=== PATIENT | male | born 1945 | race Caucasian/White ===

== ENCOUNTER 2023-08-11 13:03 | Inpatient (IN) ==
--- NOTE | 2023-08-11 13:18 | ED Triage Note ---
Date of Service August 11, 2023 History of Present Illness This patient was briefly evaluated while in triage. An abbreviated physical exam was performed. This patient is a 78-year-old Male who presents to the ED for evaluation of abnormal outpatient imaging. The patient saw his PCP this week due to back pain, incontinence, nausea and stomach discomfort. He has also had unexplained weight loss. He had an outpatient CT and MRI which showed cholecystitis, a colonic mass, and metastatic disease. Physical Exam VITALS: Vitals are noted on the nurse's note and reviewed by myself. GENERAL: This is an 78-year-old male, in no acute distress, sitting in a chair in triage. SKIN: The skin was without rashes. HEART: Regular rate and rhythm without murmurs gallops or rubs. LUNGS: Clear to auscultation bilaterally without wheezes, rales or rhonchi. ABDOMEN: Positive bowel sounds x 4. Soft, nontender to palpation. NEURO: Patient was alert and oriented to person place and time. Initial orders for labs and / or imaging were placed and patient was placed in the waiting area until a bed is available. Please see further documentation for the full ED course. MDM / Impression Impression Impression: Cecum mass, Calculus, ureteral, Acute cholecystitis
[2023-08-11 13:57] LABS: Appearance Urine Cloudy (Clear); Bacteria Urine Automated Negative (Negative); Blood Urine 3+ (Negative); Color Urine Dark Yellow; Epithelial Cell Urine Auto >30 /lpf (0-5); Glucose Urine UA Negative (Negative); Ketones Urine Negative (Negative); Leukocyte Esterase Urine Negative (Negative); Nitrite Urine Negative (Negative); Protein Urine 1+ (Negative); Urobilinogen Urine Negative (Negative)
[2023-08-11 14:01] LABS: Bilirubin Urine 1+ (Negative)
[2023-08-11 14:14] LABS: Basophils # (auto) 0.07 K/uL (0.00-0.20); Basophils % (auto) 0.5 %; Hematocrit (blood only) 45.7 % (42.0-52.0); Hemoglobin 15.2 g/dl (14.0-18.0); Immature Granulocytes # (auto) 0.48 K/uL (0.01-0.20); Immature Granulocytes % (auto) 3.6 %; Lymphocytes # (auto) 3.88 K/uL (1.20-3.40); Lymphocytes % (auto) 29.3 %; Mean Corpuscular Hemoglobin 28.6 pg (25.0-34.0); Mean Corpuscular Hgb Conc 33.3 g/dL (32.0-36.0); Mean Corpuscular Volume 85.9 fL (80.0-100.0); Mean Platelet Volume 10.2 fL (9.4-12.4); Monocytes # (auto) 1.55 K/uL (0.11-0.59); Monocytes % (auto) 11.7 %; Neutrophils # (auto) 7.28 K/uL (1.40-6.50); Neutrophils % (auto) 54.9 %; Platelet Count 299 K/uL (130-400); RDW Standard Deviation 48.7 fL (36.4-46.3); Red Blood Count 5.32 M/uL (4.70-6.10); White Blood Count 13.26 K/ul (4.8-10.8)
[2023-08-11 14:20] LABS: Albumin Globulin Ratio 0.9 (0.9-2); Albumin Level 3.6 gm/dl (3.4-5.0); BUN Creatinine Ratio 15.1 (10-20); Bilirubin,Total 1.6 mg/dl (0.2-1.0); Calcium 11.8 mg/dl (8.6-10.3); Creatinine Clr Calc Pharmacy 27.7 ml/min; Est GFR (African American) 35.7 ml/min; Est GFR (Non-African American) 30.8 ml/min; Globulin 4.2 gm/dl (2.5-4.0); Potassium 4.2 mmol/L (3.5-5.1); Total Protein 7.8 gm/dl (6.0-8.3)
[2023-08-11 14:20] LABS: Cast Urine Automated 0 /lpf (0-5)
[2023-08-11] MEDS ORDERED: PIPERACILLIN/TAZOBACTAM 4.5 GM/100 ML BAG IV ONE (14:36)
[2023-08-11] MEDS ORDERED: SODIUM CHLORIDE 0.9% 1,000 ML IV ONE (14:36)
--- NOTE | 2023-08-11 15:13 | Emergency Department Note ---
Impression & Plan Cecum mass, Calculus, ureteral, Acute cholecystitis ED Provider Note HISTORY OF PRESENT ILLNESS: Patient is an 78-year-old male presenting with weight loss. Patient went to his primary care provider because he has lost 35 pounds in the last 30 days. He is also having significant low back pain. His primary care provider did outpatient imaging and referred the patient to the ER given his multitude of problems. Patient denies any abdominal pain, nausea or vomiting. He reports that he has no appetite and the weight loss has been unintentional. Denies any dysuria or hematuria. Denies any chest pain or shortness of breath. Reports just feeling very rundown and tired and having no energy. Patient denies any bowel or bladder incontinence. ROS: as above PHYSICAL EXAM: Constitutional: Patient appears in no acute distress. HENT: Head: Normocephalic and atraumatic. Eyes: EOMI, PERRL Mouth/Throat: Mucous membranes moist. Neck: Trachea midline. Neck supple. Cardiovascular: RRR, No murmurs, rubs or gallops. Intact distal pulses. Pulmonary/Chest: No respiratory distress. Breath sounds clear and equal bilat erally. No wheezes or rales. Abdominal: Abdomen soft, no tenderness, rebound or guarding. Musculoskeletal: No edema, tenderness or deformity noted. Skin: Warm and dry. No rash, erythema, pallor or cyanosis Psychiatric: Appropriate mood and affect for situation. Neurological: Alert and keenly responsive. CN II-XII grossly intact, moving all extremities equally and fully. MDM: - Vitals signs stable. - History obtained via patient. Patient presents with unintentional weight loss. Patient was seen by his primary care provider for an unintentional weight loss of 35 pounds in the last 30 days. Also has been having significant low back pain. No bowel or bladder incontinence. No abdominal pain, nausea or vomiting. He has had no appetite. - Chronic conditions affecting care: CAD; HTN - Differential diagnoses include, but are not limited to: cancer; UTI; p neumonia; ACS - Order placed for continuous cardiac monitoring. At this time, monitor showed rate of 67 bpm with normal sinus rhythm, per my interpretation. - External medical records reviewed. Lumbar spine MRI scan obtained earlier today showed large malignant right cecal mass, compatible hepatic's osseous metastatic disease. CT abdomen/pelvis with IV contrast that was obtained earlier today showed cholelithiasis with evidence of acute cholecystitis. Noted to have a calcified stone in the cystic duct. Also noted to have a large mass in the cecum and diffuse hepatic metastatic disease. Noted to have a 10 mm calculus in the left UPJ with surrounding urothelial thickening. - EKG reviewed by myself showed normal sinus rhythm. Rate 76 bpm. QTc 576. No acute ischemic changes - Laboratory workup interpreted by myself showed leukocytosis (WBC 13.26) with left shift; slight hyponatremia (Na 132); elevated anion gap (19); CKD (Cr 1.99); hypercalcemia (Ca 11.8); normal lipase - UA negative for infection. Noted to have significant blood in urine. - Patient given IV zosyn for CT scan findings of acute cholecystitis. - Discussed case with Dr. Saunders with gastroenterology. Will see as consult in AM. - Discussed case with Dr. Khoury from general surgery. Agreed with antibiotics and will consult in AM. - Discussed case with Soraya with urology service. Team will see as consult on inpatient setting. - Discussion was had with social service worker about patient's case and need for admission - Hospitalist consulted for admission - Patient admitted to [facility] service for further evaluation and management. ASSESSMENT AND PLAN: Diagnosis: cecal mass; acute cholecystitis; left ureteral stone; new neoplastic process Plan: admit Past Med/Surg History Medical History CAD (coronary artery disease) Chronic back pain Cyst of pancreas Hypertension Kidney stones Myocardial Infarction Osteoarthritis Surgical History History of cardiac cath History of coronary artery bypass graft History of herniorrhaphy Family History (Updated 08/10/23 @ 12:38 by Sandie Renteria DO) Brother FHx: pancreatic cancer FHx: liver cancer Brother Prostate cancer Social History Smoking Status: Former smoker Second Hand Exposure: No; Do You Dip or Chew Tobacco: No; Hx Alcohol Use: No Hx Substance Use: No Preferred Language: Sinhala Communication Ability: Effective Visual Impairment: No Limitations 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 Beliefs That Will Affect Care: None Current Living Situation: Spouse Feels Safe at Home: Yes Assistive Devices: Glasses Allergies Allergies Allergy/AdvReac Type Severity Reaction Status Date / Time No Known Allergies Allergy Verified 08/10/23 11:59 Home Meds Home Medications Medication Instructions Recorded Confirmed aspirin 81 mg tablet,delayed 81 mg PO QAM 06/28/19 08/11/23 release (Kevin Low Dose Aspirin) metoprolol tartrate 25 mg tablet 25 mg PO QAM 06/28/19 08/11/23 donepezil 5 mg tablet 5 mg PO HS 08/10/23 08/11/23 rosuvastatin 5 mg tablet (Crestor) 5 mg PO DAILY 08/10/23 08/11/23 nitroglycerin 0.4 mg sublingual 0.4 mg sublingual UD PRN Chest Pain 08/11/23 08/11/23 tablet Previous Rx's Medication Instructions Recorded mirtazapine 15 mg tablet (Remeron) 15 mg PO .qhs #90 tabs 08/10/23 Results & Data (ED) Vital Signs Vital Signs - 24 hr 08/11/23 13:15 08/11/23 14:44 08/11/23 15:47 Temperature 35.4 C L Temperature Source Temporal Artery Scan Pulse Rate 89 Pulse Rate [Radial] 70 67 Pulse Rhythm [Radial] Regular Respiratory Rate 20 18 19 Respiratory Effort / Characteristics Non-Labored Spontaneous Non-Labored Non-Labored Respiratory Depth Normal Normal Normal Respiratory Pattern Regular Regular Blood Pressure 115/79 Blood Pressure [Right Arm] 131/78 113/67 Blood Pressure Mean 91 Blood Pressure Mean [Right Arm] 95 82 Blood Pressure Position [Right Arm] Lying Pulse Oximetry 96 96 94 Oxygen Delivery Method Room Air Room Air Room Air Sepsis Recent Fever Within 48 Hours No Sepsis New/Unexplained Change in Mental Status No Sepsis Action Taken by Nursing No Action Required Laboratory Data 08/11/23 13:33 08/11/23 13:33 Lab Results 08/11/23 08/11/23 08/11/23 Range/Units 13:32 13:33 13:33 WBC 13.26 H (4.8-10.8) K/ul RBC 5.32 (4.70-6.10) M/uL Hgb 15.2 (14.0-18.0) g/dl Hct 45.7 (42.0-52.0) % MCV 85.9 (80.0-100.0) fL MCH 28.6 (25.0-34.0) pg MCHC 33.3 (32.0-36.0) g/dL RDW Std Deviation 48.7 H (36.4-46.3) fL RDW Coeff of Geovanna 16.0 H (11.5-14.5) % Plt Count 299 (130-400) K/uL MPV 10.2 (9.4-12.4) fL Immature Gran % (Auto) 3.6 % Neut % (Auto) 54.9 % Lymph % (Auto) 29.3 % [place] % (Auto) 11.7 % Eos % (Auto) 0.0 % Baso % (Auto) 0.5 % Neut # (Auto) 7.28 H (1.40-6.50) K/uL Lymph # (Auto) 3.88 H (1.20-3.40) K/uL [place] # (Auto) 1.55 H (0.11-0.59) K/uL Eos # (Auto) 0.00 (0.00-0.50) K/uL Baso # (Auto) 0.07 (0.00-0.20) K/uL Immature Gran # (Auto) 0.48 H (0.01-0.20) K/uL Sodium 132 L (136-145) mmol/L Potassium 4.2 (3.5-5.1) mmol/L Chloride 97 L (98-107) mmol/L Carbon Dioxide 16 L (21-32) mmol/L Anion Gap 19 H (3-11) BUN 30 H (6-23) mg/dl Creatinine 1.99 H (0.6-1.4) mg/dl Est Cr Clr Drug Dosing 27.7 ml/min Est GFR ( Amer) 35.7 ml/min Est GFR (Non-Af Amer) 30.8 ml/min BUN/Creatinine Ratio 15.1 (10-20) Glucose 129 H (70-99(Fasting)) mg/dl Calcium 11.8 H (8.6-10.3) mg/dl Total Bilirubin 1.6 H (0.2-1.0) mg/dl AST 45 H (13-39) U/L ALT 14 (7-52) U/L Alkaline Phosphatase 133 H (34-104) U/L Total Protein 7.8 (6.0-8.3) gm/dl Albumin 3.6 (3.4-5.0) gm/dl Globulin 4.2 H (2.5-4.0) gm/dl Albumin/Globulin Ratio 0.9 (0.9-2) Lipase 53 (11-82) U/L Urine Color Dark Yellow Urine Appearance Cloudy A (Clear) Urine pH 5.0 (4.5-7.5) Ur Specific Warren 1.030 (1.000-1.030) Urine Protein 1+ H (Negative) Urine Glucose (UA) Negative (Negative) Urine Ketones Negative (Negative) Urine Blood 3+ H (Negative) Urine Nitrite Negative (Negative) Urine Bilirubin 1+ H (Negative) Urine Urobilinogen Negative (Negative) Ur Leukocyte Esterase Negative (Negative) Urine WBC (Auto) 5-10 H (0-5) /hpf Urine RBC (Auto) 10-30 H (0-4) /hpf U Hyaline Cast (Auto) 0 (0-5) /lpf U Epithel Cells (Auto) >30 H (0-5) /lpf Urine Bacteria (Auto) Negative (Negative) Administered Medications Discontinued Medications Sodium Chloride (Nss) 1,000 mls @ 999 mls/hr IV .[id number] ONE Stop: 08/11/23 15:36 Last Admin: 08/11/23 15:21 Dose: 999 mls/hr Documented By: LILIAN Piperacillin Sod/Tazobactam Sod (Zosyn) 4.5 gm in 100 mls @ 200 mls/hr IV NOW ONE Stop: 08/11/23 15:05 Last Admin: 08/11/23 15:21 Dose: 200 mls/hr Documented By: LILIAN Discharge Plan Visit Data Chief Complaint: Abnormal Labs/Diagnostic Testing Stated Complaint: ABNORMAL TEST RESULTS ED Provider: Veronica Granados Discharge Problem: Cecum mass, Calculus, ureteral, Acute cholecystitis Forms Stand Alone Forms: [facility] Prescriptions Prescriptions: No Action rosuvastatin [Crestor] 5 mg tablet 5 mg PO DAILY donepezil 5 mg tablet 5 mg PO HS mirtazapine [Remeron] 15 mg tablet 15 mg PO .qhs Qty: 90 0RF aspirin [Kevin Low Dose Aspirin] 81 mg Tablet,Delayed Release (Dr/Ec) 81 mg PO QAM metoprolol tartrate 25 mg Tablet 25 mg PO QAM nitroglycerin 0.4 mg tablet, sublingual 0.4 mg sublingual UD PRN (Reason: Chest Pain) Referrals Referrals: Sandie Renteria DO [Primary Care Provider] -
[2023-08-11] MEDS ORDERED: LACTATED RINGER'S 1,000 ML IV ONE (16:25)
--- NOTE | 2023-08-11 16:34 | History & Physical Report ---
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 -Patient is without abdominal discomfort, has had loose stool over the past few week per family but denies diarrhea -No sign of obstruction on CT, patient had a bowel movement this am and is passing gas -GI has been consulted as he will need colonoscopy for biopsy and diagnosis -Will see if GI would want bowel prep started tonight -No signs of bleeding, Hgb has been stable -Will obtain Chest xray for further evaluation -Will hold chemical DVT PPX with multiple procedures likely in the next few days; BL VANITA's for now -Clear liquid diet until midnight then NPO; will start maintenance fluids while NPO -AM CBC, CMP, Mag, PT/INR (2) High anion gap metabolic acidosis: Plan: -AG elevated at 19 with bicarb of 16 -Lactate ordered on admission is elevated at 8.9 -Likely due to dehydration and infection -Patient is very stable and non-toxic appearing at the time of admission -S/P 1L NSS and a dose of Zosyn in the ED -Will give another 1.5L LR on admission to complete his sepsis bolus -Continue maintenance fluids overnight and trend lactate -Continue Zosyn for possible infections, follow infectious workup (3) Acute cholecystitis: Plan: -Ct of the abd/pelvis notes Cholelithiasis with evidence of acute cholecystitis. A calcified stone is seen in the cystic duct -Patient is without abdominal discomfort, negative acosta's sign, no recent nausea/vomiting, and is not septic -LFT's are mildly elevated but relatively stable at this time -General surgery has been consulted and has no urgent plans for OR tonight -Will likely need to coordinate procedures with GI and Urology -Patient is S/P 1L NSS in the ED, will give 1.5 L LR on admission to complete his sepsis bolus based on ideal body weight -S/P one dose of Zosyn in the ED, will continue with zosyn for now -Follow blood and urine cultures -NPO at midnight (4) Calculus, ureteral: Plan: -Noted to have a 10 mm stone at the left ureteropelvic junction with surrounding urothelial thickening. -Patient denies urinary symptoms, renal function is stable, able to void without issue, UA is not grossly infected -Urology has been consulted and is following, appreciate their help -No urgent OR plans tonight as he is stable and relatively asymptomatic -They will see tomorrow and coordinate stent placement -NPO at midnight -Will continue zosyn to cover for possible infected stone and cholecystitis (5) Back pain: Plan: -Has been progressive over the past few months -MRI of the lumbar spine shows extensive osseous metastases without signs of epidural involvement -Also noted Disc protrusion versus sequestered disc fragment at L5-S1 abuts and posteriorly displaces the right S1 nerve root. -No red flag symptoms, pain is currently controlled -PRN IV morphine for now -Fall precautions (6) Elevated INR: Plan: -INR elevated at 2.0 today -Is not on systemic anticoagulation -Likely due to his known hepatic metastases -No signs of bleeding -Will give 10 m IV Vitamin K now in preparation for likely procedures tomorrow -Follow am vitamin K (7) Metastasis of unknown primary: Plan: -Noted on MRI of the lumbar spine and CT of the abd/pelvis today -High suspicion for the large cecal mass as the primary source, will need biopsy to confirm -Coordinating with GI to setup colonoscopy for biopsy, follow results -Will need to get oncology on board after primary malignancy is identified (8) Elevated LFTs: Plan: -Total bili at 1.6, AST of 45, alk phos of 133, ALT WNL -Likely due to hepatic metastases and known cystic duct stone with possible cholecystitis -Hold statin, continue to trend CMP daily -General Surgery and GI have been consulted and are following (9) Dementia: Plan: -Continue Aricept and HS Remeron -Fall precautions (10) Hypertension: Plan: -Stable -Hold metoprolol for now to prevent hypotension (11) CAD (coronary artery disease): Plan: -S/P CABG in the -Hold aspirin for now with elevated INR and multiple procedures likely in the next few days -Hold Crestor while NPO Plan The patient was discussed with Dr. Thompson at the time of the admission History of Present Illness Chief Complaint: abnormal outpatient imaging Primary Care Provider: DO Jose Tabares is an 78 year old male with a PMH significant for CAD S/P in the 90's, stage 3 CKD, and dementia who presented to the [facility] ED on 08/11 at the recommendation of his PCP for abnormal outpatient MRI of the lumbar spine and CT of the abd/pelvis results. Per chart review, the patient went to his PCP on 08/09 due to back pain and recent 35 pound weight loss. MRI of the lumbar spine w/wo con showed signs concerning for lymphatic and hepatic metastases, as-well-as diffuse osseous metastatic disease. It also noted a partially visualized large cecal mass. He was noted to have Disc protrusion versus sequestered disc fragment at L5-S1 abuts and posteriorly displaces the right S1 nerve root. CT of the abd/pelvis wo con was read as "1. Cholelithiasis with evidence of acute cholecystitis. A calcified stone is seen in the cystic duct. Surgical evaluation is advised. 2. There is a large mass lesion involving the cecum. Additionally, there is evidence of diffuse/multifocal hepatic metastatic disease, as well as pathological upper abdominal, retroperitoneal, and mesenteric lymphadenopathy. Top differential considerations are lymphoma versus metastatic colon cancer. Lymphoma is favored given the distribution. Follow-up oncology will be required. 3. Evaluation for nephrolithiasis is significant degraded by the presence of excreted IV contrast in the renal collecting systems and ureters. A 10 mm calculus is seen at the left ureteropelvic junction with surrounding urothelial thickening. No hydronephrosis is identified. 4. Additional smaller nonobstructing bilateral renal calculi are suspected but difficult to evaluate. 5. Emphysema and trace right pleural effusion. 6. Colonic diverticulosis without CT evidence of acute diverticulitis. 7. Diffuse osseous metastatic disease was much better appreciated on today's MRI.". The patient remained stable while in the ED. Labs were significant for a leukocytosis of 13, stable renal function, sodium of 132, AG of 19 with bicarb of 16, glucose of 129, calcium of 11.8 total bili of 1.6, AST of 45, AlK phos of 133, and UA equivocal for infection. The ED staff states that they spoke with General Surgery, Urology, and GI who all confirmed they are comfortable keeping the patient here with medicine admitting. Prior to admission the patient was given a dose of zosyn and 1L NSS. At the time of the exam the patient was lying in bed in no acute distress with his daughter and sitting bedside; history was obtained from all. The patient has been experiencing progressive low back pain which runs transversely across the entire low back and approximately a 35 pound weight loss over the past month. They have also noted loose stool over the past 1-2 weeks but denies blood stool or melena. Otherwise the patient has been virtually asymptomatic compared to the extensive findings on imaging today. They saw Dr. Renteria on 08/09 to establish care and for his recent symptoms and she ordered the MRI and CT of the abd/pelvis. She was the one who called them with the results and to tell them to go to the ED. He denies recent fever, chills, chest pain, SOB, cough, abd pain, flank pain, nausea, vomiting, dysuria, hematuria, increased urinary frequency, LE pain/swelling, and recent trauma. We had a long discussion regarding code status. At this time the patient and his family want him to be a conditional code. He would not want CPR or defibrillation in the event of cardiac arrest. In the event of respiratory failure they would want a trial of intubation. Please refer to Dr. Thompson's attestation for any changes to the treatment plan Allergies Allergy/AdvReac Type Severity Reaction Status Date / Time No Known Allergies Allergy Verified 08/10/23 11:59 Home Medications Medication Instructions Recorded Confirmed Type aspirin 81 mg tablet,delayed 81 mg PO QAM 06/28/19 08/11/23 History release (Kevin Low Dose Aspirin) metoprolol tartrate 25 mg tablet 25 mg PO QAM 06/28/19 08/11/23 History donepezil 5 mg tablet 5 mg PO HS 08/10/23 08/11/23 History mirtazapine 15 mg tablet (Remeron) 15 mg PO .qhs #90 tabs 08/10/23 08/11/23 Rx rosuvastatin 5 mg tablet (Crestor) 5 mg PO DAILY 08/10/23 08/11/23 History nitroglycerin 0.4 mg sublingual 0.4 mg sublingual UD PRN Chest Pain 08/11/23 08/11/23 History tablet Past Med/Surg History Medical History (Updated 08/12/23 @ 07:18 by Buck Durbin MD) CAD (coronary artery disease) s/p stent x 1 (), CABG x2 (2004) Chronic back pain Cyst of pancreas reason for upcoming procedure Hypertension Kidney stones Myocardial Infarction multiple, most recent 2004 Osteoarthritis Surgical History History of cardiac cath 1979's= stent x 1 History of coronary artery bypass graft CABG x2 (2004) History of herniorrhaphy INGUINAL HERNIA REPAIR Family History (Updated 08/10/23 @ 12:38 by Sandie Renteria DO) Brother FHx: pancreatic cancer FHx: liver cancer Brother Prostate cancer Social History Smoking Status: Former smoker Second Hand Exposure: No; Do You Dip or Chew Tobacco: No; Hx Alcohol Use: No Hx Substance Use: No Preferred Language: Gu[place]ian Communication Ability: Effective Visual Impairment: No Limitations Tower Air Traffic Control Specialist Required: No Beliefs That Will Affect Care: None Current Living Situation: Spouse Feels Safe at Home: Yes Safety Concerns: Feels Safe At This Time Assistive Devices: Glasses Physical Exam Physical Exam: Physical Exam: General: In no acute distress, stated age, well-nourished, good hygiene, non- toxic appearing HEENT: Normocephalic, atraumatic, no scleral icterus, pupils around round, symmetrical, and reactive to light, dry mucus membranes, trachea midline, no thyromegaly Chest/Pulm: No respiratory distress, symmetrical chest expansion, clear breath sounds throughout Cardiac: RRR, no murmurs noted Abdomen: Negative for ascites and bruising, normoactive bowel sounds, soft, non-tender to palpation throughout, negative Acosta's sign Musculoskeletal: Symmetrical and without signs of acute trauma, upper and lower extremities with full ROM, no atrophy, spasticity, or flaccidity, tenderness to palpation over the lubar spine and lumbar paraspinal muscles without crepitus Extremities: Radial, dorsalis pedis, and posterior tibial pulses are intact and symmetrical, no edema noted in the BL LE's Skin: Warm, dry, no rashes , lesions, or scars noted Neuro: Alert and oriented to person, place, month, year, and president, no focal defects, no tremors noted Psych: No acute distress, calm and cooperative during the exam Results & Data Results & Data Vital Signs (Past 12 Hours) Vital Signs Temp Pulse Pulse Resp BP BP Pulse Ox 08/11/23 15:47 67 19 113/67 94 08/11/23 14:44 70 18 131/78 96 08/11/23 13:15 35.4 C L 89 20 115/79 96 O2 Del Method 08/11/23 15:47 Room Air 08/11/23 14:44 Room Air 08/11/23 13:15 Room Air Laboratory Results Abnormal lab results 08/11/23 08/11/23 08/11/23 Range/Units 13:30 13:30 13:32 WBC (4.8-10.8) K/ul RDW Std Deviation (36.4-46.3) fL RDW Coeff of Geovanna (11.5-14.5) % Neut # (Auto) (1.40-6.50) K/uL Lymph # (Auto) (1.20-3.40) K/uL [place] # (Auto) (0.11-0.59) K/uL Immature Gran # (Auto) (0.01-0.20) K/uL PT 22.4 H (9.0-12.0) Seconds INR 2.1 H (0.9-1.1) APTT 38.2 H (21.0-31.0) Seconds Sodium (136-145) mmol/L Chloride (98-107) mmol/L Carbon Dioxide (21-32) mmol/L Anion Gap (3-11) BUN (6-23) mg/dl Creatinine (0.6-1.4) mg/dl Glucose (70-99(Fasting)) mg/dl Calcium (8.6-10.3) mg/dl Total Bilirubin (0.2-1.0) mg/dl AST (13-39) U/L Alkaline Phosphatase (34-104) U/L Globulin (2.5-4.0) gm/dl Procalcitonin 0.91 H (0-0.5) ng/ml Urine Appearance Cloudy A (Clear) Urine Protein 1+ H (Negative) Urine Blood 3+ H (Negative) Urine Bilirubin 1+ H (Negative) Urine WBC (Auto) 5-10 H (0-5) /hpf Urine RBC (Auto) 10-30 H (0-4) /hpf U Epithel Cells (Auto) >30 H (0-5) /lpf 08/11/23 08/11/23 Range/Units 13:33 13:33 WBC 13.26 H (4.8-10.8) K/ul RDW Std Deviation 48.7 H (36.4-46.3) fL RDW Coeff of Geovanna 16.0 H (11.5-14.5) % Neut # (Auto) 7.28 H (1.40-6.50) K/uL Lymph # (Auto) 3.88 H (1.20-3.40) K/uL [place] # (Auto) 1.55 H (0.11-0.59) K/uL Immature Gran # (Auto) 0.48 H (0.01-0.20) K/uL PT (9.0-12.0) Seconds INR (0.9-1.1) APTT (21.0-31.0) Seconds Sodium 132 L (136-145) mmol/L Chloride 97 L (98-107) mmol/L Carbon Dioxide 16 L (21-32) mmol/L Anion Gap 19 H (3-11) BUN 30 H (6-23) mg/dl Creatinine 1.99 H (0.6-1.4) mg/dl Glucose 129 H (70-99(Fasting)) mg/dl Calcium 11.8 H (8.6-10.3) mg/dl Total Bilirubin 1.6 H (0.2-1.0) mg/dl AST 45 H (13-39) U/L Alkaline Phosphatase 133 H (34-104) U/L Globulin 4.2 H (2.5-4.0) gm/dl Procalcitonin (0-0.5) ng/ml Urine Appearance (Clear) Urine Protein (Negative) Urine Blood (Negative) Urine Bilirubin (Negative) Urine WBC (Auto) (0-5) /hpf Urine RBC (Auto) (0-4) /hpf U Epithel Cells (Auto) (0-5) /lpf Diagnostic Findings CT SCAN OF THE ABDOMEN AND PELVIS WITHOUT IV CONTRAST CLINICAL HISTORY: Low back pain. Nephrolithiasis. COMPARISON STUDY: MRI of the lumbar spine performed the same day 08/11/2023. TECHNIQUE: CT scan of the abdomen and pelvis is performed from the lung bases to the proximal femora. Images are reviewed in the axial, sagittal, and coronal planes. IV contrast was not administered for this examination. A dose lowering technique was utilized adhering to the principles of ALARA. CT DOSE: 664.79 mGy.cm FINDINGS: Lung bases: The patient is status post midline sternotomy. The heart is top normal in size and without pericardial effusion. The coronary arteries are densely calcified. Edematous change is observed. There is trace right pleural effusion. Scarring/atelectasis is noted at the lung bases. No airspace consolidation is seen typical for pneumonia. Liver: The unenhanced liver is heterogeneous attenuation. There is hypertrophy of the left lobe. Mild nodularity of the surface contour suggests morphologic changes of cirrhosis. There is no intrahepatic biliary ductal dilatation. There is evidence of multifocal hepatic metastatic disease with greater than 10 lesions identified. A hardware supplies sales representative left lobe lesion seen on image #54 measures up to 3.1 cm. Gallbladder: The gallbladder is distended and contains numerous gallstones. A gallstone is seen in the cystic duct on axial image #91. There is pericholecystic infiltration. Spleen: Normal in size and attenuation, measuring 11.2 cm in length. Pancreas: The unenhanced pancreas is grossly unremarkable. Adrenal glands: Unremarkable. Kidneys: The unenhanced kidneys the lungs are cortical atrophy and are without hydronephrosis. A 10 mm calculus is suggested at the left ureteropelvic junction on axial image #149. There is surrounding urothelial thickening. Additional smaller renal calculi are suspected bilaterally. This is difficult to assess due to the presence of excreted IV contrast within the renal collecting systems. There is no evidence of ureteral stone. Simple and complex/hyperdense renal cysts measure up to 2.4 cm. A circumaortic left renal vein is incidentally noted. Abdominal vasculature: There is moderate to advanced atherosclerotic calcification and ectasia of the abdominal aorta. Bowel: There is moderate colonic diverticulosis without CT evidence of acute diverticulitis. No bowel obstruction is seen. The appendix is not visualized. There is a large mass lesion involving the cecum with surrounding lymphadenopathy. The mass lesion is best seen on axial image 181 and measures approximately 11 x 6.5 cm. Peritoneum: There is no intraperitoneal free air or abdominal ascites. Lymphadenopathy: There is pathologic upper abdominal, retroperitoneal, and mesenteric lymphadenopathy. A gastrohepatic node on image #67 measures 1.8 x 1.5 cm. A precaval node on image #111 measures 2.1 x 1.7 cm. A kirit aggregate in the hepatic hilum on image #86 measures approximately 6 x 4 cm in aggregate dimension. A mesenteric kirit aggregate in the right lower quadrant on image #144 measures approximately 6 x 5 cm in aggregate dimension. An enlarged right cardiophrenic node on image #42 measures 1.7 x 1.1 cm. There is no pelvic sidewall or inguinal lymphadenopathy. Pelvic viscera: The prostate gland is enlarged and heterogeneous. The bladder wall appears mildly thickened/trabeculated indicating chronic outlet obstruction. The bladder contains excreted IV contrast. There are bilateral fat- containing inguinal hernias. Skeletal structures: The skeletal structures are osteopenic. There is mild to moderate lumbosacral spondylosis. Diffuse osseous metastatic disease was better visualized on the lumbar spine MRI performed the same day. The lesions were not clearly visualized on CT. IMPRESSION: 1. Cholelithiasis with evidence of acute cholecystitis. A calcified stone is seen in the cystic duct. Surgical evaluation is advised. 2. There is a large mass lesion involving the cecum. Additionally, there is evidence of diffuse/multifocal hepatic metastatic disease, as well as pathological upper abdominal, retroperitoneal, and mesenteric lymphadenopathy. Top differential considerations are lymphoma versus metastatic colon cancer. Lymphoma is favored given the distribution. Follow-up oncology will be required. 3. Evaluation for nephrolithiasis is significant degraded by the presence of excreted IV contrast in the renal collecting systems and ureters. A 10 mm calculus is seen at the left ureteropelvic junction with surrounding urothelial thickening. No hydronephrosis is identified. 4. Additional smaller nonobstructing bilateral renal calculi are suspected but difficult to evaluate. 5. Emphysema and trace right pleural effusion. 6. Colonic diverticulosis without CT evidence of acute diverticulitis. 7. Diffuse osseous metastatic disease was much better appreciated on today's MRI. 8. Additional findings as above. ACT 112: Positive. There are findings on this exam that require communication between the performing entity and the patient following Patient Test Result Information Act ([place] Act 112) guidelines. Electronically signed by: Harsha Cabrera M.D. 08/11/2023 11:11 AM Dictated:08/11/23 1055 Transcribed: 08/11/23 1108 MR lumbar spine wo/w con CLINICAL HISTORY: 78 years-old Male with M54.50 - Low back pain, unspecified. Acute low back pain without reported trauma. COMPARISON: Lumbar spine radiographs 08/10/2023. TECHNIQUE: Multiplanar, multi sequence MRI of the lumbar spine was performed without intravenous contrast. FINDINGS: There is prominent mass-like thickening noted within the cecum/ascending colon. Scattered hepatic lesion is suggestive of metastasis measure up to approximately 2.1 cm. Probable left renal cyst, 2.2 cm. There are numerous marrow replacing lesions noted throughout the imaged osseous structures, compatible with metastasis demonstrating decreased T1 signal, increased T2/STIR signal and heterogeneous enhancement. No definite acute pathologic fracture is identified. Periportal lymphadenopathy. T12-L1: Mild facet arthrosis. No central canal or neural foraminal stenosis. L1-L2: Mild intervertebral disc space narrowing with small circumferential annular disc bulge, mild spondylitic spurring with [id number] facet arthrosis. No central canal or foraminal narrowing. L2-L3: Moderate intervertebral disc space narrowing with circumferential disc osteophyte complex and moderate facet arthrosis. The central canal and right neural foramen are patent. Mild left foraminal narrowing. L3-L4: Severe intervertebral disc space narrowing with circumferential disc osteophyte complex. Ligamentum flavum thickening with advanced facet arthrosis. The central canal and left neural foramen are patent. Moderate narrowing of the right lateral recess. [id number] right foraminal narrowing. L4-L5: Mild intervertebral disc space narrowing with spondylotic spurring and small circumferential annular disc bulge. Moderate facet arthrosis. Central canal is patent. Vdzs-se-qizxibch bilateral foraminal narrowing. L5-S1: Moderate intervertebral disc space narrowing with spondylotic spurring and circumferential disc osteophyte complex. There is a focal disc protrusion versus sequestered disc fragment measuring 8 x 7 x 8 mm within the right paracentral distribution with abutment and posterior displacement of the right S1 nerve root. Moderate narrowing of the right lateral recess. The central canal is generally patent. Moderate right with [id number] left foraminal narrowing. IMPRESSION: 1. Partially imaged large malignant right cecal mass is better visualized on the CT abdomen and pelvis study of same day. 2. Lymphatic and hepatic with diffuse osseous metastatic disease. 3. No acute pathologic fracture or large epidural tumor is identified. 4. Disc protrusion versus sequestered disc fragment at L5-S1 abuts and posteriorly displaces the right S1 nerve root. 5. Discogenic degeneration and facet arthrosis as above. ACT 112: Negative or not required by law. The above report was generated using voice recognition software. It may contain grammatical, syntax or spelling errors. Dictated: 08/11/2023 9:53 AM Transcribed: 08/11/2023 10:59 AM Regino [id number] [email or web address] Electronically signed by: Rodrigo Conte M.D. 08/11/2023 11:38 AM Dictated:08/11/23 0953 Transcribed: 08/11/23 1059 ECG Additional Comments: Normal sinus rhythm Possible Left atrial enlargement Left axis deviation Left ventricular hypertrophy ( R in aVL , [place] product ) Inferior infarct (cited on or before 29-JUN-2019) Prolonged QT Abnormal ECG When compared with ECG of 29-JUN-2019 08:12, Significant changes have occurred Code Status & VTE Plan Code Status Conditional; No CPR or defibrillation in the event of cardiac arrest. Would want trial of intubation in the event of respiratory failure VTE Prophylaxis Plan VTE Prophylaxis will be ordered: Yes Supervising Physician Co-Signing Physician Notes I personally saw and examined the patient. I verified all alves points and agree with Raheel Stewart PA-C with the following exceptions and/or additions: 78 year old male presents to the ER with progressive low back pain and weight loss. Outpatient CT concerning for metastatic disease with possible cecal primary. O/E Alert and orientated intermittently, HS RRR, no murmurs, Chest CTAB, Abdo SN, no distension, bowel sounds normal, no edema, no CVA tenderness A/P Cecal mass with metastatic disease - CEA with AM labs, consult GI to consider colonoscopy (I have a low suspicion of true infection and suggestive moving forward with colonoscopy for diagnosis of mass as long as INR corrected), consult oncology Elevated INR - unclear if this is due to decreased liver function given his platelets are unremarkable, Vitamin K 10mg IV to reverse and vitamin deficiency, repeat INR with AM labs Thickening of gall bladder wall - effectively an imaging finding - he is not having pain here, LFTs relatively unremarkable especially with mass involvement of his liver, cover with Zosyn pending blood culture results, consult general surgery but would advise against intervention unless LFTs getting worse or suspected source of infection if blood cultures subsequently positive. Low suspicion of acute cholecystitis unless he starts having RUQ pain. Ureterolithiasis - consult urology, does not appear to be having pain from this. UA not suggestive of infection. Unclear if affecting him acutely. Possible an incidental finding although history was having some low back pain Lactic acidosis, anion gap metabolic acidosis - suspect reduced clearance but will treat as sepsis with bolus of fluids. suspect lactate is pure cause of his anion gap metabolic acidosis therefore does not require sodium bicarb currently unless getting worse overnight Hypercalcemia - repeat with AM labs after hydration, will switch LR to Normosol overnight PG Care Time/CCT Total # of Minutes Spent Total Time Spent with Patient: Total time spent is greater than 50% in coordination of care (as documented) at patient's floor/unit and/or counseling patient: [place] [address] INT INP/OBS CARE 3/75MIN Patient Type New Medical Decision Making High Complexity Diagnoses Cecum mass K63.89 High anion gap metabolic acidosis E87.29 Acute cholecystitis K81.0 Calculus, ureteral N20.1 Back pain M54.9 Elevated INR R79.1 Metastasis of unknown primary C79.9 Elevated LFTs R79.89 Dementia F03.90 Hypertension I10 CAD (coronary artery disease) I25.10
[2023-08-11 16:49] LABS: Phosphorus 4.3 mg/dl (2.5-4.9)
[2023-08-11 16:50] LABS: INR 2.1 (0.9-1.1); Partial Thromboplastin Ratio 1.4; Partial Thromboplastin Time 38.2 Seconds (21.0-31.0); Prothrombin Time 22.4 Seconds (9.0-12.0)
[2023-08-11] MEDS ORDERED: MoRPHine SULFATE 2 MG/ML CARP IV PRN (17:13)
[2023-08-11] MEDS ORDERED: LACTATED RINGER'S 500 ML IV ONE (17:25)
--- NOTE | 2023-08-11 17:57 | XRay Report ---
SINGLE VIEW CHEST CLINICAL HISTORY: Sepsis. FINDINGS: An AP, portable, upright chest radiograph is obtained. No prior studies are available for c omparison at the time of dictation. The patient is status post midline sternotomy. The heart is enlar ged noting atherosclerotic calcification of the thoracic aorta. Pulmonary vasculature is noncongested . There are trace pleural effusions. Emphysematous change is noted. There is bibasilar scarring/atele ctasis. No pneumothorax is seen. The skeletal structures are osteopenic. The bony thorax is grossly i ntact. IMPRESSION: 1. Cardiomegaly and emphysema without radiographic evidence of congestive failure. 2. Small pleural effusions. ACT 112: Negative or not required by law. Electronically signed by: Harsha Cabrera M.D. 08/11/2023 5:56 PM
[2023-08-11] MEDS ORDERED: PHYTONADIONE 10 MG in DEXTROSE 5% 50 ML IV ONE (18:03)
[2023-08-11] MEDS ORDERED: TAMSULOSIN HCL 0.4 MG CAP PO ONE (18:06)
[2023-08-11] MEDS: DONEPEZIL HCL 5 MG TAB PO SCH (19:39)
[2023-08-11] MEDS: MIRTAZAPINE TAB 15 MG TAB PO SCH (19:39)
--- NOTE | 2023-08-11 19:43 | Surgery Consultation ---
Date of Consultation August 11, 2023 Assessment & Plan (1) Acute cholecystitis: Assessment: Patient is a 78 years old gentleman who presented with the back pain 35 pounds of weight loss. Patient had a CT scan MRI scan show-1, a large cecal mass size about 11 cm time 6.5 cm, no bowel obstruction.2, hepatic metastatic disease,3. gallstone with acute cholecystitis. 4, Possible bone metastatic disease.5, 10 mm stone at ureteropelvic junction. plan, based on pt has no abdominal pain. no surgical indication for cholecystectomy now. GI consult for colonoscopy biopsy cecal mass, repeat labs in the morning, if (T) bilirubin go up, may need ERCP. conservative treatment, based on metastatic disease, prognosis is poor. pt understood. I answered all questions. History of Present Illness Reason for Consultation: cholecystitis Requesting Physician: Roberta Attending Physician: Christoph Thompson MD History of Present Illness CC: CT finding- cholecystitis HPI: Patient is a 78 years old gentleman with a significant past medical history coronary artery disease, CABG x2, myocardial infarction, hypertension, dementia, ureter stone, patient saw his PCP on August 09, 2023, due to back pain and 35 pounds weight loss recent. Patient had a MRI for the back and CT scan abdomen-function patient had 1, a large cecal mass size about 11 cm time 6.5 cm, no bowel obstruction.2, hepatic metastatic disease,3. gallstone with acute cholecystitis. 4, Possible bone metastatic disease.5, 10 mm stone at ureteropelvic junction. Patient was recommended to come to the ER. Patient lie down on the bed comfortable. Patient denies any abdominal pain, no nausea, no vomiting, no fever or chills, positive BM every day. Allergies Allergy/AdvReac Type Severity Reaction Status Date / Time No Known Allergies Allergy Verified 08/10/23 11:59 Home Medications Medication Instructions Recorded Confirmed Type aspirin 81 mg tablet,delayed 81 mg PO QAM 06/28/19 08/11/23 History release (Kevin Low Dose Aspirin) metoprolol tartrate 25 mg tablet 25 mg PO QAM 06/28/19 08/11/23 History donepezil 5 mg tablet 5 mg PO HS 08/10/23 08/11/23 History mirtazapine 15 mg tablet (Remeron) 15 mg PO .qhs #90 tabs 08/10/23 08/11/23 Rx rosuvastatin 5 mg tablet (Crestor) 5 mg PO DAILY 08/10/23 08/11/23 History nitroglycerin 0.4 mg sublingual 0.4 mg sublingual UD PRN Chest Pain 08/11/23 08/11/23 History tablet Patient History Medical History (Updated 08/11/23 @ 17:44 by Raheel Stewart PA-C) CAD (coronary artery disease) s/p stent x 1 (), CABG x2 (2004) Chronic back pain Cyst of pancreas reason for upcoming procedure Hypertension Kidney stones Myocardial Infarction multiple, most recent 2004 Osteoarthritis Surgical History History of cardiac cath = stent x 1 History of coronary artery bypass graft CABG x2 (2004) History of herniorrhaphy INGUINAL HERNIA REPAIR Family History (Updated 08/10/23 @ 12:38 by Sandie Renteria DO) Brother FHx: pancreatic cancer FHx: liver cancer Brother Prostate cancer Social History Smoking Status: Former smoker Second Hand Exposure: No; Do You Dip or Chew Tobacco: No; Hx Alcohol Use: No Hx Substance Use: No Preferred Language: Palauan Communication Ability: Effective Visual Impairment: No Limitations Continuous Improvement Manager Required: No Beliefs That Will Affect Care: None Current Living Situation: Spouse Feels Safe at Home: Yes Safety Concerns: Feels Safe At This Time Assistive Devices: Glasses Review of Systems Constitutional: as per Subjective / HPI Eyes: as per Subjective / HPI Respiratory: as per Subjective / HPI Cardiovascular: as per Subjective / HPI Additional Comments: HTN, CABG x2, NC, cardiac stent Gastrointestinal: as per Subjective / HPI Genitourinary: + problem reported (kidney stone) Musculoskeletal: back pain Neurologic: as per Subjective / HPI Dementia Psychiatric: as per Subjective / HPI Endocrine: as per Subjective / HPI Hematologic / Lymphatic: as per Subjective / HPI Physical Exam Constitutional: WD/WN, vitals as above No distress Eyes: PERRL, conjunctivae normal, anicteric sclerae Neck: trachea midline, no thyromegaly Respiratory: normal respiratory effort, lungs clear to auscultation Cardiovascular: RRR, no murmur, no edema Gastrointestinal (Abdomen): soft, no tenderness, no distend, BS +. Neurologic: patellar DTR's 2+ bilat, sensation intact Psychiatric: A+Ox3, euthymic affect Results & Data Vital Signs (Past 12 Hours) Vital Signs Temp Pulse Pulse Resp BP BP Pulse Ox 08/11/23 18:52 36.7 C 66 18 117/69 95 08/11/23 18:29 89 18 123/82 95 08/11/23 15:47 67 19 113/67 94 08/11/23 14:44 70 18 131/78 96 08/11/23 13:15 35.4 C L 89 20 115/79 96 O2 Del Method 08/11/23 18:52 Room Air 08/11/23 18:29 Room Air 08/11/23 15:47 Room Air 08/11/23 14:44 Room Air 08/11/23 13:15 Room Air Laboratory Results Lab Results 08/11/23 08/11/23 08/11/23 Range/Units 13:30 13:30 13:32 WBC (4.8-10.8) K/ul RBC (4.70-6.10) M/uL Hgb (14.0-18.0) g/dl Hct (42.0-52.0) % MCV (80.0-100.0) fL MCH (25.0-34.0) pg MCHC (32.0-36.0) g/dL RDW Std Deviation (36.4-46.3) fL RDW Coeff of Geovanna (11.5-14.5) % Plt Count (130-400) K/uL MPV (9.4-12.4) fL Immature Gran % (Auto) % Neut % (Auto) % Lymph % (Auto) % [place] % (Auto) % Eos % (Auto) % Baso % (Auto) % Neut # (Auto) (1.40-6.50) K/uL Lymph # (Auto) (1.20-3.40) K/uL [place] # (Auto) (0.11-0.59) K/uL Eos # (Auto) (0.00-0.50) K/uL Baso # (Auto) (0.00-0.20) K/uL Immature Gran # (Auto) (0.01-0.20) K/uL PT 22.4 H (9.0-12.0) Seconds INR 2.1 H (0.9-1.1) APTT 38.2 H (21.0-31.0) Seconds PTT Ratio 1.4 Sodium (136-145) mmol/L Potassium (3.5-5.1) mmol/L Chloride (98-107) mmol/L Carbon Dioxide (21-32) mmol/L Anion Gap (3-11) BUN (6-23) mg/dl Creatinine (0.6-1.4) mg/dl Est Cr Clr Drug Dosing ml/min Est GFR ( Amer) ml/min Est GFR (Non-Af Amer) ml/min BUN/Creatinine Ratio (10-20) Glucose (70-99(Fasting)) mg/dl Lactate (0.4-2.0) mmol/L Calcium (8.6-10.3) mg/dl Ionized Calcium (1.12-1.32) mmol/L Phosphorus (2.5-4.9) mg/dl Magnesium (1.7-2.4) mg/dl Total Bilirubin (0.2-1.0) mg/dl AST (13-39) U/L ALT (7-52) U/L Alkaline Phosphatase (34-104) U/L Total Protein (6.0-8.3) gm/dl Albumin (3.4-5.0) gm/dl Globulin (2.5-4.0) gm/dl Albumin/Globulin Ratio (0.9-2) Lipase (11-82) U/L Procalcitonin 0.91 H (0-0.5) ng/ml Urine Color Dark Yellow Urine Appearance Cloudy A (Clear) Urine pH 5.0 (4.5-7.5) Ur Specific [place] 1.030 (1.000-1.030) Urine Protein 1+ H (Negative) Urine Glucose (UA) Negative (Negative) Urine Ketones Negative (Negative) Urine Blood 3+ H (Negative) Urine Nitrite Negative (Negative) Urine Bilirubin 1+ H (Negative) Urine Urobilinogen Negative (Negative) Ur Leukocyte Esterase Negative (Negative) Urine WBC (Auto) 5-10 H (0-5) /hpf Urine RBC (Auto) 10-30 H (0-4) /hpf U Hyaline Cast (Auto) 0 (0-5) /lpf U Epithel Cells (Auto) >30 H (0-5) /lpf Urine Bacteria (Auto) Negative (Negative) 08/11/23 08/11/23 08/11/23 Range/Units 13:33 13:33 17:23 WBC 13.26 H (4.8-10.8) K/ul RBC 5.32 (4.70-6.10) M/uL Hgb 15.2 (14.0-18.0) g/dl Hct 45.7 (42.0-52.0) % MCV 85.9 (80.0-100.0) fL MCH 28.6 (25.0-34.0) pg MCHC 33.3 (32.0-36.0) g/dL RDW Std Deviation 48.7 H (36.4-46.3) fL RDW Coeff of Geovanna 16.0 H (11.5-14.5) % Plt Count 299 (130-400) K/uL MPV 10.2 (9.4-12.4) fL Immature Gran % (Auto) 3.6 % Neut % (Auto) 54.9 % Lymph % (Auto) 29.3 % [place] % (Auto) 11.7 % Eos % (Auto) 0.0 % Baso % (Auto) 0.5 % Neut # (Auto) 7.28 H (1.40-6.50) K/uL Lymph # (Auto) 3.88 H (1.20-3.40) K/uL [place] # (Auto) 1.55 H (0.11-0.59) K/uL Eos # (Auto) 0.00 (0.00-0.50) K/uL Baso # (Auto) 0.07 (0.00-0.20) K/uL Immature Gran # (Auto) 0.48 H (0.01-0.20) K/uL PT (9.0-12.0) Seconds INR (0.9-1.1) APTT (21.0-31.0) Seconds PTT Ratio Sodium 132 L (136-145) mmol/L Potassium 4.2 (3.5-5.1) mmol/L Chloride 97 L (98-107) mmol/L Carbon Dioxide 16 L (21-32) mmol/L Anion Gap 19 H (3-11) BUN 30 H (6-23) mg/dl Creatinine 1.99 H (0.6-1.4) mg/dl Est Cr Clr Drug Dosing 27.7 ml/min Est GFR ( Amer) 35.7 ml/min Est GFR (Non-Af Amer) 30.8 ml/min BUN/Creatinine Ratio 15.1 (10-20) Glucose 129 H (70-99(Fasting)) mg/dl Lactate (0.4-2.0) mmol/L Calcium 11.8 H (8.6-10.3) mg/dl Ionized Calcium 1.44 H (1.12-1.32) mmol/L Phosphorus 4.3 (2.5-4.9) mg/dl Magnesium 2.0 (1.7-2.4) mg/dl Total Bilirubin 1.6 H (0.2-1.0) mg/dl AST 45 H (13-39) U/L ALT 14 (7-52) U/L Alkaline Phosphatase 133 H (34-104) U/L Total Protein 7.8 (6.0-8.3) gm/dl Albumin 3.6 (3.4-5.0) gm/dl Globulin 4.2 H (2.5-4.0) gm/dl Albumin/Globulin Ratio 0.9 (0.9-2) Lipase 53 (11-82) U/L Procalcitonin (0-0.5) ng/ml Urine Color Urine Appearance (Clear) Urine pH (4.5-7.5) Ur Specific [place] (1.000-1.030) Urine Protein (Negative) Urine Glucose (UA) (Negative) Urine Ketones (Negative) Urine Blood (Negative) Urine Nitrite (Negative) Urine Bilirubin (Negative) Urine Urobilinogen (Negative) Ur Leukocyte Esterase (Negative) Urine WBC (Auto) (0-5) /hpf Urine RBC (Auto) (0-4) /hpf U Hyaline Cast (Auto) (0-5) /lpf U Epithel Cells (Auto) (0-5) /lpf Urine Bacteria (Auto) (Negative) 08/11/23 Range/Units 17:33 WBC (4.8-10.8) K/ul RBC (4.70-6.10) M/uL Hgb (14.0-18.0) g/dl Hct (42.0-52.0) % MCV (80.0-100.0) fL MCH (25.0-34.0) pg MCHC (32.0-36.0) g/dL RDW Std Deviation (36.4-46.3) fL RDW Coeff of Geovanna (11.5-14.5) % Plt Count (130-400) K/uL MPV (9.4-12.4) fL Immature Gran % (Auto) % Neut % (Auto) % Lymph % (Auto) % [place] % (Auto) % Eos % (Auto) % Baso % (Auto) % Neut # (Auto) (1.40-6.50) K/uL Lymph # (Auto) (1.20-3.40) K/uL [place] # (Auto) (0.11-0.59) K/uL Eos # (Auto) (0.00-0.50) K/uL Baso # (Auto) (0.00-0.20) K/uL Immature Gran # (Auto) (0.01-0.20) K/uL PT (9.0-12.0) Seconds INR (0.9-1.1) APTT (21.0-31.0) Seconds PTT Ratio Sodium (136-145) mmol/L Potassium (3.5-5.1) mmol/L Chloride (98-107) mmol/L Carbon Dioxide (21-32) mmol/L Anion Gap (3-11) BUN (6-23) mg/dl Creatinine (0.6-1.4) mg/dl Est Cr Clr Drug Dosing ml/min Est GFR ( Amer) ml/min Est GFR (Non-Af Amer) ml/min BUN/Creatinine Ratio (10-20) Glucose (70-99(Fasting)) mg/dl Lactate 8.9 H* (0.4-2.0) mmol/L Calcium (8.6-10.3) mg/dl Ionized Calcium (1.12-1.32) mmol/L Phosphorus (2.5-4.9) mg/dl Magnesium (1.7-2.4) mg/dl Total Bilirubin (0.2-1.0) mg/dl AST (13-39) U/L ALT (7-52) U/L Alkaline Phosphatase (34-104) U/L Total Protein (6.0-8.3) gm/dl Albumin (3.4-5.0) gm/dl Globulin (2.5-4.0) gm/dl Albumin/Globulin Ratio (0.9-2) Lipase (11-82) U/L Procalcitonin (0-0.5) ng/ml Urine Color Urine Appearance (Clear) Urine pH (4.5-7.5) Ur Specific [place] (1.000-1.030) Urine Protein (Negative) Urine Glucose (UA) (Negative) Urine Ketones (Negative) Urine Blood (Negative) Urine Nitrite (Negative) Urine Bilirubin (Negative) Urine Urobilinogen (Negative) Ur Leukocyte Esterase (Negative) Urine WBC (Auto) (0-5) /hpf Urine RBC (Auto) (0-4) /hpf U Hyaline Cast (Auto) (0-5) /lpf U Epithel Cells (Auto) (0-5) /lpf Urine Bacteria (Auto) (Negative) Diagnostic Findings CT SCAN OF THE ABDOMEN AND PELVIS WITHOUT IV CONTRAST CLINICAL HISTORY: Low back pain. Nephrolithiasis. COMPARISON STUDY: MRI of the lumbar spine performed the same day 08/11/2023. TECHNIQUE: CT scan of the abdomen and pelvis is performed from the lung bases to the proximal femora. Images are reviewed in the axial, sagittal, and coronal planes. IV contrast was not administered for this examination. A dose lowering technique was utilized adhering to the principles of ALARA. CT DOSE: 664.79 mGy.cm FINDINGS: Lung bases: The patient is status post midline sternotomy. The heart is top normal in size and without pericardial effusion. The coronary arteries are densely calcified. Edematous change is observed. There is trace right pleural effusion. Scarring/atelectasis is noted at the lung bases. No airspace consolidation is seen typical for pneumonia. Liver: The unenhanced liver is heterogeneous attenuation. There is hypertrophy of the left lobe. Mild nodularity of the surface contour suggests morphologic changes of cirrhosis. There is no intrahepatic biliary ductal dilatation. There is evidence of multifocal hepatic metastatic disease with greater than 10 lesions identified. A outbound sales representative left lobe lesion seen on image #54 measures up to 3.1 cm. Gallbladder: The gallbladder is distended and contains numerous gallstones. A gallstone is seen in the cystic duct on axial image #91. There is pericholecystic infiltration. Spleen: Normal in size and attenuation, measuring 11.2 cm in length. Pancreas: The unenhanced pancreas is grossly unremarkable. Adrenal glands: Unremarkable. Kidneys: The unenhanced kidneys the lungs are cortical atrophy and are without hydronephrosis. A 10 mm calculus is suggested at the left ureteropelvic junction on axial image #149. There is surrounding urothelial thickening. Additional smaller renal calculi are suspected bilaterally. This is difficult to assess due to the presence of excreted IV contrast within the renal collecting systems. There is no evidence of ureteral stone. Simple and complex/hyperdense renal cysts measure up to 2.4 cm. A circumaortic left renal vein is incidentally noted. Abdominal vasculature: There is moderate to advanced atherosclerotic calcification and ectasia of the abdominal aorta. Bowel: There is moderate colonic diverticulosis without CT evidence of acute diverticulitis. No bowel obstruction is seen. The appendix is not visualized. There is a large mass lesion involving the cecum with surrounding lymphadenopathy. The mass lesion is best seen on axial image 181 and measures approximately 11 x 6.5 cm. Peritoneum: There is no intraperitoneal free air or abdominal ascites. Lymphadenopathy: There is pathologic upper abdominal, retroperitoneal, and mesenteric lymphadenopathy. A gastrohepatic node on image #67 measures 1.8 x 1.5 cm. A precaval node on image #111 measures 2.1 x 1.7 cm. A kirit aggregate in the hepatic hilum on image #86 measures approximately 6 x 4 cm in aggregate dimension. A mesenteric kirit aggregate in the right lower quadrant on image #144 measures approximately 6 x 5 cm in aggregate dimension. An enlarged right cardiophrenic node on image #42 measures 1.7 x 1.1 cm. There is no pelvic sidewall or inguinal lymphadenopathy. Pelvic viscera: The prostate gland is enlarged and heterogeneous. The bladder wall appears mildly thickened/trabeculated indicating chronic outlet obstruction. The bladder contains excreted IV contrast. There are bilateral fat- containing inguinal hernias. Skeletal structures: The skeletal structures are osteopenic. There is mild to moderate lumbosacral spondylosis. Diffuse osseous metastatic disease was better visualized on the lumbar spine MRI performed the same day. The lesions were not clearly visualized on CT. IMPRESSION: 1. Cholelithiasis with evidence of acute cholecystitis. A calcified stone is seen in the cystic duct. Surgical evaluation is advised. 2. There is a large mass lesion involving the cecum. Additionally, there is evidence of diffuse/multifocal hepatic metastatic disease, as well as pathological upper abdominal, retroperitoneal, and mesenteric lymphadenopathy. Top differential considerations are lymphoma versus metastatic colon cancer. Lymphoma is favored given the distribution. Follow-up oncology will be required. 3. Evaluation for nephrolithiasis is significant degraded by the presence of excreted IV contrast in the renal collecting systems and ureters. A 10 mm calculus is seen at the left ureteropelvic junction with surrounding urothelial thickening. No hydronephrosis is identified. 4. Additional smaller nonobstructing bilateral renal calculi are suspected but difficult to evaluate. 5. Emphysema and trace right pleural effusion. 6. Colonic diverticulosis without CT evidence of acute diverticulitis. 7. Diffuse osseous metastatic disease was much better appreciated on today's MRI. 8. Additional findings as above. MR lumbar spine wo/w con CLINICAL HISTORY: 78 years-old Male with M54.50 - Low back pain, unspecified. Acute low back pain without reported trauma. COMPARISON: Lumbar spine radiographs 08/10/2023. TECHNIQUE: Multiplanar, multi sequence MRI of the lumbar spine was performed without intravenous contrast. FINDINGS: There is prominent mass-like thickening noted within the cecum/ascending colon. Scattered hepatic lesion is suggestive of metastasis measure up to approximately 2.1 cm. Probable left renal cyst, 2.2 cm. There are numerous marrow replacing lesions noted throughout the imaged osseous structures, compatible with metastasis demonstrating decreased T1 signal, increased T2/STIR signal and heterogeneous enhancement. No definite acute pathologic fracture is identified. Periportal lymphadenopathy. T12-L1: Mild facet arthrosis. No central canal or neural foraminal stenosis. L1-L2: Mild intervertebral disc space narrowing with small circumferential annular disc bulge, mild spondylitic spurring with [id number] facet arthrosis. No central canal or foraminal narrowing. L2-L3: Moderate intervertebral disc space narrowing with circumferential disc osteophyte complex and moderate facet arthrosis. The central canal and right neural foramen are patent. Mild left foraminal narrowing. L3-L4: Severe intervertebral disc space narrowing with circumferential disc osteophyte complex. Ligamentum flavum thickening with advanced facet arthrosis. The central canal and left neural foramen are patent. Moderate narrowing of the right lateral recess. [id number] right foraminal narrowing. L4-L5: Mild intervertebral disc space narrowing with spondylotic spurring and small circumferential annular disc bulge. Moderate facet arthrosis. Central canal is patent. [id number] bilateral foraminal narrowing. L5-S1: Moderate intervertebral disc space narrowing with spondylotic spurring and circumferential disc osteophyte complex. There is a focal disc protrusion versus sequestered disc fragment measuring 8 x 7 x 8 mm within the right paracentral distribution with abutment and posterior displacement of the right S1 nerve root. Moderate narrowing of the right lateral recess. The central canal is generally patent. Moderate right with [id number] left foraminal narrowing. IMPRESSION: 1. Partially imaged large malignant right cecal mass is better visualized on the CT abdomen and pelvis study of same day. 2. Lymphatic and hepatic with diffuse osseous metastatic disease. 3. No acute pathologic fracture or large epidural tumor is identified. 4. Disc protrusion versus sequestered disc fragment at L5-S1 abuts and posteriorly displaces the right S1 nerve root. 5. Discogenic degeneration and facet arthrosis as above.
[2023-08-11] MEDS: PIPERACILLIN/TAZOBACTAM 4.5 GM in DEXTROSE 5% MINI-B 100 ML IV SCH (20:46)
[2023-08-11] MEDS ORDERED: INFLUENZA HI-DOSE VACCINE (HD-IIV4) (Fluzone-HD) IM ONE (21:15)
[2023-08-11] MEDS ORDERED: LAVAGE SOLUTION 4000ML PO SCH (21:30)
[2023-08-11] MEDS ORDERED: LACTATED RINGER'S 1,000 ML IV SCH (22:00)
[2023-08-11] MEDS: PLASMA-LYTE A 1,000 ML IV SCH (22:26)
[2023-08-12] MEDS: PIPERACILLIN/TAZOBACTAM 4.5 GM in DEXTROSE 5% MINI-B 100 ML IV SCH ×3 (04:06→21:04)
--- NOTE | 2023-08-12 07:11 | Consultation ---
Date of Consultation August 12, 2023 Assessment & Plan (1) Elevated INR: Elevated INR may reflect a combination of nutritional issues and evolving liver dysfunction. He did receive a dose of AquaMEPHYTON 10 mg, will need to do follow-up INR to gauge response. Aspirin is on hold and he is showing no signs of bleeding issues but the INR may be relevant with respect to anticipated need for biopsy to establish his malignancy diagnosis (2) Metastasis of unknown primary: Patient has a large cecal mass, metastases in the liver and skeletal system, and pathologic abdominal adenopathy all the picture which could be highly consistent with primary colon cancer which is probably the statistically highest diagnosis in the differential While this is not a "curative" situation there certainly are some potential treatments that could offer response. We need biopsy confirmation not only to affirm histologic type but to look for microsatellite instability, HER2 expression, and other molecular aspects that might offer augmented possibilities for systemic treatment. Colonoscopy could probably yield a reasonable diagnosis, alternative would be ultrasound-guided liver biopsy which could give generous tissue and would be relatively easily performed though to do so most safely we would want to see his INR improving towards baseline and he would need to be off aspirin for 5 days. While the patient is labeled as having "dementia," at least on basic initial examination he seems to have relatively stable mental status and I think could participate in his own medical decision making. Certainly would like to incorporate the family in those discussions once we have a diagnosis and, as well, palliative care consultation to be important early on in his management. Do note that there is specific potential displacement of the right S1 nerve root and we will need to watch closely for signs of compressive neuropathy that may require intervention though this may be more on the basis of disc disease than ajay malignancy (3) Calculus, ureteral: With high tumor volume uric acid may be elevated exacerbating his issues of renal function and nephrolithiasis. Keeping the urological track functional in his creatinine and best range possible will be critical for optimal outcomes if he is to proceed with systemic chemo. He has no obstructive uropathy at this point but could be at risk for that at any point and we will certainly need to monitor closely clinically and by renal function for any signs of that (4) Hypercalcemia: Given his widespread metastases and current bedrest he is at risk for further elevation of calcium which could reach levels that could be more concerning for preservation of renal function. Would suggest a single dose of Zometa 4 mg Plan 1. The immediate issue is medical stabilization 2. I have submitted uric acid and if that is elevated we should certainly address that with allopurinol and, if particularly high, potential rasburicase 3. Need to optimize renal function with attention to any signs or symptoms of evolution of obstructive uropathy from his nephrolithiasis. Would also have a lower threshold for nephrology review if there is inability to achieve stabilization of renal 4. With evolving hypercalcemia and widespread bony metastases would suggest a single dose of Zometa 4 mg to stabilize the situation for now 5. Possible disc disease with S1 nerve root compromise on the right, "curbside" review with Dr. Alvares would be a consideration though without immediate neurological issues probably does not warrant emergent intervention 6. Diagnostic options would be with colonoscopy or with ultrasound-guided liver biopsy though will need to see the INR hopefully improve (or consider FFP at time of procedure) and be off of aspirin for 5 days especially for a liver biopsy 7. Palliative care consultation could be very helpful as we approach larger discussions of his prognosis and treatment options 8. Specific treatment options will need to be based not only on histologic confirmation but also on molecular characterization particularly with respect to microsatellite status and HER2 expression. This would not be a curative situation and we will need to make sure that the patient's life goals and care parameters are incorporated into ultimate determination of treatment plan. 9. Pain management for back pain History of Present Illness Reason for Consultation: Colonic mass with evidence of widespread metastatic disease Attending Physician: Christoph Thompson MD History of Present Illness 78-year-old gentleman. Note that the chart lists "dementia" as a diagnosis but patient is oriented to person place and time (he cannot give the exact date but knows that it is August,) and seems to give a reasonable accounting of his history. He has no previous history of malignancy. He indicates that he has not had colonoscopies or stool screenings. There is no family history of colorectal cancer or any other disorder or unusual pattern of malignancy in the family of which he is aware. He is a former smoker but quit in 1996, is not significant alcohol drinker. 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 He describes no change in his bowel habits with no specific melena, hematochezia, nausea, vomiting, or hematemesis. He has had some longstanding back pain that had worsened in recent weeks in conjunction with an approximately 20 pound weight loss. Lumbar spine imaging done to work that up showed evidence of metastatic bone disease. Abdominal/pelvic imaging shows a colonic mass and widespread liver and kirit metastases. Currently he seems reasonably comfortable and in no acute distress. We do note history of coronary artery disease status post in 1994 CABG. He has a history of hypertension and of nephrolithiasis Allergies Allergy/AdvReac Type Severity Reaction Status Date / Time No Known Allergies Allergy Verified 08/10/23 11:59 Home Medications Medication Instructions Recorded Confirmed Type aspirin 81 mg tablet,delayed 81 mg PO QAM 06/28/19 08/11/23 History release (Kevin Low Dose Aspirin) metoprolol tartrate 25 mg tablet 25 mg PO QAM 06/28/19 08/11/23 History donepezil 5 mg tablet 5 mg PO HS 08/10/23 08/11/23 History mirtazapine 15 mg tablet (Remeron) 15 mg PO .qhs #90 tabs 08/10/23 08/11/23 Rx rosuvastatin 5 mg tablet (Crestor) 5 mg PO DAILY 08/10/23 08/11/23 History nitroglycerin 0.4 mg sublingual 0.4 mg sublingual UD PRN Chest Pain 08/11/23 08/11/23 History tablet Patient History Medical History (Updated 08/12/23 @ 07:18 by Buck Durbin MD) CAD (coronary artery disease) s/p stent x 1 (), CABG x2 (2004) Chronic back pain Cyst of pancreas reason for upcoming procedure Hypertension Kidney stones Myocardial Infarction multiple, most recent 2004 Osteoarthritis Surgical History History of cardiac cath = stent x 1 History of coronary artery bypass graft CABG x2 (2004) History of herniorrhaphy INGUINAL HERNIA REPAIR Family History (Updated 08/10/23 @ 12:38 by Sandie Renteria DO) Brother FHx: pancreatic cancer FHx: liver cancer Brother Prostate cancer Social History Smoking Status: Former smoker Second Hand Exposure: No; Do You Dip or Chew Tobacco: No; Hx Alcohol Use: No Hx Substance Use: No Preferred Language: Armenian Communication Ability: Effective Visual Impairment: No Limitations Copyman Required: No Beliefs That Will Affect Care: None Current Living Situation: Spouse Feels Safe at Home: Yes Safety Concerns: Feels Safe At This Time Assistive Devices: Glasses Physical Exam Physical Exam: Vital signs are stable. Patient is alert and appropriate. He is soft-spoken but seems fluent, answers appropriately, cognitive function seems basically intact. There are some suggestions of some mild memory issues. He seems in no acute physical distress. As per HPI he seems oriented times 3 HEENT exam is unremarkable. He has no scleral or skin icterus. Neck is supple, he has no cervical, supraclavicular, axillary adenopathy His lungs clear request auscultation, respirations are nonlabored, he is not tachypneic Heart sounds are somewhat distant but seem regular without pathological murmur The abdomen is soft and nondistended. Right upper quadrant does not show a markedly enlarged or tender liver, there is no signs of ascites, there is no other specifically palpable abdominal mass and there is no guarding or rigidity Extremities are symmetric without significant edema compression tenderness or cords On neurologic examination there is no specific focal change in cranial nerves, he seems to have no cerebellar defects, he seems to move all 4 extremities with good strength Results & Data Vital Signs (Past 12 Hours) Vital Signs Temp Pulse Pulse Resp BP Pulse Ox O2 Del Method 08/12/23 03:18 36.7 C 85 18 111/71 92 Room Air 08/11/23 23:47 97 H 08/11/23 23:31 36.7 C 82 18 109/69 94 Room Air 08/11/23 21:16 85 122/77 95 Room Air 08/11/23 20:43 83 18 127/83 95 Room Air 08/11/23 20:27 73 18 152/75 H 94 Room Air 08/11/23 20:14 66 18 138/73 96 Room Air Laboratory Results Laboratory Results - last 24 hr 08/11/23 08/11/23 08/11/23 13:30 13:30 13:32 WBC RBC Hgb Hct MCV MCH MCHC RDW Std Deviation RDW Coeff of Geovanna Plt Count MPV Immature Gran % (Auto) Neut % (Auto) Lymph % (Auto) [place] % (Auto) Eos % (Auto) Baso % (Auto) Neut # (Auto) Lymph # (Auto) [place] # (Auto) Eos # (Auto) Baso # (Auto) Immature Gran # (Auto) PT 22.4 H INR 2.1 H APTT 38.2 H PTT Ratio 1.4 Sodium Potassium Chloride Carbon Dioxide Anion Gap BUN Creatinine Est Cr Clr Drug Dosing Est GFR ( Amer) Est GFR (Non-Af Amer) BUN/Creatinine Ratio Glucose Lactate Calcium Ionized Calcium Phosphorus Magnesium Total Bilirubin AST ALT Alkaline Phosphatase Total Protein Albumin Globulin Albumin/Globulin Ratio Lipase Procalcitonin 0.91 H Urine Color Dark Yellow Urine Appearance Cloudy A Urine pH 5.0 Ur Specific [place] 1.030 Urine Protein 1+ H Urine Glucose (UA) Negative Urine Ketones Negative Urine Blood 3+ H Urine Nitrite Negative Urine Bilirubin 1+ H Urine Urobilinogen Negative Ur Leukocyte Esterase Negative Urine WBC (Auto) 5-10 H Urine RBC (Auto) 10-30 H U Hyaline Cast (Auto) 0 U Epithel Cells (Auto) >30 H Urine Bacteria (Auto) Negative 08/11/23 08/11/23 08/11/23 13:33 13:33 17:23 WBC 13.26 H RBC 5.32 Hgb 15.2 Hct 45.7 MCV 85.9 MCH 28.6 MCHC 33.3 RDW Std Deviation 48.7 H RDW Coeff of Geovanna 16.0 H Plt Count 299 MPV 10.2 Immature Gran % (Auto) 3.6 Neut % (Auto) 54.9 Lymph % (Auto) 29.3 [place] % (Auto) 11.7 Eos % (Auto) 0.0 Baso % (Auto) 0.5 Neut # (Auto) 7.28 H Lymph # (Auto) 3.88 H [place] # (Auto) 1.55 H Eos # (Auto) 0.00 Baso # (Auto) 0.07 Immature Gran # (Auto) 0.48 H PT INR APTT PTT Ratio Sodium 132 L Potassium 4.2 Chloride 97 L Carbon Dioxide 16 L Anion Gap 19 H BUN 30 H Creatinine 1.99 H Est Cr Clr Drug Dosing 27.7 Est GFR ( Amer) 35.7 Est GFR (Non-Af Amer) 30.8 BUN/Creatinine Ratio 15.1 Glucose 129 H Lactate Calcium 11.8 H Ionized Calcium 1.44 H Phosphorus 4.3 Magnesium 2.0 Total Bilirubin 1.6 H AST 45 H ALT 14 Alkaline Phosphatase 133 H Total Protein 7.8 Albumin 3.6 Globulin 4.2 H Albumin/Globulin Ratio 0.9 Lipase 53 Procalcitonin Urine Color Urine Appearance Urine pH Ur Specific [place] Urine Protein Urine Glucose (UA) Urine Ketones Urine Blood Urine Nitrite Urine Bilirubin Urine Urobilinogen Ur Leukocyte Esterase Urine WBC (Auto) Urine RBC (Auto) U Hyaline Cast (Auto) U Epithel Cells (Auto) Urine Bacteria (Auto) 08/11/23 08/11/23 17:33 20:04 WBC RBC Hgb Hct MCV MCH MCHC RDW Std Deviation RDW Coeff of Geovanna Plt Count MPV Immature Gran % (Auto) Neut % (Auto) Lymph % (Auto) [place] % (Auto) Eos % (Auto) Baso % (Auto) Neut # (Auto) Lymph # (Auto) [place] # (Auto) Eos # (Auto) Baso # (Auto) Immature Gran # (Auto) PT INR APTT PTT Ratio Sodium Potassium Chloride Carbon Dioxide Anion Gap BUN Creatinine Est Cr Clr Drug Dosing Est GFR ( Amer) Est GFR (Non-Af Amer) BUN/Creatinine Ratio Glucose Lactate 8.9 H* 8.8 H* Calcium Ionized Calcium Phosphorus Magnesium Total Bilirubin AST ALT Alkaline Phosphatase Total Protein Albumin Globulin Albumin/Globulin Ratio Lipase Procalcitonin Urine Color Urine Appearance Urine pH Ur Specific [place] Urine Protein Urine Glucose (UA) Urine Ketones Urine Blood Urine Nitrite Urine Bilirubin Urine Urobilinogen Ur Leukocyte Esterase Urine WBC (Auto) Urine RBC (Auto) U Hyaline Cast (Auto) U Epithel Cells (Auto) Urine Bacteria (Auto) Diagnostic Findings 08/11/2023 MR L-spine 1. Partially imaged large malignant right cecal mass is better visualized on the CT abdomen and pelvis study of same day. 2. Lymphatic and hepatic with diffuse osseous metastatic disease. 3. No acute pathologic fracture or large epidural tumor is identified. 4. Disc protrusion versus sequestered disc fragment at L5-S1 abuts and posteriorly displaces the right S1 nerve root. 5. Discogenic degeneration and facet arthrosis as above. 08/11/2023 CT abd/pelvis wo Lung bases: The patient is status post midline sternotomy. The heart is top normal in size and without pericardial effusion. The coronary arteries are densely calcified. Edematous change is observed. There is trace right pleural effusion. Scarring/atelectasis is noted at the lung bases. No airspace consolidation is seen typical for pneumonia. Liver: The unenhanced liver is heterogeneous attenuation. There is hypertrophy of the left lobe. Mild nodularity of the surface contour suggests morphologic changes of cirrhosis. There is no intrahepatic biliary ductal dilatation. There is evidence of multifocal hepatic metastatic disease with greater than 10 lesions identified. A membership sales representative left lobe lesion seen on image #54 measures up to 3.1 cm. Gallbladder: The gallbladder is distended and contains numerous gallstones. A gallstone is seen in the cystic duct on axial image #91. There is pericholecystic infiltration. Spleen: Normal in size and attenuation, measuring 11.2 cm in length. Pancreas: The unenhanced pancreas is grossly unremarkable. Adrenal glands: Unremarkable. Kidneys: The unenhanced kidneys the lungs are cortical atrophy and are without hydronephrosis. A 10 mm calculus is suggested at the left ureteropelvic junction on axial image #149. There is surrounding urothelial thickening. Additional smaller renal calculi are suspected bilaterally. This is difficult to assess due to the presence of excreted IV contrast within the renal collecting systems. There is no evidence of ureteral stone. Simple and complex/hyperdense renal cysts measure up to 2.4 cm. A circumaortic left renal vein is incidentally n oted. Abdominal vasculature: There is moderate to advanced atherosclerotic calcification and ectasia of the abdominal aorta. Bowel: There is moderate colonic diverticulosis without CT evidence of acute diverticulitis. No bowel obstruction is seen. The appendix is not visualized. There is a large mass lesion involving the cecum with surrounding lymphadenopathy. The mass lesion is best seen on axial image 181 and measures approximately 11 x 6.5 cm. Peritoneum: There is no intraperitoneal free air or abdominal ascites. Lymphadenopathy: There is pathologic upper abdominal, retroperitoneal, and me senteric lymphadenopathy. A gastrohepatic node on image #67 measures 1.8 x 1.5 cm. A precaval node on image #111 measures 2.1 x 1.7 cm. A kirit aggregate in the hepatic hilum on image #86 measures approximately 6 x 4 cm in aggregate dimension. A mesenteric kirit aggregate in the right lower quadrant on image #144 measures approximately 6 x 5 cm in aggregate dimension. An enlarged right cardiophrenic node on image #42 measures 1.7 x 1.1 cm. There is no pelvic sidewall or inguinal lymphadenopathy. Pelvic viscera: The prostate gland is enlarged and heterogeneous. The bladder wall appears mildly thickened/trabeculated indicating chronic outlet obstruction. The bladder contains excreted IV contrast. There are bilateral fat- containing inguinal hernias. Skeletal structures: The skeletal structures are osteopenic. There is mild to moderate lumbosacral spondylosis. Diffuse osseous metastatic disease was better visualized on the lumbar spine MRI performed the same day. The lesions were not clearly visualized on CT. IMPRESSION: 1. Cholelithiasis with evidence of acute cholecystitis. A calcified stone is seen in the cystic duct. Surgical evaluation is advised. 2. There is a large mass lesion involving the cecum. Additionally, there is evidence of diffuse/multifocal hepatic metastatic disease, as well as pathological upper abdominal, retroperitoneal, and mesenteric lymphadenopathy. Top differential considerations are lymphoma versus metastatic colon cancer. Lymphoma is favored given the distribution. Follow-up oncology will be required. 3. Evaluation for nephrolithiasis is significant degraded by the presence of excreted IV contrast in the renal collecting systems and ureters. A 10 mm calculus is seen at the left ureteropelvic junction with surrounding urothelial thickening. No hydronephrosis is identified. 4. Additional smaller nonobstructing bilateral renal calculi are suspected but difficult to evaluate. 5. Emphysema and trace right pleural effusion. 6. Colonic diverticulosis without CT evidence of acute diverticulitis. 7. Diffuse osseous metastatic disease was much better appreciated on today's MRI. 8. Additional findings as above. Chest X-Ray 08/11/23 16:28 SINGLE VIEW CHEST CLINICAL HISTORY: Sepsis. FINDINGS: An AP, portable, upright chest radiograph is obtained. No prior studies are available for comparison at the time of dictation. The patient is status post midline sternotomy. The heart is enlarged noting atherosclerotic calcification of the thoracic aorta. Pulmonary vasculature is noncongested. There are trace pleural effusions. Emphysematous change is noted. There is bibasilar scarring/atelectasis. No pneumothorax is seen. The skeletal structures are osteopenic. The bony thorax is grossly intact. IMPRESSION: 1. Cardiomegaly and emphysema without radiographic evidence of congestive failure. 2. Small pleural effusions. ACT 112: Negative or not required by law. Electronically signed by: Harsha Cabrera M.D. 08/11/2023 5:56 PM PG Care Time/CCT Total # of Minutes Spent Total Time Spent with Patient: Total time spent is greater than 50% in coordination of care (as documented) at patient's floor/unit and/or counseling patient: [place] [address] IN/OBS CONSULT LVL 4,60M Patient Type New History Expanded Problem Focused Exam Expanded Problem Focused Medical Decision Making High Complexity Diagnoses Elevated INR R79.1 Metastasis of unknown primary C79.9 Calculus, ureteral N20.1 Hypercalcemia E83.52
[2023-08-12 07:43] LABS: Basophils # (auto) 0.05 K/uL (0.00-0.20); Basophils % (auto) 0.6 %; Eosinophils # (auto) 0.01 K/uL (0.00-0.50); Eosinophils % (auto) 0.1 %; Hematocrit (blood only) 36.6 % (42.0-52.0); Hemoglobin 12.5 g/dl (14.0-18.0); Immature Granulocytes # (auto) 0.18 K/uL (0.01-0.20); Immature Granulocytes % (auto) 2.1 %; Lymphocytes # (auto) 2.37 K/uL (1.20-3.40); Lymphocytes % (auto) 27.5 %; Mean Corpuscular Hemoglobin 28.5 pg (25.0-34.0); Mean Corpuscular Hgb Conc 34.2 g/dL (32.0-36.0); Mean Corpuscular Volume 83.4 fL (80.0-100.0); Mean Platelet Volume 10.3 fL (9.4-12.4); Monocytes # (auto) 1.23 K/uL (0.11-0.59); Monocytes % (auto) 14.3 %; Neutrophils # (auto) 4.79 K/uL (1.40-6.50); Neutrophils % (auto) 55.4 %; Platelet Count 219 K/uL (130-400); RDW Coefficient of Variation 15.9 % (11.5-14.5); RDW Standard Deviation 47.6 fL (36.4-46.3); Red Blood Count 4.39 M/uL (4.70-6.10); White Blood Count 8.63 K/ul (4.8-10.8)
[2023-08-12] MEDS: TAMSULOSIN HCL 0.4 MG CAP PO SCH (07:49)
[2023-08-12 08:09] LABS: INR 1.3 (0.9-1.1); Prothrombin Time 13.7 Seconds (9.0-12.0)
[2023-08-12 08:12] LABS: Albumin Level 2.8 gm/dl (3.4-5.0); BUN Creatinine Ratio 16.1 (10-20); Bilirubin,Total 1.8 mg/dl (0.2-1.0); Calcium 9.9 mg/dl (8.6-10.3); Creatinine Clr Calc Pharmacy 32.4 ml/min; Est GFR (African American) 43.8 ml/min; Est GFR (Non-African American) 37.8 ml/min; Globulin 2.9 gm/dl (2.5-4.0); Magnesium 1.7 mg/dl (1.7-2.4); Potassium 3.8 mmol/L (3.5-5.1); Total Protein 5.7 gm/dl (6.0-8.3)
--- NOTE | 2023-08-12 08:57 | Anesthesiology Consultation ---
Date of Service August 12, 2023 Assessment & Plan (1) Encounter for pre-operative examination: Chart Review Chart Review: Acceptable Risk for Surgery and Patient NOT seen in Pre Admission Testing Consults Requested none History Surgery Operation Date: 08/12/23 07:50 Proposed Procedures p Ureteral Stent Insertion/Removal - Andrea Ríos DO Height/Weight Height: 5 ft 7 in Weight: 65.227 kg Allergies Allergy/AdvReac Type Severity Reaction Status Date / Time No Known Allergies Allergy Verified 08/10/23 11:59 Medications Home Medications Medication Instructions Recorded Confirmed Last Taken aspirin 81 mg tablet,delayed 81 mg PO QAM 06/28/19 08/11/23 06/28/19 05:30 release (Kevin Low Dose Aspirin) metoprolol tartrate 25 mg tablet 25 mg PO QAM 06/28/19 08/11/23 06/29/19 05:30 donepezil 5 mg tablet 5 mg PO HS 08/10/23 08/11/23 Unknown mirtazapine 15 mg tablet (Remeron) 15 mg PO .qhs #90 tabs 08/10/23 08/11/23 Unkn own rosuvastatin 5 mg tablet (Crestor) 5 mg PO DAILY 08/10/23 08/11/23 Unknown nitroglycerin 0.4 mg sublingual 0.4 mg sublingual UD PRN Chest Pain 08/11/23 08/11/23 Unknown tablet Active Medications Generic Name Dose Route Start Last Admin Trade Name Freq PRN Reason Stop Dose Admin Donepezil HCl 5 mg 08/11/23 21:00 08/11/23 19:39 Donepezil Hcl 5 Mg Tab PO 09/10/23 20:59 5 mg HS ROSETTA Administration Piperacillin Sod/Tazobactam 100 mls @ 25 mls/hr 08/11/23 21:00 08/12/23 04:06 Sod 4.5 gm/ Dextrose IV 08/21/23 20:59 25 mls/hr Q8H ROSETTA Administration Protocol Parenteral Electrolytes 1,000 mls @ 80 mls/hr 08/11/23 21:15 08/11/23 22:26 Plasma-Lyte A Ph 7.4 IV 09/10/23 21:14 80 mls/hr .[id number] ROSETTA Administration Mirtazapine 15 mg 08/11/23 21:00 08/11/23 19:39 Mirtazapine Tab 15 Mg Tab PO 09/10/23 20:59 15 mg HS ROSETTA Administration Tamsulosin HCl 0.4 mg 08/12/23 09:00 08/12/23 07:49 Tamsulosin Hcl 0.4 Mg Cap PO 09/11/23 08:59 0.4 mg QAM ROSETTA Administration Past Medical History Medical History CAD (coronary artery disease) s/p stent x 1 (), CABG x2 (2004) Chronic back pain Cyst of pancreas reason for upcoming procedure Hypertension Kidney stones Myocardial Infarction multiple, most recent 2004 Osteoarthritis heme/onc note 08/12/23: Assessment & Plan (1) Elevated INR: Elevated INR may reflect a combination of nutritional issues and evolving liver dysfunction. He did receive a dose of AquaMEPHYTON 10 mg, will need to do follow-up INR to gauge response. Aspirin is on hold and he is showing no signs of bleeding issues but the INR may be relevant with respect to anticipated need for biopsy to establish his malignancy diagnosis (2) Metastasis of unknown primary: Patient has a large cecal mass, metastases in the liver and skeletal system, and pathologic abdominal adenopathy all the picture which could be highly consistent with primary colon cancer which is probably the statistically highest diagnosis in the differential Past Family History Family History Brother FHx: pancreatic cancer FHx: liver cancer Brother Prostate cancer Past Surgical History Surgical History History of cardiac cath = stent x 1 History of coronary artery bypass graft CABG x2 (2004) History of herniorrhaphy INGUINAL HERNIA REPAIR EGD/EUS done 06/2019 at [facility]. GETA. No reported anesthetic issues. Social History Smoking Status: Former smoker tobacco type: cigarettes Do You Dip or Chew Tobacco: No Hx Alcohol Use: No Hx Substance Use: No substance use type: does not use Physical Exam Vital Signs Last Vital Signs Temp 36.5 C 08/12/23 07:44 Pulse 85 08/12/23 07:44 Resp 18 08/12/23 07:44 BP 107/67 08/12/23 07:44 Pulse Ox 92 08/12/23 07:44 O2 Del Method Room Air 08/12/23 07:44 Testing Laboratory Results 08/12/23 07:13 08/12/23 07:13 PT 13.7 Seconds (9.0-12.0) H 08/12/23 07:13 INR 1.3 (0.9-1.1) H 08/12/23 07:13 APTT 38.2 Seconds (21.0-31.0) H 08/11/23 13:30 Urine Color Dark Yellow 08/11/23 13:32 Urine Appearance Cloudy (Clear) A 08/11/23 13:32 Urine pH 5.0 (4.5-7.5) 08/11/23 13:32 Ur Specific [place] 1.030 (1.000-1.030) 08/11/23 13:32 Urine Protein 1+ (Negative) H 08/11/23 13:32 Urine Glucose (UA) Negative (Negative) 08/11/23 13:32 Urine Ketones Negative (Negative) 08/11/23 13:32 Urine Nitrite Negative (Negative) 08/11/23 13:32 Ur Leukocyte Esterase Negative (Negative) 08/11/23 13:32 Urine WBC (Auto) 5-10 /hpf (0-5) H 08/11/23 13:32 Urine RBC (Auto) 10-30 /hpf (0-4) H 08/11/23 13:32 U Hyaline Cast (Auto) 0 /lpf (0-5) 08/11/23 13:32 U Epithel Cells (Auto) >30 /lpf (0-5) H 08/11/23 13:32 Urine Bacteria (Auto) Negative (Negative) 08/11/23 13:32 Electrocardiogram Date: 08/11/23 Normal sinus rhythm. HR 76. Possible Left atrial enlargement Left axis deviation Left ventricular hypertrophy ( R in aVL , Kelvin product ) Inferior infarct (cited on or before 29-JUN-2019) Prolonged QT Abnormal ECG When compared with ECG of 29-JUN-2019 08:12, Significant changes have occurred Chest X-Ray Date: 08/11/23 SINGLE VIEW CHEST CLINICAL HISTORY: Sepsis. FINDINGS: An AP, portable, upright chest radiograph is obtained. No prior studies are available for comparison at the time of dictation. The patient is status post midline sternotomy. The heart is enlarged noting atherosclerotic calcification of the thoracic aorta. Pulmonary vasculature is noncongested. There are trace pleural effusions. Emphysematous change is noted. There is bibasilar scarring/atelectasis. No pneumothorax is seen. The skeletal structures are osteopenic. The bony thorax is grossly intact. IMPRESSION: 1. Cardiomegaly and emphysema without radiographic evidence of congestive failure. 2. Small pleural effusions.
--- NOTE | 2023-08-12 08:57 | Gastrointestinal Consultation ---
Date of Consultation August 12, 2023 Assessment & Plan (1) Cecum mass: Plan 78 year old male admitted with abnormal outpatient imaging, concerning for cholecystitis, large cecal mass w/ diffuse/multifocal hepatic metastatic disease w/o report of bowel obstruction. He was to be prepped for a colonoscopy overnight, however, was intolerant of the prep and is still passing semi-formed brown stools. Given the location of the suspected mass, inadequate prep, he will need to re-attempt prepping and plan for colonoscopy on a different date. Regarding the concern of cholecystitis, appreciate general surgery recommendation. Trend H&H Monitor and document GI output Transfuse PRN Repeat Lactic acid Recommend a full liquid diet Tuesday, Tuesday Recommend Miralax 2 capfuls twice daily today Tuesday, please administer 2 capfuls of miralax twice daily Tuesday, please start a clear liquid diet Attempt Go-lytely 4L NPO after midnight Colonoscopy Tuesday We appreciate assistance in the management of any serological abnormality and corrections to include: hemoglobin >7, INR <2, platelets >50,000, potassium levels >3.5 but <5.3, and sodium levels within 5 points of the reference range prior to endoscopic evaluation. Thank you for allowing us to participate in the care of this patient. Please call with any acute changes, questions or concerns. Please see addendum below with additional recommendation from my supervising physician. Supervising Physician Co-Signing Physician Notes Admitted with abnl imaging (done outside of [facility]). Had an eus in 2019. Concerns for a cecal mass on outside imaging with ? metastatic disease, also with gallstones and tb of 1.8. Consider MRCP for further evaluation of bilirubin elevation if rising and or fevers to rule out cbd obstruction. He will need an adequate prep prior to his diagnostic colonoscopy which will likely be done on Tuesday. Agree with further plan of care as documented. History of Present Illness Reason for Consultation: cecal mass, cholecystitis Requesting Physician: Vicente Attending Physician: Shana Zhang MD History of Present Illness 78 year old male with history of CAD,CKD-3, HTN, dementia and others below who presented to the [facility] ED on 08/11 at the recommendation of his PCP for abnormal outpatient imaging - GI was asked to evaluate for cholecystitis and cecal mass. Pt was seen and evaluated, chart reviewed. He was to be prepped overnight for a colonoscopy. Unfortunately, he was not tolerating the prep and only consumed about 1/8th of the bowel prep. He reports semi-formed/formed brown stools. Denies black or bloody stools. He reports generalized abd and black discomfort. No nausea, vomiting. No report of black or bloody stools. CTAP 2022: Cholelithiasis with evidence of acute cholecystitis. A calcified stone is seen in the cystic duct. Surgical evaluation is advised.. There is a large mass lesion involving the cecum. Additionally, there is evidence of dif fuse/multifocal hepatic metastatic disease, as well as pathological upper abdominal, retroperitoneal, and mesenteric lymphadenopathy. Top differential considerations are lymphoma versus metastatic colon cancer. Lymphoma is favored given the distribution. Follow-up oncology will be required. Evaluation for nephrolithiasis is significant degraded by the presence of excreted IV contrast in the renal collecting systems and ureters. A 10 mm calculus is seen at the left ureteropelvic junction with surrounding urothelial thickening. No hydronephrosis is identified. EUS 2019: - There was no sign of significant pathology in the common bile duct. - Many stones were visualized endosonographically in the gallbladder. - There was no evidence of significant pathology in the visualized portion of the liver. - Endosonographic images of the left adrenal gland were unremarkable. - There was no sign of significant pathology in the pancreatic head, pancreatic body and main pancreatic duct. - A 10 x 7 mm cystic lesion was seen in the pancreatic tail. The diagnosis is suggestive of an intraductal papillary mucinous neoplasm. Fine needle aspiration for fluid performed. Colonoscopy: none Allergies Allergy/AdvReac Type Severity Reaction Status Date / Time No Known Allergies Allergy Verified 08/10/23 11:59 Home Medications Medication Instructions Recorded Confirmed Type aspirin 81 mg tablet,delayed 81 mg PO QAM 06/28/19 08/11/23 History release (Kevin Low Dose Aspirin) metoprolol tartrate 25 mg tablet 25 mg PO QAM 06/28/19 08/11/23 History donepezil 5 mg tablet 5 mg PO HS 08/10/23 08/11/23 History mirtazapine 15 mg tablet (Remeron) 15 mg PO .qhs #90 tabs 08/10/23 08/11/23 Rx rosuvastatin 5 mg tablet (Crestor) 5 mg PO DAILY 08/10/23 08/11/23 History nitroglycerin 0.4 mg sublingual 0.4 mg sublingual UD PRN Chest Pain 08/11/23 08/11/23 History tablet Patient History Medical History CAD (coronary artery disease) s/p stent x 1 (), CABG x2 (2004) Chronic back pain Cyst of pancreas reason for upcoming procedure Hypertension Kidney stones Myocardial Infarction multiple, most recent 2004 Osteoarthritis Surgical History History of cardiac cath = stent x 1 History of coronary artery bypass graft CABG x2 (2004) History of herniorrhaphy INGUINAL HERNIA REPAIR Family History Brother FHx: pancreatic cancer FHx: liver cancer Brother Prostate cancer Social History Smoking Status: Former smoker Second Hand Exposure: No; Do You Dip or Chew Tobacco: No; Hx Alcohol Use: No Hx Substance Use: No Preferred Language: Irish Communication Ability: Effective Visual Impairment: No Limitations Endoscopic Technician Required: No Beliefs That Will Affect Care: None Current Living Situation: Spouse Feels Safe at Home: Yes Safety Concerns: Feels Safe At This Time Assistive Devices: Glasses Review of Systems Review of Systems: All systems reviewed & are unremarkable except as noted in HPI & below Physical Exam Constitutional: WD/WN, vitals as above Respiratory: normal respiratory effort, lungs clear to auscultation Gastrointestinal (Abdomen): Percussion/Palpation: + abdomen tender and abdomen soft; no guarding and abdomen not rigid Skin: no rashes, warm and dry Results & Data Vital Signs (Past 12 Hours) Vital Signs Temp Pulse Pulse Resp BP Pulse Ox O2 Del Method 08/12/23 03:18 36.7 C 85 18 111/71 92 Room Air 08/11/23 23:47 97 H 08/11/23 23:31 36.7 C 82 18 109/69 94 Room Air 08/11/23 21:16 85 122/77 95 Room Air 08/11/23 20:43 83 18 127/83 95 Room Air Laboratory Results 08/12/23 08/12/23 08/12/23 Range/Units 07:13 07:13 07:13 WBC (4.8-10.8) K/ul RBC (4.70-6.10) M/uL Hgb (14.0-18.0) g/dl Hct (42.0-52.0) % MCV (80.0-100.0) fL MCH (25.0-34.0) pg MCHC (32.0-36.0) g/dL RDW Std Deviation (36.4-46.3) fL RDW Coeff of Geovanna (11.5-14.5) % Plt Count (130-400) K/uL MPV (9.4-12.4) fL Immature Gran % (Auto) % Neut % (Auto) % Lymph % (Auto) % [place] % (Auto) % Eos % (Auto) % Baso % (Auto) % Neut # (Auto) (1.40-6.50) K/uL Lymph # (Auto) (1.20-3.40) K/uL [place] # (Auto) (0.11-0.59) K/uL Eos # (Auto) (0.00-0.50) K/uL Baso # (Auto) (0.00-0.20) K/uL Immature Gran # (Auto) (0.01-0.20) K/uL PT 13.7 H (9.0-12.0) Seconds INR 1.3 H (0.9-1.1) APTT (21.0-31.0) Seconds PTT Ratio Sodium 135 L (136-145) mmol/L Potassium 3.8 (3.5-5.1) mmol/L Chloride 102 (98-107) mmol/L Carbon Dioxide 20 L (21-32) mmol/L Anion Gap 13 H (3-11) BUN 27 H (6-23) mg/dl Creatinine 1.68 H D (0.6-1.4) mg/dl Est Cr Clr Drug Dosing 32.4 ml/min Est GFR ( Amer) 43.8 ml/min Est GFR (Non-Af Amer) 37.8 ml/min BUN/Creatinine Ratio 16.1 (10-20) Glucose 84 (70-99(Fasting)) mg/dl Lactate (0.4-2.0) mmol/L Calcium 9.9 (8.6-10.3) mg/dl Ionized Calcium (1.12-1.32) mmol/L Phosphorus (2.5-4.9) mg/dl Magnesium 1.7 (1.7-2.4) mg/dl Total Bilirubin 1.8 H (0.2-1.0) mg/dl AST 38 (13-39) U/L ALT 11 (7-52) U/L Alkaline Phosphatase 91 (34-104) U/L Total Protein 5.7 L D (6.0-8.3) gm/dl Albumin 2.8 L (3.4-5.0) gm/dl Globulin 2.9 (2.5-4.0) gm/dl Albumin/Globulin Ratio 1.0 (0.9-2) Lipase (11-82) U/L Carcinoembryonic Ag 1.1 (0-2.5) ng/ml Procalcitonin (0-0.5) ng/ml Urine Color Urine Appearance (Clear) Urine pH (4.5-7.5) Ur Specific [place] (1.000-1.030) Urine Protein (Negative) Urine Glucose (UA) (Negative) Urine Ketones (Negative) Urine Blood (Negative) Urine Nitrite (Negative) Urine Bilirubin (Negative) Urine Urobilinogen (Negative) Ur Leukocyte Esterase (Negative) Urine WBC (Auto) (0-5) /hpf Urine RBC (Auto) (0-4) /hpf U Hyaline Cast (Auto) (0-5) /lpf U Epithel Cells (Auto) (0-5) /lpf Urine Bacteria (Auto) (Negative) 08/12/23 08/12/23 08/11/23 Range/Units 07:13 07:13 20:04 WBC 8.63 (4.8-10.8) K/ul RBC 4.39 L (4.70-6.10) M/uL Hgb 12.5 L (14.0-18.0) g/dl Hct 36.6 L (42.0-52.0) % MCV 83.4 (80.0-100.0) fL MCH 28.5 (25.0-34.0) pg MCHC 34.2 (32.0-36.0) g/dL RDW Std Deviation 47.6 H (36.4-46.3) fL RDW Coeff of Geovanna 15.9 H (11.5-14.5) % Plt Count 219 (130-400) K/uL MPV 10.3 (9.4-12.4) fL Immature Gran % (Auto) 2.1 % Neut % (Auto) 55.4 % Lymph % (Auto) 27.5 % [place] % (Auto) 14.3 % Eos % (Auto) 0.1 % Baso % (Auto) 0.6 % Neut # (Auto) 4.79 (1.40-6.50) K/uL Lymph # (Auto) 2.37 (1.20-3.40) K/uL [place] # (Auto) 1.23 H (0.11-0.59) K/uL Eos # (Auto) 0.01 (0.00-0.50) K/uL Baso # (Auto) 0.05 (0.00-0.20) K/uL Immature Gran # (Auto) 0.18 (0.01-0.20) K/uL PT (9.0-12.0) Seconds INR (0.9-1.1) APTT (21.0-31.0) Seconds PTT Ratio Sodium (136-145) mmol/L Potassium (3.5-5.1) mmol/L Chloride (98-107) mmol/L Carbon Dioxide (21-32) mmol/L Anion Gap (3-11) BUN (6-23) mg/dl Creatinine (0.6-1.4) mg/dl Est Cr Clr Drug Dosing ml/min Est GFR ( Amer) ml/min Est GFR (Non-Af Amer) ml/min BUN/Creatinine Ratio (10-20) Glucose (70-99(Fasting)) mg/dl Lactate 5.8 H* 8.8 H* (0.4-2.0) mmol/L Calcium (8.6-10.3) mg/dl Ionized Calcium (1.12-1.32) mmol/L Phosphorus (2.5-4.9) mg/dl Magnesium (1.7-2.4) mg/dl Total Bilirubin (0.2-1.0) mg/dl AST (13-39) U/L ALT (7-52) U/L Alkaline Phosphatase (34-104) U/L Total Protein (6.0-8.3) gm/dl Albumin (3.4-5.0) gm/dl Globulin (2.5-4.0) gm/dl Albumin/Globulin Ratio (0.9-2) Lipase (11-82) U/L Carcinoembryonic Ag (0-2.5) ng/ml Procalcitonin (0-0.5) ng/ml Urine Color Urine Appearance (Clear) Urine pH (4.5-7.5) Ur Specific [place] (1.000-1.030) Urine Protein (Negative) Urine Glucose (UA) (Negative) Urine Ketones (Negative) Urine Blood (Negative) Urine Nitrite (Negative) Urine Bilirubin (Negative) Urine Urobilinogen (Negative) Ur Leukocyte Esterase (Negative) Urine WBC (Auto) (0-5) /hpf Urine RBC (Auto) (0-4) /hpf U Hyaline Cast (Auto) (0-5) /lpf U Epithel Cells (Auto) (0-5) /lpf Urine Bacteria (Auto) (Negative) 08/11/23 08/11/23 08/11/23 Range/Units 17:33 17:23 13:33 WBC (4.8-10.8) K/ul RBC (4.70-6.10) M/uL Hgb (14.0-18.0) g/dl Hct (42.0-52.0) % MCV (80.0-100.0) fL MCH (25.0-34.0) pg MCHC (32.0-36.0) g/dL RDW Std Deviation (36.4-46.3) fL RDW Coeff of Geovanna (11.5-14.5) % Plt Count (130-400) K/uL MPV (9.4-12.4) fL Immature Gran % (Auto) % Neut % (Auto) % Lymph % (Auto) % [place] % (Auto) % Eos % (Auto) % Baso % (Auto) % Neut # (Auto) (1.40-6.50) K/uL Lymph # (Auto) (1.20-3.40) K/uL [place] # (Auto) (0.11-0.59) K/uL Eos # (Auto) (0.00-0.50) K/uL Baso # (Auto) (0.00-0.20) K/uL Immature Gran # (Auto) (0.01-0.20) K/uL PT (9.0-12.0) Seconds INR (0.9-1.1) APTT (21.0-31.0) Seconds PTT Ratio Sodium 132 L (136-145) mmol/L Potassium 4.2 (3.5-5.1) mmol/L Chloride 97 L (98-107) mmol/L Carbon Dioxide 16 L (21-32) mmol/L Anion Gap 19 H (3-11) BUN 30 H (6-23) mg/dl Creatinine 1.99 H (0.6-1.4) mg/dl Est Cr Clr Drug Dosing 27.7 ml/min Est GFR ( Amer) 35.7 ml/min Est GFR (Non-Af Amer) 30.8 ml/min BUN/Creatinine Ratio 15.1 (10-20) Glucose 129 H (70-99(Fasting)) mg/dl Lactate 8.9 H* (0.4-2.0) mmol/L Calcium 11.8 H (8.6-10.3) mg/dl Ionized Calcium 1.44 H (1.12-1.32) mmol/L Phosphorus 4.3 (2.5-4.9) mg/dl Magnesium 2.0 (1.7-2.4) mg/dl Total Bilirubin 1.6 H (0.2-1.0) mg/dl AST 45 H (13-39) U/L ALT 14 (7-52) U/L Alkaline Phosphatase 133 H (34-104) U/L Total Protein 7.8 (6.0-8.3) gm/dl Albumin 3.6 (3.4-5.0) gm/dl Globulin 4.2 H (2.5-4.0) gm/dl Albumin/Globulin Ratio 0.9 (0.9-2) Lipase 53 (11-82) U/L Carcinoembryonic Ag (0-2.5) ng/ml Procalcitonin (0-0.5) ng/ml Urine Color Urine Appearance (Clear) Urine pH (4.5-7.5) Ur Specific [place] (1.000-1.030) Urine Protein (Negative) Urine Glucose (UA) (Negative) Urine Ketones (Negative) Urine Blood (Negative) Urine Nitrite (Negative) Urine Bilirubin (Negative) Urine Urobilinogen (Negative) Ur Leukocyte Esterase (Negative) Urine WBC (Auto) (0-5) /hpf Urine RBC (Auto) (0-4) /hpf U Hyaline Cast (Auto) (0-5) /lpf U Epithel Cells (Auto) (0-5) /lpf Urine Bacteria (Auto) (Negative) 08/11/23 08/11/23 08/11/23 Range/Units 13:33 13:32 13:30 WBC 13.26 H (4.8-10.8) K/ul RBC 5.32 (4.70-6.10) M/uL Hgb 15.2 (14.0-18.0) g/dl Hct 45.7 (42.0-52.0) % MCV 85.9 (80.0-100.0) fL MCH 28.6 (25.0-34.0) pg MCHC 33.3 (32.0-36.0) g/dL RDW Std Deviation 48.7 H (36.4-46.3) fL RDW Coeff of Geovanna 16.0 H (11.5-14.5) % Plt Count 299 (130-400) K/uL MPV 10.2 (9.4-12.4) fL Immature Gran % (Auto) 3.6 % Neut % (Auto) 54.9 % Lymph % (Auto) 29.3 % [place] % (Auto) 11.7 % Eos % (Auto) 0.0 % Baso % (Auto) 0.5 % Neut # (Auto) 7.28 H (1.40-6.50) K/uL Lymph # (Auto) 3.88 H (1.20-3.40) K/uL [place] # (Auto) 1.55 H (0.11-0.59) K/uL Eos # (Auto) 0.00 (0.00-0.50) K/uL Baso # (Auto) 0.07 (0.00-0.20) K/uL Immature Gran # (Auto) 0.48 H (0.01-0.20) K/uL PT 22.4 H (9.0-12.0) Seconds INR 2.1 H (0.9-1.1) APTT 38.2 H (21.0-31.0) Seconds PTT Ratio 1.4 Sodium (136-145) mmol/L Potassium (3.5-5.1) mmol/L Chloride (98-107) mmol/L Carbon Dioxide (21-32) mmol/L Anion Gap (3-11) BUN (6-23) mg/dl Creatinine (0.6-1.4) mg/dl Est Cr Clr Drug Dosing ml/min Est GFR ( Amer) ml/min Est GFR (Non-Af Amer) ml/min BUN/Creatinine Ratio (10-20) Glucose (70-99(Fasting)) mg/dl Lactate (0.4-2.0) mmol/L Calcium (8.6-10.3) mg/dl Ionized Calcium (1.12-1.32) mmol/L Phosphorus (2.5-4.9) mg/dl Magnesium (1.7-2.4) mg/dl Total Bilirubin (0.2-1.0) mg/dl AST (13-39) U/L ALT (7-52) U/L Alkaline Phosphatase (34-104) U/L Total Protein (6.0-8.3) gm/dl Albumin (3.4-5.0) gm/dl Globulin (2.5-4.0) gm/dl Albumin/Globulin Ratio (0.9-2) Lipase (11-82) U/L Carcinoembryonic Ag (0-2.5) ng/ml Procalcitonin (0-0.5) ng/ml Urine Color Dark Yellow Urine Appearance Cloudy A (Clear) Urine pH 5.0 (4.5-7.5) Ur Specific [place] 1.030 (1.000-1.030) Urine Protein 1+ H (Negative) Urine Glucose (UA) Negative (Negative) Urine Ketones Negative (Negative) Urine Blood 3+ H (Negative) Urine Nitrite Negative (Negative) Urine Bilirubin 1+ H (Negative) Urine Urobilinogen Negative (Negative) Ur Leukocyte Esterase Negative (Negative) Urine WBC (Auto) 5-10 H (0-5) /hpf Urine RBC (Auto) 10-30 H (0-4) /hpf U Hyaline Cast (Auto) 0 (0-5) /lpf U Epithel Cells (Auto) >30 H (0-5) /lpf Urine Bacteria (Auto) Negative (Negative) 08/11/23 Range/Units 13:30 WBC (4.8-10.8) K/ul RBC (4.70-6.10) M/uL Hgb (14.0-18.0) g/dl Hct (42.0-52.0) % MCV (80.0-100.0) fL MCH (25.0-34.0) pg MCHC (32.0-36.0) g/dL RDW Std Deviation (36.4-46.3) fL RDW Coeff of Geovanna (11.5-14.5) % Plt Count (130-400) K/uL MPV (9.4-12.4) fL Immature Gran % (Auto) % Neut % (Auto) % Lymph % (Auto) % [place] % (Auto) % Eos % (Auto) % Baso % (Auto) % Neut # (Auto) (1.40-6.50) K/uL Lymph # (Auto) (1.20-3.40) K/uL [place] # (Auto) (0.11-0.59) K/uL Eos # (Auto) (0.00-0.50) K/uL Baso # (Auto) (0.00-0.20) K/uL Immature Gran # (Auto) (0.01-0.20) K/uL PT (9.0-12.0) Seconds INR (0.9-1.1) APTT (21.0-31.0) Seconds PTT Ratio Sodium (136-145) mmol/L Potassium (3.5-5.1) mmol/L Chloride (98-107) mmol/L Carbon Dioxide (21-32) mmol/L Anion Gap (3-11) BUN (6-23) mg/dl Creatinine (0.6-1.4) mg/dl Est Cr Clr Drug Dosing ml/min Est GFR ( Amer) ml/min Est GFR (Non-Af Amer) ml/min BUN/Creatinine Ratio (10-20) Glucose (70-99(Fasting)) mg/dl Lactate (0.4-2.0) mmol/L Calcium (8.6-10.3) mg/dl Ionized Calcium (1.12-1.32) mmol/L Phosphorus (2.5-4.9) mg/dl Magnesium (1.7-2.4) mg/dl Total Bilirubin (0.2-1.0) mg/dl AST (13-39) U/L ALT (7-52) U/L Alkaline Phosphatase (34-104) U/L Total Protein (6.0-8.3) gm/dl Albumin (3.4-5.0) gm/dl Globulin (2.5-4.0) gm/dl Albumin/Globulin Ratio (0.9-2) Lipase (11-82) U/L Carcinoembryonic Ag (0-2.5) ng/ml Procalcitonin 0.91 H (0-0.5) ng/ml Urine Color Urine Appearance (Clear) Urine pH (4.5-7.5) Ur Specific [place] (1.000-1.030) Urine Protein (Negative) Urine Glucose (UA) (Negative) Urine Ketones (Negative) Urine Blood (Negative) Urine Nitrite (Negative) Urine Bilirubin (Negative) Urine Urobilinogen (Negative) Ur Leukocyte Esterase (Negative) Urine WBC (Auto) (0-5) /hpf Urine RBC (Auto) (0-4) /hpf U Hyaline Cast (Auto) (0-5) /lpf U Epithel Cells (Auto) (0-5) /lpf Urine Bacteria (Auto) (Negative)
--- NOTE | 2023-08-12 09:29 | Urology Consultation ---
Date of Consultation August 12, 2023 Assessment & Plan (1) Calculus, ureteral: Plan 78 year old male admitted with abnormal outpatient imaging, concerning for cholecystitis, large cecal mass, and left ureteral stone. CT abd pelvis demonstrated a 10mm left UPJ stone without significant hydronephrosis noted. - Afebrile, hemodynamically stable. - Labs reviewed - WBC 8.63, Hemoglobin 12.5, Creatinine 1.68. - Urinalysis 3+blood, negative nitrite, negative LE, negative bacteria, >30Epi. - Urine and blood cultures pending. On Zosyn. - Discussed acute stone management with cystoscopy and stent placement. Ureteral stents were discussed as well as postoperative issues and pain management. He is aware a second procedure will be needed in the future for stone treatment. All questions were answered. He is agreeable to proceeding. - Plan to proceed to OR today for cystoscopy, left retrograde pyelogram, left ureteral stent placement. - Risks and benefits to be reviewed with patient by Dr. Ríos. - Covered with scheduled IV Zosyn. - Keep NPO. - Urology will follow. Attending note: Patient independently assessed, examined, interviewed, and evaluated. Agree with note as above. Patient's vitals and labs were all reviewed. Pertinent values in the HPI and plan section. Imaging was reviewed interpreted by myself. Agree with read. Vitals were reviewed. Discussed findings extensively with patient and family. Reviewed with nurse practitioner as well as consulting physicians/team. Vitals are stable with mild hypotension at 107/67. Temp is stable at 36.5. Is satting 92% on room air. Patient's imaging per my review appears to have a large obstructing stone in the left proximal ureter/UPJ approximately 1 to 1.2 cm. Causing obstructive issues with perinephric stranding. Patient also has concern for his ongoing known possible malignancy with appearance of possible metastatic disease. Is also dealing with signs of possible acute cholecystitis with pericholecystic inflammation and numerous gallbladder stones. Patient has been evaluated by general surgery. Are awaiting their full recommendations. Lab work includes hemoglobin 12.5. White cells 8.63. Creatinine was elevated at 1.68. Patient's labs are all reviewed with pertinent values in the HPI and plan section. Patient's complicated medical and surgical history was reviewed and summarized above. Patient's surgical, medical, social, and family history were all reviewed with pertinent values as above. Discussed patient's current diagnosis as well as concerns and issues. Reviewed different options moving forward. Discussed potential risks and benefits as well as possible options and concerns. Reviewed potential surgical options and interventions. Discussed potential issues and concerns related to intervention. Risk and benefits were discussed extensively with patient and any available family. Discussed potential risks related to anesthesia. Discussed risks of bleeding infection and injury. Risks and benefits discussed at length for procedure. These include bleeding, infection, injury to surrounding tissues or organs, and risks associated with anesthesia. Patient states understanding and agrees to proceed. Will sign consent and proceed with cystoscopy with possible left stent placement History of Present Illness Attending Physician: Shana Zhang MD History of Present Illness 78 year old male with history of CAD, CKD-3, HTN, dementia who presented to the [facility] ED on 08/11 at the recommendation of his PCP for abnormal outpatient imaging- Urology asked to evaluate due to findings of a 10mm calculus at the left UPJ with surround urothelial thickening, no hydronephrosis. Imaging also concerning for cholecystitis and large cecal mass, GI and surgery following. Pt admitted to medicine service for further management and care. On arrival, he was afebrile and hemodynamically stable. Labs showing no l eukocytosis and DARYL of 1.99. Urine and blood cultures collected. Pt received IV Zosyn in the ED. CT abdomen pelvis- 1. Cholelithiasis with evidence of acute cholecystitis. A calcified stone is seen in the cystic duct. Surgical evaluation is advised. 2. There is a large mass lesion involving the cecum. Additionally, there is evidence of diffuse/multifocal hepatic metastatic disease, as well as pa thological upper abdominal, retroperitoneal, and mesenteric lymphadenopathy. Top differential considerations are lymphoma versus metastatic colon cancer. Lymphoma is favored given the distribution. Follow-up oncology will be required. 3. Evaluation for nephrolithiasis is significant degraded by the presence of excreted IV contrast in the renal collecting systems and ureters. A 10 mm calculus is seen at the left ureteropelvic junction with surrounding urothelial thickening. No hydronephrosis is identified. 4. Additional smaller nonobstructing bilateral renal calculi are suspected but difficult to evaluate. 5. Emphysema and trace right pleural effusion. 6. Colonic diverticulosis without CT evidence of acute diverticulitis. 7. Diffuse osseous metastatic disease was much better appreciated on today's MRI. Pt examined at bedside this AM. Awake, resting in bed on arrival. No acute distress. Pleasant. Answers questions appropriately. Reports lower back pain which has been progressive over the past few months. Denies abdominal or flank pain. Denies fevers, chills, nausea, vomiting. Voiding without issues. Denies hematuria or dysuria. Pt reports a hx of kidney stones, unsure of timeframe. Reports possibly being treated in [place]? Denies additional issues/concerns. Allergies Allergy/AdvReac Type Severity Reaction Status Date / Time No Known Allergies Allergy Verified 08/10/23 11:59 Home Medications Medication Instructions Recorded Confirmed Type aspirin 81 mg tablet,delayed 81 mg PO QAM 06/28/19 08/11/23 History release (Kevin Low Dose Aspirin) metoprolol tartrate 25 mg tablet 25 mg PO QAM 06/28/19 08/11/23 History donepezil 5 mg tablet 5 mg PO HS 08/10/23 08/11/23 History mirtazapine 15 mg tablet (Remeron) 15 mg PO .qhs #90 tabs 08/10/23 08/11/23 Rx rosuvastatin 5 mg tablet (Crestor) 5 mg PO DAILY 08/10/23 08/11/23 History nitroglycerin 0.4 mg sublingual 0.4 mg sublingual UD PRN Chest Pain 08/11/23 08/11/23 History tablet Patient History Medical History CAD (coronary artery disease) s/p stent x 1 (), CABG x2 (2004) Chronic back pain Cyst of pancreas reason for upcoming procedure Hypertension Kidney stones Myocardial Infarction multiple, most recent 2004 Osteoarthritis Surgical History History of cardiac cath = stent x 1 History of coronary artery bypass graft CABG x2 (2004) History of herniorrhaphy INGUINAL HERNIA REPAIR Family History Brother FHx: pancreatic cancer FHx: liver cancer Brother Prostate cancer Social History Smoking Status: Former smoker Second Hand Exposure: No; Do You Dip or Chew Tobacco: No; Hx Alcohol Use: No Hx Substance Use: No Preferred Language: Maltese Communication Ability: Effective Visual Impairment: No Limitations Edge Stainer Machine Required: No Beliefs That Will Affect Care: None Current Living Situation: Spouse Feels Safe at Home: Yes Safety Concerns: Feels Safe At This Time Assistive Devices: Glasses Review of Systems Review of Systems: All systems reviewed & are unremarkable except as noted in HPI & below Physical Exam Constitutional: well developed and well nourished; no acute distress Neck: normal visual inspection Respiratory: normal respiratory effort; no respiratory distress and no labored breathing Gastrointestinal (Abdomen): Inspection/Auscultation: abdomen normal to inspection Musculoskeletal: Head/Neck/Chest: normocephalic Skin: No visible rashes or lesions to exposed skin areas Neurologic: moves all extremities and awake Psychiatric: A+Ox3, euthymic affect Results & Data Vital Signs (Past 12 Hours) Vital Signs Temp Pulse Pulse Resp BP Pulse Ox O2 Del Method 08/12/23 03:18 36.7 C 85 18 111/71 92 Room Air 08/11/23 23:47 97 H 08/11/23 23:31 36.7 C 82 18 109/69 94 Room Air 08/11/23 21:16 85 122/77 95 Room Air 08/11/23 20:43 83 18 127/83 95 Room Air 08/11/23 20:27 73 18 152/75 H 94 Room Air 08/11/23 20:14 66 18 138/73 96 Room Air PG Care Time/CCT Total # of Minutes Spent Total Time Spent with Patient: Total time spent is greater than 50% in coordination of care (as documented) at patient's floor/unit and/or counseling patient: Coding Level of Care Code 67238 INT INP/OBS CARE 2/55MIN Diagnoses Calculus, ureteral N20.1
[2023-08-12 10:00] LABS: Uric Acid 7.8 mg/dl (2.6-7.2)
[2023-08-12] MEDS ORDERED: MIDAZOLAM HCL 1 MG/ML 2ML VIAL ONE (10:51)
[2023-08-12] MEDS ORDERED: KETAMINE 50 MG/5 ML SYRINGE ONE (10:52)
[2023-08-12] MEDS ORDERED: fentaNYL citrate PF 100 MCG/2 ML VIAL IV PRN (11:15)
[2023-08-12] MEDS ORDERED: ATROPINE SULFATE 0.1 MG/ML 10ML SYR IV PRN (11:15)
[2023-08-12] MEDS ORDERED: ePHEDrine sulfate 50 MG/ML AMP IV PRN (11:15)
[2023-08-12] MEDS ORDERED: DIATRIZOATE MEGLUMINE 30% 100ML VIAL INSTIL ONE (11:32)
--- NOTE | 2023-08-12 11:46 | Operative Report ---
PG Post Operative Report Pre & Post Diagnosis Hydronephrosis, Left Stone Same Operation Date: 08/15/23 16:30 <No data on this case meets the specified criteria> I identified the patient and participated in the time-out.: Yes Procedure Cystoscopy with evacuation and extraction of bladder stones. Left retrograde pyelogram and left stent. Operation Date: 08/15/23 16:30 <No data on this case meets the specified criteria> Surgeon Andrea Ríos, II, DO Track Vehicle Repairer None Estimated Blood Loss 1 Findings Consistent with Post-Op Diagnosis Stent placed in good position. Innumerable small stones in base of bladder. Specimens None Drains 6 Fr Multilength Anesthesia Type MAC Complications none Disposition Disposition: Recovery Room Indications Patient with obstruction. Risks and benefits discussed at length. Description of Procedure Patient was consented and brought back to the operating room. Patient was placed under anesthesia in the supine position and moved to the dorsal lithotomy position. Patient was prepped and draped in the regular sterile fashion. A time out was completed. A 30degree Cystoscope was placed into the bladder and the entire bladder was examined. The base of the bladder was covered in small stones. These had to be evacuated and extracted and flushed from the bladder. The UO's were identified. The UO was cannulized with a catheter and a retrograde pyelogram was completed. A wire was then placed. With the wire in place, a 6 Fr Double J stent was placed. It was confirmed with fluoroscopy. With the stent in place, the bladder was emptied. The scope was removed. The patient was cleaned, aroused from anesthesia, and transferred to the pacu in stable condition having tolerated the procedure well with no complications. I was present and participated in all aspects of the procedure. The patient will be monitored in the PACU until transferred. Plan to maintain stent with followup in office to decide on treatment in next 1- 2 weeks. I attest to the content of the Intraoperative Record and any orders documented therein. Any exceptions are noted below.
[2023-08-12] MEDS ORDERED: PROPOFOL IV EMULSION 10 MG/ML 20 ML VIAL IV ONE (11:51)
[2023-08-12] MEDS ORDERED: ONDANSETRON INJ 2 MG/ML 2 ML VIAL ONE (11:51)
[2023-08-12] MEDS ORDERED: PHENYLEPHRINE 100MCG/ML 5ML SYR ONE (11:51)
[2023-08-12] MEDS ORDERED: LIDOCAINE 2% 2 ML VIAL/AMP(20MG/ML) INFIL ONE (11:51)
--- NOTE | 2023-08-12 12:38 | Anesthesiology Progress Note ---
Date of Service August 12, 2023 Anesthesia Post Procedure Vital Signs Vital Signs: Temp Pulse Pulse Pulse Resp BP BP 08/12/23 12:25 81 20 93/54 L 08/12/23 12:15 73 22 85/50 L 08/12/23 12:05 75 22 87/50 L 08/12/23 11:55 72 22 89/51 L 08/12/23 11:46 36.8 C 79 24 106/59 L 08/12/23 10:55 37.2 C 84 20 108/59 L 08/12/23 07:44 36.5 C 85 18 107/67 08/12/23 03:18 36.7 C 85 18 111/71 08/11/23 23:47 97 H 08/11/23 23:31 36.7 C 82 18 109/69 08/11/23 18:51 64 08/11/23 21:16 85 122/77 08/11/23 20:43 83 18 127/83 08/11/23 19:10 36.4 C L 71 16 122/73 08/11/23 20:27 73 18 152/75 H 08/11/23 20:14 66 18 138/73 08/11/23 18:52 36.7 C 66 18 117/69 08/11/23 18:29 89 18 123/82 08/11/23 15:47 67 19 113/67 08/11/23 14:44 70 18 131/78 08/11/23 13:15 35.4 C L 89 20 115/79 Pulse Ox O2 Del Method O2 Flow Rate 08/12/23 12:25 90 Nasal Cannula 2 08/12/23 12:15 91 Room Air 08/12/23 12:05 92 Room Air 08/12/23 11:55 99 Oxymask 5 08/12/23 11:46 98 Oxymask 5 08/12/23 10:55 93 Room Air 08/12/23 07:44 92 Room Air 08/12/23 03:18 92 Room Air 08/11/23 23:47 08/11/23 23:31 94 Room Air 08/11/23 18:51 08/11/23 21:16 95 Room Air 08/11/23 20:43 95 Room Air 08/11/23 19:10 94 Room Air 08/11/23 20:27 94 Room Air 08/11/23 20:14 96 Room Air 08/11/23 18:52 95 Room Air 08/11/23 18:29 95 Room Air 08/11/23 15:47 94 Room Air 08/11/23 14:44 96 Room Air 08/11/23 13:15 96 Room Air Transfer of Care Handoff Completed per policy Notes Mental Status: alert / awake / arousable and participated in evaluation Patient Amnestic to Procedure: Yes Nausea / Vomiting: adequately controlled Pain: adequately controlled Airway Patency, RR, SpO2: stable & adequate BP & HR: stable & adequate Hydration State: stable & adequate Anesthetic Complications: no major complications apparent and Pt Satisfied with anesthetic care
--- NOTE | 2023-08-12 12:47 | Surgery Progress Note ---
Date of Service August 12, 2023 Assessment & Plan (1) Acute cholecystitis: (2) Metastasis of unknown primary: (3) Cecum mass: Plan 78 years old gentleman who presented with the back pain 35 pounds of weight loss. Patient had a CT scan MRI scan which is showing , (1) a large cecal mass size about 11 cm time 6.5 cm, no bowel obstruction. (2), hepatic metastatic disease, (3). gallstone with acute cholecystitis. (4), Possible bone metastatic disease. (5), 10 mm stone at ureteropelvic junction. avss t. bili 1.8 but lfts wnl leukocytosis resolved per patient no abdominal pain Plan: Given multiple issues including large cecal mass with extensive metastatic disease would not recommend cholecystectomy at this time. If t. bili continues to increase, would consider MRCP vs ERCP to rule out choledocholithiasis. Continue antibiotics for any biliary coverage. Need colonoscopy with biopsy for diagnosis. Rescheduled for Tuesday with bowel prep over weekend. 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 Continue current medical management [facility] covering the weekend. Dr. Khoury was present during my examination and agrees with above. Admission and Anticipated Discharge Date Admission Date: August 11, 2023 Subjective patient complains of no abdominal pain, family at bedside, unable to tolerate the colonoscopy prep, felt full after the prep. No nausea or vomiting no fevers or chills colonoscopy planned for Tuesday with attempting prep over weekend NPO for cystoscopy today for left uretal calculous Physical Exam Constitutional: WD/WN, vitals as above no acute distress and not ill appearing Gastrointestinal (Abdomen): Inspection/Auscultation: abdomen normal to inspection; abdomen not distended Percussion/Palpation: abdomen soft; abdomen nontender, no guarding, abdomen not rigid and abdomen not firm Skin: no jaundice Psychiatric: Orientation: alert Results & Data Vital Signs (Past 12 Hours) Vital Signs Temp Pulse Pulse Resp BP Pulse Ox O2 Del Method 08/12/23 12:25 81 20 93/54 L 90 Nasal Cannula 08/12/23 12:15 73 22 85/50 L 91 Room Air 08/12/23 12:05 75 22 87/50 L 92 Room Air 08/12/23 11:55 72 22 89/51 L 99 Oxymask 08/12/23 11:46 36.8 C 79 24 106/59 L 98 Oxymask 08/12/23 10:55 37.2 C 84 20 108/59 L 93 Room Air 08/12/23 07:44 36.5 C 85 18 107/67 92 Room Air 08/12/23 03:18 36.7 C 85 18 111/71 92 Room Air O2 Flow Rate 08/12/23 12:25 2 08/12/23 12:15 08/12/23 12:05 08/12/23 11:55 5 08/12/23 11:46 5 08/12/23 10:55 08/12/23 07:44 08/12/23 03:18 Laboratory Results 08/12/23 08/12/23 08/12/23 Range/Units 07:13 07:13 07:13 WBC (4.8-10.8) K/ul RBC (4.70-6.10) M/uL Hgb (14.0-18.0) g/dl Hct (42.0-52.0) % MCV (80.0-100.0) fL MCH (25.0-34.0) pg MCHC (32.0-36.0) g/dL RDW Std Deviation (36.4-46.3) fL RDW Coeff of Geovanna (11.5-14.5) % Plt Count (130-400) K/uL MPV (9.4-12.4) fL Immature Gran % (Auto) % Neut % (Auto) % Lymph % (Auto) % [place] % (Auto) % Eos % (Auto) % Baso % (Auto) % Neut # (Auto) (1.40-6.50) K/uL Lymph # (Auto) (1.20-3.40) K/uL [place] # (Auto) (0.11-0.59) K/uL Eos # (Auto) (0.00-0.50) K/uL Baso # (Auto) (0.00-0.20) K/uL Immature Gran # (Auto) (0.01-0.20) K/uL PT 13.7 H (9.0-12.0) Seconds INR 1.3 H (0.9-1.1) APTT (21.0-31.0) Seconds PTT Ratio Sodium 135 L (136-145) mmol/L Potassium 3.8 (3.5-5.1) mmol/L Chloride 102 (98-107) mmol/L Carbon Dioxide 20 L (21-32) mmol/L Anion Gap 13 H (3-11) BUN 27 H (6-23) mg/dl Creatinine 1.68 H D (0.6-1.4) mg/dl Est Cr Clr Drug Dosing 32.4 ml/min Est GFR ( Amer) 43.8 ml/min Est GFR (Non-Af Amer) 37.8 ml/min BUN/Creatinine Ratio 16.1 (10-20) Glucose 84 (70-99(Fasting)) mg/dl Lactate (0.4-2.0) mmol/L Uric Acid 7.8 H (2.6-7.2) mg/dl Calcium 9.9 (8.6-10.3) mg/dl Ionized Calcium (1.12-1.32) mmol/L Phosphorus (2.5-4.9) mg/dl Magnesium 1.7 (1.7-2.4) mg/dl Total Bilirubin 1.8 H (0.2-1.0) mg/dl AST 38 (13-39) U/L ALT 11 (7-52) U/L Alkaline Phosphatase 91 (34-104) U/L Total Protein 5.7 L D (6.0-8.3) gm/dl Albumin 2.8 L (3.4-5.0) gm/dl Globulin 2.9 (2.5-4.0) gm/dl Albumin/Globulin Ratio 1.0 (0.9-2) Lipase (11-82) U/L Carcinoembryonic Ag 1.1 (0-2.5) ng/ml Procalcitonin (0-0.5) ng/ml Urine Color Urine Appearance (Clear) Urine pH (4.5-7.5) Ur Specific [place] (1.000-1.030) Urine Protein (Negative) Urine Glucose (UA) (Negative) Urine Ketones (Negative) Urine Blood (Negative) Urine Nitrite (Negative) Urine Bilirubin (Negative) Urine Urobilinogen (Negative) Ur Leukocyte Esterase (Negative) Urine WBC (Auto) (0-5) /hpf Urine RBC (Auto) (0-4) /hpf U Hyaline Cast (Auto) (0-5) /lpf U Epithel Cells (Auto) (0-5) /lpf Urine Bacteria (Auto) (Negative) 08/12/23 08/12/23 08/11/23 Range/Units 07:13 07:13 20:04 WBC 8.63 (4.8-10.8) K/ul RBC 4.39 L (4.70-6.10) M/uL Hgb 12.5 L (14.0-18.0) g/dl Hct 36.6 L (42.0-52.0) % MCV 83.4 (80.0-100.0) fL MCH 28.5 (25.0-34.0) pg MCHC 34.2 (32.0-36.0) g/dL RDW Std Deviation 47.6 H (36.4-46.3) fL RDW Coeff of Geovanna 15.9 H (11.5-14.5) % Plt Count 219 (130-400) K/uL MPV 10.3 (9.4-12.4) fL Immature Gran % (Auto) 2.1 % Neut % (Auto) 55.4 % Lymph % (Auto) 27.5 % [place] % (Auto) 14.3 % Eos % (Auto) 0.1 % Baso % (Auto) 0.6 % Neut # (Auto) 4.79 (1.40-6.50) K/uL Lymph # (Auto) 2.37 (1.20-3.40) K/uL [place] # (Auto) 1.23 H (0.11-0.59) K/uL Eos # (Auto) 0.01 (0.00-0.50) K/uL Baso # (Auto) 0.05 (0.00-0.20) K/uL Immature Gran # (Auto) 0.18 (0.01-0.20) K/uL PT (9.0-12.0) Seconds INR (0.9-1.1) APTT (21.0-31.0) Seconds PTT Ratio Sodium (136-145) mmol/L Potassium (3.5-5.1) mmol/L Chloride (98-107) mmol/L Carbon Dioxide (21-32) mmol/L Anion Gap (3-11) BUN (6-23) mg/dl Creatinine (0.6-1.4) mg/dl Est Cr Clr Drug Dosing ml/min Est GFR ( Amer) ml/min Est GFR (Non-Af Amer) ml/min BUN/Creatinine Ratio (10-20) Glucose (70-99(Fasting)) mg/dl Lactate 5.8 H* 8.8 H* (0.4-2.0) mmol/L Uric Acid (2.6-7.2) mg/dl Calcium (8.6-10.3) mg/dl Ionized Calcium (1.12-1.32) mmol/L Phosphorus (2.5-4.9) mg/dl Magnesium (1.7-2.4) mg/dl Total Bilirubin (0.2-1.0) mg/dl AST (13-39) U/L ALT (7-52) U/L Alkaline Phosphatase (34-104) U/L Total Protein (6.0-8.3) gm/dl Albumin (3.4-5.0) gm/dl Globulin (2.5-4.0) gm/dl Albumin/Globulin Ratio (0.9-2) Lipase (11-82) U/L Carcinoembryonic Ag (0-2.5) ng/ml Procalcitonin (0-0.5) ng/ml Urine Color Urine Appearance (Clear) Urine pH (4.5-7.5) Ur Specific [place] (1.000-1.030) Urine Protein (Negative) Urine Glucose (UA) (Negative) Urine Ketones (Negative) Urine Blood (Negative) Urine Nitrite (Negative) Urine Bilirubin (Negative) Urine Urobilinogen (Negative) Ur Leukocyte Esterase (Negative) Urine WBC (Auto) (0-5) /hpf Urine RBC (Auto) (0-4) /hpf U Hyaline Cast (Auto) (0-5) /lpf U Epithel Cells (Auto) (0-5) /lpf Urine Bacteria (Auto) (Negative) 08/11/23 08/11/23 08/11/23 Range/Units 17:33 17:23 13:33 WBC (4.8-10.8) K/ul RBC (4.70-6.10) M/uL Hgb (14.0-18.0) g/dl Hct (42.0-52.0) % MCV (80.0-100.0) fL MCH (25.0-34.0) pg MCHC (32.0-36.0) g/dL RDW Std Deviation (36.4-46.3) fL RDW Coeff of Geovanna (11.5-14.5) % Plt Count (130-400) K/uL MPV (9.4-12.4) fL Immature Gran % (Auto) % Neut % (Auto) % Lymph % (Auto) % [place] % (Auto) % Eos % (Auto) % Baso % (Auto) % Neut # (Auto) (1.40-6.50) K/uL Lymph # (Auto) (1.20-3.40) K/uL [place] # (Auto) (0.11-0.59) K/uL Eos # (Auto) (0.00-0.50) K/uL Baso # (Auto) (0.00-0.20) K/uL Immature Gran # (Auto) (0.01-0.20) K/uL PT (9.0-12.0) Seconds INR (0.9-1.1) APTT (21.0-31.0) Seconds PTT Ratio Sodium 132 L (136-145) mmol/L Potassium 4.2 (3.5-5.1) mmol/L Chloride 97 L (98-107) mmol/L Carbon Dioxide 16 L (21-32) mmol/L Anion Gap 19 H (3-11) BUN 30 H (6-23) mg/dl Creatinine 1.99 H (0.6-1.4) mg/dl Est Cr Clr Drug Dosing 27.7 ml/min Est GFR ( Amer) 35.7 ml/min Est GFR (Non-Af Amer) 30.8 ml/min BUN/Creatinine Ratio 15.1 (10-20) Glucose 129 H (70-99(Fasting)) mg/dl Lactate 8.9 H* (0.4-2.0) mmol/L Uric Acid (2.6-7.2) mg/dl Calcium 11.8 H (8.6-10.3) mg/dl Ionized Calcium 1.44 H (1.12-1.32) mmol/L Phosphorus 4.3 (2.5-4.9) mg/dl Magnesium 2.0 (1.7-2.4) mg/dl Total Bilirubin 1.6 H (0.2-1.0) mg/dl AST 45 H (13-39) U/L ALT 14 (7-52) U/L Alkaline Phosphatase 133 H (34-104) U/L Total Protein 7.8 (6.0-8.3) gm/dl Albumin 3.6 (3.4-5.0) gm/dl Globulin 4.2 H (2.5-4.0) gm/dl Albumin/Globulin Ratio 0.9 (0.9-2) Lipase 53 (11-82) U/L Carcinoembryonic Ag (0-2.5) ng/ml Procalcitonin (0-0.5) ng/ml Urine Color Urine Appearance (Clear) Urine pH (4.5-7.5) Ur Specific [place] (1.000-1.030) Urine Protein (Negative) Urine Glucose (UA) (Negative) Urine Ketones (Negative) Urine Blood (Negative) Urine Nitrite (Negative) Urine Bilirubin (Negative) Urine Urobilinogen (Negative) Ur Leukocyte Esterase (Negative) Urine WBC (Auto) (0-5) /hpf Urine RBC (Auto) (0-4) /hpf U Hyaline Cast (Auto) (0-5) /lpf U Epithel Cells (Auto) (0-5) /lpf Urine Bacteria (Auto) (Negative) 08/11/23 08/11/23 08/11/23 Range/Units 13:33 13:32 13:30 WBC 13.26 H (4.8-10.8) K/ul RBC 5.32 (4.70-6.10) M/uL Hgb 15.2 (14.0-18.0) g/dl Hct 45.7 (42.0-52.0) % MCV 85.9 (80.0-100.0) fL MCH 28.6 (25.0-34.0) pg MCHC 33.3 (32.0-36.0) g/dL RDW Std Deviation 48.7 H (36.4-46.3) fL RDW Coeff of Geovanna 16.0 H (11.5-14.5) % Plt Count 299 (130-400) K/uL MPV 10.2 (9.4-12.4) fL Immature Gran % (Auto) 3.6 % Neut % (Auto) 54.9 % Lymph % (Auto) 29.3 % [place] % (Auto) 11.7 % Eos % (Auto) 0.0 % Baso % (Auto) 0.5 % Neut # (Auto) 7.28 H (1.40-6.50) K/uL Lymph # (Auto) 3.88 H (1.20-3.40) K/uL [place] # (Auto) 1.55 H (0.11-0.59) K/uL Eos # (Auto) 0.00 (0.00-0.50) K/uL Baso # (Auto) 0.07 (0.00-0.20) K/uL Immature Gran # (Auto) 0.48 H (0.01-0.20) K/uL PT 22.4 H (9.0-12.0) Seconds INR 2.1 H (0.9-1.1) APTT 38.2 H (21.0-31.0) Seconds PTT Ratio 1.4 Sodium (136-145) mmol/L Potassium (3.5-5.1) mmol/L Chloride (98-107) mmol/L Carbon Dioxide (21-32) mmol/L Anion Gap (3-11) BUN (6-23) mg/dl Creatinine (0.6-1.4) mg/dl Est Cr Clr Drug Dosing ml/min Est GFR ( Amer) ml/min Est GFR (Non-Af Amer) ml/min BUN/Creatinine Ratio (10-20) Glucose (70-99(Fasting)) mg/dl Lactate (0.4-2.0) mmol/L Uric Acid (2.6-7.2) mg/dl Calcium (8.6-10.3) mg/dl Ionized Calcium (1.12-1.32) mmol/L Phosphorus (2.5-4.9) mg/dl Magnesium (1.7-2.4) mg/dl Total Bilirubin (0.2-1.0) mg/dl AST (13-39) U/L ALT (7-52) U/L Alkaline Phosphatase (34-104) U/L Total Protein (6.0-8.3) gm/dl Albumin (3.4-5.0) gm/dl Globulin (2.5-4.0) gm/dl Albumin/Globulin Ratio (0.9-2) Lipase (11-82) U/L Carcinoembryonic Ag (0-2.5) ng/ml Procalcitonin (0-0.5) ng/ml Urine Color Dark Yellow Urine Appearance Cloudy A (Clear) Urine pH 5.0 (4.5-7.5) Ur Specific [place] 1.030 (1.000-1.030) Urine Protein 1+ H (Negative) Urine Glucose (UA) Negative (Negative) Urine Ketones Negative (Negative) Urine Blood 3+ H (Negative) Urine Nitrite Negative (Negative) Urine Bilirubin 1+ H (Negative) Urine Urobilinogen Negative (Negative) Ur Leukocyte Esterase Negative (Negative) Urine WBC (Auto) 5-10 H (0-5) /hpf Urine RBC (Auto) 10-30 H (0-4) /hpf U Hyaline Cast (Auto) 0 (0-5) /lpf U Epithel Cells (Auto) >30 H (0-5) /lpf Urine Bacteria (Auto) Negative (Negative) 08/11/23 Range/Units 13:30 WBC (4.8-10.8) K/ul RBC (4.70-6.10) M/uL Hgb (14.0-18.0) g/dl Hct (42.0-52.0) % MCV (80.0-100.0) fL MCH (25.0-34.0) pg MCHC (32.0-36.0) g/dL RDW Std Deviation (36.4-46.3) fL RDW Coeff of Geovanna (11.5-14.5) % Plt Count (130-400) K/uL MPV (9.4-12.4) fL Immature Gran % (Auto) % Neut % (Auto) % Lymph % (Auto) % [place] % (Auto) % Eos % (Auto) % Baso % (Auto) % Neut # (Auto) (1.40-6.50) K/uL Lymph # (Auto) (1.20-3.40) K/uL [place] # (Auto) (0.11-0.59) K/uL Eos # (Auto) (0.00-0.50) K/uL Baso # (Auto) (0.00-0.20) K/uL Immature Gran # (Auto) (0.01-0.20) K/uL PT (9.0-12.0) Seconds INR (0.9-1.1) APTT (21.0-31.0) Seconds PTT Ratio Sodium (136-145) mmol/L Potassium (3.5-5.1) mmol/L Chloride (98-107) mmol/L Carbon Dioxide (21-32) mmol/L Anion Gap (3-11) BUN (6-23) mg/dl Creatinine (0.6-1.4) mg/dl Est Cr Clr Drug Dosing ml/min Est GFR ( Amer) ml/min Est GFR (Non-Af Amer) ml/min BUN/Creatinine Ratio (10-20) Glucose (70-99(Fasting)) mg/dl Lactate (0.4-2.0) mmol/L Uric Acid (2.6-7.2) mg/dl Calcium (8.6-10.3) mg/dl Ionized Calcium (1.12-1.32) mmol/L Phosphorus (2.5-4.9) mg/dl Magnesium (1.7-2.4) mg/dl Total Bilirubin (0.2-1.0) mg/dl AST (13-39) U/L ALT (7-52) U/L Alkaline Phosphatase (34-104) U/L Total Protein (6.0-8.3) gm/dl Albumin (3.4-5.0) gm/dl Globulin (2.5-4.0) gm/dl Albumin/Globulin Ratio (0.9-2) Lipase (11-82) U/L Carcinoembryonic Ag (0-2.5) ng/ml Procalcitonin 0.91 H (0-0.5) ng/ml Urine Color Urine Appearance (Clear) Urine pH (4.5-7.5) Ur Specific [place] (1.000-1.030) Urine Protein (Negative) Urine Glucose (UA) (Negative) Urine Ketones (Negative) Urine Blood (Negative) Urine Nitrite (Negative) Urine Bilirubin (Negative) Urine Urobilinogen (Negative) Ur Leukocyte Esterase (Negative) Urine WBC (Auto) (0-5) /hpf Urine RBC (Auto) (0-4) /hpf U Hyaline Cast (Auto) (0-5) /lpf U Epithel Cells (Auto) (0-5) /lpf Urine Bacteria (Auto) (Negative)
[2023-08-12] MEDS: PLASMA-LYTE A 1,000 ML IV SCH (13:12)
--- NOTE | 2023-08-12 14:15 | Electrocardiogram Report ---
Test Reason : Blood Pressure : / mmHG Vent. Rate : 076 BPM Atrial Rate : 076 BPM P-R Int : 142 ms QRS Dur : 102 ms QT Int : 512 ms P-R-T Axes : 000 -33 015 degrees QTc Int : 576 ms Normal sinus rhythm Possible Left atrial enlargement Left axis deviation Left ventricular hypertrophy possible Inferior infarct (cited on or before 29-JUN-2019) Prolonged QT Nonspecific ST abnormality Abnormal ECG Confirmed by Jairo Pham ([id number]) on 08/12/2023 2:14:31 PM Referred By: Sandie Renteria Confirmed By:Walter Pham
--- NOTE | 2023-08-12 16:28 | Hospitalist Progress Note ---
Date of Service August 12, 2023 Assessment & Plan (1) Cecum mass: Plan: -Currently stable -Patient was sent to the ED at the recommendation of his PCP after multiple abnormal findings on outpatient MRI of the lumbar spine and CT of the abd/pelvis -Large cecal mass noted with extensive metastases -Patient is without abdominal discomfort, has had loose stool over the past few week per family but denies diarrhea -No sign of obstruction on CT, patient had a bowel movement this am and is passing gas -GI has been consulted as he will need colonoscopy for biopsy and diagnosis. GI plans to do the colonoscopy on Tuesday after bowel prep -No signs of bleeding, Hgb has been stable -Will obtain Chest xray for further evaluation -Will hold chemical DVT PPX with multiple procedures likely in the next few days; BL VANITA's for now -Clear liquid diet -AM CBC, CMP, Mag, PT/INR (2) High anion gap metabolic acidosis: Plan: -AG elevated at 19 with bicarb of 16 -Lactate ordered on admission is elevated at 8.9 -Likely due to dehydration and infection Improving -Patient is very stable and non-toxic appearing at the time of admission -Continue Zosyn for possible infections, follow infectious workup (3) Acute cholecystitis: Plan: -Ct of the abd/pelvis notes Cholelithiasis with evidence of acute cholecystitis. A calcified stone is seen in the cystic duct -Patient is without abdominal discomfort, negative smith's sign, no recent nausea/vomiting, and is not septic -LFT's are mildly elevated but relatively stable at this time -General surgery has been consulted and has no urgent plans for OR -Patient is S/P 1L NSS in the ED, will give 1.5 L LR on admission to complete his sepsis bolus based on ideal body weight -S/P one dose of Zosyn in the ED, will continue with zosyn for now -Follow blood and urine cultures -NPO at midnight (4) Calculus, ureteral: Plan: -Noted to have a 10 mm stone at the left ureteropelvic junction with surrounding urothelial thickening. -Urology has been consulted Patient had a ureteric stent placed today 08/12 -No urgent OR plans tonight as he is stable and relatively asymptomatic -Will continue zosyn to cover for possible infected stone and cholecystitis (5) Back pain: Plan: -Has been progressive over the past few months -MRI of the lumbar spine shows extensive osseous metastases without signs of epidural involvement -Also noted Disc protrusion versus sequestered disc fragment at L5-S1 abuts and posteriorly displaces the right S1 nerve root. -No red flag symptoms, pain is currently controlled -PRN IV morphine for now -Fall precautions (6) Elevated INR: Plan: -INR elevated at 2.0 on admission, down to 1.3 post vitamin K -Is not on systemic anticoagulation -Likely due to his known hepatic metastases -No signs of bleeding -Was given 10 m IV Vitamin K last night in preparation for procedures today (7) Metastasis of unknown primary: Plan: -Noted on MRI of the lumbar spine and CT of the abd/pelvis today -High suspicion for the large cecal mass as the primary source, will need biopsy to confirm -Coordinating with GI to setup colonoscopy for biopsy, follow results -Oncology on board (8) Elevated LFTs: Plan: -Total bili at 1.6, AST of 45, alk phos of 133, ALT WNL -Likely due to hepatic metastases and known cystic duct stone with possible cholecystitis -Hold statin, continue to trend CMP daily -General Surgery and GI have been consulted and are following (9) Dementia: Plan: -Continue Aricept and HS Remeron -Fall precautions (10) Hypertension: Plan: -Stable -Hold metoprolol for now to prevent hypotension (11) CAD (coronary artery disease): Plan: -S/P CABG in the -Hold aspirin for now with elevated INR and multiple procedures likely in the next few days -Hold Crestor while NPO (12) Malnutrition: Plan: Patient lost 35 pounds in 1 month Poor appetite Admission and Anticipated Discharge Date Admission Date: August 11, 2023 Subjective Patient is accompanied by his . He does not have any major complaints at this time. Denies chest pain or shortness of breath. He does got back from ureteric stent placement. Review of Systems Review of Systems: All systems reviewed & are unremarkable except as noted in Subjective Physical Exam 2 Physical Exam: General: Awake, conversant Heart: S1, S2/regular rate and rhythm, no murmur rubs or gallops Lungs: Clear to auscultation bilaterally. Normal effort Abdomen: Soft/nontender/nondistended. No hepatosplenomegaly Extremities: No clubbing/cyanosis. No edema Behavior: Appropriate, cooperative Results & Data Results & Data Vital Signs (Past 12 Hours) Vital Signs Temp Pulse Pulse Resp BP Pulse Ox O2 Del Method 08/12/23 12:25 81 20 93/54 L 90 Nasal Cannula 08/12/23 12:15 73 22 85/50 L 91 Room Air 08/12/23 12:05 75 22 87/50 L 92 Room Air 08/12/23 11:55 72 22 89/51 L 99 Oxymask 08/12/23 11:46 36.8 C 79 24 106/59 L 98 Oxymask 08/12/23 10:55 37.2 C 84 20 108/59 L 93 Room Air 08/12/23 07:44 36.5 C 85 18 107/67 92 Room Air O2 Flow Rate 08/12/23 12:25 2 08/12/23 12:15 08/12/23 12:05 08/12/23 11:55 5 08/12/23 11:46 5 08/12/23 10:55 08/12/23 07:44 Laboratory Results Abnormal lab results 08/11/23 08/11/23 08/11/23 Range/Units 13:30 13:30 17:23 RBC (4.70-6.10) M/uL Hgb (14.0-18.0) g/dl Hct (42.0-52.0) % RDW Std Deviation (36.4-46.3) fL RDW Coeff of Geovanna (11.5-14.5) % [place] # (Auto) (0.11-0.59) K/uL PT 22.4 H (9.0-12.0) Seconds INR 2.1 H (0.9-1.1) APTT 38.2 H (21.0-31.0) Seconds Sodium (136-145) mmol/L Carbon Dioxide (21-32) mmol/L Anion Gap (3-11) BUN (6-23) mg/dl Creatinine (0.6-1.4) mg/dl Lactate (0.4-2.0) mmol/L Uric Acid (2.6-7.2) mg/dl Ionized Calcium 1.44 H (1.12-1.32) mmol/L Total Bilirubin (0.2-1.0) mg/dl Total Protein (6.0-8.3) gm/dl Albumin (3.4-5.0) gm/dl Procalcitonin 0.91 H (0-0.5) ng/ml 08/11/23 08/11/23 08/12/23 Range/Units 17:33 20:04 07:13 RBC (4.70-6.10) M/uL Hgb (14.0-18.0) g/dl Hct (42.0-52.0) % RDW Std Deviation (36.4-46.3) fL RDW Coeff of Geovanna (11.5-14.5) % [place] # (Auto) (0.11-0.59) K/uL PT (9.0-12.0) Seconds INR (0.9-1.1) APTT (21.0-31.0) Seconds Sodium (136-145) mmol/L Carbon Dioxide (21-32) mmol/L Anion Gap (3-11) BUN (6-23) mg/dl Creatinine (0.6-1.4) mg/dl Lactate 8.9 H* 8.8 H* 5.8 H* (0.4-2.0) mmol/L Uric Acid (2.6-7.2) mg/dl Ionized Calcium (1.12-1.32) mmol/L Total Bilirubin (0.2-1.0) mg/dl Total Protein (6.0-8.3) gm/dl Albumin (3.4-5.0) gm/dl Procalcitonin (0-0.5) ng/ml 08/12/23 08/12/23 08/12/23 Range/Units 07:13 07:13 07:13 RBC 4.39 L (4.70-6.10) M/uL Hgb 12.5 L (14.0-18.0) g/dl Hct 36.6 L (42.0-52.0) % RDW Std Deviation 47.6 H (36.4-46.3) fL RDW Coeff of Geovanna 15.9 H (11.5-14.5) % [place] # (Auto) 1.23 H (0.11-0.59) K/uL PT 13.7 H (9.0-12.0) Seconds INR 1.3 H (0.9-1.1) APTT (21.0-31.0) Seconds Sodium 135 L (136-145) mmol/L Carbon Dioxide 20 L (21-32) mmol/L Anion Gap 13 H (3-11) BUN 27 H (6-23) mg/dl Creatinine 1.68 H D (0.6-1.4) mg/dl Lactate (0.4-2.0) mmol/L Uric Acid 7.8 H (2.6-7.2) mg/dl Ionized Calcium (1.12-1.32) mmol/L Total Bilirubin 1.8 H (0.2-1.0) mg/dl Total Protein 5.7 L D (6.0-8.3) gm/dl Albumin 2.8 L (3.4-5.0) gm/dl Procalcitonin (0-0.5) ng/ml Diagnostic Findings Chest X-Ray 08/11/23 16:28 SINGLE VIEW CHEST CLINICAL HISTORY: Sepsis. FINDINGS: An AP, portable, upright chest radiograph is obtained. No prior studies are available for comparison at the time of dictation. The patient is status post midline sternotomy. The heart is enlarged noting atherosclerotic calcification of the thoracic aorta. Pulmonary vasculature is noncongested. There are trace pleural effusions. Emphysematous change is noted. There is bibasilar scarring/atelectasis. No pneumothorax is seen. The skeletal structures are osteopenic. The bony thorax is grossly intact. IMPRESSION: 1. Cardiomegaly and emphysema without radiographic evidence of congestive failure. 2. Small pleural effusions. ACT 112: Negative or not required by law. Electronically signed by: Harsha Cabrera M.D. 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
--- NOTE | 2023-08-12 17:27 | Fluoroscopy Report ---
INTRAOPERATIVE RADIOGRAPHS CLINICAL HISTORY: Left ureteral stent placement. Fluoro time: 18 seconds Ka,r: 3.59 mGy FINDINGS: 3 spot fluoroscopic views of the left abdomen are correlated with abdominal CT dated 2022. A wire is advanced into the left renal pelvis. Injected contrast shows no significant hydroneph rosis. The final 2 images show the proximal and distal ends of a left ureteral stent in appropriate p osition. IMPRESSION: Intraoperative images from a left ureteral stent placement procedure as above. Electronically signed by: Harsha Cabrera M.D. 08/12/2023 5:25 PM
[2023-08-12] MEDS: MIRTAZAPINE TAB 15 MG TAB PO SCH (21:04)
[2023-08-12] MEDS: DONEPEZIL HCL 5 MG TAB PO SCH (21:04)
[2023-08-13] MEDS: PIPERACILLIN/TAZOBACTAM 4.5 GM in DEXTROSE 5% MINI-B 100 ML IV SCH ×3 (05:33→21:47)
--- NOTE | 2023-08-13 05:59 | Surgery Progress Note ---
I have seen this patient this am. He is currently denying abdominal pain and having bowel movements. Nursing reports he has started his bowel prep. Date of Service August 13, 2023 Assessment & Plan (1) Cecum mass: Plan: Patient has been admitted on the hospitalist service. From a surgical perspective recommend the following: Plans noted by gastroenterology to perform colonoscopy tentatively on 08/15/2023 Check a.m. labs when available Patient is noted to have multiple issues including his cecal mass and concern for metastatic disease. Therefore, cholecystectomy is not recommended and the patient has worsening of his LFTs consideration be given to performing an MR CP or ERCP. Would continue antibiotic coverage at this time (patient is receiving Zosyn). (2) Acute cholecystitis: Admission and Anticipated Discharge Date Admission Date: August 11, 2023 Subjective Patient is resting comfortably in bed. He denies any abdominal pain. He denies any nausea or vomiting. I discussed with shift supervisor film processing RN and no surgical issues identified. Physical Exam Gastrointestinal (Abdomen): Abdomen is soft, nonrigid, and nondistended. There is no pain with palpation. Results & Data Vital Signs (Past 12 Hours) Vital Signs Temp Pulse Pulse Pulse Resp BP Pulse Ox 08/12/23 20:00 08/13/23 02:38 36.7 C 96 H 18 100/63 93 08/12/23 23:00 87 08/12/23 22:27 36.8 C 92 H 16 104/61 90 08/12/23 19:38 36.5 C 88 18 90/48 L 93 O2 Del Method O2 Flow Rate 08/12/23 20:00 Nasal Cannula 2 08/13/23 02:38 Nasal Cannula 08/12/23 23:00 08/12/23 22:27 Nasal Cannula 08/12/23 19:38 Nasal Cannula 2 PG Care Time/CCT Total # of Minutes Spent Total Time Spent with Patient: Total time spent is greater than 50% in coordination of care (as documented) at patient's floor/unit and/or counseling patient: Coding Level of Care Code 03566 SUB INP/OBS CARE 1/25MIN Diagnoses Cecum mass K63.89 Acute cholecystitis K81.0
[2023-08-13] MEDS: PLASMA-LYTE A 1,000 ML IV SCH ×3 (06:37→21:48)
[2023-08-13 07:38] LABS: Basophils # (auto) 0.05 K/uL (0.00-0.20); Basophils % (auto) 0.7 %; Eosinophils # (auto) 0.01 K/uL (0.00-0.50); Eosinophils % (auto) 0.1 %; Hematocrit (blood only) 36.9 % (42.0-52.0); Hemoglobin 12.2 g/dl (14.0-18.0); Immature Granulocytes # (auto) 0.27 K/uL (0.01-0.20); Immature Granulocytes % (auto) 3.5 %; Lymphocytes # (auto) 1.74 K/uL (1.20-3.40); Lymphocytes % (auto) 22.7 %; Mean Corpuscular Hemoglobin 28.4 pg (25.0-34.0); Mean Corpuscular Hgb Conc 33.1 g/dL (32.0-36.0); Mean Platelet Volume 10.1 fL (9.4-12.4); Monocytes # (auto) 1.01 K/uL (0.11-0.59); Monocytes % (auto) 13.2 %; Neutrophils % (auto) 59.8 %; Platelet Count 179 K/uL (130-400); RDW Coefficient of Variation 16.1 % (11.5-14.5); RDW Standard Deviation 49.3 fL (36.4-46.3); Red Blood Count 4.29 M/uL (4.70-6.10); White Blood Count 7.68 K/ul (4.8-10.8)
[2023-08-13 07:52] LABS: Albumin Globulin Ratio 0.9 (0.9-2); Albumin Level 2.6 gm/dl (3.4-5.0); BUN Creatinine Ratio 12.6 (10-20); Bilirubin,Total 1.7 mg/dl (0.2-1.0); Calcium 9.7 mg/dl (8.6-10.3); Creatinine Clr Calc Pharmacy 28.4 ml/min; Est GFR (African American) 37.5 ml/min; Est GFR (Non-African American) 32.4 ml/min; Globulin 2.9 gm/dl (2.5-4.0); Magnesium 1.7 mg/dl (1.7-2.4); Potassium 3.6 mmol/L (3.5-5.1); Total Protein 5.5 gm/dl (6.0-8.3)
[2023-08-13 08:03] LABS: INR 1.2 (0.9-1.1); Prothrombin Time 12.8 Seconds (9.0-12.0)
--- NOTE | 2023-08-13 08:08 | Urology Progress Note ---
Date of Service August 13, 2023 Assessment & Plan (1) Calculus, ureteral: Plan 78 year old male admitted with abnormal outpatient imaging, concerning for cholecystitis, large cecal mass, and left ureteral stone. Patient is status post cystoscopy with left ureteral stent placement by Dr. Ríos on 08/12/2023. Patient tolerating the stent well Urology has sent a message to schedule outpatient follow-up Urology to sign off Admission and Anticipated Discharge Date Admission Date: August 11, 2023 Subjective Afebrile with stable vitals. Leukocytosis downtrending and now normal. Creatinine has slightly risen from 1.6-1.9 but he came in at 1.9. Patient denies any significant discomfort from his stent. Review of Systems Review of Systems: 14 point review of systems negative outside of what is listed above in HPI Physical Exam Physical Exam: General: Alert and oriented, no acute distress HEENT: Normocephalic, mucous membranes moist Pulmonary: Nonlabored respirations Abdomen: Nondistended Extremities: Moves all 4 spontaneously Neuro: No gross deficits Skin: Warm, dry, no rashes noted Results & Data Vital Signs (Past 12 Hours) Vital Signs Temp Pulse Pulse Pulse Resp BP Pulse Ox 08/13/23 07:33 36.5 C 89 19 164/82 H 95 08/13/23 02:38 36.7 C 96 H 18 100/63 93 08/12/23 23:00 87 08/12/23 22:27 36.8 C 92 H 16 104/61 90 O2 Del Method O2 Flow Rate 08/13/23 07:33 Nasal Cannula 2 08/13/23 02:38 Nasal Cannula 08/12/23 23:00 08/12/23 22:27 Nasal Cannula PG Care Time/CCT Total # of Minutes Spent Total Time Spent with Patient: Total time spent is greater than 50% in coordination of care (as documented) at patient's floor/unit and/or counseling patient: Coding Level of Care Code 58972 SUB INP/OBS CARE 2/35MIN Diagnoses Calculus, ureteral N20.1
[2023-08-13] MEDS: TAMSULOSIN HCL 0.4 MG CAP PO SCH (11:19)
--- NOTE | 2023-08-13 14:12 | Hospitalist Progress Note ---
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 GI plans to do the colonoscopy on Tuesday after bowel prep -No signs of bleeding, Hgb has been stable -Will obtain Chest xray for further evaluation -Will hold chemical DVT PPX with multiple procedures likely in the next few days; BL VANITA's for now -Clear liquid diet -AM CBC, CMP, Mag, PT/INR (2) High anion gap metabolic acidosis: Plan: -AG elevated at 19 with bicarb of 16 -Lactate ordered on admission is elevated at 8.9 -Likely due to dehydration and infection Improving -Patient is very stable and non-toxic appearing at the time of admission -Continue Zosyn for possible infections, follow infectious workup (3) Acute cholecystitis: Plan: -Ct of the abd/pelvis notes Cholelithiasis with evidence of acute cholecystitis. A calcified stone is seen in the cystic duct -Patient is without abdominal discomfort, negative smith's sign, no recent nausea/vomiting, and is not septic -LFT's are mildly elevated but relatively stable at this time -General surgery has been consulted and has no urgent plans for OR -will continue with zosyn for now -Follow blood and urine cultures (4) Calculus, ureteral: Plan: -Noted to have a 10 mm stone at the left ureteropelvic junction with surrounding urothelial thickening. Patient had a ureteric stent placed today 08/12 Outpatient follow-up with urology -Will continue zosyn to cover for possible infected stone and cholecystitis (5) Back pain: Plan: -Has been progressive over the past few months -MRI of the lumbar spine shows extensive osseous metastases without signs of epidural involvement -Also noted Disc protrusion versus sequestered disc fragment at L5-S1 abuts and posteriorly displaces the right S1 nerve root. -No red flag symptoms, pain is currently controlled -PRN IV morphine for now -Fall precautions (6) Elevated INR: Plan: -INR elevated at 2.0 on admission, down to 1.3 post vitamin K -Is not on systemic anticoagulation -Likely due to his known hepatic metastases -No signs of bleeding (7) Metastasis of unknown primary: Plan: -Noted on MRI of the lumbar spine and CT of the abd/pelvis today -High suspicion for the large cecal mass as the primary source, will need biopsy to confirm -Coordinating with GI to setup colonoscopy for biopsy, follow results -Oncology on board (8) Elevated LFTs: Plan: -Total bili at 1.6, AST of 45, alk phos of 133, ALT WNL -Likely due to hepatic metastases and known cystic duct stone with possible cholecystitis -Hold statin, continue to trend CMP daily -General Surgery and GI have been consulted and are following (9) Dementia: Plan: -Continue Aricept and HS Remeron -Fall precautions (10) Hypertension: Plan: -Stable -Hold metoprolol for now to prevent hypotension (11) CAD (coronary artery disease): Plan: -S/P CABG in the -Hold aspirin for now with elevated INR and multiple procedures likely in the next few days -Hold Crestor while NPO (12) Malnutrition: Plan: Patient lost 35 pounds in 1 month Poor appetite Admission and Anticipated Discharge Date Admission Date: August 11, 2023 Subjective Patient feels well overall. His only complaint is no appetite. Back pain does not seem to be a major issue at this point. He is waiting for colonoscopy and biopsy on Tuesday. Review of Systems Review of Systems: All systems reviewed & are unremarkable except as noted in Subjective Physical Exam Physical Exam: General: Awake, conversant Heart: S1, S2/regular rate and rhythm, no murmur rubs or gallops Lungs: Clear to auscultation bilaterally. Normal effort Abdomen: Soft/nontender/nondistended. No hepatosplenomegaly Extremities: No clubbing/cyanosis. No edema Behavior: Appropriate, cooperative Results & Data Results & Data Vital Signs (Past 12 Hours) Vital Signs Temp Pulse Pulse Pulse Resp BP Pulse Ox 08/13/23 11:00 36.7 C 78 19 119/70 93 08/13/23 09:00 80 08/13/23 07:33 36.5 C 89 19 164/82 H 95 08/13/23 02:38 36.7 C 96 H 18 100/63 93 O2 Del Method O2 Flow Rate 08/13/23 11:00 Nasal Cannula 08/13/23 09:00 08/13/23 07:33 Nasal Cannula 2 08/13/23 02:38 Nasal Cannula Laboratory Results Abnormal lab results 08/13/23 08/13/23 08/13/23 Range/Units 07:07 07:07 07:07 RBC 4.29 L (4.70-6.10) M/uL Hgb 12.2 L (14.0-18.0) g/dl Hct 36.9 L (42.0-52.0) % RDW Std Deviation 49.3 H (36.4-46.3) fL RDW Coeff of Geovanna 16.1 H (11.5-14.5) % [place] # (Auto) 1.01 H (0.11-0.59) K/uL Immature Gran # (Auto) 0.27 H (0.01-0.20) K/uL PT 12.8 H (9.0-12.0) Seconds INR 1.2 H (0.9-1.1) Carbon Dioxide 20 L (21-32) mmol/L Anion Gap 15 H (3-11) BUN 24 H (6-23) mg/dl Creatinine 1.91 H (0.6-1.4) mg/dl Total Bilirubin 1.7 H (0.2-1.0) mg/dl Total Protein 5.5 L (6.0-8.3) gm/dl Albumin 2.6 L (3.4-5.0) gm/dl PG Care Time/CCT Total # of Minutes Spent Total Time Spent with Patient: Total time spent is greater than 50% in coordination of care (as documented) at patient's floor/unit and/or counseling patient: Coding Level of Care Code 99003 SUB INP/OBS CARE 2/35MIN Diagnoses Cecum mass K63.89 High anion gap metabolic acidosis E87.29 Acute cholecystitis K81.0 Calculus, ureteral N20.1 Back pain M54.9 Elevated INR R79.1 Metastasis of unknown primary C79.9 Elevated LFTs R79.89 Dementia F03.90 Hypertension I10 CAD (coronary artery disease) I25.10 Malnutrition E46
[2023-08-13] MEDS: DONEPEZIL HCL 5 MG TAB PO SCH (21:47)
[2023-08-13] MEDS: MIRTAZAPINE TAB 15 MG TAB PO SCH (21:47)
--- NOTE | 2023-08-14 05:40 | Surgery Progress Note ---
This case was discussed with the surgical PA. I agree with this plan. Date of Service August 14, 2023 Assessment & Plan (1) Cecum mass: Plan: Patient has been admitted on the hospitalist service. From a surgical perspective recommend the following: Plans are tentatively for patient to undergo colonoscopy tomorrow, 08/15/2023 Check a.m. labs when available As previously noted, patient has multiple issues including his cecal mass and concern for metastatic disease. Therefore, cholecystectomy is not recommended; if the patient has worsening of his LFTs consideration be given to performing an MRCP or ERCP. LFTs were stable on 08/13/2023. Would continue antibiotic coverage at this time (patient is receiving Zosyn). (2) Acute cholecystitis: Admission and Anticipated Discharge Date Admission Date: August 11, 2023 Subjective Patient is resting comfortably in bed. He denies any abdominal pain. He denies any nausea or vomiting. Discussed with table games shift manager RNno acute issues are identified. Physical Exam Gastrointestinal (Abdomen): Abdomen is soft, nondistended, and nonrigid. There is no pain with palpation. Results & Data Vital Signs (Past 12 Hours) Vital Signs Temp Pulse Pulse Resp BP Pulse Ox O2 Del Method 08/13/23 23:10 87 08/14/23 03:00 36.9 C 83 16 101/61 95 Nasal Cannula 08/13/23 20:00 Nasal Cannula 08/13/23 23:00 37.0 C 91 H 16 122/68 96 Nasal Cannula 08/13/23 19:00 36.7 C 84 16 95/53 L 95 Nasal Cannula O2 Flow Rate 08/13/23 23:10 08/14/23 03:00 08/13/23 20:00 2 08/13/23 23:00 08/13/23 19:00 PG Care Time/CCT Total # of Minutes Spent Total Time Spent with Patient: Total time spent is greater than 50% in coordination of care (as documented) at patient's floor/unit and/or counseling patient: Coding Level of Care Code 49723 SUB INP/OBS CARE 125MIN Diagnoses Cecum mass K63.89 Acute cholecystitis K81.0
[2023-08-14] MEDS: PIPERACILLIN/TAZOBACTAM 4.5 GM in DEXTROSE 5% MINI-B 100 ML IV SCH ×3 (06:20→22:34)
[2023-08-14 08:05] LABS: Basophils # (auto) 0.04 K/uL (0.00-0.20); Basophils % (auto) 0.5 %; Eosinophils # (auto) 0.04 K/uL (0.00-0.50); Eosinophils % (auto) 0.5 %; Hemoglobin 11.6 g/dl (14.0-18.0); Immature Granulocytes # (auto) 0.26 K/uL (0.01-0.20); Immature Granulocytes % (auto) 3.2 %; Lymphocytes # (auto) 1.79 K/uL (1.20-3.40); Lymphocytes % (auto) 21.9 %; Mean Corpuscular Hemoglobin 28.7 pg (25.0-34.0); Mean Corpuscular Hgb Conc 33.1 g/dL (32.0-36.0); Mean Corpuscular Volume 86.6 fL (80.0-100.0); Mean Platelet Volume 10.2 fL (9.4-12.4); Monocytes # (auto) 1.11 K/uL (0.11-0.59); Monocytes % (auto) 13.6 %; Neutrophils # (auto) 4.95 K/uL (1.40-6.50); Neutrophils % (auto) 60.3 %; Platelet Count 168 K/uL (130-400); RDW Coefficient of Variation 16.5 % (11.5-14.5); RDW Standard Deviation 50.2 fL (36.4-46.3); Red Blood Count 4.04 M/uL (4.70-6.10); White Blood Count 8.19 K/ul (4.8-10.8)
[2023-08-14] MEDS: TAMSULOSIN HCL 0.4 MG CAP PO SCH (08:15)
[2023-08-14 08:31] LABS: Albumin Globulin Ratio 0.9 (0.9-2); Albumin Level 2.5 gm/dl (3.4-5.0); BUN Creatinine Ratio 11.6 (10-20); Bilirubin,Total 1.2 mg/dl (0.2-1.0); Calcium 9.6 mg/dl (8.6-10.3); Creatinine Clr Calc Pharmacy 30.4 ml/min; Est GFR (Non-African American) 34.5 ml/min; Globulin 2.9 gm/dl (2.5-4.0); Magnesium 1.7 mg/dl (1.7-2.4); Potassium 3.4 mmol/L (3.5-5.1); Total Protein 5.4 gm/dl (6.0-8.3)
[2023-08-14 08:38] LABS: INR 1.2 (0.9-1.1); Prothrombin Time 12.8 Seconds (9.0-12.0)
[2023-08-14] MEDS ORDERED: LAVAGE SOLUTION 4000ML PO ONE (10:00)
[2023-08-14] MEDS: PLASMA-LYTE A 1,000 ML IV SCH ×2 (13:08→23:10)
--- NOTE | 2023-08-14 14:24 | Hospitalist Progress Note ---
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 GI plans to do the colonoscopy on Tuesday after bowel prep -No signs of bleeding, Hgb has been stable -Will obtain Chest xray for further evaluation -Will hold chemical DVT PPX with multiple procedures likely in the next few days; BL VANITA's for now -Clear liquid diet -AM CBC, CMP, Mag, PT/INR (2) High anion gap metabolic acidosis: Plan: -AG elevated at 19 with bicarb of 16 -Lactate ordered on admission is elevated at 8.9 -Likely due to dehydration and infection Improving -Patient is very stable and non-toxic appearing at the time of admission -Continue Zosyn for possible infections, follow infectious workup (3) Acute cholecystitis: Plan: -Ct of the abd/pelvis notes Cholelithiasis with evidence of acute cholecystitis. A calcified stone is seen in the cystic duct -Patient is without abdominal discomfort, negative smith's sign, no recent nausea/vomiting, and is not septic -LFT's are mildly elevated but relatively stable at this time -General surgery has been consulted and has no urgent plans for OR -will continue with zosyn for now -Follow blood and urine cultures (4) Calculus, ureteral: Plan: -Noted to have a 10 mm stone at the left ureteropelvic junction with surrounding urothelial thickening. Patient had a ureteric stent placed today 08/12 Outpatient follow-up with urology -Will continue zosyn to cover for possible infected stone and cholecystitis (5) Back pain: Plan: -Has been progressive over the past few months -MRI of the lumbar spine shows extensive osseous metastases without signs of epidural involvement -Also noted Disc protrusion versus sequestered disc fragment at L5-S1 abuts and posteriorly displaces the right S1 nerve root. -No red flag symptoms, pain is currently controlled -PRN IV morphine for now -Fall precautions (6) Elevated INR: Plan: -INR elevated at 2.0 on admission, down to 1.3 post vitamin K -Is not on systemic anticoagulation -Likely due to his known hepatic metastases -No signs of bleeding (7) Metastasis of unknown primary: Plan: -Noted on MRI of the lumbar spine and CT of the abd/pelvis today -High suspicion for the large cecal mass as the primary source, will need biopsy to confirm -Coordinating with GI to setup colonoscopy for biopsy, follow results -Oncology on board (8) Elevated LFTs: Plan: -Total bili at 1.6, AST of 45, alk phos of 133, ALT WNL -Likely due to hepatic metastases and known cystic duct stone with possible cholecystitis -Hold statin, continue to trend CMP daily -General Surgery and GI have been consulted and are following (9) Dementia: Plan: -Continue Aricept and HS Remeron -Fall precautions (10) Hypertension: Plan: -Stable -Hold metoprolol for now to prevent hypotension (11) CAD (coronary artery disease): Plan: -S/P CABG in the -Hold aspirin for now with multiple procedures likely in the next few days (12) Malnutrition: Plan: Patient lost 35 pounds in 1 month Poor appetite Admission and Anticipated Discharge Date Admission Date: August 11, 2023 Subjective Patient feels well. Per nurse, he is undergoing bowel prep. Anticipated colonoscopy tomorrow. Review of Systems Review of Systems: All systems reviewed & are unremarkable except as noted in Subjective Physical Exam Physical Exam: General: Awake, conversant Heart: S1, S2/regular rate and rhythm, no murmur rubs or gallops Lungs: Clear to auscultation bilaterally. Normal effort Abdomen: Soft/nontender/nondistended. No hepatosplenomegaly Extremities: No clubbing/cyanosis. No edema Behavior: Appropriate, cooperative Results & Data Results & Data Vital Signs (Past 12 Hours) Vital Signs Temp Pulse Pulse Resp BP Pulse Ox O2 Del Method 08/14/23 11:14 37.0 C 82 18 99/62 L 89 L Nasal Cannula 08/14/23 10:08 08/14/23 07:32 83 08/14/23 07:01 37.0 C 80 19 173/70 H 96 Nasal Cannula 08/14/23 03:00 36.9 C 83 16 101/61 95 Nasal Cannula O2 Flow Rate 10/08/23 11:14 2 08/14/23 10:08 2 08/14/23 07:32 08/14/23 07:01 2 08/14/23 03:00 Laboratory Results Abnormal lab results 08/14/23 08/14/23 08/14/23 Range/Units 07:32 07:32 07:32 RBC 4.04 L (4.70-6.10) M/uL Hgb 11.6 L (14.0-18.0) g/dl Hct 35.0 L (42.0-52.0) % RDW Std Deviation 50.2 H (36.4-46.3) fL RDW Coeff of Geovanna 16.5 H (11.5-14.5) % [place] # (Auto) 1.11 H (0.11-0.59) K/uL Immature Gran # (Auto) 0.26 H (0.01-0.20) K/uL PT 12.8 H (9.0-12.0) Seconds INR 1.2 H (0.9-1.1) Sodium 135 L (136-145) mmol/L Potassium 3.4 L (3.5-5.1) mmol/L Carbon Dioxide 20 L (21-32) mmol/L Anion Gap 15 H (3-11) Creatinine 1.81 H (0.6-1.4) mg/dl Total Bilirubin 1.2 H (0.2-1.0) mg/dl AST 45 H (13-39) U/L Total Protein 5.4 L (6.0-8.3) gm/dl Albumin 2.5 L (3.4-5.0) gm/dl PG Care Time/CCT Total # of Minutes Spent Total Time Spent with Patient: Total time spent is greater than 50% in coordination of care (as documented) at patient's floor/unit and/or counseling patient: Coding Level of Care Code 98238 SUB INP/OBS CARE 2/35MIN Diagnoses Cecum mass K63.89 High anion gap metabolic acidosis E87.29 Acute cholecystitis K81.0 Calculus, ureteral N20.1 Back pain M54.9 Elevated INR R79.1 Metastasis of unknown primary C79.9 Elevated LFTs R79.89 Dementia F03.90 Hypertension I10 CAD (coronary artery disease) I25.10 Malnutrition E46
[2023-08-14] MEDS: MIRTAZAPINE TAB 15 MG TAB PO SCH (22:35)
[2023-08-14] MEDS: DONEPEZIL HCL 5 MG TAB PO SCH (22:36)
[2023-08-15] MEDS: PIPERACILLIN/TAZOBACTAM 4.5 GM in DEXTROSE 5% MINI-B 100 ML IV SCH ×3 (05:05→21:19)
[2023-08-15 08:04] LABS: Basophils # (auto) 0.06 K/uL (0.00-0.20); Basophils % (auto) 0.7 %; Eosinophils # (auto) 0.04 K/uL (0.00-0.50); Eosinophils % (auto) 0.4 %; Hematocrit (blood only) 34.7 % (42.0-52.0); Hemoglobin 11.7 g/dl (14.0-18.0); Immature Granulocytes % (auto) 3.4 %; Lymphocytes % (auto) 20.1 %; Mean Corpuscular Hemoglobin 28.7 pg (25.0-34.0); Mean Corpuscular Hgb Conc 33.7 g/dL (32.0-36.0); Mean Corpuscular Volume 85.3 fL (80.0-100.0); Mean Platelet Volume 10.4 fL (9.4-12.4); Monocytes # (auto) 1.14 K/uL (0.11-0.59); Monocytes % (auto) 12.7 %; Neutrophils # (auto) 5.61 K/uL (1.40-6.50); Neutrophils % (auto) 62.7 %; Nucleated RBC # (auto) 0.02 K/uL (0.00-0.12); Nucleated RBC % (auto) 0.2 %; Platelet Count 178 K/uL (130-400); RDW Coefficient of Variation 16.7 % (11.5-14.5); RDW Standard Deviation 50.2 fL (36.4-46.3); Red Blood Count 4.07 M/uL (4.70-6.10); White Blood Count 8.95 K/ul (4.8-10.8)
[2023-08-15 08:27] LABS: Est GFR (African American) 45.4 ml/min; Potassium 3.5 mmol/L (3.5-5.1)
[2023-08-15 08:28] LABS: Albumin Globulin Ratio 0.9 (0.9-2); Albumin Level 2.6 gm/dl (3.4-5.0); BUN Creatinine Ratio 10.4 (10-20); Bilirubin,Total 1.3 mg/dl (0.2-1.0); Calcium 9.6 mg/dl (8.6-10.3); Creatinine Clr Calc Pharmacy 33.8 ml/min; Est GFR (Non-African American) 39.2 ml/min; Globulin 2.9 gm/dl (2.5-4.0); Magnesium 1.7 mg/dl (1.7-2.4); Total Protein 5.5 gm/dl (6.0-8.3)
[2023-08-15 08:30] LABS: INR 1.2 (0.9-1.1)
[2023-08-15] MEDS: TAMSULOSIN HCL 0.4 MG CAP PO SCH (08:38)
[2023-08-15] MEDS ORDERED: ONDANSETRON INJ 2 MG/ML 2 ML VIAL ONE (09:37)
--- NOTE | 2023-08-15 10:45 | XRay Report ---
PA CHEST RADIOGRAPH AND UPRIGHT AND SUPINE AP RADIOGRAPHS OF THE ABDOMEN CLINICAL HISTORY: vomiting, cecal mass -- rule out obstruction COMPARISON STUDY: Chest radiograph and CT of the abdomen and pelvis August 11, 2023. FINDINGS: There is no pneumothorax. Small bilateral pleural effusions have developed. There is mild reticulonodular interstitial thickening. Cardiomegaly is noted. There are median sternotomy wires and mediastinal surgical clips. There is no free air. The bowel gas pattern is normal. Left ureteral ankur nt is in place. There is a 1.3 cm left renal pelvis calculus. Suspected distal left ureteral calculi/ fragments measure up to 5 mm. Numerous additional small bilateral renal calculi are present. IMPRESSION: 1. No free air. No evidence for a bowel obstruction. 2. Left ureteral stent in place. 1.3 cm left renal pelvis calculus. Suspected distal left ureteral ca lculi/fragments which measure up to 5 mm. 3. Bilateral nephrolithiasis. 4. Findings suggestive of mild interstitial pulmonary edema with small bilateral pleural effusions. ACT 112: Negative or not required by law. Electronically signed by: Moy Abraham M.D. 08/15/2023 10:44 AM
[2023-08-15] MEDS: PLASMA-LYTE A 1,000 ML IV SCH (11:33)
[2023-08-15] MEDS ORDERED: POLYETHYLENE (MIRALAX) 17 GM PACK PO ONE (12:15)
--- NOTE | 2023-08-15 12:16 | Gastroenterology Progress Note ---
Date of Service August 15, 2023 Assessment & Plan (1) Abnormal CT of the abdomen: Plan: Large mass near the cecum ? lymphoma Plan CT w IV contrast of the chest/abd/pelvis (CT done here on 08/11/23 w/o IV contrast). Pt's kidney function is now improved. Plan for colonoscopy tomorrow. Discussed w family at bedside who would like to go forward w testing. For today, clear liquids po, supplement w Boost Breeze (protein source). Further recommendations to follow above testing. Admission and Anticipated Discharge Date Admission Date: August 11, 2023 Supervising Physician Co-Signing Physician Notes Attg add: I interviewed and examined pt, reviewed chart and labs. Pt with cecal mass, without obstruction. Imaging reviewed, and favors lymphoma. D/w IR - cecal mass may not be accessibe by perc bx, as cannot easily be differentiated from bowel; liver lesions may be amnebale to bx, but pt has ASA as recently as 08/11. Cscopy cancelled today due to single episode of coughing and post-tussive vomiting. Will plan cscopy tomorrow, pending evaluation of clinical status. Subjective 78 yr old male admitted for CT w abdominal mass, weight loss. CT here w large mass near the cecum; palpable on exam. Discussed w interventional radiology - can provide transcutaneous FNA but not until off ASA x 7 days (most recent dose 5 days ago). Plan was for colonoscopy today. Brought to endoscopy. Had coughing/dry heaving. Cancelled by anesthesia due to this. Spoke w , son, daughter at bedside who would like to go forward w procedures to provide diagnosis. Review of Systems Review of Systems: Per family, + weight loss, weakness. No fevers. A total of 12 systems reviewed, othrwise (-). Physical Exam Constitutional: well developed, average body habitus and comfortable Eyes: PERRL, conjunctivae normal, anicteric sclerae ENMT: external ear and nose normal, oropharynx normal Neck: trachea midline, no thyromegaly Respiratory: normal respiratory effort, lungs clear to auscultation Cardiovascular: RRR, no murmur, no edema Gastrointestinal (Abdomen): Soft, non distended. A large, non tender Rt mid abd mass is palpable. Skin: no rashes, warm and dry Neurologic: Memory deficits apparent Awake, alert Results & Data Vital Signs (Past 12 Hours) Vital Signs Temp Pulse Pulse Pulse Resp BP Pulse Ox 08/15/23 11:11 37.1 C 77 18 107/65 90 08/15/23 09:32 36.3 C L 73 20 124/74 93 08/15/23 07:16 70 08/15/23 07:03 36.6 C 80 18 114/64 91 08/15/23 03:22 36.6 C 89 18 152/75 H 90 O2 Del Method 08/15/23 11:11 Room Air 08/15/23 09:32 Room Air 08/15/23 07:16 08/15/23 07:03 Room Air 08/15/23 03:22 Room Air Laboratory Results WBC 8, b 11.7, Hct 34.7, Plts 178, PT 13, INR 1.2, Na 136, K 3.5, Cl 99, CO2 21 BUN 17, Cr 1.63, glucose 86. T Bili 1.3, AST 44, ALT 14, Alk Phos 84 Diagnostic Findings CXR 08/11/23: 1. No free air. No evidence for a bowel obstruction. 2. Left ureteral stent in place. 1.3 cm left renal pelvis calculus. Suspected distal left ureteral calculi/fragments which measure up to 5 mm. 3. Bilateral nephrolithiasis. 4. Findings suggestive of mild interstitial pulmonary edema with small bilateral pleural effusions.
--- NOTE | 2023-08-15 13:26 | Surgery Progress Note ---
Date of Service August 15, 2023 Assessment & Plan (1) Acute cholecystitis: (2) Metastasis of unknown primary: (3) Cecum mass: Plan 78 years old gentleman who presented with the back pain 35 pounds of weight loss. Patient had a CT scan MRI scan which is showing , (1) a large cecal mass size about 11 cm time 6.5 cm, no bowel obstruction. (2), hepatic metastatic disease, (3). gallstone with acute cholecystitis. (4), Possible bone metastatic disease. (5), 10 mm stone at ureteropelvic junction. avss t. bili 1.8 but lfts wnl leukocytosis resolved per patient no abdominal pain Plan: Given multiple issues including large cecal mass with extensive metastatic disease would not recommend cholecystectomy at this time. If t. bili continues to increase, would consider MRCP vs ERCP to rule out choledocholithiasis. Continue antibiotics for any biliary coverage. Need colonoscopy with biopsy for diagnosis. Rescheduled for Tuesday with bowel prep over weekend. 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 Continue current medical management [facility] covering the weekend. Dr. Khoury was present during my examination and agrees with above. 08/15/2023 1:[address] Khoury stable. waiting colonoscopy. continue treatment, will F/U Admission and Anticipated Discharge Date Admission Date: August 11, 2023 Subjective 78 yr old male admitted for CT w abdominal mass, weight loss. CT here w large mass near the cecum; palpable on exam. Discussed w interventional radiology - can provide transcutaneous FNA but not u ntil off ASA x 7 days (most recent dose 5 days ago). Plan was for colonoscopy today. Brought to endoscopy. Had coughing/dry heaving. Cancelled by anesthesia due to this. Spoke w , son, daughter at bedside who would like to go forward w procedures to provide diagnosis. 08/15/2023 1:[address] Khoury F/u cecal mass and gallstone. pt is stable, no abdominal pain. no fever. no bowel obstruction symptoms. Review of Systems Constitutional: as per Subjective / HPI Eyes: as per Subjective / HPI Respiratory: as per Subjective / HPI Cardiovascular: as per Subjective / HPI Additional Comments: HTN, CABG x2, UT, cardiac stent Gastrointestinal: as per Subjective / HPI Genitourinary: + problem reported (kidney stone) Musculoskeletal: back pain Neurologic: as per Subjective / HPI Dementia Psychiatric: as per Subjective / HPI Endocrine: as per Subjective / HPI Hematologic / Lymphatic: as per Subjective / HPI Physical Exam Constitutional: WD/WN, vitals as above Eyes: PERRL, conjunctivae normal, anicteric sclerae Neck: trachea midline, no thyromegaly Respiratory: normal respiratory effort, lungs clear to auscultation Cardiovascular: RRR, no murmur, no edema Gastrointestinal (Abdomen): soft, NT, ND BS +. Neurologic: patellar DTR's 2+ bilat, sensation intact Psychiatric: A+Ox3, euthymic affect Results & Data Vital Signs (Past 12 Hours) Vital Signs Temp Pulse Pulse Pulse Resp BP Pulse Ox 08/15/23 11:11 37.1 C 77 18 107/65 90 08/15/23 09:32 36.3 C L 73 20 124/74 93 08/15/23 07:16 70 08/15/23 07:03 36.6 C 80 18 114/64 91 08/15/23 03:22 36.6 C 89 18 152/75 H 90 O2 Del Method 08/15/23 11:11 Room Air 08/15/23 09:32 Room Air 08/15/23 07:16 08/15/23 07:03 Room Air 08/15/23 03:22 Room Air Laboratory Results Abnormal lab results 08/15/23 08/15/23 08/15/23 Range/Units 07:10 07:10 07:10 RBC 4.07 L (4.70-6.10) M/uL Hgb 11.7 L (14.0-18.0) g/dl Hct 34.7 L (42.0-52.0) % RDW Std Deviation 50.2 H (36.4-46.3) fL RDW Coeff of Geovanna 16.7 H (11.5-14.5) % [place] # (Auto) 1.14 H (0.11-0.59) K/uL Immature Gran # (Auto) 0.30 H (0.01-0.20) K/uL PT 13.0 H (9.0-12.0) Seconds INR 1.2 H (0.9-1.1) Anion Gap 16 H (3-11) Creatinine 1.63 H (0.6-1.4) mg/dl Total Bilirubin 1.3 H (0.2-1.0) mg/dl AST 44 H (13-39) U/L Total Protein 5.5 L (6.0-8.3) gm/dl Albumin 2.6 L (3.4-5.0) gm/dl
[2023-08-15] MEDS ORDERED: OPTIRAY 320 100ml IV ONE (13:59)
--- NOTE | 2023-08-15 14:29 | CT Scan Report ---
CHEST CT WITH CONTRAST CT DOSE: HISTORY: weight loss, large abdominal mass, suspect lymphoma TECHNIQUE: Multiaxial CT images of the chest were performed following the intravenous administration of contrast. A dose lowering technique was utilized adhering to the principles of ALARA. COMPARISON: Abdomen and pelvis CT 08/11/2023. FINDINGS: No acute fractures identified. There is mild motion artifact. There are poststernotomy amador ges. No pneumothorax. The central airways are patent. Moderate emphysema. Patchy densities within the lung bases are nonspecific and could represent atelectasis from the small bilateral pleural effusion s. Scattered areas of interstitial thickening which may be chronic. Focal irregular densities within the right middle lobe on image 119 measuring approximately 1.8 cm and within the right lower lobe on image 113 measuring 1.6 cm. These may represent areas of scarring or atelectasis. Focal pneumonitis o r less likely a pulmonary lesion would also be considered in the differential diagnosis. The abdomina l structures will be reported on the same day abdomen and pelvis CT. The heart is normal in size. No pericardial effusion. Normal thyroid gland. Normal caliber thoracic aorta with moderate calcified desmond que. No evidence for an aortic dissection. The main pulmonary arteries are patent. A few subpleural n odular densities along the left major fissure which may also represent chronic interstitial change. S ubcentimeter mediastinal lymph nodes do not meet CT criteria for pathologic involvement. No hilar lym phadenopathy. Fat-containing right anterior Morgagni hernia containing a few mildly enlarged lymph no aaron. This remains unchanged. Dominant lymph node on image 166 measures 16 mm. IMPRESSION: 1. Small bilateral pleural effusions have increased in size. 2. There is a fat-containing right anterior Morgagni hernia containing a few enlarged lymph nodes and associated fat stranding. This remains unchanged and is concerning for a site of lymphoma. 3. Otherwise, no mediastinal or hilar lymphadenopathy. 4. Emphysema. 5. Patchy bibasilar densities are nonspecific but favor atelectasis. A low-grade pneumonitis could al so have a similar appearance. 6. There are focal irregular densities within the right middle lobe and right lower lobe as described above which may represent scarring or atelectasis. A focal pneumonitis or pulmonary lesion would als o be considered in the differential diagnosis. Therefore, [address] follow-up recommended to e nsure stability/resolution. ACT 112: Positive. There are findings on this exam that require communication between the performing entity and the patient following Patient Test Result Information Act ([place] Act 112) guidelines. Electronically signed by: Randall Posadas M.D. 08/15/2023 2:28 PM
--- NOTE | 2023-08-15 14:45 | CT Scan Report ---
CT OF THE ABDOMEN AND PELVIS WITH AND WITHOUT CONTRAST CLINICAL HISTORY: weight loss,large abdominal mass, suspect lymphoma COMPARISON STUDY: CT of the abdomen and pelvis August 11, 2023 and abdominal series performed sapna dye. TECHNIQUE: Axial images of the abdomen and pelvis were obtained before and after intravenous administ ration of 93 cc of Optiray 320 IV. Automated exposure control was utilized for the study. A dose lo wering technique was utilized adhering to the principles of ALARA. CT DOSE: 2385.75 mGy.cm FINDINGS: Please note that the chest CT will be reported separately. Moderate right and small left pl eural effusions are noted. Ground glass opacities within the lungs are better depicted on chest CT. T here is no pneumatosis, free air or portal venous gas. A left ureteral stent is well-positioned. Ther e is no hydronephrosis. There is a 1.3 cm left renal pelvis calculus. Numerous bilateral renal calcul i measure up to 6 mm. There are no ureteral calculi or fragments. Moderate bilateral renal cortical t hinning is noted. This is greater on the right. There is a left renal cyst. Numerous gallstones withi n the gallbladder are noted. There is a small stone within the cystic duct. Gallbladder distention damon s decreased since CT of August 11, 2023. There is persistent pericholecystic strandy. Numerous hypode nse hepatic masses measure up to 3.9 cm. Spleen, adrenal glands and pancreas are unremarkable. Is no biliary or pancreatic ductal dilatation. Infrarenal abdominal aorta is ectatic, measuring 2.9 cm. The re is no evidence for a bowel obstruction. There is colonic diverticulosis. No evidence for acute div erticulitis. Masslike thickening involving the cecum, terminal ileum and appendix is noted. Conglomer ate mass measures 11.7 x 7.2 cm. Adjacent enhancing nodules are present. There are peritoneal enhanci ng nodules as well. A small amount of ascites is present. No fluid collection is present. Multiple en larged upper abdominal and mesenteric lymph nodes are present. Index portacaval node on image 118 kaiden sures 2.7 x 2.1 cm. No suspicious osseous lesions are identified within the visualized skeletal struc tures. IMPRESSION: 1. Mass-like thickening of the cecum, terminal ileum and appendix, as shown on CT of August 11, 2023. No resultant bowel obstruction. Numerous hepatic lesions and associated lymphadenopathy. Suspected p eritoneal involvement with trace ascites. The findings are consistent with a neoplastic process and f avor lymphoma. Metastatic colon cancer could appear similar. 2. Interval placement of a left ureteral stent. No hydronephrosis. No ureteral calculi or fragments. 1.3 cm left renal pelvis calculus. Bilateral nephrolithiasis. 3. Cholelithiasis, including a stone within the cystic duct. Persistent pericholecystic stranding wit h interval decrease in gallbladder distention. Acute cholecystitis cannot be excluded. 4. Colonic diverticulosis. No evidence for acute diverticulitis. 5. Moderate right and small left pleural effusions. ACT 112: Negative or not required by law. Electronically signed by: Moy Abraham M.D. 08/15/2023 2:43 PM
[2023-08-15] MEDS ORDERED: Nursing to Pharmacy Communication SCH (15:45)
[2023-08-15] MEDS ORDERED: ACETAMINOPHEN 325 MG TAB PO PRN (15:48)
--- NOTE | 2023-08-15 15:51 | Hospitalist Progress Note ---
Date of Service August 15, 2023 Assessment & Plan (1) Cecum mass: Plan: -Currently stable -Patient was sent to the ED at the recommendation of his PCP after multiple abnormal findings on outpatient MRI of the lumbar spine and CT of the abd/pelvis -Large cecal mass noted with extensive metastases -Patient is without abdominal discomfort, has had loose stool over the past few week per family but denies diarrhea -No sign of obstruction on CT, patient had a bowel movement this am and is passing gas -GI has been consulted as he will need colonoscopy for biopsy and diagnosis. GI attempted a colonoscopy today, however the patient was vomiting and thus the procedure was aborted. Patient had an abdominal x-ray and CT abdomen with contrast that ruled out obstruction Currently the plan is to reattempt colonoscopy with biopsy tomorrow 08/16 per GI note -No signs of bleeding, Hgb has been stable -Will hold chemical DVT PPX with multiple procedures likely in the next few days; BL VANITA's for now -Clear liquid diet -AM CBC, CMP, Mag, PT/INR (2) High anion gap metabolic acidosis: Plan: -AG elevated at 19 with bicarb of 16 -Lactate ordered on admission is elevated at 8.9 -Likely due to dehydration and infection Improving -Patient is very stable and non-toxic appearing at the time of admission -Continue Zosyn for possible infections, follow infectious workup (3) Acute cholecystitis: Plan: -Ct of the abd/pelvis notes Cholelithiasis with evidence of acute cholecystitis. A calcified stone is seen in the cystic duct -Patient is without abdominal discomfort, negative smith's sign, no recent nausea/vomiting, and is not septic -LFT's are mildly elevated but relatively stable at this time -General surgery has been consulted and has no urgent plans for OR -will continue with zosyn for now -Follow blood and urine cultures (4) Calculus, ureteral: Plan: -Noted to have a 10 mm stone at the left ureteropelvic junction with surrounding urothelial thickening. Patient had a ureteric stent placed today 08/12 Outpatient follow-up with urology -Will continue zosyn to cover for possible infected stone and cholecystitis (5) Back pain: Plan: -Has been progressive over the past few months -MRI of the lumbar spine shows extensive osseous metastases without signs of epidural involvement -Also noted Disc protrusion versus sequestered disc fragment at L5-S1 abuts and posteriorly displaces the right S1 nerve root. -No red flag symptoms, pain is currently controlled -PRN IV morphine for now -Fall precautions (6) Elevated INR: Plan: -INR elevated at 2.0 on admission, down to 1.3 post vitamin K -Is not on systemic anticoagulation -Likely due to his known hepatic metastases -No signs of bleeding (7) Metastasis of unknown primary: Plan: -Noted on MRI of the lumbar spine and CT of the abd/pelvis today -High suspicion for the large cecal mass as the primary source, will need biopsy to confirm -Coordinating with GI to setup colonoscopy for biopsy, follow results -Oncology on board (8) Elevated LFTs: Plan: -Total bili at 1.6, AST of 45, alk phos of 133, ALT WNL -Likely due to hepatic metastases and known cystic duct stone with possible cholecystitis -Hold statin, continue to trend CMP daily -General Surgery and GI have been consulted and are following (9) Dementia: Plan: -Continue Aricept and HS Remeron -Fall precautions (10) Hypertension: Plan: -Stable -Hold metoprolol for now to prevent hypotension (11) CAD (coronary artery disease): Plan: -S/P CABG in the -Hold aspirin for now with multiple procedures likely in the next few days (12) Malnutrition: Plan: Patient lost 35 pounds in 1 month Poor appetite Admission and Anticipated Discharge Date Admission Date: August 11, 2023 Subjective patient went down for colonoscopy but was vomiting and thus was sent back to the room. He had an abdominal x-ray done that did not show any signs of obstruction. He then had an abdominal CT done as well. Per GI note, the plan is to try colonoscopy again tomorrow. The patient does not have any nausea at this time. He was given Zofran. He denies abdominal pain. No other complaints at this time. Review of Systems Review of Systems: All systems reviewed & are unremarkable except as noted in Subjective Physical Exam Physical Exam: General: Awake, conversant Heart: S1, S2/regular rate and rhythm, no murmur rubs or gallops Lungs: Clear to auscultation bilaterally. Normal effort Abdomen: Soft/nontender/nondistended. No hepatosplenomegaly Extremities: No clubbing/cyanosis. No edema Behavior: Appropriate, cooperative Results & Data Results & Data Vital Signs (Past 12 Hours) Vital Signs Temp Pulse Pulse Pulse Resp BP Pulse Ox 08/15/23 11:11 37.1 C 77 18 107/65 90 08/15/23 09:32 36.3 C L 73 20 124/74 93 08/15/23 07:16 70 08/15/23 07:03 36.6 C 80 18 114/64 91 O2 Del Method 08/15/23 11:11 Room Air 08/15/23 09:32 Room Air 08/15/23 07:16 08/15/23 07:03 Room Air Laboratory Results Abnormal lab results 08/15/23 08/15/23 08/15/23 Range/Units 07:10 07:10 07:10 RBC 4.07 L (4.70-6.10) M/uL Hgb 11.7 L (14.0-18.0) g/dl Hct 34.7 L (42.0-52.0) % RDW Std Deviation 50.2 H (36.4-46.3) fL RDW Coeff of Geovanna 16.7 H (11.5-14.5) % [place] # (Auto) 1.14 H (0.11-0.59) K/uL Immature Gran # (Auto) 0.30 H (0.01-0.20) K/uL PT 13.0 H (9.0-12.0) Seconds INR 1.2 H (0.9-1.1) Anion Gap 16 H (3-11) Creatinine 1.63 H (0.6-1.4) mg/dl Total Bilirubin 1.3 H (0.2-1.0) mg/dl AST 44 H (13-39) U/L Total Protein 5.5 L (6.0-8.3) gm/dl Albumin 2.6 L (3.4-5.0) gm/dl Diagnostic Findings Chest/Abdomen X-ray 08/15/23 09:46 PA CHEST RADIOGRAPH AND UPRIGHT AND SUPINE AP RADIOGRAPHS OF THE ABDOMEN CLINICAL HISTORY: vomiting, cecal mass -- rule out obstruction COMPARISON STUDY: Chest radiograph and CT of the abdomen and pelvis August 11, 2023. FINDINGS: There is no pneumothorax. Small bilateral pleural effusions have developed. There is mild reticulonodular interstitial thickening. Cardiomegaly is noted. There are median sternotomy wires and mediastinal surgical clips. There is no free air. The bowel gas pattern is normal. Left ureteral stent is in place. There is a 1.3 cm left renal pelvis calculus. Suspected distal left ureteral calculi/fragments measure up to 5 mm. Numerous additional small bilateral renal calculi are present. IMPRESSION: 1. No free air. No evidence for a bowel obstruction. 2. Left ureteral stent in place. 1.3 cm left renal pelvis calculus. Suspected distal left ureteral calculi/fragments which measure up to 5 mm. 3. Bilateral nephrolithiasis. 4. Findings suggestive of mild interstitial pulmonary edema with small bilateral pleural effusions. ACT 112: Negative or not required by law. Electronically signed by: Moy Abraham M.D. 08/15/2023 10:[address] 08/15/23 12:[address] CONTRAST CT DOSE: HISTORY: weight loss, large abdominal mass, suspect lymphoma TECHNIQUE: Multiaxial CT images of the chest were performed following the intravenous administration of contrast. A dose lowering technique was utilized adhering to the principles of ALARA. COMPARISON: Abdomen and pelvis CT 08/11/2023. FINDINGS: No acute fractures identified. There is mild motion artifact. There are poststernotomy changes. No pneumothorax. The central airways are patent. Moderate emphysema. Patchy densities within the lung bases are nonspecific and could represent atelectasis from the small bilateral pleural effusions. Scattered areas of interstitial thickening which may be chronic. Focal irregular densities within the right middle lobe on image 119 measuring approximately 1.8 cm and within the right lower lobe on image 113 measuring 1.6 cm. These may represent areas of scarring or atelectasis. Focal pneumonitis or less likely a pulmonary lesion would also be considered in the differential diagnosis. The abdominal structures will be reported on the same day abdomen and pelvis CT. The heart is normal in size. No pericardial effusion. Normal thyroid gland. Normal caliber thoracic aorta with moderate calcified plaque. No evidence for an aortic dissection. The main pulmonary arteries are patent. A few subpleural nodular densities along the left major fissure which may also represent chronic interstitial change. Subcentimeter mediastinal lymph nodes do not meet CT criteria for pathologic involvement. No hilar lymphadenopathy. 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 This remains unchanged. Dominant lymph node on image 166 measures 16 mm. IMPRESSION: 1. Small bilateral pleural effusions have increased in size. 2. There is a fat-containing right anterior Morgagni hernia containing a few enlarged lymph nodes and associated fat stranding. This remains unchanged and is concerning for a site of lymphoma. 3. Otherwise, no mediastinal or hilar lymphadenopathy. 4. Emphysema. 5. Patchy bibasilar densities are nonspecific but favor atelectasis. A low-grade pneumonitis could also have a similar appearance. 6. There are focal irregular densities within the right middle lobe and right lower lobe as described above which may represent scarring or atelectasis. A focal pneumonitis or pulmonary lesion would also be considered in the differential diagnosis. Therefore, [address] follow-up recommended to ensure stability/resolution. ACT 112: Positive. There are findings on this exam that require communication between the performing entity and the patient following Patient Test Result Information Act ([place] Act 112) guidelines. Electronically signed by: Randall Posadas M.D. 08/15/2023 2:28 PM Abdomen/Pelvis CT 08/15/23 12:23 CT OF THE ABDOMEN AND PELVIS WITH AND WITHOUT CONTRAST CLINICAL HISTORY: weight loss,large abdominal mass, suspect lymphoma COMPARISON STUDY: CT of the abdomen and pelvis August 11, 2023 and abdominal series performed earlier today. TECHNIQUE: Axial images of the abdomen and pelvis were obtained before and after intravenous administration of 93 cc of Optiray 320 IV. Automated exposure control was utilized for the study. A dose lowering technique was utilized adhering to the principles of ALARA. CT DOSE: 2385.75 mGy.cm FINDINGS: Please note that the chest CT will be reported separately. Moderate right and small left pleural effusions are noted. Ground glass opacities within the lungs are better depicted on chest CT. There is no pneumatosis, free air or portal venous gas. A left ureteral stent is well-positioned. There is no hydronephrosis. There is a 1.3 cm left renal pelvis calculus. Numerous bilateral renal calculi measure up to 6 mm. There are no ureteral calculi or fragments. Moderate bilateral renal cortical thinning is noted. This is greater on the right. There is a left renal cyst. Numerous gallstones within the gallbladder are noted. There is a small stone within the cystic duct. Gallbladder distention has decreased since CT of August 11, 2023. There is persistent pericholecystic strandy. Numerous hypodense hepatic masses measure up to 3.9 cm. Spleen, adrenal glands and pancreas are unremarkable. Is no biliary or pancreatic ductal dilatation. Infrarenal abdominal aorta is ectatic, measuring 2.9 cm. There is no evidence for a bowel obstruction. There is colonic diverticulosis. No evidence for acute diverticulitis. Masslike thickening involving the cecum, terminal ileum and appendix is noted. Conglomerate mass measures 11.7 x 7.2 cm. Adjacent enhancing nodules are present. There are peritoneal enhancing nodules as well. A small amount of ascites is present. No fluid collection is present. Multiple enlarged upper abdominal and mesenteric lymph nodes are present. Index portacaval node on image 118 measures 2.7 x 2.1 cm. No suspicious osseous lesions are identified within the visualized skeletal structures. IMPRESSION: 1. Mass-like thickening of the cecum, terminal ileum and appendix, as shown on CT of August 11, 2023. No resultant bowel obstruction. Numerous hepatic lesions and associated lymphadenopathy. Suspected peritoneal involvement with trace ascites. The findings are consistent with a neoplastic process and favor lymphoma. Metastatic colon cancer could appear similar. 2. Interval placement of a left ureteral stent. No hydronephrosis. No ureteral calculi or fragments. 1.3 cm left renal pelvis calculus. Bilateral nephrolithiasis. 3. Cholelithiasis, including a stone within the cystic duct. Persistent pericholecystic stranding with interval decrease in gallbladder distention. Acute cholecystitis cannot be excluded. 4. Colonic diverticulosis. No evidence for acute diverticulitis. 5. Moderate right and small left pleural effusions. ACT 112: Negative or not required by law. Electronically signed by: Moy Abraham M.D. 08/15/2023 2:43 PM PG Care Time/CCT Total # of Minutes Spent Total Time Spent with Patient: Total time spent is greater than 50% in coordination of care (as documented) at patient's floor/unit and/or counseling patient: Coding Level of Care Code 17068 SUB INP/OBS CARE 2/35MIN Diagnoses Cecum mass K63.89 High anion gap metabolic acidosis E87.29 Acute cholecystitis K81.0 Calculus, ureteral N20.1 Back pain M54.9 Elevated INR R79.1 Metastasis of unknown primary C79.9 Elevated LFTs R79.89 Dementia F03.90 Hypertension I10 CAD (coronary artery disease) I25.10 Malnutrition E46
[2023-08-15] MEDS: MIRTAZAPINE TAB 15 MG TAB PO SCH (21:19)
[2023-08-15] MEDS: DONEPEZIL HCL 5 MG TAB PO SCH (21:19)
[2023-08-16] MEDS: PLASMA-LYTE A 1,000 ML IV SCH ×2 (00:51→13:03)
[2023-08-16] MEDS: PIPERACILLIN/TAZOBACTAM 4.5 GM in DEXTROSE 5% MINI-B 100 ML IV SCH ×3 (05:08→21:50)
[2023-08-16 06:50] LABS: Basophils # (auto) 0.06 K/uL (0.00-0.20); Basophils % (auto) 0.6 %; Eosinophils # (auto) 0.07 K/uL (0.00-0.50); Eosinophils % (auto) 0.7 %; Hematocrit (blood only) 36.5 % (42.0-52.0); Hemoglobin 12.4 g/dl (14.0-18.0); Immature Granulocytes # (auto) 0.31 K/uL (0.01-0.20); Immature Granulocytes % (auto) 3.2 %; Lymphocytes % (auto) 20.6 %; Mean Corpuscular Volume 85.5 fL (80.0-100.0); Mean Platelet Volume 9.8 fL (9.4-12.4); Monocytes # (auto) 1.17 K/uL (0.11-0.59); Neutrophils # (auto) 6.11 K/uL (1.40-6.50); Neutrophils % (auto) 62.9 %; Platelet Count 193 K/uL (130-400); RDW Coefficient of Variation 17.3 % (11.5-14.5); Red Blood Count 4.27 M/uL (4.70-6.10); White Blood Count 9.72 K/ul (4.8-10.8)
[2023-08-16 07:25] LABS: INR 1.2 (0.9-1.1)
[2023-08-16 07:27] LABS: Albumin Globulin Ratio 0.8 (0.9-2); Albumin Level 2.7 gm/dl (3.4-5.0); BUN Creatinine Ratio 10.7 (10-20); Bilirubin,Total 1.5 mg/dl (0.2-1.0); Calcium 9.9 mg/dl (8.6-10.3); Creatinine Clr Calc Pharmacy 34.6 ml/min; Est GFR (African American) 46.8 ml/min; Est GFR (Non-African American) 40.4 ml/min; Globulin 3.2 gm/dl (2.5-4.0); Magnesium 1.8 mg/dl (1.7-2.4); Potassium 3.5 mmol/L (3.5-5.1); Total Protein 5.9 gm/dl (6.0-8.3)
--- NOTE | 2023-08-16 08:39 | History & Physical Report ---
Date of Service August 16, 2023 Assessment & Plan Admission and Anticipated Discharge Date Admission Date: August 11, 2023 History of Present Illness Primary Care Provider: Sandie Renteria, abnormal CT CV: RRR Resp: CTA Abd: soft A/P: Colonoscopy Allergies Allergy/AdvReac Type Severity Reaction Status Date / Time No Known Allergies Allergy Verified 08/16/23 08:38 Home Medications Medication Instructions Recorded Confirmed Type aspirin 81 mg tablet,delayed 81 mg PO QAM 06/28/19 08/11/23 History release (Kevin Low Dose Aspirin) metoprolol tartrate 25 mg tablet 25 mg PO QAM 06/28/19 08/11/23 History donepezil 5 mg tablet 5 mg PO HS 08/10/23 08/11/23 History mirtazapine 15 mg tablet (Remeron) 15 mg PO .qhs #90 tabs 08/10/23 08/11/23 Rx rosuvastatin 5 mg tablet (Crestor) 5 mg PO DAILY 08/10/23 08/11/23 History nitroglycerin 0.4 mg sublingual 0.4 mg sublingual UD PRN Chest Pain 08/11/23 08/11/23 History tablet Past Med/Surg History Medical History CAD (coronary artery disease) s/p stent x 1 (), CABG x2 (2004) Chronic back pain Cyst of pancreas reason for upcoming procedure Hypertension Kidney stones Myocardial Infarction multiple, most recent 2004 Osteoarthritis Surgical History History of cardiac cath = stent x 1 History of coronary artery bypass graft CABG x2 (2004) History of herniorrhaphy INGUINAL HERNIA REPAIR Family History Brother FHx: pancreatic cancer FHx: liver cancer Brother Prostate cancer Social History Smoking Status: Former smoker Second Hand Exposure: No; Do You Dip or Chew Tobacco: No; Hx Alcohol Use: No Hx Substance Use: No Preferred Language: Samoan Communication Ability: Effective Visual Impairment: No 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
[2023-08-16] MEDS ORDERED: PROPOFOL IV EMULSION 10 MG/ML 20 ML VIAL IV ONE (08:57)
[2023-08-16] MEDS ORDERED: LIDOCAINE 2% 2 ML VIAL/AMP(20MG/ML) INFIL ONE (08:57)
[2023-08-16] MEDS: TAMSULOSIN HCL 0.4 MG CAP PO SCH (10:29)
--- NOTE | 2023-08-16 12:15 | GI REPORT ---
Patient Name: Jose Calderon Procedure Date: 08/16/2023 8:48 AM Date of : 1945 Admit Type: Inpatient Age: 78 Gender: Male Attending MD: Sweta Hernandez MD, Procedure: Colonoscopy Providers: Sweta Hernandez MD Referring MD: Sandie Renteria Do, Shana Zhang Md Indications: Abnormal CT of the GI tract Medicines: See the Anesthesia note for documentation of the administered medications Complications: No immediate complications. Estimated Blood Loss: Estimated blood loss: none. Procedure: Pre-Anesthesia Assessment: - ASA Grade Assessment: IV - A patient with severe systemic disease that is a constant threat to life. After I obtained informed consent, the scope was passed under direct vision. Throughout the procedure, the patient's blood pressure, pulse, and oxygen saturations were monitored continuously. The Colonoscope was introduced through the anus and advanced to the cecum, identified by appendiceal orifice and ileocecal valve. The colonoscopy was performed without difficulty. The patient tolerated the procedure well. The quality of the bowel preparation was good. Findings: The perianal and digital rectal examinations were normal. Multiple small and large-mouthed diverticula were found throughout the colon. There was a large mass with volcano like ulcers with luminal narrowing involving the entire ascending colon. The mass was circumferential, with luminal narrowing. The IC valve could not be identified due to distortion of landmarks in the cecum The mass was biopsied with a forceps. There was no bleeding after biopsies were done. Hemorrhoids on retroflexion. Recommendation: - Discharge patient to floor. Resume low fiber diet. Await biopsy results; if biopsies non-diagnostic, can proceed with IR biopsy of liver. Pt is at high risk for obstruction in the future, will discuss with surgery service. Sweta Hernandez M.D. Sweta Hernandez MD 08/16/2023 12:15:38 PM This report has been signed electronically. Note Initiated On: 08/16/2023 8:48 AM Number of Addenda: 0 I attest to the content of the Intraoperative Record and orders documented therein, exceptions below {[id number]}
--- NOTE | 2023-08-16 12:29 | Palliative Care Consultation ---
Date of Consultation August 16, 2023 Assessment & Plan (1) Palliative care encounter: Mr. Calderon is resting in bed after his colonoscopy. I asked him how he felt about the test and he told me several times "I really hope that it isn't cancer". We talked about what he would think if it was cancer and he told me that everyone that he knows who has cancer dies. I asked him if he was worried about dying and he told me that he was not. "Sometimes I wish it would just be over". I spoke with his daughter, Vicky, and we reviewed the conversation. He has been told multiple times that he has cancer but does not seem to be able to process this. She tells me that he has an advance directive and would not want "aggressive treatment". When I asked what that meant to her she told me that he would not want CPR but would be ok with intubation for a short time. She tells me that he is a very determined man and that if he doesn't want to do something, he won't do it. She thinks that he may consider treatment for the sake of his great grandchildren, but would not be surprised if he declined treatment. I expressed concern that with his dementia he may not have full insight into his illness and the implications of treatment. She agrees and tells me that she, her brother and her mother have considered this. They would be comfortable with making a decision about what he would want. They are meeting with Dr. Durbin later today to discuss treatment options and prognosis. They are taking a one day at a time approach right now. They do understand that if they decided to pursue treatment, they could choose to stop at any time if the burdens outweigh the benefits. History of Present Illness Reason for Consultation: goals of care Requesting Physician: Dr. Zhang Attending Physician: Shana Zhang MD History of Present Illness 78 yo gentleman with dementia, CAD and CKD who has had 35lb weight loss over the last month. He was referred to ER by his PCP who found bony, hepatic and lymphatic metastases on outpatient MRI. He was also noted to have large cecal mass, cholecystitis and 10mm left renal calculus without hydronephrosis. He had stent placement last week for renal calculus and is not considered to be a surgical candidate for his cholecystitis. He was scheduled for colonoscopy and biopsy of cecal lesion yesterday which was aborted due to vomiting. He is had colonoscopy today which revealed large ulcerated mass involving the entire ascending colon with luminal narrowing. Biopsy is pending. He is also noted to have elevated creatinine at 1.59 with GFR of 40.4. Creatinine has been trending down over the last several days. His total bilirubin is elevated at 1.5 and his albumin level is 2.7. CT also showed moderate right and small left pleural effusions. He is awake and alert. He denies pain or discomfort. Allergies Allergy/AdvReac Type Severity Reaction Status Date / Time No Known Allergies Allergy Verified 08/16/23 08:38 Home Medications Medication Instructions Recorded Confirmed Type aspirin 81 mg tablet,delayed 81 mg PO QAM 06/28/19 08/11/23 History release (Kevin Low Dose Aspirin) metoprolol tartrate 25 mg tablet 25 mg PO QAM 06/28/19 08/11/23 History donepezil 5 mg tablet 5 mg PO HS 08/10/23 08/11/23 History mirtazapine 15 mg tablet (Remeron) 15 mg PO .qhs #90 tabs 08/10/23 08/11/23 Rx rosuvastatin 5 mg tablet (Crestor) 5 mg PO DAILY 08/10/23 08/11/23 History nitroglycerin 0.4 mg sublingual 0.4 mg sublingual UD PRN Chest Pain 08/11/23 08/11/23 History tablet Patient History Medical History CAD (coronary artery disease) s/p stent x 1 (), CABG x2 (2004) Chronic back pain Cyst of pancreas reason for upcoming procedure Hypertension Kidney stones Myocardial Infarction multiple, most recent 2004 Osteoarthritis Surgical History History of cardiac cath = stent x 1 History of coronary artery bypass graft CABG x2 (2004) History of herniorrhaphy INGUINAL HERNIA REPAIR Family History Brother FHx: pancreatic cancer FHx: liver cancer Brother Prostate cancer Social History Smoking Status: Former smoker Second Hand Exposure: No; Do You Dip or Chew Tobacco: No; Hx Alcohol Use: No Hx Substance Use: No Preferred Language: Kuwaiti Communication Ability: Effective Visual Impairment: No Limitations 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: No Beliefs That Will Affect Care: None Current Living Situation: Spouse Feels Safe at Home: Yes Safety Concerns: Feels Safe At This Time Assistive Devices: None Review of Systems Review of Systems: ESAS Pain 0/3 Dyspnea 0/3 Nausea 0/3 Drowsiness 0/3 Physical Exam Constitutional: no acute distress Respiratory: normal respiratory effort; no labored breathing Cardiovascular: Rate/Rhythm: regular rate and regular rhythm Neurologic: Speech / Cognition: + abnormal cognition Results & Data Vital Signs (Past 12 Hours) Vital Signs Temp Pulse Pulse Resp BP Pulse Ox O2 Del Method 08/16/23 11:03 99.0 F 71 16 110/68 91 Room Air 08/16/23 10:19 97.7 F 72 18 132/74 94 Room Air 08/16/23 09:56 69 20 115/67 95 Room Air 08/16/23 09:41 71 18 116/69 95 Room Air 08/16/23 09:26 72 16 95/54 L 93 Room Air 08/16/23 08:23 98.4 F 97 H 16 115/65 94 Room Air 08/16/23 07:38 98.2 F 81 16 111/70 92 Room Air 08/16/23 07:35 85 08/16/23 03:36 98.4 F 82 18 121/70 92 Room Air PG Care Time/CCT Total # of Minutes Spent Total Time Spent: 60 Total Time Spent with Patient: Total time spent is greater than 50% in coordination of care (as documented) at patient's floor/unit and/or counseling patient: goals of care, family education and support Coding Level of Care Code 96338 INT INP/OBS CARE 2/55MIN Diagnoses Palliative care encounter Z51.5
--- NOTE | 2023-08-16 13:27 | Anesthesiology Progress Note ---
Date of Service August 16, 2023 Anesthesia Post Procedure Vital Signs Vital Signs: Temp Pulse Pulse Resp BP Pulse Ox O2 Del Method 08/16/23 11:03 37.2 C 71 16 110/68 91 Room Air 08/16/23 10:19 36.5 C 72 18 132/74 94 Room Air 08/16/23 09:56 69 20 115/67 95 Room Air 08/16/23 09:41 71 18 116/69 95 Room Air 08/16/23 09:26 72 16 95/54 L 93 Room Air 08/16/23 08:23 36.9 C 97 H 16 115/65 94 Room Air 08/16/23 07:38 36.8 C 81 16 111/70 92 Room Air 08/16/23 07:35 85 08/16/23 03:36 36.9 C 82 18 121/70 92 Room Air 08/16/23 00:13 82 08/16/23 00:11 36.6 C 78 18 115/71 92 Room Air 08/15/23 19:37 36.7 C 73 18 102/52 L 93 Room Air 08/15/23 18:13 104 H 08/15/23 16:02 37 C 80 18 125/72 91 Room Air Pain Intensity Left Hip: Pain Intensity: 5 Transfer of Care Handoff Completed per policy Notes Mental Status: alert / awake / arousable and participated in evaluation Patient Amnestic to Procedure: Yes Nausea / Vomiting: adequately controlled Pain: adequately controlled Airway Patency, RR, SpO2: stable & adequate BP & HR: stable & adequate Hydration State: stable & adequate Anesthetic Complications: no major complications apparent
--- NOTE | 2023-08-16 15:15 | Hospitalist Progress Note ---
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 -No signs of bleeding, Hgb has been stable - BL VANITA's for now We will start chemical prophylaxis soon, once cleared by GI low fiber diet -AM CBC, CMP, Mag, PT/INR (2) High anion gap metabolic acidosis: Plan: -AG elevated at 19 with bicarb of 16 -Lactate ordered on admission is elevated at 8.9 -Likely due to dehydration and infection resolved -Patient is very stable and non-toxic appearing at the time of admission -Continue Zosyn for possible infections, follow infectious workup (3) Acute cholecystitis: Plan: -Ct of the abd/pelvis notes Cholelithiasis with evidence of acute cholecystitis. A calcified stone is seen in the cystic duct -Patient is without abdominal discomfort, negative smith's sign, no recent nausea/vomiting, and is not septic -LFT's are mildly elevated but relatively stable at this time -General surgery has been consulted and has no urgent plans for OR -will continue with zosyn for now - blood cultures negative Urine culture grew gram-positive cocci, Zosyn should cover. (4) Calculus, ureteral: Plan: -Noted to have a 10 mm stone at the left ureteropelvic junction with surrounding urothelial thickening. Patient had a ureteric stent placed today 08/12 Outpatient follow-up with urology -Will continue zosyn to cover for possible infected stone and cholecystitis (5) Back pain: Plan: -Has been progressive over the past few months -MRI of the lumbar spine shows extensive osseous metastases without signs of epidural involvement -Also noted Disc protrusion versus sequestered disc fragment at L5-S1 abuts and posteriorly displaces the right S1 nerve root. -No red flag symptoms, pain is currently controlled -PRN IV morphine for now -Fall precautions (6) Elevated INR: Plan: -INR elevated at 2.0 on admission, down to 1.3 post vitamin K -Is not on systemic anticoagulation -Likely due to his known hepatic metastases -No signs of bleeding (7) Metastasis of unknown primary: Plan: -Noted on MRI of the lumbar spine and CT of the abd/pelvis today -High suspicion for the large cecal mass as the primary source Had biopsy done today 08/16 -Oncology on board Palliative care on board (8) Elevated LFTs: Plan: -Likely due to hepatic metastases and known cystic duct stone with possible cholecystitis -Hold statin, continue to trend CMP daily -General Surgery and GI have been consulted and are following (9) Dementia: Plan: -Continue Aricept and HS Remeron -Fall precautions (10) Hypertension: Plan: -Stable -Hold metoprolol for now to prevent hypotension (11) CAD (coronary artery disease): Plan: -S/P CABG in the -Hold aspirin for now until GI clears postbiopsy (12) Malnutrition: Plan: Patient lost 35 pounds in 1 month Poor appetite Admission and Anticipated Discharge Date Admission Date: August 11, 2023 Subjective patient had colonoscopy with biopsy done today 08/16. Family tells me that they are meeting with oncologist Dr. Durbin this evening Review of Systems Review of Systems: All systems reviewed & are unremarkable except as noted in Subjective Physical Exam Physical Exam: General: Awake, conversant Heart: S1, S2/regular rate and rhythm, no murmur rubs or gallops Lungs: Clear to auscultation bilaterally. Normal effort Abdomen: Soft/nontender/nondistended. No hepatosplenomegaly Extremities: No clubbing/cyanosis. No edema Behavior: Appropriate, cooperative Results & Data Results & Data Vital Signs (Past 12 Hours) Vital Signs Temp Pulse Pulse Resp BP Pulse Ox O2 Del Method 08/16/23 14:54 36.8 C 78 18 107/62 92 Room Air 08/16/23 14:14 36.9 C 87 16 100/64 91 Room Air 08/16/23 11:03 37.2 C 71 16 110/68 91 Room Air 08/16/23 10:19 36.5 C 72 18 132/74 94 Room Air 08/16/23 09:56 69 20 115/67 95 Room Air 08/16/23 09:41 71 18 116/69 95 Room Air 08/16/23 09:26 72 16 95/54 L 93 Room Air 08/16/23 08:23 36.9 C 97 H 16 115/65 94 Room Air 08/16/23 07:38 36.8 C 81 16 111/70 92 Room Air 08/16/23 07:35 85 08/16/23 03:36 36.9 C 82 18 121/70 92 Room Air PG Care Time/CCT Total # of Minutes Spent Total Time Spent with Patient: Total time spent is greater than 50% in coordination of care (as documented) at patient's floor/unit and/or counseling patient: Coding Level of Care Code 75859 SUB INP/OBS CARE 2/35MIN Diagnoses Cecum mass K63.89 High anion gap metabolic acidosis E87.29 Acute cholecystitis K81.0 Calculus, ureteral N20.1 Back pain M54.9 Elevated INR R79.1 Metastasis of unknown primary C79.9 Elevated LFTs R79.89 Dementia F03.90 Hypertension I10 CAD (coronary artery disease) I25.10 Malnutrition E46
--- NOTE | 2023-08-16 16:17 | Surgery Progress Note ---
Date of Service August 16, 2023 Assessment & Plan (1) Acute cholecystitis: (2) Metastasis of unknown primary: (3) Cecum mass: Plan 78 years old gentleman who presented with the back pain 35 pounds of weight loss. Patient had a CT scan MRI scan which is showing , (1) a large cecal mass size about 11 cm time 6.5 cm, no bowel obstruction. (2), hepatic metastatic disease, (3). gallstone with acute cholecystitis. (4), Possible bone metastatic disease. (5), 10 mm stone at ureteropelvic junction. avss t. bili 1.8 but lfts wnl leukocytosis resolved per patient no abdominal pain Plan: Given multiple issues including large cecal mass with extensive metastatic disease would not recommend cholecystectomy at this time. If t. bili continues to increase, would consider MRCP vs ERCP to rule out choledocholithiasis. Continue antibiotics for any biliary coverage. Need colonoscopy with biopsy for diagnosis. Rescheduled for Tuesday with bowel prep over weekend. 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 Continue current medical management [facility] covering the weekend. Dr. Khoury was present during my examination and agrees with above. 08/15/2023 1:[address] Peng aiken. waiting colonoscopy. continue treatment, will F/U 08/16/2023 4:[address] Peng aiken. colonoscopy biopsy report pending. . continue treatment, will F/U Admission and Anticipated Discharge Date Admission Date: August 11, 2023 Supervising Physician Co-Signing Physician Notes Attg add: I interviewed and examined pt, reviewed chart and labs. Pt with cecal mass, without obstruction. Imaging reviewed, and favors lymphoma. D/w IR - cecal mass may not be accessibe by perc bx, as cannot easily be differentiated from bowel; liver lesions may be amnebale to bx, but pt has ASA as recently as 08/11. Cscopy cancelled today due to single episode of coughing and post-tussive vomiting. Will plan cscopy tomorrow, pending evaluation of clinical status. Subjective patient had colonoscopy with biopsy done today 08/16. Family tells me that they are meeting with oncologist Dr. Durbin this evening 08/16/2023, 4:[address] Khoury pt had colonoscopy with biopsy cecal mass, pt is stable, no abdominal pain. no nausea, no vomiting, no fever. Review of Systems Constitutional: as per Subjective / HPI Eyes: as per Subjective / HPI Respiratory: as per Subjective / HPI Cardiovascular: as per Subjective / HPI Additional Comments: HTN, CABG x2, DE, cardiac stent Gastrointestinal: as per Subjective / HPI Genitourinary: + problem reported (kidney stone) Musculoskeletal: back pain Neurologic: as per Subjective / HPI Dementia Psychiatric: as per Subjective / HPI Endocrine: as per Subjective / HPI Hematologic / Lymphatic: as per Subjective / HPI Physical Exam Constitutional: WD/WN, vitals as above Eyes: PERRL, conjunctivae normal, anicteric sclerae Neck: trachea midline, no thyromegaly Respiratory: normal respiratory effort, lungs clear to auscultation Cardiovascular: RRR, no murmur, no edema Gastrointestinal (Abdomen): soft, NT, Nd, BS + Neurologic: patellar DTR's 2+ bilat, sensation intact Psychiatric: A+Ox3, euthymic affect Results & Data Vital Signs (Past 12 Hours) Vital Signs Temp Pulse Pulse Resp BP Pulse Ox O2 Del Method 08/16/23 14:54 36.8 C 78 18 107/62 92 Room Air 08/16/23 14:14 36.9 C 87 16 100/64 91 Room Air 08/16/23 11:03 37.2 C 71 16 110/68 91 Room Air 08/16/23 10:19 36.5 C 72 18 132/74 94 Room Air 08/16/23 09:56 69 20 115/67 95 Room Air 08/16/23 09:41 71 18 116/69 95 Room Air 08/16/23 09:26 72 16 95/54 L 93 Room Air 08/16/23 08:23 36.9 C 97 H 16 115/65 94 Room Air 08/16/23 07:38 36.8 C 81 16 111/70 92 Room Air 08/16/23 07:35 85 Laboratory Results Abnormal lab results 08/16/23 08/16/23 08/16/23 Range/Units 06:30 06:30 06:30 RBC 4.27 L (4.70-6.10) M/uL Hgb 12.4 L (14.0-18.0) g/dl Hct 36.5 L (42.0-52.0) % RDW Std Deviation 52.0 H (36.4-46.3) fL RDW Coeff of Geovanna 17.3 H (11.5-14.5) % Cooper # (Auto) 1.17 H (0.11-0.59) K/uL Immature Gran # (Auto) 0.31 H (0.01-0.20) K/uL PT 13.0 H (9.0-12.0) Seconds INR 1.2 H (0.9-1.1) Anion Gap 17 H (3-11) Creatinine 1.59 H (0.6-1.4) mg/dl Total Bilirubin 1.5 H (0.2-1.0) mg/dl AST 41 H (13-39) U/L Total Protein 5.9 L (6.0-8.3) gm/dl Albumin 2.7 L (3.4-5.0) gm/dl Albumin/Globulin Ratio 0.8 L (0.9-2) Diagnostic Findings Findings: colonoscopy 08/16/2023 The perianal and digital rectal examinations were normal. Multiple small and large-mouthed diverticula were found throughout the colon. There was a large mass with volcano like ulcers with luminal narrowing involving the entire ascending colon. The mass was circumferential, with luminal narrowing. The IC valve could not be identified due to distortion of landmarks in the cecum The mass was biopsied with a forceps. There was no bleeding after biopsies were done. Hemorrhoids on retroflexion.
[2023-08-16] MEDS: DONEPEZIL HCL 5 MG TAB PO SCH (21:49)
[2023-08-16] MEDS: MIRTAZAPINE TAB 15 MG TAB PO SCH (21:49)
[2023-08-17] MEDS: PLASMA-LYTE A 1,000 ML IV SCH ×2 (01:24→13:39)
[2023-08-17] MEDS: PIPERACILLIN/TAZOBACTAM 4.5 GM in DEXTROSE 5% MINI-B 100 ML IV SCH ×3 (04:44→20:19)
[2023-08-17] MEDS: TAMSULOSIN HCL 0.4 MG CAP PO SCH (08:46)
--- NOTE | 2023-08-17 12:18 | Surgery Progress Note ---
Date of Service August 17, 2023 Assessment & Plan (1) Acute cholecystitis: (2) Metastasis of unknown primary: (3) Cecum mass: Plan 78 years old gentleman who presented with the back pain 35 pounds of weight loss. Patient had a CT scan MRI scan which is showing , (1) a large cecal mass size about 11 cm time 6.5 cm, no bowel obstruction. (2), hepatic metastatic disease, (3). gallstone with acute cholecystitis. (4), Possible bone metastatic disease. (5), 10 mm stone at ureteropelvic junction. avss t. bili 1.8 but lfts wnl leukocytosis resolved per patient no abdominal pain Plan: Given multiple issues including large cecal mass with extensive metastatic disease would not recommend cholecystectomy at this time. If t. bili continues to increase, would consider MRCP vs ERCP to rule out choledocholithiasis. Continue antibiotics for any biliary coverage. Need colonoscopy with biopsy for diagnosis. Rescheduled for Tuesday with bowel prep over weekend. 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 Continue current medical management [facility] covering the weekend. Dr. Khoury was present during my examination and agrees with above. 08/15/2023 1:[address] Peng iaken. waiting colonoscopy. continue treatment, will F/U 08/16/2023 4:[address] Peng aiken. colonoscopy biopsy report pending. . continue treatment, will F/U 08/17/2023 12:[address] Peng aiken. colonoscopy biopsy report pending. . continue treatment, based on most likely Stage 4 tumors. pt is not surgical candidate. sign off, please call with questions. thanks. Admission and Anticipated Discharge Date Admission Date: August 11, 2023 Supervising Physician Co-Signing Physician Notes Attg add: I interviewed and examined pt, reviewed chart and labs. Pt with cecal mass, without obstruction. Imaging reviewed, and favors lymphoma. D/w IR - cecal mass may not be accessibe by perc bx, as cannot easily be differentiated from bowel; liver lesions may be amnebale to bx, but pt has ASA as recently as 08/11. Cscopy cancelled today due to single episode of coughing and post-tussive vomiting. Will plan cscopy tomorrow, pending evaluation of clinical status. Subjective patient had colonoscopy with biopsy done today 08/16. Family tells me that th ey are meeting with oncologist Dr. Durbin this evening 08/16/2023, 4:[address] Khoury pt had colonoscopy with biopsy cecal mass, pt is stable, no abdominal pain. no nausea, no vomiting, no fever. 08/17/2023, 12:[address] Khoury pt had colonoscopy with biopsy cecal mass yesterday, pathology is pending. pt is stable, no abdominal pain. no nausea, no vomiting, no fever. Review of Systems Constitutional: as per Subjective / HPI Eyes: as per Subjective / HPI Respiratory: as per Subjective / HPI Cardiovascular: as per Subjective / HPI Additional Comments: HTN, CABG x2, SD, cardiac stent Gastrointestinal: as per Subjective / HPI Genitourinary: + problem reported (kidney stone) Musculoskeletal: back pain Neurologic: as per Subjective / HPI Dementia Psychiatric: as per Subjective / HPI Endocrine: as per Subjective / HPI Hematologic / Lymphatic: as per Subjective / HPI Physical Exam Constitutional: WD/WN, vitals as above Eyes: PERRL, conjunctivae normal, anicteric sclerae Neck: trachea midline, no thyromegaly Respiratory: normal respiratory effort, lungs clear to auscultation Cardiovascular: RRR, no murmur, no edema Gastrointestinal (Abdomen): soft, NT, Nd, BS + Neurologic: patellar DTR's 2+ bilat, sensation intact Psychiatric: A+Ox3, euthymic affect Results & Data Vital Signs (Past 12 Hours) Vital Signs Temp Pulse Resp BP Pulse Ox O2 Del Method 08/17/23 11:49 36.6 C 78 18 127/70 91 Room Air 08/17/23 07:04 37.2 C 88 17 119/63 91 Room Air
--- NOTE | 2023-08-17 13:25 | Hospitalist Progress Note ---
Date of Service August 17, 2023 Assessment & Plan (1) Cecum mass: Plan: -Currently stable -Patient was sent to the ED at the recommendation of his PCP after multiple abnormal findings on outpatient MRI of the lumbar spine and CT of the abd/pelvis -Large cecal mass noted with extensive metastases -Patient is without abdominal discomfort, has had loose stool over the past few week per family but denies diarrhea -No sign of obstruction on CT, patient had a bowel movement this am and is passing gas patient had colonoscopy with biopsy done 08/16. -No signs of bleeding, Hgb has been stable - BL VANITA's for now We will start chemical prophylaxis soon, once cleared by GI low fiber diet (2) High anion gap metabolic acidosis: Plan: -AG elevated at 19 with bicarb of 16 -Lactate ordered on admission is elevated at 8.9 -Likely due to dehydration and infection resolved -Patient is very stable and non-toxic appearing at the time of admission -Continue Zosyn for possible infections, follow infectious workup (3) Acute cholecystitis: Plan: -Ct of the abd/pelvis notes Cholelithiasis with evidence of acute cholecystitis. A calcified stone is seen in the cystic duct -Patient is without abdominal discomfort, negative smith's sign, no recent nausea/vomiting, and is not septic -LFT's are mildly elevated but relatively stable at this time -General surgery has been consulted and has no urgent plans for OR -will continue with zosyn for now - blood cultures negative Urine culture grew gram-positive cocci, Zosyn should cover. (4) Calculus, ureteral: Plan: -Noted to have a 10 mm stone at the left ureteropelvic junction with surrounding urothelial thickening. Patient had a ureteric stent placed 08/12 Outpatient follow-up with urology -Will continue zosyn to cover for possible infected stone and cholecystitis (5) Back pain: Plan: -Has been progressive over the past few months -MRI of the lumbar spine shows extensive osseous metastases without signs of epidural involvement -Also noted Disc protrusion versus sequestered disc fragment at L5-S1 abuts and posteriorly displaces the right S1 nerve root. -No red flag symptoms, pain is currently controlled -PRN IV morphine for now -Fall precautions (6) Elevated INR: Plan: -INR elevated at 2.0 on admission, down to 1.3 post vitamin K -Is not on systemic anticoagulation -Likely due to his known hepatic metastases -No signs of bleeding (7) Metastasis of unknown primary: Plan: -Noted on MRI of the lumbar spine and CT of the abd/pelvis today -High suspicion for the large cecal mass as the primary source Had biopsy done today 08/16 -Oncology on board Palliative care on board (8) Elevated LFTs: Plan: -Likely due to hepatic metastases and known cystic duct stone with possible cholecystitis -Hold statin, continue to trend CMP daily -General Surgery and GI have been consulted and are following (9) Dementia: Plan: -Continue Aricept and HS Remeron -Fall precautions (10) Hypertension: Plan: -Stable -Hold metoprolol for now to prevent hypotension (11) CAD (coronary artery disease): Plan: -S/P CABG in the -Hold aspirin for now until GI clears postbiopsy (12) Malnutrition: Plan: Patient lost 35 pounds in 1 month Poor appetite Admission and Anticipated Discharge Date Admission Date: August 11, 2023 Subjective the family meeting was not held last evening. Dr. Durbin will meet with the family either tonight or tomorrow night. Review of Systems Review of Systems: All systems reviewed & are unremarkable except as noted in Subjective Physical Exam Physical Exam: General: Awake, conversant Heart: S1, S2/regular rate and rhythm, no murmur rubs or gallops Lungs: Clear to auscultation bilaterally. Normal effort Abdomen: Soft/nontender/nondistended. No hepatosplenomegaly Extremities: No clubbing/cyanosis. No edema Behavior: Appropriate, cooperative Results & Data Results & Data Vital Signs (Past 12 Hours) Vital Signs Temp Pulse Resp BP Pulse Ox O2 Del Method 08/17/23 11:49 36.6 C 78 18 127/70 91 Room Air 08/17/23 07:04 37.2 C 88 17 119/63 91 Room Air PG Care Time/CCT Total # of Minutes Spent Total Time Spent with Patient: Total time spent is greater than 50% in coordination of care (as documented) at patient's floor/unit and/or counseling patient: Coding Level of Care Code 52421 SUB INP/OBS CARE 2/35MIN Diagnoses Cecum mass K63.89 High anion gap metabolic acidosis E87.29 Acute cholecystitis K81.0 Calculus, ureteral N20.1 Back pain M54.9 Elevated INR R79.1 Metastasis of unknown primary C79.9 Elevated LFTs R79.89 Dementia F03.90 Hypertension I10 CAD (coronary artery disease) I25.10 Malnutrition E46
[2023-08-17] MEDS: ENOXAPARIN INJ 40 MG/0.4 ML SYR SQ SCH (13:57)
[2023-08-17] MEDS: MIRTAZAPINE TAB 15 MG TAB PO SCH (20:18)
[2023-08-17] MEDS: DONEPEZIL HCL 5 MG TAB PO SCH (20:18)
[2023-08-18] MEDS: PLASMA-LYTE A 1,000 ML IV SCH ×2 (02:17→15:00)
[2023-08-18] MEDS: PIPERACILLIN/TAZOBACTAM 4.5 GM in DEXTROSE 5% MINI-B 100 ML IV SCH ×3 (04:22→21:15)
--- NOTE | 2023-08-18 05:59 | Hospitalist Progress Note ---
Date of Service August 18, 2023 Assessment & Plan (1) Metastasis of unknown primary: Plan: As per previous, unequivocal presentation with a metastatic malignancy. Lymphoma certainly in the differential though unfortunately the intraluminal mass and its visual description certainly also suggest an aggressive primary colonic malignancy. I am scheduled to meet with the patient and his family this evening for more formal review hopefully with histology and hand. Any histology is likely to be treatable in both colon and lymphoma can respond quite well to chemotherapy, the latter even with some potential for extended remission. Differential may be the rapidity of response. If lymphoma we would consider an urgent start chemotherapy and might see cytoreduction within days. And for primary colon malignancy, could certainly expeditiously move towards chemotherapy but that might not lead to quite such rapid reduction, which in turn will raise the discussion as to at what point a preemptive diverting ostomy should be considered. Plan Anticipate histology available today and will meet with the family and the patient this evening to formulate a more specific plan from the oncology perspective Admission and Anticipated Discharge Date Admission Date: August 11, 2023 Subjective Generally stable, await final pathology Results & Data Results & Data Vital Signs (Past 12 Hours) Vital Signs Temp Pulse Pulse Resp BP Pulse Ox O2 Del Method 08/18/23 03:24 37.2 C 91 H 18 136/74 90 Room Air 08/17/23 23:29 37.3 C 90 18 124/72 91 Room Air 08/17/23 22:02 92 H 08/17/23 19:11 37 C 87 16 118/71 93 Room Air PG Care Time/CCT Total # of Minutes Spent Total Time Spent with Patient: Total time spent is greater than 50% in coordination of care (as documented) at patient's floor/unit and/or counseling patient: Coding Level of Care Code None Diagnoses Metastasis of unknown primary C79.9
[2023-08-18] MEDS: TAMSULOSIN HCL 0.4 MG CAP PO SCH (08:44)
[2023-08-18] MEDS: ENOXAPARIN INJ 40 MG/0.4 ML SYR SQ SCH (08:44)
--- NOTE | 2023-08-18 16:11 | Hospitalist Progress Note ---
Date of Service August 18, 2023 Assessment & Plan (1) Cecum mass: Plan: -Currently stable -Patient was sent to the ED at the recommendation of his PCP after multiple abnormal findings on outpatient MRI of the lumbar spine and CT of the abd/pelvis -Large cecal mass noted with extensive metastases -Patient is without abdominal discomfort, has had loose stool over the past few week per family but denies diarrhea -No sign of obstruction on CT, patient had a bowel movement this am and is passing gas patient had colonoscopy with biopsy done 08/16. 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 -No signs of bleeding, Hgb has been stable - BL VANITA's for now on DVT prophylaxis low fiber diet (2) High anion gap metabolic acidosis: Plan: -AG elevated at 19 with bicarb of 16 -Lactate ordered on admission is elevated at 8.9 -Likely due to dehydration and infection resolved -Patient is very stable and non-toxic appearing at the time of admission -Continue Zosyn for possible infections, follow infectious workup. May be completing a 7-day course soon (3) Acute cholecystitis: Plan: -Ct of the abd/pelvis notes Cholelithiasis with evidence of acute cholecystitis. A calcified stone is seen in the cystic duct -Patient is without abdominal discomfort, negative smith's sign, no recent nausea/vomiting, and is not septic -LFT's are mildly elevated but relatively stable at this time -General surgery has been consulted and has no urgent plans for OR -will continue with zosyn for now . May be continuing a 7-day course soon. - blood cultures negative Urine culture grew gram-positive cocci, Zosyn should cover. (4) Calculus, ureteral: Plan: -Noted to have a 10 mm stone at the left ureteropelvic junction with surrounding urothelial thickening. Patient had a ureteric stent placed 08/12 Outpatient follow-up with urology -Will continue zosyn to cover for possible infected stone and cholecystitis (5) Back pain: Plan: -Has been progressive over the past few months -MRI of the lumbar spine shows extensive osseous metastases without signs of epidural involvement -Also noted Disc protrusion versus sequestered disc fragment at L5-S1 abuts and posteriorly displaces the right S1 nerve root. -No red flag symptoms, pain is currently controlled -PRN IV morphine for now -Fall precautions (6) Elevated INR: Plan: -INR elevated at 2.0 on admission, down to 1.3 post vitamin K -Is not on systemic anticoagulation -Likely due to his known hepatic metastases -No signs of bleeding (7) Metastasis of unknown primary: Plan: -Noted on MRI of the lumbar spine and CT of the abd/pelvis today -High suspicion for the large cecal mass as the primary source Had biopsy done today 08/16. Biopsy returned as large B-cell lymphoma -Oncology on board. Family meeting [facility] Palliative care on board (8) Elevated LFTs: Plan: -Likely due to hepatic metastases and known cystic duct stone with possible cholecystitis -Hold statin, continue to trend CMP daily -General Surgery and GI have been consulted and are following (9) Dementia: Plan: -Continue Aricept and HS Remeron -Fall precautions (10) Hypertension: Plan: -Stable -Hold metoprolol for now to prevent hypotension (11) CAD (coronary artery disease): Plan: -S/P CABG in the (12) Malnutrition: Plan: Patient lost 35 pounds in 1 month Poor appetite Admission and Anticipated Discharge Date Admission Date: August 11, 2023 Subjective patient does not have any major complaints. I was informed of the pathology results today: High-grade B-cell lymphoma. Dr. Durbin will sit down with the family this evening and have a conversation about the next steps Review of Systems Review of Systems: All systems reviewed & are unremarkable except as noted in Subjective Physical Exam Physical Exam: General: Awake, conversant Heart: S1, S2/regular rate and rhythm, no murmur rubs or gallops Lungs: Clear to auscultation bilaterally. Normal effort Abdomen: Soft/nontender/nondistended. No hepatosplenomegaly Extremities: No clubbing/cyanosis. No edema Behavior: Appropriate, cooperative Results & Data Results & Data Vital Signs (Past 12 Hours) Vital Signs Temp Pulse Resp BP BP Pulse Ox O2 Del Method 08/18/23 15:47 36.7 C 83 18 124/70 91 Room Air 08/18/23 10:48 36.7 C 90 17 131/72 92 Room Air 08/18/23 08:00 Room Air 08/18/23 08:25 36.9 C 89 17 145/80 H 93 Room Air PG Care Time/CCT Total # of Minutes Spent Total Time Spent with Patient: Total time spent is greater than 50% in coordination of care (as documented) at patient's floor/unit and/or counseling patient: Coding Level of Care Code 41124 SUB INP/OBS CARE MIN Diagnoses Cecum mass K63.89 High anion gap metabolic acidosis E87.29 Acute cholecystitis K81.0 Calculus, ureteral N20.1 Back pain M54.9 Elevated INR R79.1 Metastasis of unknown primary C79.9 Elevated LFTs R79.89 Dementia F03.90 Hypertension I10 CAD (coronary artery disease) I25.10 Malnutrition E46
[2023-08-18] MEDS: DONEPEZIL HCL 5 MG TAB PO SCH (21:15)
[2023-08-18] MEDS: MIRTAZAPINE TAB 15 MG TAB PO SCH (21:15)
[2023-08-19] MEDS ORDERED: PROCHLORPERAZINE 5 MG in SYRINGE 4 ML IV ONE (01:30)
[2023-08-19] MEDS ORDERED: PROCHLORPERAZINE 5 MG in SYRINGE 4 ML IV PRN (02:10)
[2023-08-19] MEDS: PLASMA-LYTE A 1,000 ML IV SCH ×2 (03:41→16:34)
[2023-08-19] MEDS: PIPERACILLIN/TAZOBACTAM 4.5 GM in DEXTROSE 5% MINI-B 100 ML IV SCH ×3 (04:40→20:24)
[2023-08-19 06:48] LABS: Basophils # (auto) 0.08 K/uL (0.00-0.20); Basophils % (auto) 0.7 %; Eosinophils # (auto) 0.05 K/uL (0.00-0.50); Eosinophils % (auto) 0.5 %; Hematocrit (blood only) 33.8 % (42.0-52.0); Hemoglobin 11.6 g/dl (14.0-18.0); Immature Granulocytes # (auto) 0.42 K/uL (0.01-0.20); Immature Granulocytes % (auto) 3.9 %; Lymphocytes # (auto) 2.67 K/uL (1.20-3.40); Lymphocytes % (auto) 24.7 %; Mean Corpuscular Hemoglobin 28.5 pg (25.0-34.0); Mean Corpuscular Hgb Conc 34.3 g/dL (32.0-36.0); Mean Platelet Volume 10.1 fL (9.4-12.4); Neutrophils # (auto) 6.31 K/uL (1.40-6.50); Neutrophils % (auto) 58.2 %; Nucleated RBC # (auto) 0.05 K/uL (0.00-0.12); Nucleated RBC % (auto) 0.5 %; Platelet Count 190 K/uL (130-400); RDW Coefficient of Variation 18.6 % (11.5-14.5); RDW Standard Deviation 52.9 fL (36.4-46.3); Red Blood Count 4.07 M/uL (4.70-6.10); White Blood Count 10.83 K/ul (4.8-10.8)
--- NOTE | 2023-08-19 07:05 | Hospitalist Progress Note ---
Date of Service August 18, 2023 Assessment & Plan (1) B-cell lymphoma: Plan: I met this evening with the patient, his , children and a few of his grandchildren including 1 granddaughter who is a physician's sociology research assistant. We spoke for approximately 40 to 45 minutes regarding his diagnosis, prognosis, and treatment options. Biopsy does show a B-cell lymphoma. This appears to be an aggressive subtype though molecular characterization is pending. He involves extensive soft tissue in the abdomen some of which may be matted adenopathy and some of which is probably the colon itself. There are apparent metastases in the bones as evidenced by his lumbar spine MRI and in the liver. We discussed that this is a stage IV presentation and is an aggressive process that untreated could rapidly progress to the point of life ending complications in the not too distant future. We discussed that in contrast to other widely metastatic diseases, lymphomas can sometimes have excellent responses to treatment often achieving complete remission set for a few patients can be quite durable. We have warned that we are still finally characterizing exactly which type of aggressive lymphoma this is and thus more specific prognostication will have to be revisited as we get that information. I proposed that even as we await that final information we can give some intermediately aggressive cytoreduction chemotherapy now. A combination of cyclophosphamide and prednisone along with a delayed dose of rituximab (for purposes of avoidance of tumor lysis as discussed below) could have at least a cytoreductive impact on virtually in the lymphoma. For patient who is status is somewhat frail especially with his smoldering gallbladder infection and in whom tumor lysis could be poorly tolerated with pre-existing renal dysfunction, this seems to be a prudent way to go for allows us to get going on treatment now even before final characterization of his disease, avoid the more severe cardiac and hematologic toxicities of full combined treatment, and yet already start to lessen the disease burden which itself is on the verge of becoming inherently threatening. This may also help to forestall full obstruction of the bowel and help to avoid having to place a diverting ostomy. Even with just that combination I would expect a significant and fairly rapid cytoreduction. Plan will be to give cyclophosphamide and a dose of 750 mg per metered squared x 1 and Solu-Medrol 80 mg intravenously daily for 5 days. We will stagger a dose of rituximab 375 mg per metered squared to be given 72 hours later to avoid "first dose" reactions. We have discussed that there can be dramatic complications with initiate chemotherapy. We discussed allergic reactions, organ toxicities especially to the urological tract, kidneys, liver, lungs, and heart that we did note that we would defer doxorubicin to later cycles. We particular discussed at some length the concern over tumor lysis syndrome. As above, we will give only cyclophosphamide and Solu-Medrol during his first cycle delaying other cytotoxic chemotherapy subsequent cycles to help lessen the immediate impact of potential tumor lysis. We will start him on allopurinol today and need to watch his fluid and electrolyte balance quite closely over the next 48 hours. Delaying the rituximab may have some modest impact on tumor lysis and also avoids "first dose" reactions in an untreated patient. While we have certainly offered that there can be significant and important responses to chemotherapy for lymphoma, we have also warned that each individual patient may respond differently and that there can be life-threatening complications of the treatment itself. Plan Obtaining baseline uric acid and will start him on allopurinol today with a planned 7-day course Anticipate placement of a PICC line and administration of chemotherapy later today with cyclophosphamide and the start of Solu-Medrol We will anticipate a dose of rituximab at 72 hours We will need to watch very closely for tumor lysis checking uric acid and electrolytes every 12 hours for the first 48 hours after treatment. I have secured verbal consent from the patient in the assent of his entire family who are present. He will have additional chemotherapy teaching tomorrow with a formal consent to be completed at that time Admission and Anticipated Discharge Date Admission Date: August 11, 2023 Subjective Patient continues to feel reasonably well without significant abdominal pain or other new symptoms Physical Exam Physical Exam: Vital signs are stable. He is alert and cooperative. He does not have dramatic peripheral adenopathy, lung and cardiac exams are stable. Abdomen is currently soft without guarding rigidity or significant tenderness in the right upper quadrant Results & Data Results & Data Vital Signs (Past 12 Hours) Vital Signs Temp Pulse Pulse Resp BP BP Pulse Ox 08/19/23 03:00 36.8 C 86 19 130/74 93 08/18/23 22:00 88 08/18/23 22:26 37.1 C 86 22 151/80 H 92 08/18/23 20:00 87 08/18/23 20:30 08/18/23 19:54 36.5 C 91 H 19 138/74 92 O2 Del Method 08/19/23 03:00 Room Air 08/18/23 22:00 08/18/23 22:26 Room Air 08/18/23 20:00 08/18/23 20:30 Room Air 08/18/23 19:54 Room Air PG Care Time/CCT Total # of Minutes Spent Total Time Spent with Patient: Total time spent is greater than 50% in coordination of care (as documented) at patient's floor/unit and/or counseling patient: Coding Level of Care Code 14891 SUB INP/OBS CARE 2/35MIN Diagnoses B-cell lymphoma C85.10 Time Spent (min) 45 Comment This note covers a visit at 7 PM on August 18, 2020
[2023-08-19 07:14] LABS: BUN Creatinine Ratio 9.7 (10-20); Calcium 9.6 mg/dl (8.6-10.3); Est GFR (African American) 52.3 ml/min; Est GFR (Non-African American) 45.2 ml/min; Potassium 3.4 mmol/L (3.5-5.1)
[2023-08-19 07:33] LABS: Uric Acid 6.1 mg/dl (2.6-7.2)
[2023-08-19] MEDS ORDERED: POTASSIUM CHLORIDE CRTAB 20 MEQ TABCR PO STA (07:56)
[2023-08-19] MEDS: TAMSULOSIN HCL 0.4 MG CAP PO SCH (08:33)
[2023-08-19] MEDS: ENOXAPARIN INJ 40 MG/0.4 ML SYR SQ SCH (08:33)
[2023-08-19] MEDS: allopurinoL 300 MG TAB PO SCH (09:41)
--- NOTE | 2023-08-19 15:17 | XRay Report ---
XR chest 1V portable HISTORY: 78 years-old Male Right PICC Line placement status post placement of a right-sided PICC COMPARISON: 08/15/2023 TECHNIQUE: AP view of the chest FINDINGS: Cardiac silhouette is enlarged. Prior median sternotomy with CABG. Mixed interstitial and alveolar op acities with layering pleural effusions. Atherosclerosis of the aorta. Status post placement of a rig ht-sided PICC which loops upon itself in the expected location of the brachiocephalic SVC confluence. Distal tip is projected superiorly. No pneumothorax. IMPRESSION: 1. Status post placement of a right-sided PICC with distal tip projected superiorly, looped upon itse lf in the expected location of the brachiocephalic SVC confluence. 2. No postprocedural pneumothorax. ACT 112: Negative or not required by law. The above report was generated using voice recognition software. It may contain grammatical, syntax o r spelling errors. Electronically signed by: Rodrigo Conte M.D. 08/19/2023 3:15 PM
[2023-08-19] MEDS ORDERED: PALONOSETRON 0.25 MG in SYRINGE 0 ML IV SCH (16:00)
[2023-08-19] MEDS ORDERED: dexAMETHasone 12 MG in DEXTROSE 5% 25 ML IV SCH (16:00)
[2023-08-19] MEDS ORDERED: methylPREDNISolone 125 MG in SYRINGE 0 ML IV SCH (16:00)
--- NOTE | 2023-08-19 16:25 | XRay Report ---
SINGLE VIEW CHEST CLINICAL HISTORY: PICC repositioning. FINDINGS: An AP, portable, upright chest radiograph is compared to study performed earlier the same d ay 08/19/2023. Correlation is made with chest CT dated 08/15/2023. The examination is degraded by port able technique and apical lordotic positioning. A right PICC line has been repositioned. The tip proj ects over the SVC. The patient is status post midline sternotomy. The heart is enlarged noting athero sclerotic calcification of the thoracic aorta. There is pulmonary vascular congestion. Bilateral airs pace opacities are noted. Emphysema and chronic interstitial thickening is similar to previous. There are layering pleural effusions with dependent consolidation. No pneumothorax is seen. The skeletal s tructures are osteopenic. The bony thorax is grossly intact. IMPRESSION: 1. A right-sided PICC line has been repositioned as above. 2. Cardiomegaly and emphysema with pulmonary vascular congestion. 3. Bilateral airspace opacities likely represent pulmonary edema. Correlate clinically for evidence o f a superimposed infectious/inflammatory pneumonitis. 4. Layering pleural effusions with dependent consolidation. ACT 112: Negative or not required by law. Electronically signed by: Harsha Cabrera M.D. 08/19/2023 4:24 PM
[2023-08-19] MEDS ORDERED: CYCLOPHOSPHAMIDE IV SCH (16:30)
[2023-08-19] MEDS ORDERED: SODIUM CHLORIDE 0.9% IV SCH (16:30)
[2023-08-19] MEDS: methylPREDNISolone 125 MG in SYRINGE 0 ML IV SCH (16:31)
--- NOTE | 2023-08-19 18:22 | Hospitalist Progress Note ---
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 -No signs of bleeding, Hgb has been stable - BL VANITA's for now on DVT prophylaxis low fiber diet (2) High anion gap metabolic acidosis: Plan: -AG elevated at 19 with bicarb of 16 -Lactate ordered on admission is elevated at 8.9 -Likely due to dehydration and infection resolved -Patient is very stable and non-toxic appearing at the time of admission -Continue Zosyn for possible cholecyst [place]/infections, may need prolonged course and discussion of a cholecystostomy tube (3) Acute cholecystitis: Plan: -Ct of the abd/pelvis notes Cholelithiasis with evidence of acute cholecystitis. A calcified stone is seen in the cystic duct -Patient is without abdominal discomfort, -General surgery has been consulted and has no urgent plans for OR -will continue with zosyn for now likely to complete 2 weeks of therapy depending on his response to his chemo - blood cultures negative Urine culture grew gram-positive cocci, Zosyn should cover. (4) Calculus, ureteral: Plan: -Noted to have a 10 mm stone at the left ureteropelvic junction with surrounding urothelial thickening. Patient had a ureteric stent placed 08/12 Outpatient follow-up with urology -Will continue zosyn to cover for possible infected stone, urine grew alpha strep, and cholecystitis (5) Back pain: Plan: -Has been progressive over the past few months -MRI of the lumbar spine shows extensive osseous metastases without signs of epidural involvement -Also noted Disc protrusion versus sequestered disc fragment at L5-S1 abuts and posteriorly displaces the right S1 nerve root. 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 -No signs of bleeding (7) Dementia: Plan: -Continue Aricept and HS Remeron at the bedside casually his dementia seems slight -Fall precautions Admission and Anticipated Discharge Date Admission Date: August 11, 2023 Subjective Patient continues to feel reasonably well without significant abdominal pain or other new symptoms was present in the room consented to PICC line has no other additional questions Physical Exam Physical Exam: Generally feels aches and pains continues with loose bowel movements Results & Data Results & Data Vital Signs (Past 12 Hours) Vital Signs Temp Pulse Pulse Resp BP BP Pulse Ox 08/19/23 15:51 98.6 F 87 18 125/73 93 08/19/23 11:18 98.4 F 84 18 122/70 91 08/19/23 10:15 08/19/23 07:59 97 H 08/19/23 07:04 97.9 F 94 H 18 147/77 H 90 O2 Del Method 08/19/23 15:51 Room Air 08/19/23 11:18 Room Air 08/19/23 10:15 Room Air 08/19/23 07:59 08/19/23 07:04 Room Air Laboratory Results Reviewed CBC reviewed chemistry replete hypokalemia PG Care Time/CCT Total # of Minutes Spent Total Time Spent with Patient: Total time spent is greater than 50% in coordination of care (as documented) at patient's floor/unit and/or counseling patient: Coding Level of Care Code 49818 SUB INP/OBS CARE 3/50MIN Diagnoses Cecum mass K63.89 High anion gap metabolic acidosis E87.29 Acute cholecystitis K81.0 Calculus, ureteral N20.1 Back pain M54.9 Elevated INR R79.1 Dementia F03.90
[2023-08-19] MEDS: DONEPEZIL HCL 5 MG TAB PO SCH (20:24)
[2023-08-19] MEDS: MIRTAZAPINE TAB 15 MG TAB PO SCH (20:24)
[2023-08-19 21:51] LABS: BUN Creatinine Ratio 10.1 (10-20); Calcium 9.1 mg/dl (8.6-10.3); Creatinine Clr Calc Pharmacy 39.6 ml/min; Est GFR (African American) 55.1 ml/min; Est GFR (Non-African American) 47.5 ml/min; Phosphorus 2.7 mg/dl (2.5-4.9); Potassium 3.7 mmol/L (3.5-5.1)
[2023-08-20] MEDS: PLASMA-LYTE A 1,000 ML IV SCH ×2 (05:11→18:00)
[2023-08-20] MEDS: PIPERACILLIN/TAZOBACTAM 4.5 GM in DEXTROSE 5% MINI-B 100 ML IV SCH ×3 (05:12→20:26)
[2023-08-20 08:59] LABS: BUN Creatinine Ratio 13.7 (10-20); Calcium 9.3 mg/dl (8.6-10.3); Creatinine Clr Calc Pharmacy 39.6 ml/min; Est GFR (African American) 55.1 ml/min; Est GFR (Non-African American) 47.5 ml/min; Phosphorus 2.7 mg/dl (2.5-4.9); Potassium 3.6 mmol/L (3.5-5.1)
[2023-08-20] MEDS: allopurinoL 300 MG TAB PO SCH (09:29)
[2023-08-20] MEDS: methylPREDNISolone 125 MG in SYRINGE 0 ML IV SCH (09:30)
[2023-08-20] MEDS: ENOXAPARIN INJ 40 MG/0.4 ML SYR SQ SCH (09:30)
[2023-08-20] MEDS: TAMSULOSIN HCL 0.4 MG CAP PO SCH (09:30)
--- NOTE | 2023-08-20 09:58 | Hospitalist Progress Note ---
Date of Service August 20, 2023 Assessment & Plan (1) B-cell lymphoma: Plan: As per previous note, I have met with the patient and his family on the evening of August 18 and at length reviewed his diagnosis, prognosis, and treatment options. I reconvene with the patient yesterday in the company of his and one of his daughters. We reiterated the diagnosis of B-cell lymphoma, reviewed the treatment plan and completed and informed consent CONFIRMATION OF CONSENT 1. We discussed that s/he is diagnosed with a B-cell lymphoma specifying that the subtype is not yet been fully defined but that the urgency of his current presentation suggest that initial cytoreduction could be of important benefit. We discussed the our proposed treatment program will be an initial combination of cyclophosphamide, steroids, and rituximab. We note that this is not defin itive treatment and that will be discussed once we have better definition of his molecular subtype of lymphoma. We discussed, however, that cytoreduction could be quite important in improving his symptomatology, specifically avoiding bowel obstruction, and giving us time to make those more definitive determinations and decisions. We have noted, however, that each individual patient may react quite differently to medications and thus the degree and durability of his response as well as tolerance of the treatment are uncertain to some extent 2. We discussed that the intent of this treatment is to reduce his tumor burden with this particular intervention, we will speak at greater length about goals of interim stability versus more definitive "cure" as we approach expansion of treatment at a later date 3. We discussed that this treatment program can be associated with toxicities including: Allergic reactions, organ toxicity particularly to the urological tract, kidneys, gastrointestinal tract and as well discussed the specific potential threat of tumor lysis. We discussed in particular that this chemotherapy can be associated with low blood counts which can lead to threatening bleeding and/or infection and have emphasized the emergent need to notify us for temperature elevations or unusual bruising or bleeding. We discussed that there may be other toxicities and side effects that are not so easily anticipated and that s/he should be in touch with us quickly for any changes in clinical status. We have indicated that we cannot be assured of the degree or durability of his/her response. 4. We discussed that alternative approaches to treatment could include: no treatment but with the risk of further progression of the condition. We discussed that we are happy to facilitate a second opinion at any time in his/her treatment course to make sure that there has been a complete review of alternatives. 5. Patient and his family on the evening of August 18 and then again midday on August 19 were given an extensive outline of what we do not and do not know about his disease thus far and the rationale for the treatment plan. There was an extended opportunity for all to ask questions and I have answered all questions to the best my ability during our visit. I have emphasized the continuous availability of staff day and night to immediately discuss any changes in status. 6. We have completed a formal discussion of informed consent and a signed document of informed consent has been placed in the medical record. 7. We have emphasized that s/he can withdraw his/her consent and stop treatment at any time and for any reason of his/her choosing Cyclophosphamide was given on August 19, Solu-Medrol started on that day for a 5-day course and we anticipate rituximab administration on August 22. I am working closely with the hospital staff to monitor for signs of tumor lysis or other adverse consequences of his initial treatment Plan See above Admission and Anticipated Discharge Date Admission Date: August 11, 2023 Subjective I am working remotely today but available through [employer] or cell phone for any issues or concerns that arise. I did meet with the patient yesterday prior to my departure and at the time he was quite stable. Overnight, vital signs remained stable and there are no signs of evolving tumor lysis Physical Exam Physical Exam: Exam stable Results & Data Results & Data Vital Signs (Past 12 Hours) Vital Signs Temp Pulse Pulse Resp BP Pulse Ox O2 Del Method 08/20/23 07:51 36.5 C 91 H 18 136/84 92 Room Air 08/20/23 07:20 66 08/20/23 03:11 36.3 C L 69 20 103/58 L 90 Room Air 08/19/23 22:03 78 08/20/23 00:06 36.3 C L 77 18 138/80 93 Room Air PG Care Time/CCT Total # of Minutes Spent Total Time Spent with Patient: Total time spent is greater than 50% in coordination of care (as documented) at patient's floor/unit and/or counseling patient: Coding Level of Care Code None Diagnoses B-cell lymphoma C85.10
--- NOTE | 2023-08-20 17:02 | Hospitalist Progress Note ---
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 -No signs of bleeding, Hgb has been stable low fiber diet (2) High anion gap metabolic acidosis: Plan: -AG elevated at 19 with bicarb of 16 -Lactate ordered on admission is elevated at 8.9 -Likely due to dehydration and infection resolved -Patient is very stable and non-toxic appearing at the time of admission -Continue Zosyn for possible cholecystitis/infections, may need prolonged course and discussion of a cholecystostomy tube (3) Acute cholecystitis: Plan: -Ct of the abd/pelvis notes Cholelithiasis with evidence of acute cholecystitis. A calcified stone is seen in the cystic duct -Patient is without abdominal discomfort, -General surgery has been consulted and has no urgent plans for OR -will continue with zosyn for now likely to complete 2 weeks of therapy depending on his response to his chemo - blood cultures negative Urine culture grew gram-positive cocci, Zosyn should cover. LFTs improving (4) Calculus, ureteral: Plan: -Noted to have a 10 mm stone at the left ureteropelvic junction with surrounding urothelial thickening. Patient had a ureteric stent placed 08/12 Outpatient follow-up with urology -Will continue zosyn to cover for possible infected stone, urine grew alpha strep, and cholecystitis (5) Back pain: Plan: -Has been progressive over the past few months -MRI of the lumbar spine shows extensive osseous metastases without signs of epidural involvement -Also noted Disc protrusion versus sequestered disc fragment at L5-S1 abuts and posteriorly displaces the right S1 nerve root. 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 He was in no acute distress he says he feels improved Physical Exam Physical Exam: Awake alert and appropriate. No focal distress at this time no significant laboratory abnormalities from chemotherapy administration Results & Data Results & Data Vital Signs (Past 12 Hours) Vital Signs Temp Pulse Pulse Resp BP Pulse Ox O2 Del Method 08/20/23 15:33 97.5 F L 74 18 119/74 90 Room Air 08/20/23 11:33 97.3 F L 63 18 111/64 90 Room Air 08/20/23 11:05 Room Air 08/20/23 07:51 97.7 F 91 H 18 136/84 92 Room Air 08/20/23 07:20 66 Laboratory Results Reviewed chemistry PG Care Time/CCT Total # of Minutes Spent Total Time Spent with Patient: Total time spent is greater than 50% in coordination of care (as documented) at patient's floor/unit and/or counseling patient: Coding Level of Care Code 16916 SUB INP/OBS CARE 2/35MIN Diagnoses Cecum mass K63.89 High anion gap metabolic acidosis E87.29 Acute cholecystitis K81.0 Calculus, ureteral N20.1 Back pain M54.9 Elevated INR R79.1 Dementia F03.90
[2023-08-20] MEDS: MIRTAZAPINE TAB 15 MG TAB PO SCH (20:26)
[2023-08-20] MEDS: DONEPEZIL HCL 5 MG TAB PO SCH (20:26)
[2023-08-20 21:37] LABS: BUN Creatinine Ratio 14.3 (10-20); Calcium 9.3 mg/dl (8.6-10.3); Creatinine Clr Calc Pharmacy 39.3 ml/min; Est GFR (African American) 54.6 ml/min; Est GFR (Non-African American) 47.1 ml/min; Phosphorus 2.7 mg/dl (2.5-4.9); Potassium 3.3 mmol/L (3.5-5.1)
[2023-08-21] MEDS: PLASMA-LYTE A 1,000 ML IV SCH ×2 (05:16→17:05)
[2023-08-21] MEDS: PIPERACILLIN/TAZOBACTAM 4.5 GM in DEXTROSE 5% MINI-B 100 ML IV SCH ×2 (05:16→13:21)
[2023-08-21 07:32] LABS: BUN Creatinine Ratio 17.4 (10-20); Calcium 8.7 mg/dl (8.6-10.3); Creatinine Clr Calc Pharmacy 41.7 ml/min; Est GFR (African American) 58.6 ml/min; Est GFR (Non-African American) 50.6 ml/min; Phosphorus 3.2 mg/dl (2.5-4.9); Potassium 3.2 mmol/L (3.5-5.1)
[2023-08-21] MEDS: TAMSULOSIN HCL 0.4 MG CAP PO SCH (09:16)
[2023-08-21] MEDS: methylPREDNISolone 125 MG in SYRINGE 0 ML IV SCH (09:16)
[2023-08-21] MEDS: allopurinoL 300 MG TAB PO SCH (09:16)
[2023-08-21] MEDS: ENOXAPARIN INJ 40 MG/0.4 ML SYR SQ SCH (09:16)
[2023-08-21] MEDS ORDERED: POTASSIUM CHLORIDE CRTAB 20 MEQ TABCR PO STA (13:35)
--- NOTE | 2023-08-21 13:37 | Hospitalist Progress Note ---
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 -No signs of bleeding, Hgb has been stable low fiber diet (2) High anion gap metabolic acidosis: Plan: -AG elevated at 19 with bicarb of 16 -Lactate ordered on admission is elevated at 8.9 -Likely due to dehydration and infection resolved -Patient is very stable and non-toxic appearing at the time of admission -Continue Zosyn for possible cholecystitis/infections, may need prolonged course and discussion of a cholecystostomy tube patient clinically is quiescent at this time continue antibiotics with likely transition to Augmentin versus Cipro Flagyl at time of discharge (3) Acute cholecystitis: Plan: -Ct of the abd/pelvis notes Cholelithiasis with evidence of acute cholecystitis. A calcified stone is seen in the cystic duct -Patient is without abdominal discomfort, -General surgery has been consulted and has no urgent plans for OR -will continue with zosyn for now likely to complete 2 weeks of therapy depending on his response to his chemo - blood cultures negative Urine culture grew gram-positive cocci, Zosyn LFTs improving (4) Calculus, ureteral: Plan: -Noted to have a 10 mm stone at the left ureteropelvic junction with surrounding urothelial thickening. Patient had a ureteric stent placed 08/12 Outpatient follow-up with urology -Will continue zosyn to cover for possible infected stone, urine grew alpha strep, and cholecystitis (5) Back pain: Plan: -Has been progressive over the past few months -MRI of the lumbar spine shows extensive osseous metastases without signs of epidural involvement -Also noted Disc protrusion versus sequestered disc fragment at L5-S1 abuts and posteriorly displaces the right S1 nerve root. 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 He was in no acute distress he says he feels improved pt scheduled for chemotherapy 08/22 rituximab Physical Exam Physical Exam: Awake alert and appropriate. No focal distress at this time no significant laboratory abnormalities from chemotherapy administration Results & Data Results & Data Vital Signs (Past 12 Hours) Vital Signs Temp Pulse Pulse Resp BP Pulse Ox O2 Del Method 08/21/23 11:40 97.3 F L 63 18 135/66 91 Room Air 08/21/23 10:01 Room Air 08/21/23 08:32 97.5 F L 76 18 110/65 91 Room Air 08/21/23 07:19 54 L 08/21/23 04:00 97.5 F L 71 22 138/65 91 Nasal Cannula O2 Flow Rate 08/21/23 11:40 08/21/23 10:01 08/21/23 08:32 08/21/23 07:19 08/21/23 04:00 2 Laboratory Results reviewed electrolytes discussed upcoming chemotherapy with Dr. Serrano via electronic communication PG Care Time/CCT Total # of Minutes Spent Total Time Spent with Patient: Total time spent is greater than 50% in coordination of care (as documented) at patient's floor/unit and/or counseling patient: Coding Level of Care Code 18232 SUB INP/OBS CARE 2/35MIN Diagnoses Cecum mass K63.89 High anion gap metabolic acidosis E87.29 Acute cholecystitis K81.0 Calculus, ureteral N20.1 Back pain M54.9 Elevated INR R79.1 Dementia F03.90
[2023-08-21] MEDS ORDERED: MELATONIN 3 MG TAB PO PRN (19:33)
[2023-08-21] MEDS ORDERED: diphenhydrAMINE Capsule 25 MG CAP PO PRN (19:34)
[2023-08-21] MEDS: POTASSIUM CHLORIDE CRTAB 20 MEQ TABCR PO SCH (20:07)
[2023-08-21] MEDS: DONEPEZIL HCL 5 MG TAB PO SCH (20:07)
[2023-08-21] MEDS: MIRTAZAPINE TAB 15 MG TAB PO SCH (20:08)
[2023-08-21] MEDS ORDERED: MELATONIN 3 MG TAB PO ONE (21:00)
[2023-08-21 21:33] LABS: BUN Creatinine Ratio 18.9 (10-20); Calcium 8.6 mg/dl (8.6-10.3); Creatinine Clr Calc Pharmacy 41.7 ml/min; Est GFR (African American) 58.6 ml/min; Est GFR (Non-African American) 50.6 ml/min; Phosphorus 3.5 mg/dl (2.5-4.9); Potassium 3.4 mmol/L (3.5-5.1)
[2023-08-22] MEDS: PLASMA-LYTE A 1,000 ML IV SCH (05:29)
[2023-08-22 06:46] LABS: Basophils # (auto) 0.01 K/uL (0.00-0.20); Basophils % (auto) 0.1 %; Hematocrit (blood only) 29.7 % (42.0-52.0); Hemoglobin 10.2 g/dl (14.0-18.0); Immature Granulocytes # (auto) 0.11 K/uL (0.01-0.20); Immature Granulocytes % (auto) 1.2 %; Lymphocytes % (auto) 7.7 %; Mean Corpuscular Hemoglobin 28.7 pg (25.0-34.0); Mean Corpuscular Hgb Conc 34.3 g/dL (32.0-36.0); Mean Corpuscular Volume 83.4 fL (80.0-100.0); Mean Platelet Volume 10.2 fL (9.4-12.4); Monocytes # (auto) 0.69 K/uL (0.11-0.59); Monocytes % (auto) 7.6 %; Neutrophils # (auto) 7.61 K/uL (1.40-6.50); Neutrophils % (auto) 83.4 %; Platelet Count 175 K/uL (130-400); RDW Coefficient of Variation 18.6 % (11.5-14.5); RDW Standard Deviation 53.5 fL (36.4-46.3); Red Blood Count 3.56 M/uL (4.70-6.10); White Blood Count 9.12 K/ul (4.8-10.8)
[2023-08-22] MEDS ORDERED: MAGNESIUM SULFATE / D5W 1 GM/100 ML BAG IV ONE (07:31)
[2023-08-22] MEDS: POTASSIUM CHLORIDE CRTAB 20 MEQ TABCR PO SCH (08:35)
[2023-08-22] MEDS: allopurinoL 300 MG TAB PO SCH (08:35)
[2023-08-22] MEDS: TAMSULOSIN HCL 0.4 MG CAP PO SCH (08:35)
[2023-08-22] MEDS: ENOXAPARIN INJ 40 MG/0.4 ML SYR SQ SCH (08:36)
[2023-08-22] MEDS ORDERED: ACETAMINOPHEN 325 MG TAB PO ONE (09:30)
[2023-08-22] MEDS ORDERED: diphenhydrAMINE Capsule 25 MG CAP PO ONE (09:30)
[2023-08-22] MEDS ORDERED: [UNRECOGNIZED DRUG - OTHER] IV PRN (10:00)
[2023-08-22] MEDS ORDERED: SODIUM CHLORIDE 0.9% IV SCH (10:00)
[2023-08-22] MEDS ORDERED: NS IV PRN (10:00)
[2023-08-22] MEDS ORDERED: DEXAMETHASONE IV PRN (10:00)
[2023-08-22] MEDS ORDERED: RITUXIMAB IV SCH (10:00)
[2023-08-22] MEDS ORDERED: DIPHENHYDRAMINE 50 MG/ML IV PRN (10:00)
[2023-08-22] MEDS ORDERED: MEPERIDINE 25 MG/ML IV PRN (10:00)
--- NOTE | 2023-08-22 10:08 | Hospitalist Progress Note ---
Date of Service August 22, 2023 Assessment & Plan (1) B-cell lymphoma: Plan: Did well with initial cyclophosphamide/steroid with clinical improvement and no signs of tumor lysis. Rituximab will be given today with appropriate premedications but watching closely for first dose reaction If he does well with that would anticipate discharge Plan If patient stable can be discharged 1 to 2 hours after the rituximab infusion. Would suggest that he receive prednisone 80 mg tomorrow and 40 mg on Tuesday and then discontinue steroids He will need to be closely counseled to call immediately for any fever above 100.3 even in the absence of dramatic other symptoms, any unusual bruising or bleeding, any other clinical changes. He can call the cancer center line at [phone] answers 24 hours I have submitted orders for toxicity and lab check follow-up with [facility] on 08/30/2023 and we anticipate his next cycle of chemotherapy on 09/09/2023 pending review of final pathology reports. Has a PICC line in place. Discharge planning should arrange for appropriate follow-up and care of the PICC line in the interim though if stable at the 08/30/2023 visit we will consider its discontinuationand arrange placement of a port just prior to his next cycle of chemotherapy I am working remotely but available by [employer] if any additional concerns arise prior to his anticipated discharge. Otherwise as above we have arranged for outpatient follow-up with [facility] Admission and Anticipated Discharge Date Admission Date: August 11, 2023 Subjective Tolerated initial cyclophosphamide well and feeling improved Plan for rituximab today Today is day 4 of his steroid course Results & Data Results & Data Vital Signs (Past 12 Hours) Vital Signs Temp Pulse Pulse Pulse Resp BP Pulse Ox 08/22/23 07:50 36.6 C 64 18 110/65 92 08/22/23 03:08 36.6 C 91 H 64 18 128/68 92 08/22/23 00:16 08/21/23 23:37 63 08/21/23 23:07 36.6 C 72 18 121/71 91 O2 Del Method O2 Flow Rate FiO2 08/22/23 07:50 Nasal Cannula 2 08/22/23 03:08 Nasal Cannula 2 08/22/23 00:16 Nasal Cannula 2 08/21/23 23:37 08/21/23 23:07 Nasal Cannula 2 PG Care Time/CCT Total # of Minutes Spent Total Time Spent with Patient: Total time spent is greater than 50% in coordination of care (as documented) at patient's floor/unit and/or counseling patient: Coding Level of Care Code None Diagnoses B-cell lymphoma C85.10
[2023-08-22] MEDS: methylPREDNISolone 125 MG in SYRINGE 0 ML IV SCH (10:28)
--- NOTE | 2023-08-22 18:30 | Discharge Summary ---
Date of Service August 22, 2023 Admission HPI Per Admitting Provider abnormal CT CV: RRR Resp: CTA Abd: soft A/P: Colonoscopy Principal Diagnosis cecal mass determined to be B cell lymphoma chemotherapy given in hospital metastatic disease Discharge Exam patient awake and alert despite his metastatic disease burden he has no particular focal complaints or problems Discharge Data Allergies Allergy/AdvReac Type Severity Reaction Status Date / Time No Known Allergies Allergy Verified 08/16/23 08:38 Consultations 08/11/23 15:48 Consult Gastroenterology Stat Consult Urology Stat 08/11/23 15:51 Consult General Surgery Stat 08/11/23 16:26 ED Decision to Admit Stat 08/11/23 21:12 Consult Oncology Routine 08/12/23 08:46 Consult Palliative Care Routine Procedures Performed Operation Date: 08/16/23 16:45 Actual Procedures p Colonoscopy Biopsy Cytology - Sweta Hernandez MD Ordered Studies 08/12/23 07:00 FL retrograde includes kub Routine 08/15/23 12:22 CT chest diagnostic w con Routine 08/15/23 12:23 CT abdomen pelvis wo/w con Routine Hospital Course (1) Cecum mass: -Large cecal mass noted with extensive metastases 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 -No signs of bleeding, Hgb has been stable low fiber diet patient discharged into additional days of prednisone therapy allopurinol with [facility]. Given instructions on what to watch for (2) High anion gap metabolic acidosis: -AG elevated at 19 with bicarb of 16 -Lactate ordered on admission is elevated at 8.9 -Likely due to dehydration and infection resolved -Patient is very stable and non-toxic appearing at the time of admission -Continue Zosyn for possible cholecystitis/infections, may need prolonged course and discussion of a cholecystostomy tube patient clinically is quiescent at this time continue antibiotics with likely transition to Augmentin at time of discharge (3) Acute cholecystitis: -Ct of the abd/pelvis notes Cholelithiasis with evidence of acute cholecystitis. A calcified stone is seen in the cystic duct -Patient is without abdominal discomfort, -General surgery has been consulted and has no urgent plans for OR -will continue with Augmentin for now likely to complete 2 weeks of therapy depending on his response to his chemo - blood cultures negative Urine culture grew gram-positive cocci Augmentin LFTs improving although tumor metastasis may impact chemical analysis (4) Calculus, ureteral: -Noted to have a 10 mm stone at the left ureteropelvic junction with surrounding urothelial thickening. Patient had a ureteric stent placed 08/12 Outpatient follow-up with urology -Will continue Augmentin to cover for possible infected stone, urine grew alpha strep, and cholecystitis (5) Back pain: -Has been progressive over the past few months -MRI of the lumbar spine shows extensive osseous metastases without signs of epidural involvement -Also noted Disc protrusion versus sequestered disc fragment at L5-S1 abuts and posteriorly displaces the right S1 nerve root. -No red flag symptoms, pain is currently controlled Pain seems controlled at this time (6) Elevated INR: -INR elevated at 2.0 on admission, down to 1.3 post vitamin K -Is not on systemic anticoagulation -Likely due to his known hepatic metastases -No signs of bleeding (7) Dementia: -Continue Aricept and HS Remeron at the bedside casually his dementia seems slight -Fall precautions Total Time Total Time Spent Total Time Spent (In Minutes): it required greater than 30 minutes to prepare this patient for discharge Discharge Plan Discharge Items Patient Disposition: Home - Self-Care Reason For Visit: CECAL MASS, 10MM L URETERAL CALCULUS, UNDIAGNOSED Discharge Diagnosis: lymphoma, cecal mass s/p chemtherapy Activity: Resume your previous activity Non-emergency contact: Primary Care Provider Call non-emergency contact if: your symptoms worsen Follow-up/Referrals: Buck Durbin MD [Physician] - Sandie Renteria DO [Primary Care Provider] - 08/26/23 11:20 am Diet: Regular Addtl Attending Provider Instructions: He received some chemotherapy for your lymphoma. Chemotherapy may reach its height of working in about 7 to 10 days after infusion. Please be aware of things such as fevers chills urinary changes bowel habit changes. If you have any questions please contact Dr. Serrano's office. If after hours and you feel ill please report to an emergency room nearest to you Please follow-up with Dr. Durbin in the outpatient office. You can call the cancer center line at [phone] answers 24 hours please complete your antibiotics or have them amended by [facility] if need be To be helpful to eat a low residual diet meaning a low fiber diet at this point time until the area of concern in your rectum becomes smaller and allows larger bowel movements the past Pending Studies at Discharge: Yes Studies:: Some additional studies on your biopsy are pending at this time Stand-Alone Forms: [facility], Smoking Cessation Medications and DC Order Prescriptions: New allopurinol 300 mg Tablet 300 mg PO DAILY Qty: 30 0RF prednisone 20 mg tablet 20 mg PO UD Qty: 6 0RF Rx Instructions: 4 tabs on Thursday 08/23, 2 tabs Friday 08/24 amoxicillin-pot clavulanate 875-125 mg tablet 1 tab PO BID Qty: 30 0RF Continued rosuvastatin [Crestor] 5 mg tablet 5 mg PO DAILY donepezil 5 mg tablet 5 mg PO HS mirtazapine [Remeron] 15 mg tablet 15 mg PO .qhs Qty: 90 0RF aspirin [Kevin Low Dose Aspirin] 81 mg Tablet,Delayed Release (Dr/Ec) 81 mg PO QAM metoprolol tartrate 25 mg Tablet 25 mg PO QAM nitroglycerin 0.4 mg tablet, sublingual 0.4 mg sublingual UD PRN (Reason: Chest Pain) Discharge Orders: Discharge Order (Routine); Ordered 08/22/23 Ordered By: Italo Grover Admission Data Admit Date/Time: 08/11/23 16:43 Attending Provider: Italo Grover Admit Provider: Christoph Thompson Primary Care Provider: Sandie Renteria Other Providers: Benjamin Saunders ; Andrea Ríos ; Jesus Khoury ; Christoph Thompson ; Buck Durbin ; Anika Lopez ; [facility] Other Interventions: Discharge Summary Assessment (RN) Last Done: 08/22/23 14:51 Coding Level of Care Code 89330 INP/OBS DISCH >30 MIN Diagnoses Cecum mass K63.89 High anion gap metabolic acidosis E87.29 Acute cholecystitis K81.0 Calculus, ureteral N20.1 Back pain M54.9 Elevated INR R79.1 Dementia F03.90
[2023-08-23] MEDS ORDERED: FILGRASTIM 300 MCG/ML VIAL SC SCH (09:00)
== END 2023-08-22 18:28 | disposition home or self-care (01) | DRG 824 ==
LOC: ED 13:03 → SUATTDRO 16:43 → 2S 16:43

== ENCOUNTER 2023-09-14 09:44 | Inpatient (IN) ==
--- NOTE | 2023-09-14 10:18 | XRay Report ---
SINGLE VIEW CHEST CLINICAL HISTORY: Syncope. FINDINGS: An AP, portable, upright chest radiograph is compared to study dated 09/08/2023. Correlation is made with chest CT dated 08/15/2023. A right PICC line has been removed. A left subclavian central venous infusion port is unchanged in position. The tip of the infusion port catheter is curved and m ay extend into the azygos vein. The patient is status post midline sternotomy. The heart is enlarged noting atherosclerotic calcification of the thoracic aorta. The pulmonary vasculature is noncongested . Emphysema and chronic interstitial thickening is similar to previous. Foci of parenchymal scarring are seen throughout both lungs. Asymmetric airspace opacities at the left lung base are similar to pr ior studies and likely chronic. No superimposed airspace consolidation or large pleural effusion is i dentified. No pneumothorax is seen. The skeletal structures are osteopenic. The bony thorax is grossl y intact. IMPRESSION: 1. A left subclavian central venous infusion port is unchanged in position. The tip of the catheter i s curved and may extend into the azygos vein. 2. Cardiomegaly, emphysema, chronic parenchymal changes as above. 3. No superimposed airspace consolidation or large pleural effusion is identified. ACT 112: Negative or not required by law. Electronically signed by: Harsha Cabrera M.D. 09/14/2023 10:17 AM
[2023-09-14] MEDS ORDERED: PANTOprazole 40 MG in SYRINGE 0 ML IV ONE ×2 (10:21→14:00)
[2023-09-14 10:30] LABS: Basophils # (auto) 0.04 K/uL (0.00-0.20); Basophils % (auto) 0.3 %; Hematocrit (blood only) 37.3 % (42.0-52.0); Hemoglobin 12.4 g/dl (14.0-18.0); Immature Granulocytes # (auto) 0.41 K/uL (0.01-0.20); Lymphocytes # (auto) 0.26 K/uL (1.20-3.40); Lymphocytes % (auto) 1.9 %; Mean Corpuscular Hemoglobin 29.3 pg (25.0-34.0); Mean Corpuscular Hgb Conc 33.2 g/dL (32.0-36.0); Mean Corpuscular Volume 88.2 fL (80.0-100.0); Mean Platelet Volume 9.9 fL (9.4-12.4); Monocytes # (auto) 0.97 K/uL (0.11-0.59); Neutrophils # (auto) 12.14 K/uL (1.40-6.50); Neutrophils % (auto) 87.8 %; Nucleated RBC # (auto) 0.04 K/uL (0.00-0.12); Nucleated RBC % (auto) 0.3 %; Platelet Count 217 K/uL (130-400); RDW Coefficient of Variation 18.7 % (11.5-14.5); RDW Standard Deviation 57.8 fL (36.4-46.3); Red Blood Count 4.23 M/uL (4.70-6.10); White Blood Count 13.82 K/ul (4.8-10.8)
[2023-09-14 10:44] LABS: Albumin Level 3.6 gm/dl (3.4-5.0); BUN Creatinine Ratio 18.3 (10-20); Bilirubin,Total 1.1 mg/dl (0.2-1.0); Calcium 9.6 mg/dl (8.6-10.3); Est GFR (Non-African American) 27.6 ml/min; Globulin 3.6 gm/dl (2.5-4.0); Magnesium 2.1 mg/dl (1.7-2.4); Total Protein 7.2 gm/dl (6.0-8.3)
[2023-09-14] MEDS ORDERED: SODIUM CHLORIDE 0.9% 2,000 ML IV ONE (10:45)
[2023-09-14 10:56] LABS: INR 1.7 (0.9-1.1)
[2023-09-14 11:01] LABS: Thyroid Stimulating Hormone 1.747 uIu/ml (0.300-4.500)
--- NOTE | 2023-09-14 11:02 | CT Scan Report ---
CT SCAN OF THE BRAIN WITHOUT IV CONTRAST CLINICAL HISTORY: Fall from standing. COMPARISON STUDY: MRI of the brain dated 08/26/2023. TECHNIQUE: Unenhanced axial CT scan of the brain is performed from the vertex to the skull base. A do se lowering technique was utilized adhering to the principles of ALARA. 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 There is age-related involutional change noting mild subcortical and periventricular microangiopathic dise ase. There is no hemorrhage, mass effect, or evidence of acute territorial ischemia by CT criteria. G ray-white matter differentiation is preserved. No extra-axial fluid collection is seen. Ventricles, sulci, cisterns: Prominent secondary to involutional change. Intracranial vasculature: There is atherosclerotic calcification of the cavernous carotid and vertebr al arteries. Calvarium: There is postsurgical change from bilateral craniotomy. No destructive calvarial lesion or depressed calvarial fracture is identified. Sinuses and mastoids: The visualized paranasal sinuses are clear. The mastoid air cells are well pneu matized. Orbits: The bony orbits are grossly intact. IMPRESSION: Chronic and postsurgical changes as above with no hemorrhage, mass effect, or evidence of acute territorial ischemia by CT criteria. ACT 112: Negative or not required by law. Electronically signed by: Harsha Cabrera M.D. 09/14/2023 11:00 AM
--- NOTE | 2023-09-14 11:03 | Emergency Department Note ---
Impression & Plan Generalized weakness, Non-ST elevation ME (NSTEMI), DARYL (acute kidney injury), Acute UTI (urinary tract infection), Elevated INR, Elevated BUN, Acute upper GI bleed ED Provider Note HISTORY OF PRESENT ILLNESS: Patient is an 78-year-old male presenting with generalized weakness. Patient is unable to provide much in terms of meaningful history, as he reports "I do not know why I am here." Per EMS, the patient has had multiple falls at home over the last few days. He reportedly hit his head but does not know when. Patient states that he was being evaluated by physical therapy today and "I think I might of passed out." On arrival to the ER, the patient reportedly had a an episode of dark colored emesis. Patient denies any abdominal pain. Denies any nausea or vomiting currently. Denies any chest pain or shortness of breath. Patient is on aspirin daily. ROS: as above PHYSICAL EXAM: Constitutional: Patient appears in no acute distress. HENT: Head: Normocephalic and atraumatic. Eyes: EOMI, PERRL Mouth/Throat: Mucous membranes moist. Neck: Trachea midline. Neck supple. Cardiovascular: RRR, No murmurs, rubs or gallops. Intact distal pulses. Pulmonary/Chest: No respiratory distress. Breath sounds clear and equal bilaterally. No wheezes or rales. Abdominal: Abdomen soft, no tenderness, rebound or guarding. Musculoskeletal: No edema, tenderness or deformity noted. Skin: Warm and dry. No rash, erythema, pallor or cyanosis Psychiatric: Appropriate mood and affect for situation. Neurological: Alert and keenly responsive. CN II-XII grossly intact, moving all extremities equally and fully. MDM: - Vitals signs stable - History obtained via patient. Patient presents with generalized weakness. Patient reports that he has had recurrent falls at home secondary to weakness in the last few days. He states that today he was being seen by physical therapy and "might of passed out." On arrival to the ER, he denies any chest pain or shortness of breath. Denies any abdominal pain. Denies any vomiting or nausea currently. He reports he is on aspirin daily - Chronic conditions affecting care: HTN; B cell lymphoma; colon cancer - Differential diagnoses include, but are not limited to: UTI; pneumonia; intracranial hemorrhage; CVA; ACS - Order placed for continuous cardiac monitoring. At this time, monitor showed rate of 85 bpm with normal sinus rhythm, per my interpretation. - External medical records reviewed. EMS run sheet reviewed. Patient was vitally stable in route. No medications were given prehospital - EKG reviewed by myself showed normal sinus rhythm. Rate 88 bpm. Prolonged QT at 480. T wave inversions noted in leads I and II. - Laboratory workup interpreted by myself showed leukocytosis (WBC 13.82) with left shift; prolonged INR (1.7); stable electrolytes; DARYL (Cr 2.18); elevated troponin (118); normal TSH; elevated BUN - UA from [facility] was negative for bacteria, but noted to be positive for nitrites, leukocyte esterase and WBCs. Given 2g IV rocephin - Previous urine culture from 09/06/2023 showed Ragini albicans. - Patient has elevated BUN and had episode of dark vomit on arrival to ER. Concern for upper GI bleed. Thus, aspirin was held at this time - CXR negative for pneumonia, per my interpretation - CT head wo contrast negative for acute pathology. - Patient given 2L NS and 40 mg IV protonix in ER. - Blood cultures ordered - Discussion was had with social media campaign manager about patient's case and need for admission - Hospitalist consulted for admission - Patient admitted to [facility] Hospitalist service for further evaluation and management. 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 B-cell lymphoma reason for upcoming procedure Malnutrition Dementia Cecum mass CAD (coronary artery disease) s/p stent x 1 (1979'), CABG x2 (2004) Chronic back pain Cyst of pancreas Kidney stones stent placed 08/12/23 [facility] Myocardial Infarction multiple, most recent 2004 Hypertension Surgical History Port-A-Cath in place (09/08/23) Insertion Left Subclavian Access Port (Left) - Kingsley Munroe MD, FACS Hx of cystoscopy Status post surgery Artery in neck H/O brain surgery H/O colonoscopy History of herniorrhaphy INGUINAL HERNIA REPAIR History of cardiac cath 2019 [place], 2017 [place] 1980's, stent x 1 History of coronary artery bypass graft CABG x2 (2004) Family History Brother FHx: pancreatic cancer FHx: liver cancer Cancer Brother Prostate cancer Father Heart disease Mother Heart disease Social History Smoking Status: Never smoker Tobacco Type: Cigarettes Second Hand Exposure: No; Do You Dip or Chew Tobacco: No; Hx Alcohol Use: No Hx Substance Use: No Preferred Language: Slovenian Communication Ability: Effective Visual Impairment: No Limitations Talk Show Host Required: No Beliefs That Will Affect Care: None Current Living Situation: Spouse current occupational status: retired How many Children do You have: 3 Feels Safe at Home: Yes Diet: regular during the past year weight has: remained stable Assistive Devices: Walker and Wheelchair Allergies Allergies Allergy/AdvReac Type Severity Reaction Status Date / Time No Known Allergies Allergy Verified 09/12/23 10:07 Home Meds Home Medications Medication Instructions Recorded Confirmed aspirin 81 mg tablet,delayed 81 mg PO QAM 06/28/19 09/12/23 release (Kevin Low Dose Aspirin) metoprolol tartrate 25 mg tablet 25 mg PO QAM 06/28/19 09/12/23 rosuvastatin 5 mg tablet (Crestor) 5 mg PO DAILY 08/10/23 09/12/23 nitroglycerin 0.4 mg sublingual 0.4 mg sublingual UD PRN Chest Pain 08/11/23 09/12/23 tablet oxycodone 5 mg capsule 5 mg PO Q4H PRN Pain 08/26/23 09/12/23 ondansetron HCl 4 mg tablet 4 mg PO Q8H PRN Nausea 09/01/23 09/12/23 prochlorperazine maleate 5 mg 5 mg PO BID PRN Nausea 09/01/23 09/12/23 tablet (Compazine) fluconazole 100 mg tablet 100 mg PO DAILY 09/12/23 09/12/23 (Diflucan) polyethylene glycol 3350 17 17 g PO DAILY PRN Constipation 09/12/23 09/12/23 gram/dose oral powder (Miralax) Previous Rx's Medication Instructions Recorded allopurinol 300 mg tablet 300 mg PO DAILY #30 tabs 08/22/23 mirtazapine 30 mg tablet (Remeron) 30 mg PO DAILY #90 tabs 08/26/23 ciprofloxacin HCl 500 mg tablet 500 mg PO Q12H #6 tabs 09/12/23 (Cipro) oxycodone-acetaminophen 7.5 mg-325 1 tab PO Q8H PRN pain #7 tabs 09/12/23 mg tablet (Percocet) phenazopyridine 200 mg tablet 200 mg PO Q8H PRN pain #10 tabs 09/12/23 (Pyridium) tamsulosin 0.4 mg capsule 0.4 mg PO HS #30 caps 09/12/23 Results & Data (ED) Vital Signs Vital Signs - 24 hr 09/14/23 09:52 09/14/23 09:56 09/14/23 10:21 Temperature 36.0 C L Temperature Source Oral Pulse Rate 92 H 85 Pulse Rhythm Regular Pulse Strength Normal Respiratory Rate 20 Respiratory Effort / Characteristics Non-Labored Spontaneous Respiratory Depth Normal Respiratory Pattern Regular Blood Pressure 119/87 Blood Pressure Mean 97 Blood Pressure Position Sitting Pulse Oximetry 96 96 Oxygen Delivery Method Room Air Room Air Sepsis Recent Fever Within 48 Hours No Sepsis New/Unexplained Change in Mental Status No Sepsis Action Taken by Nursing No Action Required Laboratory Data 09/14/23 10:00 09/14/23 10:00 Lab Results 09/14/23 09/14/23 Range/Units 10:00 10:53 WBC 13.82 H (4.8-10.8) K/ul RBC 4.23 L (4.70-6.10) M/uL Hgb 12.4 L (14.0-18.0) g/dl Hct 37.3 L (42.0-52.0) % MCV 88.2 (80.0-100.0) fL MCH 29.3 (25.0-34.0) pg MCHC 33.2 (32.0-36.0) g/dL RDW Std Deviation 57.8 H (36.4-46.3) fL RDW Coeff of Geovanna 18.7 H (11.5-14.5) % Plt Count 217 (130-400) K/uL MPV 9.9 (9.4-12.4) fL Immature Gran % (Auto) 3.0 % Neut % (Auto) 87.8 % Lymph % (Auto) 1.9 % [place] % (Auto) 7.0 % Eos % (Auto) 0.0 % Baso % (Auto) 0.3 % Neut # (Auto) 12.14 H (1.40-6.50) K/uL Lymph # (Auto) 0.26 L (1.20-3.40) K/uL [place] # (Auto) 0.97 H (0.11-0.59) K/uL Eos # (Auto) 0.00 (0.00-0.50) K/uL Baso # (Auto) 0.04 (0.00-0.20) K/uL Immature Gran # (Auto) 0.41 H (0.01-0.20) K/uL Absolute Nucleated RBC 0.04 (0.00-0.12) K/uL Nucleated RBC % (auto) 0.3 % PT 18.0 H (9.0-12.0) Seconds INR 1.7 H (0.9-1.1) Sodium 140 (136-145) mmol/L Potassium 5.0 (3.5-5.1) mmol/L Chloride 103 (98-107) mmol/L Carbon Dioxide 24 (21-32) mmol/L Anion Gap 13 H (3-11) BUN 40 H (6-23) mg/dl Creatinine 2.18 H (0.6-1.4) mg/dl Est Cr Clr Drug Dosing 23.0 ml/min Est GFR ( Amer) 32.0 ml/min Est GFR (Non-Af Amer) 27.6 ml/min BUN/Creatinine Ratio 18.3 (10-20) Glucose 123 H (70-99(Fasting)) mg/dl Calcium 9.6 (8.6-10.3) mg/dl Magnesium 2.1 (1.7-2.4) mg/dl Total Bilirubin 1.1 H (0.2-1.0) mg/dl AST 25 (13-39) U/L ALT 9 (7-52) U/L Alkaline Phosphatase 125 H (34-104) U/L Troponin I High Sens 118.0 H* (0-20) pg/ml Total Protein 7.2 (6.0-8.3) gm/dl Albumin 3.6 (3.4-5.0) gm/dl Globulin 3.6 (2.5-4.0) gm/dl Albumin/Globulin Ratio 1.0 (0.9-2) TSH 1.747 (0.300-4.500) uIu/ml Urine Color Dark Yellow Urine Appearance Cloudy A (Clear) Urine pH 7.0 (4.5-7.5) Ur Specific Hardesty 1.017 (1.000-1.030) Urine Protein 2+ H (Negative) Urine Glucose (UA) Negative (Negative) Urine Ketones Negative (Negative) Urine Blood 3+ H (Negative) Urine Nitrite Positive A (Negative) Urine Bilirubin Negative (Negative) Urine Urobilinogen Negative (Negative) Ur Leukocyte Esterase 2+ H (Negative) Urine WBC (Auto) >30 H (0-5) /hpf Urine RBC (Auto) >30 H (0-4) /hpf U Hyaline Cast (Auto) 1-5 (0-5) /lpf U Epithel Cells (Auto) >30 H (0-5) /lpf Urine Bacteria (Auto) Negative (Negative) Ur Renal Epithelial Cell Not Reportable Urine Yeast Not Reportable Administered Medications Sodium Chloride (Nss) 2,000 mls @ 999 mls/hr IV .Q2H1M ONE Stop: 09/14/23 12:45 Last Admin: 09/14/23 11:02 Dose: 999 mls/hr Documented By: NICA Discontinued Medications Pantoprazole Sodium 40 mg/ (Syringe) 10 mls @ 5 mls/min IV NOW ONE Stop: 09/14/23 10:22 Last Admin: 09/14/23 10:47 Dose: 5 mls/min Documented By: NICA Imaging Data Radiologist's Impression: Chest X-Ray 09/14/23 09:56 SINGLE VIEW CHEST CLINICAL HISTORY: Syncope. FINDINGS: An AP, portable, upright chest radiograph is compared to study dated 09/08/2023. Correlation is made with chest CT dated 08/15/2023. A right PICC line has been removed. A left subclavian central venous infusion port is unchanged in position. The tip of the infusion port catheter is curved and may extend into the azygos vein. The patient is status post midline sternotomy. The heart is enlarged noting atherosclerotic calcification of the thoracic aorta. The pulmonary vasculature is noncongested. Emphysema and chronic interstitial thickening is similar to previous. Foci of parenchymal scarring are seen throughout both lungs. Asymmetric airspace opacities at the left lung base are similar to prior studies and likely chronic. No superimposed airspace consolidation or large pleural effusion is identified. No pneumothorax is seen. The skeletal structures are osteopenic. The bony thorax is grossly intact. IMPRESSION: 1. A left subclavian central venous infusion port is unchanged in position. The tip of the catheter is curved and may extend into the azygos vein. 2. Cardiomegaly, emphysema, chronic parenchymal changes as above. 3. No superimposed airspace consolidation or large pleural effusion is identified. ACT 112: Negative or not required by law. Electronically signed by: Harsha Cabrera M.D. 09/14/2023 10:[address] 09/14/23 10:21 CT SCAN OF THE BRAIN WITHOUT IV CONTRAST CLINICAL HISTORY: Fall from standing. COMPARISON STUDY: MRI of the brain dated 08/26/2023. TECHNIQUE: Unenhanced axial CT scan of the brain is performed from the vertex to the skull base. A dose lowering technique was utilized adhering to the principles of ALARA. 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 There is age-related involutional change noting mild subcortical and periventricular microangiopathic disease. There is no hemorrhage, mass effect, or evidence of acute territorial ischemia by CT criteria. Bell-white matter differentiation is preserved. No extra-axial fluid collection is seen. Ventricles, sulci, cisterns: Prominent secondary to involutional change. Intracranial vasculature: There is atherosclerotic calcification of the cavernous carotid and vertebral arteries. Calvarium: There is postsurgical change from bilateral craniotomy. No destructive calvarial lesion or depressed calvarial fracture is identified. Sinuses and mastoids: The visualized paranasal sinuses are clear. The mastoid air cells are well pneumatized. Orbits: The bony orbits are grossly intact. IMPRESSION: Chronic and postsurgical changes as above with no hemorrhage, mass effect, or evidence of acute territorial ischemia by CT criteria. ACT 112: Negative or not required by law. Electronically signed by: Harsha Cabrera M.D. 09/14/2023 11:00 AM Discharge Plan Visit Data Chief Complaint: Syncope (Near Syncope) ED Provider: Veronica Granados Discharge Problem: Generalized weakness, Non-ST elevation ME (NSTEMI), DARYL (acute kidney injury), Acute UTI (urinary tract infection), Elevated INR, Elevated BUN, Acute upper GI bleed Forms Stand Alone Forms: [facility] Prescriptions Prescriptions: No Action rosuvastatin [Crestor] 5 mg tablet 5 mg PO DAILY mirtazapine [Remeron] 30 mg tablet 30 mg PO DAILY Qty: 90 1RF oxycodone 5 mg capsule 5 mg PO Q4H PRN (Reason: Pain) aspirin [Kevin Low Dose Aspirin] 81 mg Tablet,Delayed Release (Dr/Ec) 81 mg PO QAM metoprolol tartrate 25 mg Tablet 25 mg PO QAM nitroglycerin 0.4 mg tablet, sublingual 0.4 mg sublingual UD PRN (Reason: Chest Pain) allopurinol 300 mg Tablet 300 mg PO DAILY Qty: 30 0RF prochlorperazine maleate [Compazine] 5 mg Tablet 5 mg PO BID PRN (Reason: Nausea) ondansetron HCl 4 mg Tablet 4 mg PO Q8H PRN (Reason: Nausea) phenazopyridine [Pyridium] 200 mg tablet 200 mg PO Q8H PRN (Reason: pain) Qty: 10 0RF Rx Instructions: post op med ciprofloxacin HCl [Cipro] 500 mg tablet 500 mg PO Q12H Qty: 6 0RF Rx Instructions: post-med tamsulosin 0.4 mg capsule 0.4 mg PO HS Qty: 30 0RF Rx Instructions: post- op med oxycodone-acetaminophen [Percocet] 7.5-325 mg tablet 1 tab PO Q8H PRN (Reason: pain) Qty: 7 0RF Rx Instructions: post op med fluconazole [Diflucan] 100 mg tablet 100 mg PO DAILY polyethylene glycol 3350 [Miralax] 17 gram/dose powder 17 g PO DAILY PRN (Reason: Constipation) Referrals Referrals: Sandie Renteria DO [Primary Care Provider] -
[2023-09-14 11:12] LABS: Appearance Urine Cloudy (Clear); Bacteria Urine Automated Negative (Negative); Bilirubin Urine Negative (Negative); Blood Urine 3+ (Negative); Color Urine Dark Yellow; Epithelial Cell Urine Auto >30 /lpf (0-5); Glucose Urine UA Negative (Negative); Ketones Urine Negative (Negative); Leukocyte Esterase Urine 2+ (Negative); Nitrite Urine Positive (Negative); Protein Urine 2+ (Negative); RBC Urine Automated >30 /hpf (0-4); Specific Gravity Urine 1.017 (1.000-1.030); Urobilinogen Urine Negative (Negative); WBC Urine Automated >30 /hpf (0-5)
[2023-09-14] MEDS ORDERED: cefTRIAXone SODIUM 2,000 MG/50 ML BAG IV STA (12:09)
--- NOTE | 2023-09-14 12:21 | History & Physical Report ---
Date of Service September 14, 2023 Assessment & Plan (1) Multiple falls: Plan: Fall + potential LOC morning of 09/14 Reportedly, multiple falls over the past week Prior to this week, no hx of falls per daughter/ Hx of underlying dementia Patient reports that he struck head on bathtub Tuesday night 09/[address] showed no acute hemorrhage, mass effect, or evidence of acute territorial ischemia UA positive CK WNL at 75 Blood culture pending Urine culture pending Fall precautions in place PT/OT consulted A.m. 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 as needed for pain 1-5, oxycodone 5 mg p.o. q4h as needed for pain 6-10; no pain at present Per daughter, unintentional weight loss 170lb-->122lb over two months; loss of appetite Continue mirtazapine 30 mg HS Appreciate oncology consult (3) Complicated UTI (urinary tract infection): Plan: UA positive on arrival Mild leukocytosis at 13.82 with a neutrophil predominance Clinically, patient is afebrile Recent cystoscopy on 09/12; cover postop with 3-day course of Cipro and Diflucan Rocephin started the ED Continue Rocephin 2000 mg IV q24h Catheter in place draining dark orange urine Daily catheter care (4) Demand ischemia: Plan: Patient denies chest pain / pleuritic CP / SOB at rest Elevated troponin at 118.0 --> 121.8 EKG showed marked T wave inversions Limited echo ordered in the setting of wall motion changes Depending on echo results, consider cardiology consult Continuous telemetry monitoring At time of admission, do not clinically suspect ACS, but will continue to monitor (5) Prolonged QT interval: Plan: QTc 580 on admission EKG on 08/11/2023 also had QTc prolongation at 579 Recently started on short course of Cipro/Diflucan following his urologic procedure on 09/12, which can extend QTc; holding both Unclear etiology of when QTc prolongation began Avoid QTc prolonging agents (such as haloperidol, Zofran) Mag okay at 2.1 on arrival Repeat EKG tomorrow morning (6) Bloody emesis: Plan: Dark coffee-ground brown emesis x1 episode in the ED No Hemoccult was collected at the time Hgb 12.4 and HCT 37.3 on arrival Patient is not on blood thinners Patient reports that he has had intermittent vomiting over the past month Keep n.p.o. for now Patient also endorses "Black BMs" x 1 week Started on pantoprazole 40 mg in the ED; 80mg bolus ordered Phytonadione 5 mg p.o. given Continue pantoprazole 40 mg IV twice daily Avoid NSAIDs For nausea, avoid Zofran given QTc prolonged at 580 1st line: Phenergan p.o. 25 mg q6h as needed for nausea; avoid giving IV Continue telemetry in the setting of QTc prolongation; hold antiemetics if QT prolongs (7) Dementia: Plan: Ongoing decline x2 years Per daughter, acute changes over the past couple weeks Patient is not currently taking Aricept (8) CAD (coronary artery disease): Plan: S/p stent x1 in the S/p CABG x2 in 2004 Hold aspirin (9) 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: Plan: Hold aspirin in the setting of hematemesis, hematuria Continue rosuvastatin; CK WNL at 75 (10) DARYL (acute kidney injury): Plan: BUN 40, Cr 2.18 (baseline 1.40), EGFR 27.6 Avoid nephrotoxic agents Monitor with daily BMPs (11) Generalized weakness: Plan Disposition: Admit to PCU telemetry Full code Keep n.p.o. for now, then advance to clear liquids / AHA diet as tolerated VTE PPx: SCDs (hold chemical DVT PPx in the setting of hematemesis, hematuria, melena) History of Present Illness Chief Complaint: Syncope Primary Care Provider: Sandie Renteria DO Jose is an 78-year-old male with PMH of B-cell lymphoma, dementia, CAD, MS, HTN, intracerebral hemorrhage without residual deficit, and s/p left ureteral stent placement on 08/12. He presented via EMS for syncope this morning 09/14. Patient is a poor historian due to underlying dementia, and cannot confirm or deny if he lost consciousness during the falls. Per (Shakir) and daughter (Vicky), patient has had multiple falls over the past few days. Head strike on fall on night of Thursday 09/13. He says his "legs just give out", and denies tripping, dizziness, lightheadedness. No fall hx outside this week, per /daughter. Of note, he had a left subclavian port placed on 09/08 and was supposed to start chemotherapy for B-cell lymphoma today 09/14. No at home O2 u se. Last BM on Tuesday 09/11; loose stool; he notes that he has new "black bowel movements" x1 week. He has been vomiting intermittently over the past 2 months, and had 1 episode of hematemesis with ground coffee appearance this morning in the ED 09/14; patient reports having [employer] and is unable to confirm or deny if there has been blood in his vomit over the past 2 months. He took his morning medications. Vital stable at time of admission. ED course: IVF, Rocephin 2000 mg, pantoprazole 40 mg ROS: Patient endorses uninentional weight loss (170lb-->122lb over the course of 2months, per daughter), loss of appetite, chills, SOB with exertion, abdominal pain, N/V/D, loose stool, blood in urine (s/p kidney stone 09/08), melena. Patient denies fever, nightsweats, LYMAN, dizziness, lightheadedness, CP, pleuritic CP, SOB at rest, back pain. Additional PMH: PEBBLES in July Took prednisone 4tabs 20mg this morning 09/14 for chemo Per daughter, he only kept down 3 tablets (60mg total); she found one tab on the floor / patient was coughing Not taking prednisone before today Patient lives with ; and daughter/son live nearby manages daily medications No PMHx of DVT/PE, diabetes, CVA TIA several years ago, per daughter. Please see Dr. Matt's attestation for any changes to treatment plan. Allergies Allergy/AdvReac Type Severity Reaction Status Date / Time No Known Allergies Allergy Verified 09/14/23 12:33 Home Medications Medication Instructions Recorded Confirmed Type aspirin 81 mg tablet,delayed 81 mg PO QAM 06/28/19 09/14/23 History release (Kevin Low Dose Aspirin) metoprolol tartrate 25 mg tablet 25 mg PO QAM 06/28/19 09/14/23 History rosuvastatin 5 mg tablet (Crestor) 5 mg PO DAILY 08/10/23 09/14/23 History nitroglycerin 0.4 mg sublingual 0.4 mg sublingual UD PRN Chest Pain 08/11/23 09/14/23 History tablet allopurinol 300 mg tablet 300 mg PO DAILY #30 tabs 08/22/23 09/14/23 Rx mirtazapine 30 mg tablet (Remeron) 30 mg PO DAILY #90 tabs 08/26/23 09/14/23 Rx oxycodone 5 mg capsule 5 mg PO Q4H PRN Pain 08/26/23 09/14/23 History ondansetron HCl 4 mg tablet 4 mg PO Q8H PRN Nausea 09/01/23 09/14/23 History prochlorperazine maleate 5 mg 5 mg PO BID PRN Nausea 09/01/23 09/14/23 History tablet (Compazine) ciprofloxacin HCl 500 mg tablet 500 mg PO Q12H #6 tabs 09/12/23 09/14/23 Rx (Cipro) fluconazole 100 mg tablet 100 mg PO DAILY 09/12/23 09/14/23 History (Diflucan) oxycodone-acetaminophen 7.5 mg-325 1 tab PO Q8H PRN pain #7 tabs 09/12/23 09/14/23 Rx mg tablet (Percocet) phenazopyridine 200 mg tablet 200 mg PO Q8H PRN pain #10 tabs 09/12/23 09/14/23 Rx (Pyridium) polyethylene glycol 3350 17 17 g PO DAILY PRN Constipation 09/12/23 09/14/23 History gram/dose oral powder (Miralax) tamsulosin 0.4 mg capsule 0.4 mg PO HS #30 caps 09/12/23 09/14/23 Rx Past Med/Surg History Medical History (Updated 09/14/23 @ 14:24 by Randall Jean-Baptiste PA-C) Syncope Hypokalemia Weight loss, unintentional CKD (chronic kidney disease) History of COVID-19 first week 07/2023- home test- sinus congestion, mild cough, sinus drainage; resolved 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 B-cell lymphoma reason for upcoming procedure Malnutrition Dementia Cecum mass CAD (coronary artery disease) s/p stent x 1 (), CABG x2 (2004) Chronic back pain Cyst of pancreas Kidney stones stent placed 08/12/23 [facility] Myocardial Infarction multiple, most recent 2004 Hypertension Surgical History Port-A-Cath in place (09/08/23) Insertion Left Subclavian Access Port (Left) - Kingsley Munroe MD, FACS Hx of cystoscopy Status post surgery Artery in neck H/O brain surgery H/O colonoscopy History of herniorrhaphy INGUINAL HERNIA REPAIR History of cardiac cath 2019 [place] rj, 2017 [place] 1980's, stent x 1 History of coronary artery bypass graft CABG x2 (2004) Family History Brother FHx: pancreatic cancer FHx: liver cancer Cancer Brother Prostate cancer Father Heart disease Mother Heart disease Social History Smoking Status: Never smoker Tobacco Type: Cigarettes Second Hand Exposure: No; Do You Dip or Chew Tobacco: No; Hx Alcohol Use: No Hx Substance Use: No Preferred Language: Sinhala Communication Ability: Effective Visual Impairment: No 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 Beliefs That Will Affect Care: None Current Living Situation: Spouse current occupational status: retired How many Children do You have: 3 Other Information That Helps Us Care for You: No Feels Safe at Home: Yes Safety Concerns: Feels Safe At This Time Diet: regular during the past year weight has: remained stable Assistive Devices: Denture - Upper, Glasses, Walker and Wheelchair Review of Systems Review of Systems: See HPI above Physical Exam Physical Exam: General: no acute distress; non-toxic appearing; cachectic; 97% SPO2 on RA; cooperative HEENT: normocephalic, atraumatic; no scleral icterus; PERRLA w/ EOMs intact; mo ist mucus membrane; vision and hearing intact Neck: supple; no lymphadenopathy; trachea midline Skin: warm, dry without signs of tenting; no cyanosis; no rashes, bruising, lesions, or erythema noted CV: chest wall NTP; poor dressing with some dried blood, but no signs of infection, MTP; RRR; S1/S2 normal; no murmurs/rubs/gallops; pulses intact and symmetric at radial, DP, and PT Lungs: no acute respiratory distress; symmetrical chest wall expansion; clear breath sounds across all lung grere w/o adventitious sounds; no wheezing ABD: Soft, NTP; BS present; no rebound/guarding; no ascites; no distention; no bruising on stomach; negative CVA tenderness : Gr in place; dark brown/orange urine in bag; catheter without signs of infection MSK: no tics or fasciculations; no edema noted in the LEs b/l; brush burn/scrapes on left knee; 3/5 strength in LEs b/l; +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14 H (1.40-6.50) K/uL Lymph # (Auto) 0.26 L (1.20-3.40) K/uL [place] # (Auto) 0.97 H (0.11-0.59) K/uL Immature Gran # (Auto) 0.41 H (0.01-0.20) K/uL PT 18.0 H (9.0-12.0) Seconds INR 1.7 H (0.9-1.1) Anion Gap 13 H (3-11) BUN 40 H (6-23) mg/dl Creatinine 2.18 H (0.6-1.4) mg/dl Glucose 123 H (70-99(Fasting)) mg/dl Total Bilirubin 1.1 H (0.2-1.0) mg/dl Alkaline Phosphatase 125 H (34-104) U/L Troponin I High Sens 118.0 H* (0-20) pg/ml Urine Appearance Cloudy A (Clear) Urine Protein 2+ H (Negative) Urine Blood 3+ H (Negative) Urine Nitrite Positive A (Negative) Ur Leukocyte Esterase 2+ H (Negative) Urine WBC (Auto) >30 H (0-5) /hpf Urine RBC (Auto) >30 H (0-4) /hpf U Epithel Cells (Auto) >30 H (0-5) /lpf Diagnostic Findings Chest X-Ray 09/14/23 09:56 SINGLE VIEW CHEST CLINICAL HISTORY: Syncope. FINDINGS: An AP, portable, upright chest radiograph is compared to study dated 09/08/2023. Correlation is made with chest CT dated 08/15/2023. A right PICC line has been removed. A left subclavian central venous infusion port is unchanged in position. The tip of the infusion port catheter is curved and may extend into the azygos vein. The patient is status post midline sternotomy. The heart is enlarged noting atherosclerotic calcification of the thoracic aorta. The pulmonary vasculature is noncongested. Emphysema and chronic interstitial thickening is similar to previous. Foci of parenchymal scarring are seen throughout both lungs. Asymmetric airspace opacities at the left lung base are similar to prior studies and likely chronic. No superimposed airspace consolidation or large pleural effusion is identified. No pneumothorax is seen. The skeletal structures are osteopenic. The bony thorax is grossly intact. IMPRESSION: 1. A left subclavian central venous infusion port is unchanged in position. The tip of the catheter is curved and may extend into the azygos vein. 2. Cardiomegaly, emphysema, chronic parenchymal changes as above. 3. No superimposed airspace consolidation or large pleural effusion is identified. ACT 112: Negative or not required by law. Electronically signed by: Harsha Cabrera M.D. 09/14/2023 10:[address] 09/14/23 10:21 CT SCAN OF THE BRAIN WITHOUT IV CONTRAST CLINICAL HISTORY: Fall from standing. COMPARISON STUDY: MRI of the brain dated 08/26/2023. TECHNIQUE: Unenhanced axial CT scan of the brain is performed from the vertex to the skull base. A dose lowering technique was utilized adhering to the principles of ALARA. 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 There is age-related involutional change noting mild subcortical and periventricular microangiopathic disease. There is no hemorrhage, mass effect, or evidence of acute territorial ischemia by CT criteria. Bell-white matter differentiation is preserved. No extra-axial fluid collection is seen. Ventricles, sulci, cisterns: Prominent secondary to involutional change. Intracranial vasculature: There is atherosclerotic calcification of the cavernous carotid and vertebral arteries. Calvarium: There is postsurgical change from bilateral craniotomy. No destructiv e calvarial lesion or depressed calvarial fracture is identified. Sinuses and mastoids: The visualized paranasal sinuses are clear. The mastoid air cells are well pneumatized. Orbits: The bony orbits are grossly intact. IMPRESSION: Chronic and postsurgical changes as above with no hemorrhage, mass effect, or evidence of acute territorial ischemia by CT criteria. ACT 112: Negative or not required by law. Electronically signed by: Harsha Cabrera M.D. 09/14/2023 11:00 AM Code Status & VTE Plan Code Status Full code VTE Prophylaxis Plan VTE Prophylaxis will be ordered: Yes Supervising Physician Co-Signing Physician Notes Patient seen and examined, chart reviewed, case discussed with Randall Jean-Baptiste PA-C and I agree with the assessment and plan as above except as otherwise noted Labs and images reviewed 78-year-old male with a history of B-cell lymphoma pending initiation of treatment, mild dementia, CAD, recent left ureteral stent placement who presents with weakness and presyncope with near collapse due to weakness and unable to bear weight over the last few days. No chest pain or chest pressure. He has had black bowel movements for around 1 week and had an episode of dark emesis morning while in the ER. He has never had bleeding problems, does endorse some epigastric discomfort which is new. BUN is acutely elevated he is not on iron supplements. Patient is recommended for admission for treatment of weakness, suspected demand ischemia, and upper GI bleed. He does endorse poor p.o. intake in the last few weeks, is also clinically volume contracted Upper GI bleed: 1 week of black bowel movements/melena, 1 episode of dark emesis while in the ER which is not saved for occult testing. Hemoglobin 12.4 from 13.0, normotensive following fluids and not tachycardic. PPI bolus 80 mg x 1. GI consulted, patient is not hemodynamically unstable currently and will continue medical therapy with PPI IV twice daily. Symptoms of anemia greatly improved following 2 L of crystalloid, hemoglobin transfusion threshold 8 due to concurrent ischemia or for acute severe symptomatic anemia with ongoing bleeding. DARYL. Prerenal. Suspect with poor p.o. intake and clinical volume contraction, patient has a suspected concurrent upper GI bleed. Hemoglobin is 12.4 from baseline of 13,? If this is concentrated with poor p.o. intake and may have greater than expected post resuscitation dilutional drop. BMP daily QT prolongation: QTc prolonged at 580 similar to the beginning of August 1 month ago. QTc was last normal in 2018. Patient has been on mirtazapine and was prescribed antiemetics/Compazine. He was recently prescribed ciprofloxacin and fluconazole; however QT prolongation appears to have preceded this. On continuous telemetry, optimize magnesium, avoid QT prolonging agents. Avoid Zofran. Compazine/promethazine slightly lower risk reasonable to continue oral promethazine at this time and hold if QT further prolongs. Alternative antiemetics include Ativan/antihistamines but would defer these due to risk of delirium and sedative side effects in elderly population trop elevation, hx CAD: Aspirin held for suspected upper GI. Continue rosuvastatin. Repeat troponin mildly elevated with ischemic ST changes, suspect demand. He is clinically chest pain-free. Echo pending, every 6 hours troponin trend pending. Volume optimize, will consult cardiology if chest pain ,rapidly escalating troponin, or new wall motion abnormalities on echo are noted. Elevated INR: 1.7 on admission. No concurrent transaminitis. No known liver disease.? Dietary with poor p.o. intake, oral vitamin K supplementation given. Albumin is low end of normal trend daily. UTI: Infected versus contaminated UA. Recent urologic manipulation with preceding UTI, will continue treatment and follow cultures. No history of resistant organisms on culture review. agree w/ rocephin. PG Care Time/CCT Total # of Minutes Spent Total Time Spent with Patient: Total time spent is greater than 50% in coordination of care (as documented) at patient's floor/unit and/or counseling patient: Coding [place] [address] INT INP/OBS CARE MIN Patient Type Established History Comprehensive Exam Comprehensive Medical Decision Making High Complexity Diagnoses Multiple falls R29.6 B-cell lymphoma C85.10 Complicated UTI (urinary tract infection) N39.0 Demand ischemia I24.89 Prolonged QT interval R94.31 Bloody emesis K92.0 Dementia F03.90 CAD (coronary artery disease) I25.10 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 DARYL (acute kidney injury) N17.9 Generalized weakness R53.1
[2023-09-14 13:14] LABS: Troponin I High Sensitivity 121.8 pg/ml (0-20)
[2023-09-14] MEDS ORDERED: PHYTONADIONE 5 MG TAB PO STA (13:44)
[2023-09-14] MEDS ORDERED: ACETAMINOPHEN 325 MG TAB PO PRN (14:05)
[2023-09-14] MEDS ORDERED: oxyCODONE/APAP 7.5/325MG TAB PO PRN (14:05)
[2023-09-14] MEDS ORDERED: PROMETHAZINE HCL 25 MG TAB PO PRN (14:05)
[2023-09-14] MEDS ORDERED: NITROGLYCERIN SL 0.4 MG/TAB TAB SL PRN (14:05)
--- NOTE | 2023-09-14 15:33 | XCELERA ---
[id number] \\[id number]
--- NOTE | 2023-09-14 16:09 | Electrocardiogram Report ---
Test Reason : Blood Pressure : / mmHG Vent. Rate : 088 BPM Atrial Rate : 088 BPM P-R Int : 146 ms QRS Dur : 094 ms QT Int : 480 ms P-R-T Axes : 026 004 190 degrees QTc Int : 580 ms Sinus rhythm with Premature atrial complexes Possible Left atrial enlargement Inferior infarct (cited on or before 29-JUN-2019) Prolonged QT Abnormal ECG When compared with ECG of 11-AUG-2023 13:42, Significant changes have occurred Confirmed by Francisco Guillen ([id number]) on 09/14/2023 4:09:17 PM Referred By: Confirmed By:Francisco Guillen
[2023-09-14] MEDS ORDERED: TAMSULOSIN HCL 0.4 MG CAP PO SCH (21:00)
--- NOTE | 2023-09-14 21:40 | CT Scan Report ---
Exam(s): CT ABDOMEN + PELVIS Without Contrast EXAM: CT Abdomen and Pelvis Without Intravenous Contrast CLINICAL HISTORY: Reason for exam: NHL S/P chemo, ?response. TECHNIQUE: Axial computed tomography images of the abdomen and pelvis without intravenous contrast. CTDI is 10.11 mGy and DLP is 495.87 mGy-cm. Automated exposure control was utilized for the study. A dose lowering technique was utilized adhering to the principles of ALARA. COMPARISON: 08/15/2023. FINDINGS: Lung bases: Interstitial prominence with reticulonodular pattern involving the bilateral lower lobes and honeycombing along the sacral region concerning for early pulmonary fibrosis. Left lower lobe and lingular opacity with groundglass and coarse pattern may indicate superimposed pneumonitis. Heart: Unremarkable. No significant pericardial effusion. Normal cardiac size with coronary artery calcifications. ABDOMEN: Liver: Low-attenuation structures within the liver, largest averaging approximately 10 mm concerning for neoplasm/metastatic disease. Gallbladder and bile ducts: Slightly over distended gallbladder with multiple tiny gallstones. No ductal dilation. Pancreas: Unremarkable. No ductal dilation. Spleen: Unremarkable. No splenomegaly. Adrenals: Unremarkable. No mass. Kidneys and ureters: Multiple calcifications within the bilateral kidneys, largest on the right measuring 4.3 within the lower pole largest on the left measures 6 mm within the lower pole compatible with intrarenal stones. The right kidney is otherwise unremarkable. There is a low-attenuation structure within the middle of the left kidney measuring 2.1 cm, consistent with simple renal cyst. There is a left- sided ureteral stent in place, unchanged location. No distinct left- sided hydronephrosis. Stomach and bowel: There is mild gaseous distention of the transverse colon. There are multiple loops of small bowel slightly distended to 2.5 cm, nonspecific. PELVIS: Appendix: No findings to suggest acute appendicitis. Bladder: The urinary bladder is decompressed Via Gr catheter. No stones. Reproductive: Unremarkable as visualized. ABDOMEN and PELVIS: Intraperitoneal space: Unremarkable. No free air. No significant fluid collection. Bones/joints: Multilevel degenerative disease of the spine. No acute fracture. No dislocation. Soft tissues: Unremarkable. Vasculature: Calcified atherosclerotic disease of aorta with mild ectasia distally measuring up to 2.7 cm. Heterogeneity of the wall at the level of the cecum with terminal ileum concerning for a mass. There is nodularity adjacent to the medial aspect of the cecal wall, best seen on image 51 and 52, measuring approximately 3 x 1.5 cm in maximum dimension and markedly improved from a previous dimension of 6 by 4.0 cm. Diverticulosis throughout the sigmoid and descending colon without signs of diverticulitis. Lymph nodes: Unremarkable. No enlarged lymph nodes. IMPRESSION: 1. Marked improvement in previously seen mass at the level of the cecum now revealing mild thickening of the wall with adjacent nodularity, both significantly decreased in size as described. 2. Multiple small low-attenuation lesions in the liver, suggested to be smaller in size although difficult to assess due to absence of intravenous contrast. 3. Bilateral intrarenal stones as described. 4. Multiple gallstones. 5. Resolution of right-sided pleural effusion. 6. Resolution of previously seen lymph nodes at the level of the hepatic hilum and pancreatic head. Electronically signed by: Bette Dye MD 09/14/23 21:39 PM
[2023-09-14] MEDS: MIRTAZAPINE TAB 15 MG TAB PO SCH (21:54)
[2023-09-15] MEDS ORDERED: oxyCODONE HCL IR 5 MG TAB (IMMEDIATE RELEASE) PO PRN (01:46)
--- NOTE | 2023-09-15 06:19 | Consultation ---
Date of Consultation September 15, 2023 Assessment & Plan (1) Multiple falls: Source of his deterioration over the last week is unclear that does by description have its onset even prior to his 09/12/2023 urological procedure. Particular focus elements include UTI/DARYL and the evolution of cardiac dysfunct ion. There has been some potential GI bleeding though his hemoglobin remains surprisingly intact. OTOLARYNGOLOGY TEACHER imaging does show a previous CVA but no acute changes. With his ongoing dementia and mild OTOLARYNGOLOGY TEACHER impairment, however, he could be more susceptible to neurological dysfunction in the context of his other acute medical challenges. (2) Acute upper GI bleed: On his previous admission, primary diagnostic focus was on a colonoscopy given the presentation with a cecal mass. With the diagnosis of lymphoma it is not inconceivable that he may have multifocal GI involvement. There is only a single described episode of possible hematemesis and that history is not completely solid but may need to consider whether we need to visualize the proximal GI tract with EGD especially if there are recurrent suggestions of GI blood loss (3) Elevated INR: He presented last admission with elevated INR as well which seemed to at least partially correct with vitamin K/nutritional support. Given the ongoing bleeding he has received another dose of AquaMEPHYTON upon this admission.. If we do not see INR correcting completely we may need to do mixing studies to see if he has some low-level circulating inhibitor (4) Non-ST elevation MD (NSTEMI): Patient has a previous previous history of CAD with stent placement and now has elevated troponin and a significant change in cardiac function from his baseline normal EF in August. Current TTE shows a diffuse change in LV function rather than segmental wall motion abnormalities. Declining in prognosticating his cardiac status will be a pivotal issue both acutely to understand his decline in performance status but also as we look to the future and possible resumption of chemotherapy. Nonsegmental changes in cardiac function would suggest against an acute coronary event and may represent a more transient global suppression of function. More specific cardiac evaluation for optimization of cardiac function but also for assessment as to his candidacy for anthracycline based chemotherapy will be important (5) DARYL (acute kidney injury): Patient did have some chronic kidney disease with acute deterioration now well out from his previous chemotherapy (during which there was no sign of significant tumor lysis) and are reflective perhaps of recent UTI and/or complications related to his nephrolithiasis and its recent treatment. Obviously need to optimize kidney function before considering resumption of any chemo (6) B-cell lymphoma: Diffuse large B-cell lymphoma presenting as bulky involvement of the entire ascending colon as well as pathologic abdominal adenopathy, hepatic metastases, probable bony metastases. After just a single cycle of limited chemotherapy with cyclophosphamide/steroids/rituximab has had a dramatic response which bodes well for future response. However, only as we are able to stabilize his overall physiologic function especially understanding and mitigating his DARYL and cardiac dysfunction and determining their implications for future treatment can we proceed with additional cycles. There are not gross signs of OTOLARYNGOLOGY TEACHER involvement on CT imaging but that would be a consideration for an additional element of his neurological decline and if we do not see rapid stabilization may need to consi jaclyn MRI assessment of the OTOLARYNGOLOGY TEACHER as well as obtaining a sample of CSF for cytology (7) Complicated UTI (urinary tract infection): UTI may represent structural distortion of the urological tract due to stones potentially exacerbated by the recent urological procedure but given the background of lymphoma I will suggest we check immunoglobulin levels and if low consider supplementation of his antibiotic coverage with immunoglobulin infusion Plan 1. Immediate goal is to understand and address his acute cardiac and renal dysfunction and to what extent his more global neurological functional decline can be reversed as we address those systems issues. If his neurological function does not stabilize with improvement in kidney and heart function, may need to more thoroughly review from a specific neurological perspective as well particularly with respect to occult OTOLARYNGOLOGY TEACHER involvement with his lymphoma 2. We will check immunoglobulin levels and may need to augment antibiotics with immunoglobulin infusion if the IgG levels are low 3. He has already received AquaMEPHYTON, if he does not show good INR correction on subsequent assessments mixing studies may be considered 4. With specific respect to his cardiac dysfunction, need to understand whether the significant decline in myocardial function represents a contraindication to planned anthracycline-based chemotherapy. 5. We will specifically recheck uric acid though that was well controlled after his initial chemotherapy with no signs of tumor lysis at that time 6. May need to consider EGD especially if there is ongoing issues of GI blood loss 7. Hemoglobin and platelets have remained quite stable and he does not look like he will need transfusion support in the foreseeable future 8. The dramatic response to just 1 cycle of chemotherapy fortunately does give us a window to "pause" his chemotherapy as we trying to stabilize with respect to all of the above. It does flores well for possible future response though resuming chemotherapy will have to take into account a reassessment of his kidney, cardiac, and overall function as to when and how aggressively we can proceed. As above, there are no specific signs by exam or basic imaging but the involvement of the OTOLARYNGOLOGY TEACHER by his lymphoma cannot be completely excluded and may be a consideration if neurological decline does not easily reverse with stabilization of his other organ systems History of Present Illness Reason for Consultation: Patient recently admitted with large cecal mass that proved to be a diffuse large B-cell lymphoma receiving chemotherapy approximately 4 weeks ago for that now admitted with falls and DARYL Attending Physician: Jose Matt MD History of Present Illness Patient was admitted 08/11/2023 when work-up for lower back pain and 35 pound weight loss included an MRI of the lumbar spine showing a malignant cecal mass. Additional on subsequent imaging findings included evidence of diffuse multifocal hepatic metastatic disease and pathologic retroperitoneal and mesenteric lymphadenopathy. There is also suggestion of diffuse osseous metastatic disease. 08/16/2023 colonoscopy showed "a large mass with volcano like ulcers with luminal narrowing involving the entire ascending colon. The mass was circumferential, with luminal narrowing. 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 This was not a "double hit" lymphoma Because of concerns over performance status during his initial hospitalization he received chemotherapy focused on cyclophosphamide, steroids, and rituximab. Plan had been to transition to [facility] the start of which was scheduled for 09/14/2023. Because of nephrolithiasis and concerns over obstruction, renal dysfunction, and infection, prior to his planned chemotherapy start, on 09/12/2023 he had same-day surgery for ureteral nephroscopy, retrograde pyelogram, laser destruction of stone, basket extraction of stone, ureteral dilation, and exchange of stent catheter. He is now admitted after having several falls with some question of recurrent GI bleeding. His and daughter report that he had had some falls over the weekend even prior to his urological procedure and he has continued to have falls through the week this week including 1 Tuesday night where his legs gave out and he fell hitting his head on the bathtub. There is description of an episode of coffee-ground hematemesis on the morning of admission though his family has unable to fully corroborate that. His bowel movements have turned "black" within the last week. Patient has an element of dementia and himself is not reporting any particular concerns at this time but his memory and reporting ability are obviously somewhat limited. Past medical history includes apparent coronary artery disease, chronic kidney disease which is exacerbated on this admission, history of possible TIA and radiologic evidence of a previous CVA with ongoing dementia-like changes. Allergies Allergy/AdvReac Type Severity Reaction Status Date / Time No Known Allergies Allergy Verified 09/14/23 12:33 Home Medications Medication Instructions Recorded Confirmed Type aspirin 81 mg tablet,delayed 81 mg PO QAM 06/28/19 09/14/23 History release (Kevin Low Dose Aspirin) metoprolol tartrate 25 mg tablet 25 mg PO QAM 06/28/19 09/14/23 History rosuvastatin 5 mg tablet (Crestor) 5 mg PO DAILY 08/10/23 09/14/23 History nitroglycerin 0.4 mg sublingual 0.4 mg sublingual UD PRN Chest Pain 08/11/23 09/14/23 History tablet allopurinol 300 mg tablet 300 mg PO DAILY #30 tabs 08/22/23 09/14/23 Rx mirtazapine 30 mg tablet (Remeron) 30 mg PO DAILY #90 tabs 08/26/23 09/14/23 Rx oxycodone 5 mg capsule 5 mg PO Q4H PRN Pain 08/26/23 09/14/23 History ondansetron HCl 4 mg tablet 4 mg PO Q8H PRN Nausea 09/01/23 09/14/23 History prochlorperazine maleate 5 mg 5 mg PO BID PRN Nausea 09/01/23 09/14/23 History tablet (Compazine) ciprofloxacin HCl 500 mg tablet 500 mg PO Q12H #6 tabs 09/12/23 09/14/23 Rx (Cipro) fluconazole 100 mg tablet 100 mg PO DAILY 09/12/23 09/14/23 History (Diflucan) oxycodone-acetaminophen 7.5 mg-325 1 tab PO Q8H PRN pain #7 tabs 09/12/23 09/14/23 Rx mg tablet (Percocet) phenazopyridine 200 mg tablet 200 mg PO Q8H PRN pain #10 tabs 09/12/23 09/14/23 Rx (Pyridium) polyethylene glycol 3350 17 17 g PO DAILY PRN Constipation 09/12/23 09/14/23 History gram/dose oral powder (Miralax) tamsulosin 0.4 mg capsule 0.4 mg PO HS #30 caps 09/12/23 09/14/23 Rx Patient History Medical History (Updated 09/14/23 @ 14:24 by Randall Jean-Baptiste PA-C) Syncope Hypokalemia Weight loss, unintentional CKD (chronic kidney disease) History of COVID-19 first week 07/2023- home test- sinus congestion, mild cough, sinus drainage; resolved 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 B-cell lymphoma reason for upcoming procedure Malnutrition Dementia Cecum mass CAD (coronary artery disease) s/p stent x 1 (), CABG x2 (2004) Chronic back pain Cyst of pancreas Kidney stones stent placed 08/12/23 [facility] Myocardial Infarction multiple, most recent 2004 Hypertension Surgical History Port-A-Cath in place (09/08/23) Insertion Left Subclavian Access Port (Left) - Kingsley Munroe MD, FACS Hx of cystoscopy Status post surgery Artery in neck H/O brain surgery H/O colonoscopy History of herniorrhaphy INGUINAL HERNIA REPAIR History of cardiac cath 2019 shameka rj, 2017 co , stent x 1 History of coronary artery bypass graft CABG x2 (2004) Family History Brother FHx: pancreatic cancer FHx: liver cancer Cancer Brother Prostate cancer Father Heart disease Mother Heart disease Social History Smoking Status: Never smoker Tobacco Type: Cigarettes Second Hand Exposure: No; Do You Dip or Chew Tobacco: No; Hx Alcohol Use: No Hx Substance Use: No Preferred Language: Portuguese Communication Ability: Effective Visual Impairment: No Limitations Glass Cutting Machine Feeder Required: No Beliefs That Will Affect Care: None Current Living Situation: Spouse current occupational status: retired How many Children do You have: 3 Other Information That Helps Us Care for You: No Feels Safe at Home: Yes Safety Concerns: Feels Safe At This Time Diet: regular during the past year weight has: remained stable Assistive Devices: Denture - Upper, Glasses, Walker and Wheelchair Physical Exam Physical Exam: Examination was performed at 7:30 PM on 09/14/2023. At that time he was awake, alert and in no acute distress. His speech is fluent though his answers are obviously limited by his mild to moderate dementia. He showed no evidence of gross head trauma, meningismus, or focal neurological change other than some mild diffuse weakness He has no palpable peripheral pathologic adenopathy in the cervical subicular axillary region. Lungs seem clear. Cardiac rhythm seems regular and he was not tachycardic at that time (he has developed a mild tachycardia in the interim) abdomen seems soft nontender without grossly palpable mass organomegaly Results & Data Vital Signs (Past 12 Hours) Vital Signs Temp Pulse Pulse Resp BP Pulse Ox O2 Del Method 09/15/23 03:00 36.4 C L 112 H 19 140/87 97 Room Air 09/14/23 23:48 36.4 C L 93 H 18 123/83 97 Room Air 09/14/23 22:05 81 09/14/23 19:56 36.3 C L 86 18 112/74 97 Room Air 09/14/23 19:45 Room Air Laboratory Results Laboratory Results - last 24 hr 09/14/23 09/14/23 09/14/23 10:00 10:53 12:16 WBC 13.82 H RBC 4.23 L Hgb 12.4 L Hct 37.3 L MCV 88.2 MCH 29.3 MCHC 33.2 RDW Std Deviation 57.8 H RDW Coeff of Geovanna 18.7 H Plt Count 217 MPV 9.9 Immature Gran % (Auto) 3.0 Neut % (Auto) 87.8 Lymph % (Auto) 1.9 [place] % (Auto) 7.0 Eos % (Auto) 0.0 Baso % (Auto) 0.3 Neut # (Auto) 12.14 H Lymph # (Auto) 0.26 L [place] # (Auto) 0.97 H Eos # (Auto) 0.00 Baso # (Auto) 0.04 Immature Gran # (Auto) 0.41 H Absolute Nucleated RBC 0.04 Nucleated RBC % (auto) 0.3 PT 18.0 H INR 1.7 H Sodium 140 Potassium 5.0 Chloride 103 Carbon Dioxide 24 Anion Gap 13 H BUN 40 H Creatinine 2.18 H Est Cr Clr Drug Dosing 23.0 Est GFR ( Amer) 32.0 Est GFR (Non-Af Amer) 27.6 BUN/Creatinine Ratio 18.3 Glucose 123 H Uric Acid Calcium 9.6 Magnesium 2.1 Total Bilirubin 1.1 H AST 25 ALT 9 Alkaline Phosphatase 125 H Total Creatine Kinase 75 Troponin I High Sens 118.0 H* 121.8 H* Total Protein 7.2 Albumin 3.6 Globulin 3.6 Albumin/Globulin Ratio 1.0 Procalcitonin 0.12 TSH 1.747 Urine Color Dark Yellow Urine Appearance Cloudy A Urine pH 7.0 Ur Specific [place] 1.017 Urine Protein 2+ H Urine Glucose (UA) Negative Urine Ketones Negative Urine Blood 3+ H Urine Nitrite Positive A Urine Bilirubin Negative Urine Urobilinogen Negative Ur Leukocyte Esterase 2+ H Urine WBC (Auto) >30 H Urine RBC (Auto) >30 H U Hyaline Cast (Auto) 1-5 U Epithel Cells (Auto) >30 H Urine Bacteria (Auto) Negative Ur Renal Epithelial Cell Not Reportable Urine Yeast Not Reportable 09/15/23 06:00 WBC 9.60 RBC 4.05 L Hgb 11.6 L Hct 35.9 L MCV 88.6 MCH 28.6 MCHC 32.3 RDW Std Deviation 58.3 H RDW Coeff of Geovanna 18.5 H Plt Count 195 MPV 9.9 Immature Gran % (Auto) 2.8 Neut % (Auto) 83.8 Lymph % (Auto) 6.5 [place] % (Auto) 6.6 Eos % (Auto) 0.1 Baso % (Auto) 0.2 Neut # (Auto) 8.05 H Lymph # (Auto) 0.62 L [place] # (Auto) 0.63 H Eos # (Auto) 0.01 Baso # (Auto) 0.02 Immature Gran # (Auto) 0.27 H Absolute Nucleated RBC 0.04 Nucleated RBC % (auto) 0.4 PT INR Sodium Pending Potassium Pending Chloride Pending Carbon Dioxide Pending Anion Gap Pending BUN Pending Creatinine Pending Est Cr Clr Drug Dosing Pending Est GFR ( Amer) Pending Est GFR (Non-Af Amer) Pending BUN/Creatinine Ratio Pending Glucose Pending Uric Acid Pending Calcium Pending Magnesium Total Bilirubin AST ALT Alkaline Phosphatase Total Creatine Kinase Troponin I High Sens Total Protein Albumin Globulin Albumin/Globulin Ratio Procalcitonin TSH Urine Color Urine Appearance Urine pH Ur Specific [place] Urine Protein Urine Glucose (UA) Urine Ketones Urine Blood Urine Nitrite Urine Bilirubin Urine Urobilinogen Ur Leukocyte Esterase Urine WBC (Auto) Urine RBC (Auto) U Hyaline Cast (Auto) U Epithel Cells (Auto) Urine Bacteria (Auto) Ur Renal Epithelial Cell Urine Yeast Diagnostic Findings Chest X-Ray 09/14/23 09:56 SINGLE VIEW CHEST CLINICAL HISTORY: Syncope. FINDINGS: An AP, portable, upright chest radiograph is compared to study dated 09/08/2023. Correlation is made with chest CT dated 08/15/2023. A right PICC line has been removed. A left subclavian central venous infusion port is unchanged in position. The tip of the infusion port catheter is curved and may extend into the azygos vein. The patient is status post midline sternotomy. The heart is enlarged noting atherosclerotic calcification of the thoracic aorta. The pulmonary vasculature is noncongested. Emphysema and chronic interstitial t hickening is similar to previous. Foci of parenchymal scarring are seen throughout both lungs. Asymmetric airspace opacities at the left lung base are similar to prior studies and likely chronic. No superimposed airspace consolidation or large pleural effusion is identified. No pneumothorax is seen. The skeletal structures are osteopenic. The bony thorax is grossly intact. IMPRESSION: 1. A left subclavian central venous infusion port is unchanged in position. The tip of the catheter is curved and may extend into the azygos vein. 2. Cardiomegaly, emphysema, chronic parenchymal changes as above. 3. No superimposed airspace consolidation or large pleural effusion is identified. ACT 112: Negative or not required by law. Electronically signed by: Harsha Cabrera M.D. 09/14/2023 10:[address] 09/14/23 10:21 CT SCAN OF THE BRAIN WITHOUT IV CONTRAST CLINICAL HISTORY: Fall from standing. COMPARISON STUDY: MRI of the brain dated 08/26/2023. TECHNIQUE: Unenhanced axial CT scan of the brain is performed from the vertex to the skull base. A dose lowering technique was utilized adhering to the principles of ALARA. 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 There is age-related involutional change noting mild subcortical and periventricular microangiopathic disease. There is no hemorrhage, mass effect, or evidence of acute territorial ischemia by CT criteria. Bell-white matter differentiation is preserved. No extra-axial fluid collection is seen. Ventricles, sulci, cisterns: Prominent secondary to involutional change. Intracranial vasculature: There is atherosclerotic calcification of the cavernous carotid and vertebral arteries. Calvarium: There is postsurgical change from bilateral craniotomy. No destructive calvarial lesion or depressed calvarial fracture is identified. Sinuses and mastoids: The visualized paranasal sinuses are clear. The mastoid air cells are well pneumatized. Orbits: The bony orbits are grossly intact. IMPRESSION: Chronic and postsurgical changes as above with no hemorrhage, mass effect, or evidence of acute territorial ischemia by CT criteria. ACT 112: Negative or not required by law. Electronically signed by: Harsha Cabrera M.D. 09/14/2023 11:00 AM Abdomen/Pelvis CT 09/14/23 19:47 Exam(s): CT ABDOMEN + PELVIS Without Contrast EXAM: CT Abdomen and Pelvis Without Intravenous Contrast CLINICAL HISTORY: Reason for exam: NHL S/P chemo, ?response. TECHNIQUE: Axial computed tomography images of the abdomen and pelvis without intravenous contrast. CTDI is 10.11 mGy and DLP is 495.87 mGy-cm. Automated exposure control was utilized for the study. A dose lowering technique was utilized adhering to the principles of ALARA. COMPARISON: 08/15/2023. FINDINGS: Lung bases: Interstitial prominence with reticulonodular pattern involving the bilateral lower lobes and honeycombing along the sacral region concerning for early pulmonary fibrosis. Left lower lobe and lingular opacity with groundglass and coarse pattern may indicate superimposed pneumonitis. Heart: Unremarkable. No significant pericardial effusion. Normal cardiac size with coronary artery calcifications. ABDOMEN: Liver: Low-attenuation structures within the liver, largest averaging approximately 10 mm concerning for neoplasm/metastatic disease. Gallbladder and bile ducts: Slightly over distended gallbladder with multiple tiny gallstones. No ductal dilation. Pancreas: Unremarkable. No ductal dilation. Spleen: Unremarkable. No splenomegaly. Adrenals: Unremarkable. No mass. Kidneys and ureters: Multiple calcifications within the bilateral kidneys, largest on the right measuring 4.3 within the lower pole largest on the left measures 6 mm within the lower pole compatible with intrarenal stones. The right kidney is otherwise unremarkable. There is a low-attenuation structure within the middle of the left kidney measuring 2.1 cm, consistent with simple renal cyst. There is a left- sided ureteral stent in place, unchanged location. No distinct left- sided hydronephrosis. Stomach and bowel: There is mild gaseous distention of the transverse colon. There are multiple loops of small bowel slightly distended to 2.5 cm, nonspecific. PELVIS: Appendix: No findings to suggest acute appendicitis. Bladder: The urinary bladder is decompressed Via Gr catheter. No stones. Reproductive: Unremarkable as visualized. ABDOMEN and PELVIS: Intraperitoneal space: Unremarkable. No free air. No significant fluid collection. Bones/joints: Multilevel degenerative disease of the spine. No acute fracture. No dislocation. Soft tissues: Unremarkable. Vasculature: Calcified atherosclerotic disease of aorta with mild ectasia distally measuring up to 2.7 cm. Heterogeneity of the wall at the level of the cecum with terminal ileum concerning for a mass. There is nodularity adjacent to the medial aspect of the cecal wall, best seen on image 51 and 52, measuring approximately 3 x 1.5 cm in maximum dimension and markedly improved from a previous dimension of 6 by 4.0 cm. Diverticulosis throughout the sigmoid and descending colon without signs of diverticulitis. Lymph nodes: Unremarkable. No enlarged lymph nodes. IMPRESSION: 1. Marked improvement in previously seen mass at the level of the cecum now revealing mild thickening of the wall with adjacent nodularity, both significantly decreased in size as described. 2. Multiple small low-attenuation lesions in the liver, suggested to be smaller in size although difficult to assess due to absence of intravenous contrast. 3. Bilateral intrarenal stones as described. 4. Multiple gallstones. 5. Resolution of right-sided pleural effusion. 6. Resolution of previously seen lymph nodes at the level of the hepatic hilum and pancreatic head. Electronically signed by: Bette Dye MD 09/14/23 21:39 PM PG Care Time/CCT Total # of Minutes Spent Total Time Spent with Patient: Total time spent is greater than 50% in coordination of care (as documented) at patient's floor/unit and/or counseling patient: Coding Level of Care Code 69209 IN/OBS CONSULT LVL 5,80M Diagnoses Multiple falls R29.6 Acute upper GI bleed K92.2 Elevated INR R79.1 Non-ST elevation MD (NSTEMI) I21.4 DARYL (acute kidney injury) N17.9 B-cell lymphoma C85.10 Complicated UTI (urinary tract infection) N39.0
[2023-09-15 06:31] LABS: Basophils # (auto) 0.02 K/uL (0.00-0.20); Basophils % (auto) 0.2 %; Eosinophils # (auto) 0.01 K/uL (0.00-0.50); Eosinophils % (auto) 0.1 %; Hematocrit (blood only) 35.9 % (42.0-52.0); Hemoglobin 11.6 g/dl (14.0-18.0); Immature Granulocytes # (auto) 0.27 K/uL (0.01-0.20); Immature Granulocytes % (auto) 2.8 %; Lymphocytes # (auto) 0.62 K/uL (1.20-3.40); Lymphocytes % (auto) 6.5 %; Mean Corpuscular Hemoglobin 28.6 pg (25.0-34.0); Mean Corpuscular Hgb Conc 32.3 g/dL (32.0-36.0); Mean Corpuscular Volume 88.6 fL (80.0-100.0); Mean Platelet Volume 9.9 fL (9.4-12.4); Monocytes # (auto) 0.63 K/uL (0.11-0.59); Monocytes % (auto) 6.6 %; Neutrophils # (auto) 8.05 K/uL (1.40-6.50); Neutrophils % (auto) 83.8 %; Nucleated RBC # (auto) 0.04 K/uL (0.00-0.12); Nucleated RBC % (auto) 0.4 %; Platelet Count 195 K/uL (130-400); RDW Coefficient of Variation 18.5 % (11.5-14.5); RDW Standard Deviation 58.3 fL (36.4-46.3); Red Blood Count 4.05 M/uL (4.70-6.10)
[2023-09-15 07:01] LABS: BUN Creatinine Ratio 20.3 (10-20); Est GFR (African American) 42.6 ml/min; Est GFR (Non-African American) 36.7 ml/min; Potassium 3.9 mmol/L (3.5-5.1); Uric Acid 2.5 mg/dl (2.6-7.2)
--- NOTE | 2023-09-15 07:54 | Hospitalist Progress Note ---
Date of Service September 15, 2023 Assessment & Plan (1) Multiple falls: Plan: Fall + potential LOC morning of 09/14, multiple falls over the past week Hx of underlying dementia Head CT showed no acute hemorrhage, mass effect, or evidence of acute territorial ischemia UA positive suspect uti poa Recent cystoscopy on 09/12; due to kidney stones with stone Destroyed by laser, postop discharge with 3-day course of Cipro and Diflucan Rocephin started the ED, Continue Rocephin 2000 mg IV q24h Catheter in place draining dark orange urine Daily catheter care Blood culture pending, Urine culture pending Fall precautions in place PT/OT consulted (2) B-cell lymphoma: Plan: Port placement on 09/08, Patient was supposed to have second dose of chemotherapy this week, postponed by medical issues for prevention of tumor lysis syndrome on rituximab on 08/22/2023; continue allopurinol uric acid is normal to low Appreciate oncology consult (3) DARYL (acute kidney injury): Plan: daryl with CKD3, improving , limits otilia/arb use at this time slight improvement from admission Avoid nephrotoxic agents (4) Demand ischemia: Plan: Patient denies chest pain / pleuritic CP / SOB at rest, known CABG and Stent in the past hold asprin with coffee ground emesis Elevated troponin at 118.0 --> 121.8 EKG showed marked T wave inversions Limited echo shows decreased EF, consider Systolic heart failure QTc 580 on admission EKG on 08/11/2023 also had QTc prolongation at 579 Recently started on short course of Cipro/Diflucan following his urologic procedure on 09/12, which can extend QTc; holding both (5) Bloody emesis: Plan: Dark coffee-ground brown emesis x1 episode in the ED, stable hgb, Patient also endorses "Black BMs" x 1 week pantoprazole 40 mg IV twice daily For nausea, avoid Zofran given QTc prolonged at 580 1st line: Phenergan p.o. 25 mg q6h as needed for nausea; avoid giving IV (6) Dementia: Plan: Ongoing decline x2 years, can have acute metabolic encephalopathy Per daughter, acute changes over the past couple weeks Patient is not currently taking Aricept (7) 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: Plan: Hold aspirin in the setting of hematemesis, hematuria Continue rosuvastatin; CK WNL at 75 Plan Full code advance diet as tolerated VTE PPx: SCDs (hold chemical DVT PPx in the setting of hematemesis, hematuria, melena) Admission and Anticipated Discharge Date Admission Date: September 14, 2023 Subjective This patient was seen in company of his he had no questions or concerns he is a bit bewildered but does admit that he wishes to continue to proceed with active treatment of his B-cell lymphoma Physical Exam Physical Exam: patient is awake and alert. Mediport in his left upper chest is healing well. Cardiac exam is regular without murmurs lungs are clear without wheezes or crackles abdomen is NABS soft and nontender Results & Data Results & Data Vital Signs (Past 12 Hours) Vital Signs Temp Pulse Pulse Resp BP Pulse Ox O2 Del Method 09/15/23 03:00 97.5 F L 112 H 19 140/87 97 Room Air 09/14/23 23:48 97.5 F L 93 H 18 123/83 97 Room Air 09/14/23 22:05 81 09/14/23 19:56 97.3 F L 86 18 112/74 97 Room Air 09/14/23 19:45 Room Air Laboratory Results reviewed CBC reviewed chemistry reviewed coagulation studies PG Care Time/CCT Total # of Minutes Spent Total Time Spent with Patient: Total time spent is greater than 50% in coordination of care (as documented) at patient's floor/unit and/or counseling patient: Coding Level of Care Code 86144 SUB INP/OBS CARE 3/50MIN Diagnoses Multiple falls R29.6 B-cell lymphoma C85.10 DARYL (acute kidney injury) N17.9 Demand ischemia I24.89 Bloody emesis K92.0 Dementia F03.90 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
[2023-09-15] MEDS ORDERED: METOPROLOL TARTRATE 25 MG TAB PO SCH (09:00)
--- NOTE | 2023-09-15 09:03 | Cardiology Consultation ---
Date of Consultation September 15, 2023 Assessment & Plan (1) Multiple falls: (2) Cardiomyopathy: (3) Demand ischemia: Mr. Calderon is an 78 year old male with a history of CAD s/p CABG x 2 Vessels 2005 s/p Proximal RCA Stent remotely, Hypertension, Dyslipidemia, Dementia, Nephrolithiasis, Intracranial Hemorrhage, Stage 3 CKD, and recently diagnosed B- Cell Lymphoma who was admitted to [facility] on 09/14/23 with Generalized Weakness, Recurrent Falls, DARYL, and Coffee Ground Emesis x 1. Patient was admitted 08/11/2023 when work-up for lower back pain and 35 pound non-intentional weight loss included an MRI of the lumbar spine showing a malignant cecal mass. Additional on subsequent imaging findings included evidence of diffuse multifocal hepatic metastatic disease and pathologic retroperitoneal and mesenteric lymphadenopathy. There is also suggestion of diffuse osseous metastatic disease. 08/16/2023 colonoscopy showed "a large mass with volcano like ulcers with luminal narrowing involving the entire ascending colon. The mass was circumferential, with luminal narrowing. 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 During this hospitalization, patient received chemotherapy including cyclophosphamide, steroids, and rituximab. Oncology's plan was to transition to [facility] the start of which was scheduled for 09/14/2023. Patient offers no complaints today and states that he is feeling pretty well. Patient has not had any cardiopulmonary symptoms leading up to this hospitalization or since he has been admitted. Patient has not experienced any angina pectoris or anginal equivalent symptoms, overt signs or symptoms of heart failure, nor has he had any symptoms suggestive of dysrhythmia. He denies any sensation of palpitations although he appears to have been in a sinus tachycardia most of the time since yesterday with heart rates in the 100-110 bpm range. Etiology of his reduced LV systolic function is uncertain but most likely secondary to Cyclophosphamide. Patient does not describe any ischemic symptoms and he appears euvolemic on physical examination. His high sensitivity Troponin I levels are 118.0 pg/mL and 121.8 pg/mL -- this is not trending as 1 would expect with an acute coronary syndrome. Recommend the following: -- Discontinue Lopressor. -- Begin Toprol XL 50 mg daily. -- As renal function allows, would recommend starting and ARB or Entresto. -- Monitor daily I&O's and body weights. -- Manage volume status as necessary. (4) Prolonged QT interval: Prolonged QT interval was not present on his EKG in June 2019 but is present on all of his EKGs since 08/11/23 so this is likely medication related -- QT prolongation can be found with the use of fluoroquinolones, antifungals, and cyclophosphamide. Continue to monitor. (5) Acute upper GI bleed: Hgb is down to 11.6 g/dL from 12.4 g/dL on admission. -- Received a dose of IV Pantoprazole but then this was discontinued due to prolonged QT interval. -- Serial H&H's. -- Transfuse as needed. (6) CAD (coronary artery disease): -- Patient had two-vessel bypass in 2004, and a remote RCA stent. His last cardiac catheterization 03/30/2021 showed a patent GONZALEZ to LAD graft, SVG to diagonal graft was patent with mild scattered plaques. RCA with stent and chronic total occlusion. Good L-to-R collaterals. LMCA has up to 40% distal narrowing, [place] LAD shows 70% to 80% ostial and proximal stenosis. -- Continue current cardiac regimen, may hold any antiplatelet medications due to GI bleed. (7) B-cell lymphoma: -- Followed by Dr. Durbin. History of Present Illness Reason for Consultation: -- Reduced LV Systolic Function, New Cardiomyopathy. -- Elevated High Sensitivity Troponin I. -- Medical Management. Requesting Physician: Italo Grover MD Attending Physician: Francisco Guillen MD History of Present Illness Mr. Calderon is an 78 year old male with a history of CAD s/p CABG x 2 Vessels 2004 s/p Proximal RCA Stent remotely, Hypertension, Dyslipidemia, Dementia, Nephrolithiasis, Intracranial Hemorrhage, Stage 3 CKD, and recently diagnosed B- Cell Lymphoma who was admitted to [facility] on 09/14/23 with Generalized Weakness, Recurrent Falls, DARYL, and Coffee Ground Emesis x 1. Patient was admitted 08/11/2023 when work-up for lower back pain and 35 pound non-intentional weight loss included an MRI of the lumbar spine showing a malignant cecal mass. Additional on subsequent imaging findings included evidence of diffuse multifocal hepatic metastatic disease and pathologic retroperitoneal and mesenteric lymphadenopathy. There is also suggestion of diffuse osseous metastatic disease. 08/16/2023 colonoscopy showed "a large mass with volcano like ulcers with luminal narrowing involving the entire ascending colon. The mass was circumferential, with luminal narrowing. 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 During this hospitalization, patient received chemotherapy including cyclophosphamide, steroids, and rituximab. Oncology's plan was to transition to [facility] the start of which was scheduled for 09/14/2023. Patient offers no complaints today and states that he is feeling pretty well. Patient has not had any cardiopulmonary symptoms leading up to this hospitalization or since he has been admitted. He specifically denies any exertional chest pain, heaviness, tightness, pressure, discomfort, or angina pectoris at any time. He denies any exertional neck, jaw, back, or arm pain. He has not had any shortness of breath, unusual dyspnea exertion, fluid retention, peripheral edema, orthopnea, or PND. He denies any sensation of palpitations although he appears to have been in a sinus tachycardia most of the time since yesterday with heart rates in the 100-110 bpm range. Patient denies any syncope or near-syncope. His EKG 09/14/23 10:01:45 shows: -- sinus rhythm with PACs. -- possible left atrial enlargement. -- inferior infarct cited on or before 06/29/2019. -- ST and marked T-wave abnormalities consider anterolateral ischemia. -- prolonged QT interval. EKG 09/15/23 05:33:28: -- Sinus tachycardia. -- LVH with repolarization abnormality -- Inferoposterior UT cited on or before 06/29/2019. -- Prolonged QT interval. ECHOCARDIOGRAM 09/14/23: -- Mildly reduced LV systolic function. -- LVEF 40% to 45% with mild global hypokinesis of the LV. -- Mild concentric LVH. -- Mild MR. -- Compared to 08/24/23 study; mild LV dysfunction is now present. Allergies Allergy/AdvReac Type Severity Reaction Status Date / Time No Known Allergies Allergy Verified 09/14/23 12:33 Home Medications Medication Instructions Recorded Confirmed Type aspirin 81 mg tablet,delayed 81 mg PO QAM 06/28/19 09/14/23 History release (Kevin Low Dose Aspirin) metoprolol tartrate 25 mg tablet 25 mg PO QAM 06/28/19 09/14/23 History rosuvastatin 5 mg tablet (Crestor) 5 mg PO DAILY 08/10/23 09/14/23 History nitroglycerin 0.4 mg sublingual 0.4 mg sublingual UD PRN Chest Pain 08/11/23 09/14/23 History tablet allopurinol 300 mg tablet 300 mg PO DAILY #30 tabs 08/22/23 09/14/23 Rx mirtazapine 30 mg tablet (Remeron) 30 mg PO DAILY #90 tabs 08/26/23 09/14/23 Rx oxycodone 5 mg capsule 5 mg PO Q4H PRN Pain 08/26/23 09/14/23 History ondansetron HCl 4 mg tablet 4 mg PO Q8H PRN Nausea 09/01/23 09/14/23 History prochlorperazine maleate 5 mg 5 mg PO BID PRN Nausea 09/01/23 09/14/23 History tablet (Compazine) ciprofloxacin HCl 500 mg tablet 500 mg PO Q12H #6 tabs 09/12/23 09/14/23 Rx (Cipro) fluconazole 100 mg tablet 100 mg PO DAILY 09/12/23 09/14/23 History (Diflucan) oxycodone-acetaminophen 7.5 mg-325 1 tab PO Q8H PRN pain #7 tabs 09/12/23 09/14/23 Rx mg tablet (Percocet) phenazopyridine 200 mg tablet 200 mg PO Q8H PRN pain #10 tabs 09/12/23 09/14/23 Rx (Pyridium) polyethylene glycol 3350 17 17 g PO DAILY PRN Constipation 09/12/23 09/14/23 History gram/dose oral powder (Miralax) tamsulosin 0.4 mg capsule 0.4 mg PO HS #30 caps 09/12/23 09/14/23 Rx Patient History Medical History Syncope Hypokalemia Weight loss, unintentional CKD (chronic kidney disease) History of COVID-19 first week 07/2023- home test- sinus congestion, mild cough, sinus drainage; resolved 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 B-cell lymphoma reason for upcoming procedure Malnutrition Dementia Cecum mass CAD (coronary artery disease) s/p stent x 1 (), CABG x2 (2004) Chronic back pain Cyst of pancreas Kidney stones stent placed 08/12/23 [facility] Myocardial Infarction multiple, most recent 2004 Hypertension Surgical History Port-A-Cath in place (09/08/23) Insertion Left Subclavian Access Port (Left) - Kingsley Munroe MD, FACS Hx of cystoscopy Status post surgery Artery in neck H/O brain surgery H/O colonoscopy History of herniorrhaphy INGUINAL HERNIA REPAIR History of cardiac cath 2019 shame[place] rj, 2017 mo , stent x 1 History of coronary artery bypass graft CABG x2 (2004) Family History Brother FHx: pancreatic cancer FHx: liver cancer Cancer Brother Prostate cancer Father Heart disease Mother Heart disease Social History Smoking Status: Never smoker Tobacco Type: Cigarettes Second Hand Exposure: No; Do You Dip or Chew Tobacco: No; Hx Alcohol Use: No Hx Substance Use: No Preferred Language: Frisian Communication Ability: Effective Visual Impairment: No Limitations Stunt Double Required: No Beliefs That Will Affect Care: None Current Living Situation: Spouse current occupational status: retired How many Children do You have: 3 Other Information That Helps Us Care for You: No Feels Safe at Home: Yes Safety Concerns: Feels Safe At This Time Diet: regular during the past year weight has: remained stable Assistive Devices: Walker Physical Exam Physical Exam: BP 123/83. P 107 bpm. GENERAL: Patient in no acute distress. HEENT: Head is atraumatic, normocephalic. EOM's intact. Facies symmetric. No perioral cyanosis. NECK: No JVD. JVP is not elevated. Carotid upstrokes are + 2 bilaterally without bruits. CHEST/LUNGS: Diminished breath sounds throughout, otherwise clear. No wheezes, rales, or crackles. CVS: S1 and S2 are regular without murmurs, gallops, or rubs. PMI is nondisplaced. No lifts, heaves, or thrills. No abdominal aortic or renal bruits. Median sternotomy scar is present. ABDOMINAL EXAM: Bowel sounds are present. No masses, organomegaly, or tenderness. EXTREMITIES: No clubbing or cyanosis. No edema. Intact radial pulses bilaterally. NEUROLOGIC EXAM: Patient is awake, alert, and interactive. Pleasant and cooperative. Answers questions appropriately. Speech is clear. Gait pattern was not assessed. 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 Results & Data Vital Signs (Past 12 Hours) Vital Signs Temp Pulse Pulse Resp BP Pulse Ox O2 Del Method 09/15/23 08:56 36.3 C L 111 H 17 130/88 93 Room Air 09/15/23 03:00 36.4 C L 112 H 19 140/87 97 Room Air 09/14/23 23:48 36.4 C L 93 H 18 123/83 97 Room Air 09/14/23 22:05 81 Laboratory Results Laboratory Results - last 24 hr 09/15/23 06:00 WBC 9.60 RBC 4.05 L Hgb 11.6 L Hct 35.9 L MCV 88.6 MCH 28.6 MCHC 32.3 RDW Std Deviation 58.3 H RDW Coeff of Geovanna 18.5 H Plt Count 195 MPV 9.9 Immature Gran % (Auto) 2.8 Neut % (Auto) 83.8 Lymph % (Auto) 6.5 [place] % (Auto) 6.6 Eos % (Auto) 0.1 Baso % (Auto) 0.2 Neut # (Auto) 8.05 H Lymph # (Auto) 0.62 L [place] # (Auto) 0.63 H Eos # (Auto) 0.01 Baso # (Auto) 0.02 Immature Gran # (Auto) 0.27 H Absolute Nucleated RBC 0.04 Nucleated RBC % (auto) 0.4 Sodium 142 Potassium 3.9 D Chloride 105 Carbon Dioxide 22 Anion Gap 15 H BUN 35 H Creatinine 1.72 H D Est Cr Clr Drug Dosing 27.0 Est GFR ( Amer) 42.6 Est GFR (Non-Af Amer) 36.7 BUN/Creatinine Ratio 20.3 H Glucose 95 Uric Acid 2.5 L Calcium 9.0 IgG 945.2 IgA 235.6 IgM 21.3 L Diagnostic Findings CXR 09/14/23: FINDINGS: An AP, portable, upright chest radiograph is compared to study dated 09/08/2023. Correlation is made with chest CT dated 08/15/2023. A right PICC line has been removed. A left subclavian central venous infusion port is unchanged in position. The tip of the infusion port catheter is curved and may extend into the azygos vein. The patient is status post midline sternotomy. The heart is enlarged noting atherosclerotic calcification of the thoracic aorta. The pulmonary vasculature is noncongested. Emphysema and chronic interstitial thickening is similar to previous. Foci of parenchymal scarring are seen throughout both lungs. Asymmetric airspace opacities at the left lung base are similar to prior studies and likely chronic. No superimposed airspace consolidation or large pleural effusion is identified. No pneumothorax is seen. The skeletal structures are osteopenic. The bony thorax is grossly intact. IMPRESSION: 1. A left subclavian central venous infusion port is unchanged in position. The tip of the catheter is curved and may extend into the azygos vein. 2. Cardiomegaly, emphysema, chronic parenchymal changes as above. 3. No superimposed airspace consolidation or large pleural effusion is identified. CT HEAD 09/14/23: Brain parenchyma: Right parieto-occipital encephalomalacia is consistent with a remote infarct. There is age-related involutional change noting mild subcortical and periventricular microangiopathic disease. There is no hemorrhage, mass effect, or evidence of acute territorial ischemia by CT criteria. Bell-white matter differentiation is preserved. No extra-axial fluid collection is seen. Ventricles, sulci, cisterns: Prominent secondary to involutional change. Intracranial vasculature: There is atherosclerotic calcification of the cavernous carotid and vertebral arteries. Calvarium: There is postsurgical change from bilateral craniotomy. No destructive calvarial lesion or depressed calvarial fracture is identified. Sinuses and mastoids: The visualized paranasal sinuses are clear. The mastoid air cells are well pneumatized. Orbits: The bony orbits are grossly intact. IMPRESSION: -- Chronic and postsurgical changes as above with no hemorrhage, mass effect, or evidence of acute territorial ischemia by CT criteria. CTAP 09/14/23: 1. Marked improvement in previously seen mass at the level of the cecum now revealing mild thickening of the wall with adjacent nodularity, both significantly decreased in size as described. 2. Multiple small low-attenuation lesions in the liver, suggested to be smaller in size although difficult to assess due to absence of intravenous contrast. 3. Bilateral intrarenal stones as described. 4. Multiple gallstones. 5. Resolution of right-sided pleural effusion. 6. Resolution of previously seen lymph nodes at the level of the hepatic hilum and pancreatic head. Medications Administered Medication List Allopurinol (Allopurinol 300 Mg Tab) 300 mg PO DAILY ROSETTA Stop: 10/15/23 08:59 Last Admin: 09/15/23 09:07 Dose: 300 mg Documented By: Ceftriaxone Sodium 2,000 mg/ (Dextrose) 50 mls @ 100 mls/hr IV Q24H ROSETTA; Protocol Stop: 09/25/23 12:59 Last Infusion: 09/15/23 14:44 Dose: Infused Documented By: Admin: 09/15/23 13:23 Dose: 100 mls/hr Documented By: CHRIS Mirtazapine (Mirtazapine Tab 15 Mg Tab) 30 mg PO HS ROSETTA Stop: 10/14/23 20:59 Last Admin: 09/14/23 21:54 Dose: 30 mg Documented By: VISHNU Oxycodone HCl (Oxycodone Hcl Ir 5 Mg Tab (Immediate Release)) 5 mg PO Q4H PRN PRN Reason: Pain Stop: 09/29/23 01:45 Last Admin: 09/15/23 01:53 Dose: 5 mg Documented By: VISHNU(2) Rosuvastatin Calcium (Rosuvastatin Calcium 5 Mg Tab) 5 mg PO DAILY ROSETTA Stop: 10/15/23 08:59 Last Admin: 09/15/23 09:07 Dose: 5 mg Documented By: Tamsulosin HCl (Tamsulosin Hcl 0.4 Mg Cap) 0.4 mg PO HS ROSETTA Stop: 10/14/23 20:59 Last Admin: 09/14/23 21:54 Dose: 0.4 mg Documented By: VISHNU Discontinued Medications Pantoprazole Sodium 40 mg/ (Syringe) 10 mls @ 5 mls/min IV NOW ONE Stop: 09/14/23 10:22 Last Admin: 09/14/23 10:47 Dose: 5 mls/min Documented By: NICA Sodium Chloride (Nss) 2,000 mls @ 999 mls/hr IV .Q2H1M ONE Stop: 09/14/23 12:45 Last Infusion: 09/14/23 13:52 Dose: Infused Documented By: Admin: 09/14/23 11:02 Dose: 999 mls/hr Documented By: NICA Ceftriaxone Sodium (Rocephin) 2,000 mg in 50 mls @ 100 mls/hr IV NOW STA Stop: 09/14/23 12:38 Last Infusion: 09/14/23 13:52 Dose: Infused Documented By: Admin: 09/14/23 12:39 Dose: 100 mls/hr Documented By: NICA Pantoprazole Sodium 40 mg/ (Syringe) 10 mls @ 5 mls/min IV NOW ONE Stop: 09/14/23 14:01 Last Admin: 09/14/23 14:06 Dose: 5 mls/min Documented By: RIMA Metoprolol Succinate (Metoprolol Succ 50mg Ext Rel Tab) 50 mg PO [facility] Stop: 10/15/23 09:44 Last Admin: 09/15/23 10:28 Dose: 50 mg Documented By: Metoprolol Tartrate (Metoprolol Tartrate 25 Mg Tab) 25 mg PO [facility] Stop: 10/15/23 08:59 Last Admin: 09/15/23 09:07 Dose: 25 mg Documented By: Phytonadione (Phytonadione 5 Mg Tab) 5 mg PO NOW STA Stop: 09/14/23 13:45 Last Admin: 09/14/23 14:07 Dose: 5 mg Documented By: RIMA PG Care Time/CCT Total # of Minutes Spent Total Time Spent with Patient: Total time spent is greater than 50% in coordination of care (as documented) at patient's floor/unit and/or counseling patient:44 [place] [address] INT INP/OBS CARE 3/75MIN Patient Type New History Comprehensive Exam Comprehensive Medical Decision Making High Complexity Diagnoses Multiple falls R29.6 Cardiomyopathy I42.9 Demand ischemia I24.89 Prolonged QT interval R94.31 Acute upper GI bleed K92.2 CAD (coronary artery disease) I25.10 B-cell lymphoma C85.10 Time Spent (min) 79
[2023-09-15] MEDS: ROSUVASTATIN CALCIUM 5 MG TAB PO SCH (09:07)
[2023-09-15] MEDS: allopurinoL 300 MG TAB PO SCH (09:07)
[2023-09-15 09:09] LABS: Immunoglobulin A 235.6 mg/dl (70-400); Immunoglobulin G 945.2 mg/dl (635-1741); Immunoglobulin M 21.3 mg/dl (45-281)
[2023-09-15] MEDS ORDERED: METOPROLOL SUCC 50MG EXT REL TAB PO SCH (09:45)
[2023-09-15] MEDS ORDERED: cefTRIAXone SODIUM 2,000 MG in DEXTROSE 5 % MINI-B 50 ML IV SCH (13:00)
--- NOTE | 2023-09-15 13:03 | Electrocardiogram Report ---
Test Reason : Blood Pressure : / mmHG Vent. Rate : 111 BPM Atrial Rate : 111 BPM P-R Int : 134 ms QRS Dur : 094 ms QT Int : 416 ms P-R-T Axes : 054 -19 154 degrees QTc Int : 565 ms Sinus tachycardia Inferior-posterior infarct (cited on or before 29-JUN-2019) Prolonged QT Abnormal ECG When compared with ECG of 14-SEP-2023 10:01, Premature atrial complexes are no longer Present T wave inversion no longer evident in Inferior leads Confirmed by Francisco Guillen ([id number]) on 09/15/2023 1:02:58 PM Referred By: REFERRED SELF Confirmed By:Francisco Guillen
[2023-09-15] MEDS ORDERED: MELATONIN 3 MG TAB PO PRN (20:06)
[2023-09-15] MEDS: MIRTAZAPINE TAB 15 MG TAB PO SCH (20:41)
[2023-09-16 06:36] LABS: Basophils # (auto) 0.02 K/uL (0.00-0.20); Basophils % (auto) 0.2 %; Hematocrit (blood only) 37.5 % (42.0-52.0); Hemoglobin 12.2 g/dl (14.0-18.0); Immature Granulocytes # (auto) 0.19 K/uL (0.01-0.20); Immature Granulocytes % (auto) 2.2 %; Lymphocytes # (auto) 0.85 K/uL (1.20-3.40); Lymphocytes % (auto) 9.6 %; Mean Corpuscular Hemoglobin 28.8 pg (25.0-34.0); Mean Corpuscular Hgb Conc 32.5 g/dL (32.0-36.0); Mean Corpuscular Volume 88.4 fL (80.0-100.0); Mean Platelet Volume 10.4 fL (9.4-12.4); Monocytes # (auto) 0.73 K/uL (0.11-0.59); Monocytes % (auto) 8.3 %; Neutrophils # (auto) 7.04 K/uL (1.40-6.50); Neutrophils % (auto) 79.7 %; Nucleated RBC # (auto) 0.06 K/uL (0.00-0.12); Nucleated RBC % (auto) 0.7 %; Platelet Count 191 K/uL (130-400); RDW Coefficient of Variation 18.5 % (11.5-14.5); RDW Standard Deviation 57.8 fL (36.4-46.3); Red Blood Count 4.24 M/uL (4.70-6.10); White Blood Count 8.83 K/ul (4.8-10.8)
[2023-09-16 06:38] LABS: BUN Creatinine Ratio 23.4 (10-20); Calcium 9.3 mg/dl (8.6-10.3); Creatinine Clr Calc Pharmacy 34.1 ml/min; Est GFR (African American) 44.1 ml/min; Est GFR (Non-African American) 38.1 ml/min; Potassium 3.9 mmol/L (3.5-5.1)
--- NOTE | 2023-09-16 07:57 | Hospitalist Progress Note ---
Date of Service September 16, 2023 Assessment & Plan (1) Multiple falls: Plan: Fall + potential LOC morning of 09/14, multiple falls over the past week Hx of underlying dementia Head CT showed no acute hemorrhage, mass effect, or evidence of acute territorial ischemia Urine culture resulted negative so uti ruled out, antibiotics stopped Recent cystoscopy on 09/12; due to kidney stones with stone Destroyed by laser, postop discharge with 3-day course of Cipro and Diflucan cipro can cause confusion Blood culture negative to date Fall precautions in place PT/OT consulted (2) B-cell lymphoma: Plan: Port placement on 09/08, Patient was supposed to have second dose of chemotherapy this week, postponed by medical issues for prevention of tumor lysis syndrome on rituximab on 08/22/2023; continue allopurinol uric acid is normal to low Appreciate oncology consult (3) DARYL (acute kidney injury): Plan: daryl with CKD3, improving , limits otilia/arb use at this time slight improvement from admission Avoid nephrotoxic agents improving (4) Demand ischemia: Plan: Patient denies chest pain / pleuritic CP / SOB at rest, known CABG and Stent in the past hold asprin with coffee ground emesis Elevated troponin at 118.0 --> 121.8, at this time do not feel this is an NSTEMI, furhter cardiac eval in process EKG showed marked T wave inversions Limited echo shows decreased EF, consider Systolic heart failure QTc 580 on admission EKG on 08/11/2023 also had QTc prolongation at 579 Recently started on short course of Cipro/Diflucan following his urologic procedure on 09/12, which can extend QTc; holding both (5) Bloody emesis: Plan: Dark coffee-ground brown emesis x1 episode in the ED, stable hgb, Patient also endorses "Black BMs" x 1 week pantoprazole 40 mg IV twice daily Hemaglobin has been stable (6) Dementia: Plan: Ongoing decline x2 years, can have acute metabolic encephalopathy Per daughter, acute changes over the past couple weeks Patient is not currently taking Aricept (7) 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: Plan: Hold aspirin in the setting of hematemesis, hematuria Continue rosuvastatin; CK WNL at 75 Plan Full code advance diet as tolerated VTE PPx: SCDs (hold chemical DVT PPx in the setting of hematemesis, hematuria, melena) Admission and Anticipated Discharge Date Admission Date: September 14, 2023 Subjective pt is a bit more sleepy today, overall not interested in eating, has eating perhaps 25 %, onc does not feel chemo can cause decrease in EF with dosages given Pt did have melatonin last pm may account for his sleepiness Physical Exam Physical Exam: awake and alert but sleepy cardiac is regular, lungs clear but diminished at the bases Results & Data Results & Data Vital Signs (Past 12 Hours) Vital Signs Temp Pulse Pulse Resp BP BP Pulse Ox 09/16/23 07:46 97.5 F L 75 19 91/64 L 98 09/16/23 07:33 69 09/16/23 06:01 98.6 F 83 16 115/60 94 09/15/23 22:00 78 09/15/23 20:00 O2 Del Method O2 Flow Rate 09/16/23 07:46 Room Air 09/16/23 07:33 09/16/23 06:01 Room Air 2 09/15/23 22:00 09/15/23 20:00 Room Air Laboratory Results reviewed CBC reviewed chemistry PG Care Time/CCT Total # of Minutes Spent Total Time Spent with Patient: Total time spent is greater than 50% in coordination of care (as documented) at patient's floor/unit and/or counseling patient: Coding Level of Care Code 02344 SUB INP/OBS CARE 3/50MIN Diagnoses Multiple falls R29.6 B-cell lymphoma C85.10 DARYL (acute kidney injury) N17.9 Demand ischemia I24.89 Bloody emesis K92.0 Dementia F03.90 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
[2023-09-16] MEDS: METOPROLOL SUCC 25MG EXT REL TAB PO SCH (08:33)
[2023-09-16] MEDS: allopurinoL 300 MG TAB PO SCH (08:38)
[2023-09-16] MEDS: ROSUVASTATIN CALCIUM 5 MG TAB PO SCH (08:38)
[2023-09-16] MEDS ORDERED: SODIUM CHLORIDE 0.9% 500 ML IV SCH (11:00)
--- NOTE | 2023-09-16 13:12 | Electrocardiogram Report ---
Test Reason : Blood Pressure : / mmHG Vent. Rate : 079 BPM Atrial Rate : 079 BPM P-R Int : 134 ms QRS Dur : 098 ms QT Int : 582 ms P-R-T Axes : 038 -20 162 degrees QTc Int : 667 ms Sinus rhythm with Premature atrial complexes Inferior-posterior infarct (cited on or before 29-JUN-2019) Prolonged QT Abnormal ECG When compared with ECG of 15-SEP-2023 05:33, Premature atrial complexes are now Present ST less depressed in Anterior leads Confirmed by Francisco Guillen ([id number]) on 09/16/2023 1:12:26 PM Referred By: REFERRED SELF Confirmed By:Francisco Guillen
--- NOTE | 2023-09-16 13:40 | Cardiology Progress Note ---
Date of Service September 16, 2023 Assessment & Plan (1) Multiple falls: (2) Cardiomyopathy: (3) Demand ischemia: Plan: Mr. Calderon is an 78 year old male with a history of CAD s/p CABG x 2 Vessels 2005 s/p Proximal RCA Stent remotely, Hypertension, Dyslipidemia, Dementia, Nephrolithiasis, Intracranial Hemorrhage, Stage 3 CKD, and recently diagnosed B- Cell Lymphoma who was admitted to [facility] on 09/14/23 with Generalized Weakness, Recurrent Falls, DARYL, and Coffee Ground Emesis x 1. Patient offers no complaints today and states that he is feeling pretty well. Patient has not had any cardiopulmonary symptoms leading up to this hospitalization or since he has been admitted. Patient has not experienced any angina pectoris or anginal equivalent symptoms, overt signs or symptoms of heart failure, nor has he had any symptoms suggestive of dysrhythmia. His heart rates today in the 70's to 90's bpm range and he is in normal sinus rhythm with premature atrial contractions. Etiology of his reduced LV systolic function is uncertain but could be secondary to Cyclophosphamide. Patient does not describe any ischemic symptoms and he appears euvolemic on physical examination. We discussed doing a Lexiscan Cardiolite after his hypotension resolves and his blood pressure is more stable. His high sensitivity Troponin I levels are 118.0 pg/mL and 121.8 pg/mL -- this is not trending as 1 would expect with an acute coronary syndrome. Recommend the following: -- Continue Toprol XL 25 mg daily. -- As renal function allows, would recommend starting and ARB or Entresto. -- Monitor daily I&O's and body weights. -- Manage volume status as necessary. -- Consider a Lexiscan Cardiolite once his hypotension resolves. (4) Prolonged QT interval: Plan: Prolonged QT interval was not present on his EKG in June 2019 but is present on all of his EKGs since 08/11/23 so this is likely medication related -- QT prolongation can be found with the use of fluoroquinolones, antifungals, and cyc lophosphamide. Continue to monitor. -- Cipro and Diflucan have been held. (5) Acute upper GI bleed: Plan: Hgb is 12.2 g/dL today. -- Serial H&H's. -- Transfuse as needed. (6) CAD (coronary artery disease): Plan: Patient had two-vessel bypass in 2004, and a remote RCA stent. His last cardiac catheterization 03/30/2021 showed a patent GONZALEZ to LAD graft, SVG to diagonal graft was patent with mild scattered plaques. RCA with stent and chronic total occlusion. Good L-to-R collaterals. LMCA has up to 40% distal narrowing, ely shosh[place] LAD shows 70% to 80% ostial and proximal stenosis. -- Continue current cardiac regimen except Aspirin 81 mg due to GI bleed. (7) B-cell lymphoma: Plan: -- Followed by Dr. Durbin. Admission and Anticipated Discharge Date Admission Date: September 14, 2023 Subjective Mr. Calderon is being seen in room 208. He remains on laboratory monitor. When I initially met with him regarding his reduced LV systolic function I recommended changing metoprolol tartrate 25 mg once a day to long-acting metoprolol succinate ER 50 mg once a day. Unfortunately he is had some hypotensive blood pressure readings which required at this dosage be reduced. Patient has noticed a little bit of lightheadedness from time to time but he has not had any s yncope. Patient continues to deny any chest pain, heaviness, tightness, pressure, or discomfort. He denies neck, jaw, back, or arm pain. His breathing is at baseline. He denies any shortness of breath, orthopnea, or PND. He denies any palpitations. EKG today shows a sinus rhythm at 79 bpm with premature atrial contractions, LVH with repolarization abnormality, age-indeterminate inferior infarct, and his corrected QT interval is prolonged at 667 msec. He has not had any significant arrhythmias on cardiac monitoring. Review of Systems Review of Systems: -- 10 point ROS completed and is negativ e with the exception of what is mentioned in the HPI. Physical Exam Physical Exam: BP 105/73, Pulse 80 and regular with ectopic beats. GENERAL: Patient in no acute distress. HEENT: Head is atraumatic, normocephalic. EOM's intact. Facies symmetric. No perioral cyanosis. NECK: No JVD. JVP is not elevated. Carotid upstrokes are + 2 bilaterally without bruits. CHEST/LUNGS: Diminished breath sounds throughout, otherwise clear. No wheezes, rales, or crackles. CVS: S1 and S2 are regular without murmurs, gallops, or rubs. PMI is nondisplaced. No lifts, heaves, or thrills. No abdominal aortic or renal bruits. Median sternotomy scar is present. ABDOMINAL EXAM: Bowel sounds are present. No masses, organomegaly, or tenderness. EXTREMITIES: No clubbing or cyanosis. No edema. Intact radial pulses bilaterally. NEUROLOGIC EXAM: Patient is awake, alert, and interactive. Pleasant and cooperative. Answers questions appropriately. Speech is clear. Gait pattern was not assessed. Soil Technician: -- Sinus rhythm in the 70's, 80's and 90 's with PAC's. Results & Data Vital Signs (Past 12 Hours) Vital Signs Temp Pulse Pulse Resp BP BP Pulse Ox 09/16/23 10:41 36.3 C L 77 24 105/73 94 09/16/23 07:46 36.4 C L 75 19 91/64 L 98 09/16/23 07:33 69 09/16/23 06:01 37.0 C 83 16 115/60 94 O2 Del Method O2 Flow Rate 09/16/23 10:41 Room Air 09/16/23 07:46 Room Air 09/16/23 07:33 09/16/23 06:01 Room Air 2 Laboratory Results Laboratory Results - last 24 hr 09/16/23 05:59 WBC 8.83 RBC 4.24 L Hgb 12.2 L Hct 37.5 L MCV 88.4 MCH 28.8 MCHC 32.5 RDW Std Deviation 57.8 H RDW Coeff of Geovanna 18.5 H Plt Count 191 MPV 10.4 Immature Gran % (Auto) 2.2 Neut % (Auto) 79.7 Lymph % (Auto) 9.6 Jennings % (Auto) 8.3 Eos % (Auto) 0.0 Baso % (Auto) 0.2 Neut # (Auto) 7.04 H Lymph # (Auto) 0.85 L Jennings # (Auto) 0.73 H Eos # (Auto) 0.00 Baso # (Auto) 0.02 Immature Gran # (Auto) 0.19 Absolute Nucleated RBC 0.06 Nucleated RBC % (auto) 0.7 Sodium 141 Potassium 3.9 Chloride 106 Carbon Dioxide 26 Anion Gap 9 BUN 39 H Creatinine 1.67 H Est Cr Clr Drug Dosing 34.1 Est GFR ( Amer) 44.1 Est GFR (Non-Af Amer) 38.1 BUN/Creatinine Ratio 23.4 H Glucose 104 H Calcium 9.3 Medications Administered Medication List Allopurinol (Allopurinol 300 Mg Tab) 300 mg PO DAILY ROSETTA Stop: 10/15/23 08:59 Last Admin: 09/16/23 08:38 Dose: 300 mg Documented By: Admin: 09/15/23 09:07 Dose: 300 mg Documented By: Sodium Chloride (Nss) 500 mls @ 80 mls/hr IV .Q6H15M ROSETTA Stop: 09/16/23 17:14 Last Admin: 09/16/23 12:06 Dose: 80 mls/hr Documented By: Melatonin (Melatonin 3 Mg Tab) 9 mg PO HS PRN PRN Reason: Sleep Stop: 10/15/23 20:05 Last Admin: 09/15/23 20:41 Dose: 9 mg Documented By: VISHNU Metoprolol Succinate (Metoprolol Succ 25mg Ext Rel Tab) 25 mg PO QAM [place] Stop: 10/16/23 08:59 Last Admin: 09/16/23 08:33 Dose: Not Given Documented By: Mirtazapine (Mirtazapine Tab 15 Mg Tab) 30 mg PO HS [facility] Stop: 10/14/23 20:59 Last Admin: 09/15/23 20:41 Dose: 30 mg Documented By: Admin: 09/14/23 21:54 Dose: 30 mg Documented By: VISHNU Oxycodone HCl (Oxycodone Hcl Ir 5 Mg Tab (Immediate Release)) 5 mg PO Q4H PRN PRN Reason: Pain Stop: 09/29/23 01:45 Last Admin: 09/15/23 01:53 Dose: 5 mg Documented By: VISHNU(2) Rosuvastatin Calcium (Rosuvastatin Calcium 5 Mg Tab) 5 mg PO DAILY [facility] Stop: 10/15/23 08:59 Last Admin: 09/16/23 08:38 Dose: 5 mg Documented By: Admin: 09/15/23 09:07 Dose: 5 mg Documented By: Tamsulosin HCl (Tamsulosin Hcl 0.4 Mg Cap) 0.4 mg PO HS [facility] Stop: 10/14/23 20:59 Last Admin: 09/14/23 21:54 Dose: 0.4 mg Documented By: VISHNU Discontinued Medications Pantoprazole Sodium 40 mg/ (Syringe) 10 mls @ 5 mls/min IV NOW ONE Stop: 09/14/23 10:22 Last Admin: 09/14/23 10:47 Dose: 5 mls/min Documented By: NICA Sodium Chloride (Nss) 2,000 mls @ 999 mls/hr IV .Q2H1M ONE Stop: 09/14/23 12:45 Last Infusion: 09/14/23 13:52 Dose: Infused Documented By: Admin: 09/14/23 11:02 Dose: 999 mls/hr Documented By: NICA Ceftriaxone Sodium (Rocephin) 2,000 mg in 50 mls @ 100 mls/hr IV NOW STA Stop: 09/14/23 12:38 Last Infusion: 09/14/23 13:52 Dose: Infused Documented By: Admin: 09/14/23 12:39 Dose: 100 mls/hr Documented By: NICA Pantoprazole Sodium 40 mg/ (Syringe) 10 mls @ 5 mls/min IV NOW ONE Stop: 09/14/23 14:01 Last Admin: 09/14/23 14:06 Dose: 5 mls/min Documented By: RIMA Ceftriaxone Sodium 2,000 mg/ (Dextrose) 50 mls @ 100 mls/hr IV Q24H ROSETTA; Protocol Stop: 09/25/23 12:59 Last Infusion: 09/15/23 14:44 Dose: Infused Documented By: Admin: 09/15/23 13:23 Dose: 100 mls/hr Documented By: CHRIS Metoprolol Succinate (Metoprolol Succ 50mg Ext Rel Tab) [facility] [place] Stop: 10/15/23 09:44 Last Admin: 09/15/23 10:28 Dose: 50 mg Documented By: Metoprolol Tartrate (Metoprolol Tartrate 25 Mg Tab) 25 mg PO QAM [place] Stop: 10/15/23 08:59 Last Admin: 09/15/23 09:07 Dose: 25 mg Documented By: Phytonadione (Phytonadione 5 Mg Tab) 5 mg PO NOW STA Stop: 09/14/23 13:45 Last Admin: 09/14/23 14:07 Dose: 5 mg Documented By: RIMA PG Care Time/CCT Total # of Minutes Spent Total Time Spent with Patient: Total time spent is greater than 50% in coordination of care (as documented) at patient's floor/unit and/or counseling patient:37 Coding [place] [address] SUB INP/OBS CARE 3/50MIN Patient Type Established History Detailed Exam Detailed Medical Decision Making High Complexity Diagnoses Multiple falls R29.6 Cardiomyopathy, unspecified type I42.9 Cardiomyopathy type: unspecified Demand ischemia I24.89 Prolonged QT interval R94.31 Acute upper GI bleed K92.2 Coronary artery disease involving [place] coronary artery of [place] heart without angina pectoris I25.10 Coronary Disease-Associated Artery/Lesion type: ely [place] artery [place] vs. transplanted heart: [place] heart Associated angina: without angina B-cell lymphoma C85.10 Time Spent (min) 58 (2) Cardiomyopathy Cardiomyopathy type: unspecified Qualified Code(s): I42.9 - Cardiomyopathy, unspecified (6) CAD (coronary artery disease) Coronary Disease-Associated Artery/Lesion type: [place] artery [place] vs. transplanted heart: ely [place] heart Associated angina: without angina Qualified Code(s): I25.10 - Atherosclerotic heart disease of [place] coronary artery without angina pectoris
[2023-09-16] MEDS ORDERED: MIRTAZAPINE TAB 15 MG TAB PO SCH (21:00)
--- NOTE | 2023-09-17 07:58 | Hospitalist Progress Note ---
Date of Service September 16, 2023 Assessment & Plan (1) Cardiomyopathy: Plan: Appreciate cardiology perspectives. There is indeed some association between cyclophosphamide and cardiac dysfunction though this is described more specifically in the use of very high dose cyclophosphamide. See for example https://www.sciencedirect.com/science/article/pii/B4976045954805485. The dose he received was only 1/8 of the threshold dose defined in that particular study below which in general there were very few cardiac complications. Need to explore the full differential diagnosis for the current cardiomyopathy. At older age and with pre-existing cardiac disease we certainly cannot exclude that he might be one of the more unusual cases of low-dose cyclophosphamide cardiac toxicity but that should become a diagnosis of exclusion. Understand the etiology of its decline and restoring more adequate cardiac function may have a fundamental impact on our ability to give further aggressive chemotherapy. (2) DARYL (acute kidney injury): Plan: Kidney function is fortunately returning towards his baseline. Uric acid levels are quite low and it might be prudent to reduce the dose or even discontinue al lopurinol altogether as that was primarily intended as a short-term prophylaxis against tumor lysis syndrome which he did not show to any significant degree. (3) B-cell lymphoma: Plan: CT scan suggested dramatic response just to the limited chemotherapy he received initially. This is encouraging and does give us a bit of a "window" to assess and optimize his cardiac and renal function before proceeding with further treatment. Pivotal issue, however, is to what extent his cardiac dysfunction may be a consequence of his chemotherapy as well as to what extent it can improve. As above cyclophosphamide induced cardiomyopathy is statistically unlikely but certainly cannot be excluded. Patient himself is not able to engage in meaningful medical decision making. I did speak with his and daughter indicating that we are a bit up in the air at this moment in terms of where to go next with his lymphoma treatment. We roge l take full advantage of the nice partial response after just 1 cycle of chemotherapy and his relative clinical stability to place any chemotherapy considerations on hold as we seek optimal understanding and stabilization of his kidney and cardiac function in particular. We will then need to reassess whether we can proceed with doxorubicin based treatment in more aggressive fashion or perhaps need to be more conservative seeking disease suppression/modulation more so than eradication Plan 1. Need to keep a broad perspective on possible causes of cardiac dysfunction as we seek to restore that and he is renal function to their baselines. To what extent we are successful with the latter and in defining the origin of cardiomyopathy will significantly modulate his prognosis and treatment choices for lymphoma 2. Given a very good partial response after just 1 cycle of chemotherapy, we will place chemotherapy on hold as we await physiologic definition and stabilization of his renal and cardiac systems 3. Can consider reducing the dose of allopurinol or eliminating it altogether with ongoing monitoring of uric acid Admission and Anticipated Discharge Date Admission Date: September 14, 2023 Subjective Patient himself offers no specific complaints. He remains weak and with moderate confusion unable to recall alves events during the early part of his hospitalization Physical Exam Physical Exam: Alert with stable vital signs. No immediate respiratory distress. Speech is fluent, he is showing no gross focality to his neurologic exam but does have issues of cognitive function. Lung cardiac and abdominal examination seems stable Results & Data Results & Data Vital Signs (Past 12 Hours) Vital Signs Temp Pulse Pulse Resp BP Pulse Ox O2 Del Method 09/17/23 07:47 93 H 09/17/23 07:37 36.5 C 92 H 18 104/69 98 Room Air 09/17/23 03:51 36.4 C L 93 H 18 122/85 95 Room Air 09/16/23 23:23 36.4 C L 89 17 124/76 98 Room Air 09/16/23 23:00 95 H 09/16/23 21:00 Room Air Diagnostic Findings Chest X-Ray 09/14/23 09:56 SINGLE VIEW CHEST CLINICAL HISTORY: Syncope. FINDINGS: An AP, portable, upright chest radiograph is compared to study dated 09/08/2023. Correlation is made with chest CT dated 08/15/2023. A right PICC line has been removed. A left subclavian central venous infusion port is unchanged in position. The tip of the infusion port catheter is curved and may extend into the azygos vein. The patient is status post midline sternotomy. The heart is e nlarged noting atherosclerotic calcification of the thoracic aorta. The pulmonary vasculature is noncongested. Emphysema and chronic interstitial thickening is similar to previous. Foci of parenchymal scarring are seen throughout both lungs. Asymmetric airspace opacities at the left lung base are similar to prior studies and likely chronic. No superimposed airspace consolidation or large pleural effusion is identified. No pneumothorax is seen. The skeletal structures are osteopenic. The bony thorax is grossly intact. IMPRESSION: 1. A left subclavian central venous infusion port is unchanged in position. The tip of the catheter is curved and may extend into the azygos vein. 2. Cardiomegaly, emphysema, chronic parenchymal changes as above. 3. No superimposed airspace consolidation or large pleural effusion is identified. ACT 112: Negative or not required by law. Electronically signed by: Harsha Cabrera M.D. 09/14/2023 10:[address] 09/14/23 10:21 CT SCAN OF THE BRAIN WITHOUT IV CONTRAST CLINICAL HISTORY: Fall from standing. COMPARISON STUDY: MRI of the brain dated 08/26/2023. TECHNIQUE: Unenhanced axial CT scan of the brain is performed from the vertex to the skull base. A dose lowering technique was utilized adhering to the principles of ALARA. 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 There is age-related involutional change noting mild subcortical and periventricular microangiopathic disease. There is no hemorrhage, mass e ffect, or evidence of acute territorial ischemia by CT criteria. Bell-white matter differentiation is preserved. No extra-axial fluid collection is seen. Ventricles, sulci, cisterns: Prominent secondary to involutional change. Intracranial vasculature: There is atherosclerotic calcification of the cavernous carotid and vertebral arteries. Calvarium: There is postsurgical change from bilateral craniotomy. No destructive calvarial lesion or depressed calvarial fracture is identified. Sinuses and mastoids: The visualized paranasal sinuses are clear. The mastoid air cells are well pneumatized. Orbits: The bony orbits are grossly intact. IMPRESSION: Chronic and postsurgical changes as above with no hemorrhage, mass effect, or evidence of acute territorial ischemia by CT criteria. ACT 112: Negative or not required by law. Electronically signed by: Harsha Cabrera M.D. 09/14/2023 11:00 AM Abdomen/Pelvis CT 09/14/23 19:47 Exam(s): CT ABDOMEN + PELVIS Without Contrast EXAM: CT Abdomen and Pelvis Without Intravenous Contrast CLINICAL HISTORY: Reason for exam: NHL S/P chemo, ?response. TECHNIQUE: Axial computed tomography images of the abdomen and pelvis without intravenous contrast. CTDI is 10.11 mGy and DLP is 495.87 mGy-cm. Automated exposure control was utilized for the study. A dose lowering technique was utilized adhering to the principles of ALARA. COMPARISON: 08/15/2023. FINDINGS: Lung bases: Interstitial prominence with reticulonodular pattern involving the bilateral lower lobes and honeycombing along the sacral region concerning for early pulmonary fibrosis. Left lower lobe and lingular opacity with groundglass and coarse pattern may indicate superimposed pneumonitis. Heart: Unremarkable. No significant pericardial effusion. Normal cardiac size with coronary artery calcifications. ABDOMEN: Liver: Low-attenuation structures within the liver, largest averaging approximately 10 mm concerning for neoplasm/metastatic disease. Gallbladder and bile ducts: Slightly over distended gallbladder with multiple tiny gallstones. No ductal dilation. Pancreas: Unremarkable. No ductal dilation. Spleen: Unremarkable. No splenomegaly. Adrenals: Unremarkable. No mass. Kidneys and ureters: Multiple calcifications within the bilateral kidneys, largest on the right measuring 4.3 within the lower pole largest on the left measures 6 mm within the lower pole compatible with intrarenal stones. The right kidney is otherwise unremarkable. There is a low-attenuation structure within the middle of the left kidney measuring 2.1 cm, consistent with simple renal cyst. There is a left- sided ureteral stent in place, unchanged location. No distinct left- sided hydronephrosis. Stomach and bowel: There is mild gaseous distention of the transverse colon. There are multiple loops of small bowel slightly distended to 2.5 cm, nonspecific. PELVIS: Appendix: No findings to suggest acute appendicitis. Bladder: The urinary bladder is decompressed Via Gr catheter. No stones. Reproductive: Unremarkable as visualized. ABDOMEN and PELVIS: Intraperitoneal space: Unremarkable. No free air. No significant fluid collection. Bones/joints: Multilevel degenerative disease of the spine. No acute fracture. No dislocation. Soft tissues: Unremarkable. Vasculature: Calcified atherosclerotic disease of aorta with mild ectasia distally measuring up to 2.7 cm. Heterogeneity of the wall at the level of the cecum with terminal ileum concerning for a mass. There is nodularity adjacent to the medial aspect of the cecal wall, best seen on image 51 and 52, measuring approximately 3 x 1.5 cm in maximum dimension and markedly improved from a previous dimension of 6 by 4.0 cm. Diverticulosis throughout the sigmoid and descending colon without signs of diverticulitis. Lymph nodes: Unremarkable. No enlarged lymph nodes. IMPRESSION: 1. Marked improvement in previously seen mass at the level of the cecum now revealing mild thickening of the wall with adjacent nodularity, both significantly decreased in size as described. 2. Multiple small low-attenuation lesions in the liver, suggested to be smaller in size although difficult to assess due to absence of intravenous contrast. 3. Bilateral intrarenal stones as described. 4. Multiple gallstones. 5. Resolution of right-sided pleural effusion. 6. Resolution of previously seen lymph nodes at the level of the hepatic hilum and pancreatic head. Electronically signed by: Bette Dye MD 09/14/23 21:39 PM PG Care Time/CCT Total # of Minutes Spent Total Time Spent with Patient: Total time spent is greater than 50% in coordination of care (as documented) at patient's floor/unit and/or counseling patient: Coding Level of Care Code 38828 SUB INP/OBS CARE 12/01MIN Diagnoses Cardiomyopathy, unspecified type I42.9 Cardiomyopathy type: unspecified DARYL (acute kidney injury) N17.9 B-cell lymphoma C85.10 (1) Cardiomyopathy Cardiomyopathy type: unspecified Qualified Code(s): I42.9 - Cardiomyopathy, unspecified
[2023-09-17] MEDS: allopurinoL 300 MG TAB PO SCH (08:05)
[2023-09-17] MEDS: METOPROLOL SUCC 25MG EXT REL TAB PO SCH (08:05)
[2023-09-17] MEDS: POLYETHYLENE (MIRALAX) 17 GM PACK PO PRN (08:08)
[2023-09-17 08:43] LABS: Hematocrit (blood only) 37.5 % (42.0-52.0); Hemoglobin 12.3 g/dl (14.0-18.0); Mean Corpuscular Hemoglobin 29.4 pg (25.0-34.0); Mean Corpuscular Hgb Conc 32.8 g/dL (32.0-36.0); Mean Corpuscular Volume 89.5 fL (80.0-100.0); Mean Platelet Volume 9.9 fL (9.4-12.4); Nucleated RBC # (auto) 0.02 K/uL (0.00-0.12); Nucleated RBC % (auto) 0.3 %; Platelet Count 159 K/uL (130-400); RDW Coefficient of Variation 18.2 % (11.5-14.5); RDW Standard Deviation 57.7 fL (36.4-46.3); Red Blood Count 4.19 M/uL (4.70-6.10); White Blood Count 7.62 K/ul (4.8-10.8)
[2023-09-17 08:44] LABS: Basophils # (auto) 0.02 K/uL (0.00-0.20); Basophils % (auto) 0.3 %; Eosinophils # (auto) 0.02 K/uL (0.00-0.50); Eosinophils % (auto) 0.3 %; Hematocrit (blood only) 40.2 % (42.0-52.0); Hemoglobin 12.7 g/dl (14.0-18.0); Immature Granulocytes # (auto) 0.17 K/uL (0.01-0.20); Immature Granulocytes % (auto) 2.4 %; Lymphocytes # (auto) 1.13 K/uL (1.20-3.40); Lymphocytes % (auto) 15.7 %; Mean Corpuscular Hemoglobin 28.2 pg (25.0-34.0); Mean Corpuscular Hgb Conc 31.6 g/dL (32.0-36.0); Mean Corpuscular Volume 89.3 fL (80.0-100.0); Mean Platelet Volume 9.8 fL (9.4-12.4); Monocytes # (auto) 0.43 K/uL (0.11-0.59); Neutrophils # (auto) 5.41 K/uL (1.40-6.50); Neutrophils % (auto) 75.3 %; Nucleated RBC # (auto) 0.03 K/uL (0.00-0.12); Nucleated RBC % (auto) 0.4 %; Platelet Count 163 K/uL (130-400); RDW Coefficient of Variation 18.1 % (11.5-14.5); RDW Standard Deviation 57.2 fL (36.4-46.3); White Blood Count 7.18 K/ul (4.8-10.8)
[2023-09-17 08:50] LABS: BUN Creatinine Ratio 21.7 (10-20); Calcium 9.5 mg/dl (8.6-10.3); Creatinine Clr Calc Pharmacy 29.1 ml/min; Est GFR (African American) 44.4 ml/min; Est GFR (Non-African American) 38.3 ml/min; Potassium 3.9 mmol/L (3.5-5.1)
[2023-09-17 09:02] LABS: BUN Creatinine Ratio 22.7 (10-20); Calcium 9.4 mg/dl (8.6-10.3); Creatinine Clr Calc Pharmacy 29.7 ml/min; Est GFR (African American) 45.4 ml/min; Est GFR (Non-African American) 39.2 ml/min
--- NOTE | 2023-09-17 15:39 | Hospitalist Progress Note ---
Date of Service September 17, 2023 Assessment & Plan (1) Multiple falls: Plan: Fall + potential LOC morning of 09/14, multiple falls over the past week Hx of underlying dementia Head CT showed no acute hemorrhage, mass effect, or evidence of acute territorial ischemia Urine culture resulted negative so uti ruled out, antibiotics stopped Recent cystoscopy on 09/12; due to kidney stones with stone Destroyed by laser, postop discharge with 3-day course of Cipro and Diflucan cipro can cause confusion Blood culture negative to date Fall precautions in place Pt with daytime sleepiness, stopped melatonin, stopped mirtazipine, not clear of etiology PT/OT consulted recommend rehab (2) B-cell lymphoma: Plan: Port placement on 09/08, Patient was supposed to have second dose of chemotherapy this week, postponed by medical issues for prevention of tumor lysis syndrome on rituximab on 08/22/2023; continue allopurinol uric acid is normal to low Appreciate oncology consult (3) DARYL (acute kidney injury): Plan: daryl with CKD3, improving , limits otilia/arb use at this time slight improvement from admission Avoid nephrotoxic agents improving (4) Demand ischemia: Plan: Patient denies chest pain / pleuritic CP / SOB at rest, known CABG and Stent in the past hold asprin with coffee ground emesis Elevated troponin at 118.0 --> 121.8, at this time do not feel this is an NSTEMI, furhter cardiac eval in process EKG showed marked T wave inversions Limited echo shows decreased EF, consider Systolic heart failure QTc 580 on admission EKG on 08/11/2023 also had QTc prolongation at 579 Recently started on short course of Cipro/Diflucan following his urologic procedure on 09/12, which can extend QTc; holding both (5) Bloody emesis: Plan: Dark coffee-ground brown emesis x1 episode in the ED, stable hgb, Patient also endorses "Black BMs" x 1 week pantoprazole 40 mg IV twice daily Hemaglobin has been stable (6) Dementia: Plan: Ongoing decline x2 years, can have acute metabolic encephalopathy Per daughter, acute changes over the past couple weeks Patient is not currently taking Aricept (7) 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: Plan: Hold aspirin in the setting of hematemesis, hematuria Continue rosuvastatin; CK WNL at 75 Plan Full code advance diet as tolerated VTE PPx: SCDs (hold chemical DVT PPx in the setting of hematemesis, hematuria, melena) Admission and Anticipated Discharge Date Admission Date: September 14, 2023 Subjective pt has been sleeping for almost 2 days, initially family concern that it was from melatonin this was stopped and still sleeping during day, has history of cerebral hemorrhage with encephalomalacia, gliosis and post op changes to the skull seen on MRI from 08/29, at that time no mention of lymphoma but was without contrast has acute cardiomyopathy with history of previous CABG, is not in acute heart failure at present Mirtazapine dose reduced 09/16 and will be stopped 09/17 Physical Exam Physical Exam: pt is lethargic but non focal. cardiac exam is regular lungs are clear extremity with trace edema Results & Data Results & Data Vital Signs (Past 12 Hours) Vital Signs Temp Pulse Pulse Resp BP BP Pulse Ox 09/17/23 11:51 97.7 F 102 H 18 103/69 96 09/17/23 07:47 93 H 09/17/23 07:37 97.7 F 92 H 18 104/69 98 09/17/23 07:30 09/17/23 03:51 97.5 F L 93 H 18 122/85 95 O2 Del Method 09/17/23 11:51 Room Air 09/17/23 07:47 09/17/23 07:37 Room Air 09/17/23 07:30 Room Air 09/17/23 03:51 Room Air Laboratory Results review cbc review chemistry PG Care Time/CCT Total # of Minutes Spent Total Time Spent with Patient: Total time spent is greater than 50% in coordination of care (as documented) at patient's floor/unit and/or counseling patient: Coding Level of Care Code 91777 SUB INP/OBS CARE 2/35MIN Diagnoses Multiple falls R29.6 B-cell lymphoma C85.10 DARYL (acute kidney injury) N17.9 Demand ischemia I24.89 Bloody emesis K92.0 Dementia F03.90 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
--- NOTE | 2023-09-17 17:34 | Magnetic Resonance Report ---
MRI OF THE BRAIN WITHOUT CONTRAST CLINICAL HISTORY: recent lymphoma now lethargic COMPARISON STUDY: MRI of the brain August 26, 2023. Head CT September 14, 2023. TECHNIQUE: Utilizing a 1.5 Selin magnet and dedicated coil, multiplanar, multiecho imaging of the bra in was performed without IV contrast. FINDINGS: A 4 mm hyperintense focus within the medial right cerebellar hemisphere on axial diffusion- weighted sequence image 8 of is noted. This is isointense on the ADC map. There is a corresponding T2 hyperintense focus which is new since MRI of August 26, 2023. An additional old infarct within t he right cerebellar hemisphere is unchanged. Bilateral frontal craniotomies are noted. Right parieto- occipital encephalomalacia is again noted. Ventricular system is stable. Atrophy is again noted. The basal cisterns are patent. Abnormal flow-void for the right internal carotid artery is unchanged sinc e MRI of August 26, 2023. There is a tiny extra-axial collection overlying the right frontal lobe on coronal FLAIR image 7 of . This is new since previous MRI favors a trace subdural hematoma. Suspec emma dural thickening within the left operative bed is unchanged. Otherwise, the appearance of the bra in is unchanged. IMPRESSION: 1. 4 mm focus of signal abnormality within the medial right cerebellar hemisphere which is new since MRI of August 26, 2023. This favors a tiny subacute infarct. 2. Suspected trace subdural hematoma overlying the right frontal lobe which is also new since MRI of August 26, 2023. 3. Otherwise, no change in appearance of the brain, as described above. 4. Abnormal flow-void for the right internal carotid artery, unchanged. This favors occlusion or high -grade stenosis. ACT 112: Negative or not required by law. Electronically signed by: Moy Abraham M.D. 09/17/2023 5:32 PM
[2023-09-18 07:41] LABS: Basophils # (auto) 0.02 K/uL (0.00-0.20); Basophils % (auto) 0.2 %; Eosinophils # (auto) 0.03 K/uL (0.00-0.50); Eosinophils % (auto) 0.4 %; Hematocrit (blood only) 36.6 % (42.0-52.0); Immature Granulocytes # (auto) 0.23 K/uL (0.01-0.20); Immature Granulocytes % (auto) 2.9 %; Lymphocytes # (auto) 1.23 K/uL (1.20-3.40); Lymphocytes % (auto) 15.3 %; Mean Corpuscular Hemoglobin 28.8 pg (25.0-34.0); Mean Corpuscular Hgb Conc 32.8 g/dL (32.0-36.0); Mean Platelet Volume 10.5 fL (9.4-12.4); Monocytes # (auto) 0.56 K/uL (0.11-0.59); Neutrophils # (auto) 5.95 K/uL (1.40-6.50); Neutrophils % (auto) 74.2 %; Nucleated RBC # (auto) 0.02 K/uL (0.00-0.12); Nucleated RBC % (auto) 0.2 %; Platelet Count 163 K/uL (130-400); RDW Coefficient of Variation 18.1 % (11.5-14.5); RDW Standard Deviation 55.7 fL (36.4-46.3); Red Blood Count 4.16 M/uL (4.70-6.10); White Blood Count 8.02 K/ul (4.8-10.8)
[2023-09-18] MEDS ORDERED: ASPIRIN CHEW 324 MG PO STA (07:55)
[2023-09-18 08:00] LABS: BUN Creatinine Ratio 21.9 (10-20); Calcium 9.4 mg/dl (8.6-10.3); Creatinine Clr Calc Pharmacy 33.3 ml/min; Est GFR (African American) 51.9 ml/min; Est GFR (Non-African American) 44.8 ml/min; Potassium 3.8 mmol/L (3.5-5.1)
--- NOTE | 2023-09-18 08:03 | Hospitalist Progress Note ---
Date of Service September 18, 2023 Assessment & Plan (1) Multiple falls: Plan: Fall + potential LOC morning of 09/14, multiple falls over the past week, subacute stroke, start asa, high intesity statin despite negative head CT and previous neg MRI, repeat MRI on 09/17 shows subacute right cerebellar cva and small subdural hematomas(previous ICH with evacuation at [facility] approx 2 yrs ago) known ICA issues, was on hold given lymphoma diagnosis, will revisit although likely not responsible for R cerebellar stroke Hx of underlying dementia Head CT showed no acute hemorrhage, mass effect, or evidence of acute territorial ischemia Urine culture resulted negative so uti ruled out,Blood culture negative to date antibiotics stopped Recent cystoscopy on 09/12; due to kidney stones with stone Destroyed by laser, postop discharge with 3-day course of Cipro and Diflucan cipro can cause confusion Pt with daytime sleepiness, stopped melatonin, stopped mirtazipine, PT/OT consulted recommend rehab, Fall precautions in place (2) B-cell lymphoma: Plan: Port placement on 09/08, Patient was supposed to have second dose of chemotherapy this week, postponed by medical issues for prevention of tumor lysis syndrome on rituximab on 08/22/2023; continue allopurinol uric acid is normal to low Appreciate oncology consult (3) DARYL (acute kidney injury): Plan: daryl with CKD3, improving , limits otilia/arb use at this time slight improvement from admission Avoid nephrotoxic agents improving (4) Demand ischemia: Plan: Patient denies chest pain / pleuritic CP / SOB at rest, known CABG and Stent in the past hold asprin with coffee ground emesis Elevated troponin at 118.0 --> 121.8, at this time do not feel this is an NSTEMI, furhter cardiac eval in process EKG showed marked T wave inversions Limited echo shows decreased EF, consider Systolic heart failure QTc 580 on admission EKG on 08/11/2023 also had QTc prolongation at 579 Recently started on short course of Cipro/Diflucan following his urologic procedure on 09/12, which can extend QTc; holding both (5) Bloody emesis: Plan: no further bloody emesis change protonix to po pepcid Hemaglobin has been stable, no further emesis (6) Dementia: Plan: Ongoing decline x2 years, can have acute metabolic encephalopathy Per daughter, acute changes over the past couple weeks Patient is not currently taking Aricept (7) 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 MRI scan confirms a subacute stroke in the right cerebellum also some small subdural hematomas which are unclear from recent falls or residual from previous traumatic brain injury. Family present at bedside and updated has acute cardiomyopathy with history of previous CABG, is not in acute heart failure at present Physical Exam Physical Exam: pt is lethargic but non focal. cardiac exam is regular lungs are clear extremity with trace edema Results & Data Results & Data Vital Signs (Past 12 Hours) Vital Signs Temp Pulse Pulse Resp BP BP Pulse Ox 09/18/23 07:42 97.5 F L 92 H 18 111/67 96 09/18/23 07:39 88 09/18/23 04:14 97.5 F L 83 16 90/67 L 98 09/17/23 23:41 94 H 09/17/23 23:18 97.5 F L 86 18 92/62 L 93 09/17/23 21:52 94 H 115/78 09/17/23 20:45 96.8 F L 87 17 84/63 L 96 09/17/23 20:00 O2 Del Method 09/18/23 07:42 Room Air 09/18/23 07:39 09/18/23 04:14 Room Air 09/17/23 23:41 09/17/23 23:18 Room Air 09/17/23 21:52 09/17/23 20:45 Room Air 09/17/23 20:00 Room Air Laboratory Results Reviewed CBC reviewed chemistry PG Care Time/CCT Total # of Minutes Spent Total Time Spent with Patient: Total time spent is greater than 50% in coordination of care (as documented) at patient's floor/unit and/or counseling patient: Coding Level of Care Code 58548 SUB INP/OBS CARE 2/35MIN Diagnoses Multiple falls R29.6 B-cell lymphoma C85.10 DARYL (acute kidney injury) N17.9 Demand ischemia I24.89 Bloody emesis K92.0 Dementia F03.90 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
[2023-09-18] MEDS: POLYETHYLENE (MIRALAX) 17 GM PACK PO PRN (08:26)
[2023-09-18] MEDS: METOPROLOL SUCC 25MG EXT REL TAB PO SCH (08:26)
[2023-09-18] MEDS: ROSUVASTATIN CALCIUM 10 MG TAB PO SCH (09:32)
--- NOTE | 2023-09-18 20:12 | Electrocardiogram Report ---
Test Reason : Blood Pressure : / mmHG Vent. Rate : 090 BPM Atrial Rate : 090 BPM P-R Int : 128 ms QRS Dur : 098 ms QT Int : 448 ms P-R-T Axes : 005 -23 158 degrees QTc Int : 548 ms Sinus rhythm with Premature atrial complexes Possible Left atrial enlargement Left ventricular hypertrophy with repolarization abnormality Inferior-posterior infarct (cited on or before 29-JUN-2019) Marked T-wave abnormality, consider inferolateral ischemia Prolonged QT Abnormal ECG When compared with ECG of 16-SEP-2023 11:05, QT has shortened Confirmed by Jake Hartmann ([id number]) on 09/18/2023 8:11:49 PM Referred By: REFERRED SELF Confirmed By:Jake Hartmann
[2023-09-18] MEDS: FAMOTIDINE 20 MG TAB PO SCH (20:28)
[2023-09-19 06:48] LABS: BUN Creatinine Ratio 19.7 (10-20); Calcium 9.1 mg/dl (8.6-10.3); Creatinine Clr Calc Pharmacy 33.7 ml/min; Est GFR (African American) 53.7 ml/min; Est GFR (Non-African American) 46.3 ml/min; Potassium 4.5 mmol/L (3.5-5.1)
[2023-09-19] MEDS: ROSUVASTATIN CALCIUM 10 MG TAB PO SCH (08:47)
[2023-09-19] MEDS: FAMOTIDINE 20 MG TAB PO SCH ×2 (08:47→20:24)
--- NOTE | 2023-09-19 09:10 | Cardiology Progress Note ---
Date of Service September 19, 2023 Assessment & Plan (1) Multiple falls: (2) Cardiomyopathy: (3) Demand ischemia: Plan: Mr. Calderon is an 78 year old male with a history of CAD s/p CABG x 2 Vessels 2005 s/p Proximal RCA Stent remotely, Hypertension, Dyslipidemia, Dementia, Nephrolithiasis, Intracranial Hemorrhage, Stage 3 CKD, and recently diagnosed B- Cell Lymphoma who was admitted to [facility] on 09/14/23 with Generalized Weakness, Recurrent Falls, DARYL, and Coffee Ground Emesis x 1. Patient offers no complaints today and states that he is feeling pretty well. Patient has not had any cardiopulmonary symptoms leading up to this hospitalization or since he has been admitted. Patient has not experienced any angina pectoris or anginal equivalent symptoms, overt signs or symptoms of heart failure, nor has he had any symptoms suggestive of dysrhythmia. His heart rates today in the 70's to 90's bpm range and he is in normal sinus rhythm with premature atrial contractions. Etiology of his reduced LV systolic function is uncertain but could be secondary to Cyclophosphamide. Patient does not describe any ischemic symptoms and he appears euvolemic on physical examination. We discussed doing a Lexiscan Cardiolite when his blood pressure is more stable. His high sensitivity Troponin I levels are 118.0 pg/mL and 121.8 pg/mL -- this is not trending as 1 would expect with an acute coronary syndrome. Recommend the following: -- Continue Toprol XL 25 mg daily. -- As renal function allows, would recommend starting and ARB or Entresto. -- Monitor daily I&O's and body weights. -- Manage volume status as necessary. -- Consider a Lexiscan Cardiolite once his hypotension resolves. (4) Prolonged QT interval: Plan: Prolonged QT interval was not present on his EKG in June 2019 but is present on all of his EKGs since 08/11/23 so this is likely medication related -- QT prolongation can be found with the use of fluoroquinolones, antifungals, and cyclophosphamide. Continue to monitor. -- Cipro and Diflucan have been held. (5) Acute upper GI bleed: Plan: -- Continue Pepcid 20 mg b.i.d.. (6) CAD (coronary artery disease): Plan: Patient had two-vessel bypass in 2004, and a remote RCA stent. His last cardiac catheterization 03/30/2021 showed a patent GONZALEZ to LAD graft, SVG to diagonal graft was patent with mild scattered plaques. RCA with stent and chronic total occlusion. Good L-to-R collaterals. LMCA has up to 40% distal narrowing, [place] LAD shows 70% to 80% ostial and proximal stenosis. -- Continue Toprol XL 25 mg daily. -- Continue Aspirin 81 mg daily. -- Rosuvastatin 10 mg daily. (7) B-cell lymphoma: Plan: -- Followed by Dr. Durbin. Admission and Anticipated Discharge Date Admission Date: September 14, 2023 Subjective Mr. Calderon is being in room 208. He offers no complaints today and he denies any cardiopulmonary symptoms. He denies any chest pain, heaviness, tightness, pressure, or angina pectoris. He denies any SOB, orthopnea, or PND. He denies any exertional dyspnea, but he has not been out of bed. He denies any palpitations, syncope or near syncope. Review of Systems Review of Systems: -- 10 point ROS completed and is negativ e with the exception of what is mentioned in the HPI. Physical Exam Physical Exam: BP 96/58, Pulse 88 and regular. GENERAL: Patient in no acute distress. HEENT: Head is atraumatic, normocephalic. EOM's intact. Facies symmetric. No perioral cyanosis. NECK: No JVD. JVP is not elevated. CHEST/LUNGS: Diminished breath sounds throughout, otherwise clear. No wheezes, rales, or crackles. CVS: S1 and S2 are regular without murmurs, gallops, or rubs. PMI is nondisplaced. No lifts, heaves, or thrills. No abdominal aortic or renal bruits. Median sternotomy scar is present. ABDOMINAL EXAM: Bowel sounds are present. No masses, organomegaly, or tenderness. EXTREMITIES: No clubbing or cyanosis. No edema. Intact radial pulses bilaterally. NEUROLOGIC EXAM: Patient is awake, alert, and interactive. Pleasant and cooperative. Answers questions appropriately. Speech is clear. Gait pattern was not assessed. Insurance Policy Issue Clerk: -- Sinus rhythm in the 80's and 90's wit h PAC's. Results & Data Vital Signs (Past 12 Hours) Vital Signs Temp Pulse Resp BP BP Pulse Ox O2 Del Method 09/19/23 08:12 36.4 C L 92 H 18 86/51 L 98 Room Air 09/19/23 03:00 36.4 C L 88 16 92/63 L 96 Room Air 09/19/23 00:19 36.7 C 89 22 94/71 L 96 Room Air Laboratory Results Laboratory Results - last 24 hr 09/19/23 06:01 Sodium 141 Potassium 4.5 Chloride 107 Carbon Dioxide 27 Anion Gap 7 BUN 28 H Creatinine 1.42 H Est Cr Clr Drug Dosing 33.7 Est GFR ( Amer) 53.7 Est GFR (Non-Af Amer) 46.3 BUN/Creatinine Ratio 19.7 Glucose 100 H Calcium 9.1 Diagnostic Findings MRI BRAIN 09/17/23: IMPRESSION: 1. 4 mm focus of signal abnormality within the medial right cerebellar hemisphere which is new since MRI of August 26, 2023. This favors a tiny subacute infarct. 2. Suspected trace subdural hematoma overlying the right frontal lobe which is also new since MRI of August 26, 2023. 3. Otherwise, no change in appearance of the brain, as described above. 4. Abnormal flow-void for the right internal carotid artery, unchanged. This favors occlusion or high-grade stenosis. Medications Administered Medication List Famotidine (Famotidine 20 Mg Tab) 20 mg PO BID [facility] Stop: 10/18/23 20:59 Last Admin: 09/19/23 08:47 Dose: 20 mg Documented By: Admin: 09/18/23 20:28 Dose: 20 mg Documented By: TP Metoprolol Succinate (Metoprolol Succ 25mg Ext Rel Tab) 25 mg PO QAM [facility] Stop: 10/16/23 08:59 Last Admin: 09/18/23 08:26 Dose: 25 mg Documented By: Admin: 09/17/23 08:05 Dose: 25 mg Documented By: Admin: 09/16/23 08:33 Dose: Not Given Documented By: Polyethylene Glycol (Polyethylene (Miralax) 17 Gm Pack) 17 gm PO DAILY PRN PRN Reason: Constipation Stop: 10/14/23 14:04 Last Admin: 09/18/23 08:26 Dose: 17 gm Documented By: Admin: 09/17/23 08:08 Dose: 17 gm Documented By: Rosuvastatin Calcium (Rosuvastatin Calcium 10 Mg Tab) 10 mg PO DAILY [facility] Stop: 10/18/23 08:59 Last Admin: 09/19/23 08:47 Dose: 10 mg Documented By: Admin: 09/18/23 09:32 Dose: 10 mg Documented By: Tamsulosin HCl (Tamsulosin Hcl 0.4 Mg Cap) 0.4 mg PO HS [facility] Stop: 10/14/23 20:59 Last Admin: 09/14/23 21:54 Dose: 0.4 mg Documented By: VISHNU Discontinued Medications Allopurinol (Allopurinol 300 Mg Tab) 300 mg PO DAILY [facility] Stop: 10/15/23 08:59 Last Admin: 09/17/23 08:05 Dose: 300 mg Documented By: Admin: 09/16/23 08:38 Dose: 300 mg Documented By: Admin: 09/15/23 09:07 Dose: 300 mg Documented By: Aspirin (Aspirin Chew 324 Mg) 324 mg PO NOW STA Stop: 09/18/23 07:56 Last Admin: 09/18/23 08:25 Dose: 324 mg Documented By: Pantoprazole Sodium 40 mg/ (Syringe) 10 mls @ 5 mls/min IV NOW ONE Stop: 09/14/23 10:22 Last Admin: 09/14/23 10:47 Dose: 5 mls/min Documented By: NICA Sodium Chloride (Nss) 2,000 mls @ 999 mls/hr IV .Q2H1M ONE Stop: 09/14/23 12:45 Last Infusion: 09/14/23 13:52 Dose: Infused Documented By: Admin: 09/14/23 11:02 Dose: 999 mls/hr Documented By: NICA Ceftriaxone Sodium (Rocephin) 2,000 mg in 50 mls @ 100 mls/hr IV NOW STA Stop: 09/14/23 12:38 Last Infusion: 09/14/23 13:52 Dose: Infused Documented By: Admin: 09/14/23 12:39 Dose: 100 mls/hr Documented By: NICA Pantoprazole Sodium 40 mg/ (Syringe) 10 mls @ 5 mls/min IV NOW ONE Stop: 09/14/23 14:01 Last Admin: 09/14/23 14:06 Dose: 5 mls/min Documented By: RIMA Ceftriaxone Sodium 2,000 mg/ (Dextrose) 50 mls @ 100 mls/hr IV Q24H [facility]; Protocol Stop: 09/25/23 12:59 Last Infusion: 09/15/23 14:44 Dose: Infused Documented By: Admin: 09/15/23 13:23 Dose: 100 mls/hr Documented By: CHRIS Sodium Chloride (Nss) 500 mls @ 80 mls/hr IV .Q6H15M [facility] Stop: 09/16/23 17:14 Last Infusion: 09/16/23 19:20 Dose: Infused Documented By: Admin: 09/16/23 12:06 Dose: 80 mls/hr Documented By: Melatonin (Melatonin 3 Mg Tab) 9 mg PO HS PRN PRN Reason: Sleep Stop: 10/15/23 20:05 Last Admin: 09/15/23 20:41 Dose: 9 mg Documented By: VISHNU Metoprolol Succinate (Metoprolol Succ 50mg Ext Rel Tab) 50 mg PO QAM [facility] Stop: 10/15/23 09:44 Last Admin: 09/15/23 10:28 Dose: 50 mg Documented By: Metoprolol Tartrate (Metoprolol Tartrate 25 Mg Tab) 25 mg PO QAM [facility] Stop: 10/15/23 08:59 Last Admin: 09/15/23 09:07 Dose: 25 mg Documented By: Mirtazapine (Mirtazapine Tab 15 Mg Tab) 30 mg PO HS [facility] Stop: 10/14/23 20:59 Last Admin: 09/15/23 20:41 Dose: 30 mg Documented By: Admin: 09/14/23 21:54 Dose: 30 mg Documented By: VISHNU Mirtazapine (Mirtazapine Tab 15 Mg Tab) 15 mg PO HS [facility] Stop: 10/16/23 20:59 Last Admin: 09/16/23 21:58 Dose: 15 mg Documented By: CARTER Oxycodone HCl (Oxycodone Hcl Ir 5 Mg Tab (Immediate Release)) 5 mg PO Q4H PRN PRN Reason: Pain Stop: 09/29/23 01:45 Last Admin: 09/15/23 01:53 Dose: 5 mg Documented By: VISHNU(2) Phytonadione (Phytonadione 5 Mg Tab) 5 mg PO NOW STA Stop: 09/14/23 13:45 Last Admin: 09/14/23 14:07 Dose: 5 mg Documented By: RIMA Rosuvastatin Calcium (Rosuvastatin Calcium 5 Mg Tab) 5 mg PO DAILY [facility] Stop: 10/15/23 08:59 Last Admin: 09/16/23 08:38 Dose: 5 mg Documented By: Admin: 09/15/23 09:07 Dose: 5 mg Documented By: PG Care Time/CCT Total # of Minutes Spent Total Time Spent with Patient: Total time spent is greater than 50% in coordination of care (as documented) at patient's floor/unit and/or counseling patient: [place] [address] SUB INP/OBS CARE 3/50MIN Patient Type Established History Detailed Exam Detailed Medical Decision Making Moderate Complexity Diagnoses Multiple falls R29.6 Cardiomyopathy, unspecified type I42.9 Cardiomyopathy type: unspecified Demand ischemia I24.89 Prolonged QT interval R94.31 Acute upper GI bleed K92.2 Coronary artery disease involving [place] coronary artery of [place] heart without angina pectoris I25.10 Coronary Disease-Associated Artery/Lesion type: [place] artery [place] vs. transplanted heart: [place] heart Associated angina: without angina B-cell lymphoma C85.10 (2) Cardiomyopathy Cardiomyopathy type: unspecified Qualified Code(s): I42.9 - Cardiomyopathy, unspecified (6) CAD (coronary artery disease) Coronary Disease-Associated Artery/Lesion type: [place] artery [place] vs. transplanted heart: [place] heart Associated angina: without angina Qualified Code(s): I25.10 - Atherosclerotic heart disease of [place] coronary artery without angina pectoris
[2023-09-19] MEDS: METOPROLOL SUCC 25MG EXT REL TAB PO SCH ×3 (09:56→11:08)
--- NOTE | 2023-09-19 19:45 | Hospitalist Progress Note ---
Date of Service September 19, 2023 Assessment & Plan (1) Multiple falls: Plan: Fall + potential LOC morning of 09/14, multiple falls over the past week, subacute stroke, start asa, high intesity statin despite negative head CT and previous neg MRI, repeat MRI on 09/17 shows subacute right cerebellar cva and small subdural hematomas(previous ICH with evacuation at [facility] approx 2 yrs ago) known ICA issues, was on hold given lymphoma diagnosis, will revisit although likely not responsible for R cerebellar stroke Hx of underlying dementia Head CT showed no acute hemorrhage, mass effect, or evidence of acute territorial ischemia Urine culture resulted negative so uti ruled out,Blood culture negative to date antibiotics stopped Recent cystoscopy on 09/12; due to kidney stones with stone Destroyed by laser, postop discharge with 3-day course of Cipro and Diflucan cipro can cause confusion Pt with daytime sleepiness, stopped melatonin, stopped mirtazipine, with improvement. Patient states he is depressed we will try to use Effexor ordered for its mood elevating affect PT/OT consulted recommend rehab, Fall precautions in place (2) B-cell lymphoma: Plan: Port placement on 09/08, Patient was supposed to have second dose of chemotherapy this week, postponed by medical issues for prevention of tumor lysis syndrome on rituximab on 08/22/2023; continue allopurinol uric acid is normal to low Appreciate oncology consult Unclear what underlying malignancy and recent chemotherapy place and his functional poor performance (3) DARYL (acute kidney injury): Plan: daryl with CKD3, continue improving , limits otilia/arb use at this time slight improvement from admission Avoid nephrotoxic agents improving (4) Demand ischemia: Plan: Patient denies chest pain / pleuritic CP / SOB at rest, known CABG and Stent in the past hold asprin with coffee ground emesis Elevated troponin at 118.0 --> 121.8, at this time do not feel this is an NSTEMI, furhter cardiac eval in process EKG showed marked T wave inversions Limited echo shows decreased EF, consider Systolic heart failure QTc 580 on admission improving slowly but remains with abnormal EKG, QTc 548 on last EKG EKG on 08/11/2023 also had QTc prolongation at 579 Recently started on short course of Cipro/Diflucan following his urologic procedure on 09/12, which can extend QTc; holding both (5) Bloody emesis: Plan: no further bloody emesis change protonix to po pepcid Hemaglobin has been stable, no further emesis (6) Dementia: Plan: Ongoing decline x2 years, can have acute metabolic encephalopathy Per daughter, acute changes over the past couple weeks Patient is not currently taking Aricept (7) 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: Plan: asa Continue rosuvastatin; CK WNL at 75 Plan Full code Adding boost to diet to try to improve nutritional state VTE PPx: SCDs (hold chemical DVT PPx in the setting of hematemesis, hematuria, melena) Admission and Anticipated Discharge Date Admission Date: September 14, 2023 Subjective Patient is having poor p.o. intake blood pressures been low he is confused at times but has diagnosis of dementia he does admit to being depressed at times although he is not oriented besides person and knows he is in the hospital Family states he is typically a poor eater Tried discussed the bigger picture goals of care with the family they will discuss later this evening. Physical Exam Physical Exam: pt is lethargic but non focal. cardiac exam is regular lungs are clear extremity with trace edema Results & Data Results & Data Vital Signs (Past 12 Hours) Vital Signs Temp Pulse Pulse Resp BP BP Pulse Ox 09/19/23 15:31 99 H 09/19/23 15:16 98.4 F 104 H 17 94/64 L 95 09/19/23 11:04 97.3 F L 95 H 18 100/67 96 09/19/23 08:12 97.5 F L 92 H 18 86/51 L 98 09/19/23 08:00 09/19/23 08:00 86 O2 Del Method 09/19/23 15:31 09/19/23 15:16 Room Air 09/19/23 11:04 Room Air 09/19/23 08:12 Room Air 09/19/23 08:00 Room Air 09/19/23 08:00 Laboratory Results Reviewed chemistry Bedside goal care discussion with PG Care Time/CCT Total # of Minutes Spent Total Time Spent with Patient: Total time spent is greater than 50% in coordination of care (as documented) at patient's floor/unit and/or counseling patient: Coding Level of Care Code 01829 SUB INP/OBS CARE 2/35MIN Diagnoses Multiple falls R29.6 B-cell lymphoma C85.10 DARYL (acute kidney injury) N17.9 Demand ischemia I24.89 Bloody emesis K92.0 Dementia F03.90 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
[2023-09-19] MEDS: VENLAFAXINE HCL 37.5 MG TAB PO SCH (20:24)
[2023-09-20 07:55] LABS: BUN Creatinine Ratio 18.4 (10-20); Creatinine Clr Calc Pharmacy 30.3 ml/min; Est GFR (African American) 47.2 ml/min; Est GFR (Non-African American) 40.7 ml/min
[2023-09-20] MEDS: VENLAFAXINE HCL 37.5 MG TAB PO SCH ×2 (07:57→20:32)
[2023-09-20] MEDS: ROSUVASTATIN CALCIUM 10 MG TAB PO SCH (07:57)
[2023-09-20] MEDS: FAMOTIDINE 20 MG TAB PO SCH ×2 (07:57→20:32)
[2023-09-20] MEDS: ASPIRIN 81 MG ECTAB PO SCH (07:57)
[2023-09-20] MEDS ORDERED: METOPROLOL SUCC 25MG EXT REL TAB PO SCH (09:00)
--- NOTE | 2023-09-20 11:31 | XCELERA ---
[id number] \\[email or web address]\[id number]
--- NOTE | 2023-09-20 14:59 | Cardiology Progress Note ---
Date of Service September 20, 2023 Assessment & Plan (1) Hypotension: (2) CAD (coronary artery disease): (3) Cardiomyopathy: (4) B-cell lymphoma: (5) Cerebellar stroke: Plan 78-year-old man with CAD (status post CABG with GONZALEZ to LAD and SVG to diagonal) noted to have recent modest decline in LV systolic function of uncertain etiology, no associated heart failure. No symptoms of acute cardiac event elicited from patient. ECG shows new global major T wave inversions which were not dynamic but persisted over a period of days. Troponin mildly elevated but flat on 2 draws. Initial echocardiogram showed EF had dropped from 60% to 40% with mild global hypokinesis. Current echocardiogram shows improvement in EF to 45% with more focal wall motion abnormalities (anterior/anteroseptal hypokinesis and inferobasal akinesis). Coronary anatomy at catheterization 2020: -LAD with 70 to 80% proximal and mid stenoses, SVG graft to diagonal between these regions, GONZALEZ to to distal LAD -Small circumflex free of major disease -Occluded/collateralized RCA Based on above findings, it appears less likely that the patient had an acute event and more likely that his persistent hypotension has led to relative hypoperfusion of his "watershed" coronary regions which are most vulnerable (inferior wall with occluded/collateralized RCA and mid anterior/anteroseptal wall perfused by SVG). Distal cardiac function intact, suggesting patent GONZALEZ graft. Suspect his ECG findings are secondary to his recent PEN RIDER event given their global/non-dynamic nature. Absence of more dramatic troponin rise/peak and decay weighs against acute cardiac event. Utility of stress testing fairly low, since this likely would demonstrate ischemia of the "watershed" regions, which in the absence of ongoing symptoms of myocardial ischemia would not warrant revascularization/aggressive intervention. Role of cyclophosphamide, if any, and transient cardiac decline remains unclear but given more focal nature of wall motion abnormalities on current echocardiogram it seems that hypoperfusion of vulnerable areas may be more of contributing factor than a global chemotherapy-induced cardiomyopathy. Agree with avoiding vasoactive drugs until his hypotension resolves. No other specific cardiac recommendations at this time. Admission and Anticipated Discharge Date Admission Date: September 14, 2023 Subjective Uneventful night. Patient remains weak and needs significant assistance to use commode, etc. BP remains mildly reduced. Lethargic, answers some simple questions, little spontaneous activity. No major complaints. Does note excess mucus but denies dyspnea or chest pain. Echocardiogram today shows some mild improvement in left ventricular systolic function (EF 45-50%), wall motion abnormalities appear more focal but are partially improved. Physical Exam Physical Exam: Appears frail but in no distress. Weight not obtained today. BP 90/60 mmHg. Pulse 90 bpm and regular. Skin: no generalized lesions. HEENT: unremarkable. Neck: JVP at or below the clavicle at 30 90 degrees, no carotid bruits. Lungs: Poor inspiratory effort, generally clear. Cardiac: regular rhythm, 2/6 apical holosystolic murmur which is nonradiating, no diastolic murmur. Abdomen: benign. Extremities: no edema, pulses intact. Neurologic: Reticent affect, answers some simple questions, grossly nonfocal. Results & Data Vital Signs (Past 12 Hours) Vital Signs Temp Pulse Resp BP BP Pulse Ox O2 Del Method 09/20/23 14:11 97.3 F L 90 14 90/60 L 98 Room Air 09/20/23 10:54 98.2 F 92 H 15 95/60 L 100 Room Air 09/20/23 07:35 97.7 F 86 14 80/41 L 94 Room Air PG Care Time/CCT Total # of Minutes Spent Total Time Spent with Patient: Total time spent is greater than 50% in coordination of care (as documented) at patient's floor/unit and/or counseling patient: Coding Level of Care Code 76857 SUB INP/OBS CARE 3/50MIN Diagnoses Hypotension I95.9 Coronary artery disease involving [place] coronary artery of [place] heart without angina pectoris I25.10 Coronary Disease-Associated Artery/Lesion type: [place] artery [place] vs. transplanted heart: [place] heart Associated angina: without angina Cardiomyopathy, unspecified type I42.9 Cardiomyopathy type: unspecified B-cell lymphoma C85.10 Cerebellar stroke I63.9 (2) CAD (coronary artery disease) Coronary Disease-Associated Artery/Lesion type: [place] artery [place] vs. transplanted heart: [place] heart Associated angina: without angina Qualified Code(s): I25.10 - Atherosclerotic heart disease of [place] coronary artery without angina pectoris (3) Cardiomyopathy Cardiomyopathy type: unspecified Qualified Code(s): I42.9 - Cardiomyopathy, unspecified
--- NOTE | 2023-09-20 19:17 | Hospitalist Progress Note ---
Date of Service September 20, 2023 Assessment & Plan (1) Multiple falls: Plan: Fall + potential LOC morning of 09/14, multiple falls over the past week, subacute stroke, start asa, high intesity statin despite negative head CT and previous neg MRI, repeat MRI on 09/17 shows subacute right cerebellar cva and small subdural hematomas(previous ICH with evacuation at [facility] approx 2 yrs ago) known ICA issues, was on hold given lymphoma diagnosis, will revisit although likely not responsible for R cerebellar stroke Hx of underlying dementia Head CT showed no acute hemorrhage, mass effect, or evidence of acute territorial ischemia Urine culture resulted negative so uti ruled out,Blood culture negative to date antibiotics stopped Recent cystoscopy on 09/12; due to kidney stones with stone Destroyed by laser, postop discharge with 3-day course of Cipro and Diflucan cipro can cause confusion Pt with daytime sleepiness, stopped melatonin, stopped mirtazipine. Patient states he is depressed we will try to use Effexor ordered for its mood elevating affect PT/OT consulted recommend rehab, Fall precautions in place (2) B-cell lymphoma: Plan: Port placement on 09/08, Patient was supposed to have second dose of chemotherapy this week, postponed by medical issues for prevention of tumor lysis syndrome on rituximab on 08/22/2023; continue allopurinol uric acid is normal to low Appreciate oncology consult Unclear what underlying malignancy and recent chemotherapy place and his functional poor performance (3) DARYL (acute kidney injury): Plan: daryl with CKD3, continue improving , limits otilia/arb use at this time slight improvement from admission Avoid nephrotoxic agents improving (4) Demand ischemia: Plan: Patient denies chest pain / pleuritic CP / SOB at rest, known CABG and Stent in the past hold asprin with coffee ground emesis Elevated troponin at 118.0 --> 121.8, at this time do not feel this is an NSTEMI, furhter cardiac eval in process EKG showed marked T wave inversions Limited echo shows decreased EF, consider Systolic heart failure QTc 580 on admission improving slowly but remains with abnormal EKG, QTc 548 on last EKG EKG on 08/11/2023 also had QTc prolongation at 579 Recently started on short course of Cipro/Diflucan following his urologic procedure on 09/12, which can extend QTc; holding both (5) Bloody emesis: Plan: no further bloody emesis change protonix to po pepcid Hemaglobin has been stable, no further emesis (6) Dementia: Plan: Ongoing decline x2 years, can have acute metabolic encephalopathy Per daughter, acute changes over the past couple weeks Patient is not currently taking Aricept (7) 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: Plan: now with acute Cerebellar CVA, asa Continue rosuvastatin; CK WNL at 75 Plan Full code Adding boost to diet to try to improve nutritional state Family agrees to Palliative care and consideration of family meeting to discuss GOC VTE PPx: SCDs (hold chemical DVT PPx in the setting of hematemesis, hematuria, melena) Admission and Anticipated Discharge Date Admission Date: September 14, 2023 Subjective pt is flat in affect, does not want to eat, discussion for is in agreement to re engage with palliative and have a family meeting to discuss goals of care Physical Exam Physical Exam: pt is lethargic but non focal. cardiac exam is regular lungs are clear extremity with trace edema Results & Data Results & Data Vital Signs (Past 12 Hours) Vital Signs Temp Pulse Resp BP BP Pulse Ox O2 Del Method 09/20/23 14:11 97.3 F L 90 14 90/60 L 98 Room Air 09/20/23 10:54 98.2 F 92 H 15 95/60 L 100 Room Air 09/20/23 07:35 97.7 F 86 14 80/41 L 94 Room Air PG Care Time/CCT Total # of Minutes Spent Total Time Spent with Patient: Total time spent is greater than 50% in coordination of care (as documented) at patient's floor/unit and/or counseling patient: Coding Level of Care Code 80271 SUB INP/OBS CARE 2/35MIN Diagnoses Multiple falls R29.6 B-cell lymphoma C85.10 DARYL (acute kidney injury) N17.9 Demand ischemia I24.89 Bloody emesis K92.0 Dementia F03.90 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
[2023-09-21] MEDS: ASPIRIN 81 MG ECTAB PO SCH (08:21)
[2023-09-21] MEDS: FAMOTIDINE 20 MG TAB PO SCH ×2 (08:21→20:14)
[2023-09-21] MEDS: VENLAFAXINE HCL 37.5 MG TAB PO SCH ×2 (08:21→20:06)
[2023-09-21] MEDS: ROSUVASTATIN CALCIUM 10 MG TAB PO SCH (08:21)
[2023-09-21 09:57] LABS: Hematocrit (blood only) 34.4 % (42.0-52.0); Hemoglobin 11.6 g/dl (14.0-18.0); Mean Corpuscular Hemoglobin 29.1 pg (25.0-34.0); Mean Corpuscular Hgb Conc 33.7 g/dL (32.0-36.0); Mean Corpuscular Volume 86.2 fL (80.0-100.0); Mean Platelet Volume 10.8 fL (9.4-12.4); Platelet Count 176 K/uL (130-400); RDW Coefficient of Variation 17.7 % (11.5-14.5); RDW Standard Deviation 54.3 fL (36.4-46.3); Red Blood Count 3.99 M/uL (4.70-6.10); White Blood Count 10.02 K/ul (4.8-10.8)
[2023-09-21 10:16] LABS: Albumin Level 3.2 gm/dl (3.4-5.0); Bilirubin,Total 1.1 mg/dl (0.2-1.0); Calcium 9.3 mg/dl (8.6-10.3); Potassium 3.8 mmol/L (3.5-5.1)
[2023-09-21 10:22] LABS: BUN Creatinine Ratio 19.1 (10-20); Creatinine Clr Calc Pharmacy 30.5 ml/min; Est GFR (African American) 47.5 ml/min; Globulin 3.2 gm/dl (2.5-4.0); Total Protein 6.4 gm/dl (6.0-8.3)
--- NOTE | 2023-09-21 16:02 | Hospitalist Progress Note ---
Date of Service September 21, 2023 Assessment & Plan (1) Multiple falls: Plan: Fall + potential LOC morning of 09/14, multiple falls over the past week, subacute stroke in the cerebellum, started asa, high intensity statin, also hematomas. despite negative head CT and previous neg MRI, repeat MRI on 09/17 shows subacute right cerebellar cva and small subdural hematomas(previous ICH with evacuation at [facility] approx 2 yrs ago) known right ICA stenosis, antiplatelet agents were on hold with recent treatment of lymphoma diagnosis, isolated stroke does not seem to be embolic Hx of underlying dementia Head CT showed no acute hemorrhage, mass effect, or evidence of acute territorial ischemia Urine culture resulted negative so uti ruled out,Blood culture negative to date antibiotics stopped Recent cystoscopy on 09/12; due to kidney stones with stone Destroyed by laser, postop discharge with 3-day course of Cipro and Diflucan Pt with daytime sleepiness, stopped melatonin, stopped mirtazipine. Patient states he is depressed we will try to use Effexor ordered for its mood elevating affect started 09/19/2023 PT/OT consulted recommend rehab, Fall precautions in place Family meeting with palliative care consultation requested. Coordination not able to occur prior to my going off service. (2) B-cell lymphoma: Plan: Port placement on 09/08, Patient was supposed to have second dose of chemotherapy mid September, postponed by medical issues for prevention of tumor lysis syndrome on rituximab on 08/22/2023; oncology recommended discontinuation of allopurinol Appreciate oncology consult they are following along with us his performance status is what will be the determinant of future chemotherapy Patient has severe malnutrition with a BMI of 19 (3) DARYL (acute kidney injury): Plan: daryl with CKD3, continue improving , limits otilia/arb use at this time slight improvement from admission Avoid nephrotoxic agents improving (4) Demand ischemia: Plan: P history of CABG and Stent in the past initially presented with coffee-ground emesis and aspirin was held subsequently has been restarted Elevated troponin at 118.0 --> 121.8, at this time do not feel this is an NSTEMI, felt to be demand ischemia EKG showed marked T wave inversions Limited echo shows decreased EF, consider Systolic heart failure cardiology not inclined to pursue invasive restratification QTc 580 on admission improving slowly Recently started on short course of Cipro/Diflucan following his urologic procedure on 09/12, which can extend QTc; holding both (5) Bloody emesis: Plan: no further bloody emesis change protonix to po pepcid Hemaglobin has been stable, no further emesis (6) Dementia: Plan: Ongoing decline x2 years, Per daughter, acute changes over the past couple weeks Patient is not currently taking Aricept Family is interested in discussion of palliative care however pts alertness but not oriented improved on 09/21 pending palliative consult (7) 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 Family was in agreement to have a family discussion and we will consult palliative care to arrange that determine goals of care Patient is not oriented to time other than knowing is the fall therefore difficult to understand how much he can comprehend about the severity of his situation and help his input into the decision is to continue treatment with his issues of systolic heart failure subacute stroke subdural hematoma and newly diagnosed B-cell lymphoma status post her next round of chemotherapy. Biggest issue is poor oral intake and willingness to eat Physical Exam Physical Exam: pt is lethargic but non focal. Somewhat improved energy on 09/21/2023 cardiac exam is regular lungs are clear extremity with trace edema Results & Data Results & Data Vital Signs (Past 12 Hours) Vital Signs Temp Pulse Resp BP Pulse Ox O2 Del Method 09/21/23 15:29 97.7 F 91 H 18 104/67 96 Room Air 09/21/23 08:00 Room Air 09/21/23 07:14 97.3 F L 60 20 106/69 97 Room Air Laboratory Results Reviewed CBC, reviewed chemistry PG Care Time/CCT Total # of Minutes Spent Total Time Spent with Patient: Total time spent is greater than 50% in coordination of care (as documented) at patient's floor/unit and/or counseling patient: Coding Level of Care Code 03981 SUB INP/OBS CARE 3/50MIN Diagnoses Multiple falls R29.6 B-cell lymphoma C85.10 DARYL (acute kidney injury) N17.9 Demand ischemia I24.89 Bloody emesis K92.0 Dementia F03.90 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
--- NOTE | 2023-09-22 06:10 | Hospitalist Progress Note ---
Date of Service September 22, 2023 Assessment & Plan (1) B-cell lymphoma: Plan: Patient seems to be comfortable and as previously discussed, CT scan certainly suggest a significant response to his initial chemotherapy which was confined to cyclophosphamide, rituximab, and steroids. 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 As well, he has had "watershed" cardiac ischemia as a likely consequence of prolonged suboptimal blood pressure. While he is clinically comfortable currently, these issues along with his ongoing moderate kidney dysfunction certainly combined to put his in a very different setting in terms of how to go forward. Concerns with standard chemotherapy for DLBCL particularly focus on the doxorubicin and the potential for further cardiac toxicity. I do think that we have largely eliminated cyclophosphamide toxicity as an additional culprit but both specifically from the doxorubicin standpoint and more generally given his lesser performance status (ECOG 3 currently) I wou ld be very concerned that overly aggressive chemotherapy would not be well- tolerated and indeed could result in life shortening complications. I indicated to the patient and his family that we need to move away from a focus so much on "cure" with the question rather should we try to proceed with additional intermediately aggressive chemotherapy attempting to get more extended "control" of his disease versus focusing more exclusively on immediate quality of life with palliative care/symptom management only. I have indicated that neither of these are the "right" or "wrong" choice and that I will have to rely to a significant extent on the family themselves to help with making determinations as I do not think that the patient is currently of sufficient decision-making capacity to do so on his own. Immediate focus should be on medical stabilization and then probably some form of rehabilitation either in a facility or at home. I also think it could be emotionally and from a quality of life perspective helpful for him to be home at [facility] with his family if that is feasible. We have sufficient response of his lymphoma for now that we can defer any decisions about additional ch emotherapy until immediately after holiday. I have set the stage for them to be thinking about the options as above. We could certainly conceive going forward very cautiously with a cyclophosphamide/rituximab/steroid combination given the initial response. There is minimal but not completely limited concerned about cardiac toxicity and we might also need to de-escalate the dose intensity some as well to avoid cytopenias and the risk for infection or bleeding. At the same time, I think it could be very reasonable to simply go onto a pure palliative care transitioning to hospice approach. I will arrange for the family to return to the [facility] for further discussion at the very end of the month. Plan Immediate focus should be on optimal stabilization of his physiology and then some sort of rehab program to see how well we can recover overall performance status We will defer any further consideration of chemotherapy until after the hol and at that point would be prepared to discuss a more moderate program to try to get more extended response versus transitioning more completely to a pure palliative care approach I will "sign off" but I am delighted to address any additional issues that arise during hospitalization. Please [place] text me if there are further questions Admission and Anticipated Discharge Date Admission Date: September 14, 2023 Subjective Patient is in no distress but seems to have a more dense cognitive limitation. I met at length with the patient, his , his son, 1 daughter in person and 1 daughter on speaker phone on 09/21/2023. This note incorporates the results of that conversation into its conclusions Physical Exam Physical Exam: Vital signs stable. Fully alert but confused. Lungs seem clear, cardiac rhythm is currently regular The abdomen seems benign Results & Data Results & Data Vital Signs (Past 12 Hours) Vital Signs Temp Pulse Resp BP Pulse Ox O2 Del Method 09/21/23 20:00 Room Air 09/21/23 19:40 36.3 C L 86 16 101/67 93 Room Air PG Care Time/CCT Total # of Minutes Spent Total Time Spent with Patient: Total time spent is greater than 50% in coordination of care (as documented) at patient's floor/unit and/or counseling patient: Coding Level of Care Code 54724 SUB INP/OBS CARE 125MIN Diagnoses B-cell lymphoma C85.10
[2023-09-22] MEDS: ASPIRIN 81 MG ECTAB PO SCH (08:16)
[2023-09-22] MEDS: VENLAFAXINE HCL 37.5 MG TAB PO SCH ×2 (08:16→21:10)
[2023-09-22] MEDS: ROSUVASTATIN CALCIUM 10 MG TAB PO SCH (08:16)
[2023-09-22] MEDS: FAMOTIDINE 20 MG TAB PO SCH ×2 (08:18→21:08)
--- NOTE | 2023-09-22 10:37 | XRay Report ---
XR chest 2V PA/lateral CLINICAL HISTORY: follow up on position of port catheter ?azygus vei TECHNIQUE: 2 views of the chest were obtained. Comparison: Comparison is made to chest radiograph 09/14/2023 FINDINGS: A port catheter is seen with the tip anteriorly oriented. Median sternotomy wires are seen. Cardiomeg antonieta is noted. The aortic arch is calcified. Atelectasis is at the left lung base. Interstitial thicke lisbet is seen. No evidence of pleural effusion or pneumothorax. IMPRESSION: The port catheter tip is anteriorly oriented and malpositioned, likely in the internal mammary vein. A call was placed by Dr. Abraham with the patient's provider Ludwig at the time of dictation. ACT 112: Negative or not required by law. Electronically signed by: Geovanny York M.D. 09/22/2023 10:36 AM
--- NOTE | 2023-09-22 11:13 | Surgery Consultation ---
Date of Consultation September 22, 2023 Assessment & Plan (1) Port-A-Cath in place: On 08/08/2023 replace a port through the left subclavian with difficult time positioning at as far as getting good blood return we were able then to finally place an area that appeared to be in superior vena cava with excellent blood return however postop chest x-ray revealed that it may have been an azygos vein but still functioning apparently was not used for chemo but there is anticipation to restart chemo after thanks given therefore we were asked to see him regarding this catheter I repeated a 2 view chest x-ray today reviewed with the radiologist and the catheter is in intercostal vein (this pain is so small that I was surprised that the catheter could even be in the vein) With that I discussed with the patient I would like to reposition his tomorrow he appears agreeable to that I tried calling his Violeta there was no answer at [phone] I left word on recorder to call me back on my cell phone We will keep him n.p.o. after midnight History of Present Illness Reason for Consultation: Evaluate for MRI port reposition Attending Physician: Rossana Pereyra MD Allergies Allergy/AdvReac Type Severity Reaction Status Date / Time No Known Allergies Allergy Verified 09/14/23 12:33 Home Medications Medication Instructions Recorded Confirmed Type aspirin 81 mg tablet,delayed 81 mg PO QAM 06/28/19 09/14/23 History release (Kevin Low Dose Aspirin) metoprolol tartrate 25 mg tablet 25 mg PO QAM 06/28/19 09/14/23 History rosuvastatin 5 mg tablet (Crestor) 5 mg PO DAILY 08/10/23 09/14/23 History nitroglycerin 0.4 mg sublingual 0.4 mg sublingual UD PRN Chest Pain 08/11/23 09/14/23 History tablet mirtazapine 30 mg tablet (Remeron) 30 mg PO DAILY #90 tabs 08/26/23 09/14/23 Rx oxycodone 5 mg capsule 5 mg PO Q4H PRN Pain 08/26/23 09/14/23 History ondansetron HCl 4 mg tablet 4 mg PO Q8H PRN Nausea 09/01/23 09/14/23 History prochlorperazine maleate 5 mg 5 mg PO BID PRN Nausea 09/01/23 09/14/23 History tablet (Compazine) ciprofloxacin HCl 500 mg tablet 500 mg PO Q12H #6 tabs 09/12/23 09/14/23 Rx (Cipro) fluconazole 100 mg tablet 100 mg PO DAILY 09/12/23 09/14/23 History (Diflucan) oxycodone-acetaminophen 7.5 mg-325 1 tab PO Q8H PRN pain #7 tabs 09/12/23 09/14/23 Rx mg tablet (Percocet) phenazopyridine 200 mg tablet 200 mg PO Q8H PRN pain #10 tabs 09/12/23 09/14/23 Rx (Pyridium) polyethylene glycol 3350 17 17 g PO DAILY PRN Constipation 09/12/23 09/14/23 History gram/dose oral powder (Miralax) tamsulosin 0.4 mg capsule 0.4 mg PO HS #30 caps 09/12/23 09/14/23 Rx Patient History Medical History (Updated 09/20/23 @ 14:44 by Stephan Alexander MD) Syncope Hypokalemia Weight loss, unintentional CKD (chronic kidney disease) History of COVID-19 first week 07/2023- home test- sinus congestion, mild cough, sinus drainage; resolved 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 B-cell lymphoma reason for upcoming procedure Malnutrition Dementia Cecum mass CAD (coronary artery disease) s/p stent x 1 (), CABG x2 (2004) Chronic back pain Cyst of pancreas Kidney stones stent placed 08/12/23 [facility] Myocardial Infarction multiple, most recent 2004 Hypertension Surgical History (Updated 09/22/23 @ 11:07 by Kingsley Munroe MD, FACS) Port-A-Cath in place (09/08/23) Insertion Left Subclavian Access Port (Left) - Kingsley Munroe MD, FACS Hx of cystoscopy Status post surgery Artery in neck H/O brain surgery H/O colonoscopy History of herniorrhaphy INGUINAL HERNIA REPAIR History of cardiac cath 2019 [place] rj, 2017 nd s, stent x 1 History of coronary artery bypass graft CABG x2 (2004) Family History Brother FHx: pancreatic cancer FHx: liver cancer Cancer Brother Prostate cancer Father Heart disease Mother Heart disease Social History Smoking Status: Never smoker Tobacco Type: Cigarettes Second Hand Exposure: No; Do You Dip or Chew Tobacco: No; Hx Alcohol Use: No Hx Substance Use: No Preferred Language: Frisian Communication Ability: Effective Visual Impairment: No Limitations Rotary Peel Oven Tender Required: No Beliefs That Will Affect Care: None Current Living Situation: Spouse current occupational status: retired How many Children do You have: 3 Feels Safe at Home: Yes Diet: regular during the past year weight has: remained stable Assistive Devices: Walker Physical Exam Physical Exam: Alert coherent no distress Steri-Strips left anterior chest port site intact no evidence of any drainage or cellulitis Results & Data Vital Signs (Past 12 Hours) Vital Signs Temp Pulse Resp BP Pulse Ox O2 Del Method 09/22/23 07:49 36.4 C L 59 L 15 91/61 L 93 Room Air 09/22/23 07:20 Room Air Diagnostic Findings Chest x-ray two-view this morning showed the catheter from MRI port from the left subclavian in an intercostal vein PG Care Time/CCT Total # of Minutes Spent Total Time Spent with Patient: Total time spent is greater than 50% in coordination of care (as documented) at patient's floor/unit and/or counseling patient: Coding Level of Care Code None Diagnoses Port-A-Cath in place Z95.828
--- NOTE | 2023-09-22 16:51 | Hospitalist Progress Note ---
Date of Service September 22, 2023 Assessment & Plan (1) Multiple falls: Plan: Fall + potential LOC morning of 09/14, multiple falls over the past week, subacute stroke in the cerebellum on brain MRI, also trace SDH right frontal lobe started asa, high intensity statin, known right ICA stenosis, antiplatelet agents were on hold with recent treatment of lymphoma diagnosis, isolated stroke does not seem to be embolic Hx of underlying dementia but here with acute encephalopathy 2/2 CVA, head trauma Urine culture resulted negative so uti ruled out,Blood culture negative to date antibiotics stopped Recent cystoscopy on 09/12; due to kidney stones with stone Destroyed by laser, postop discharged with 3-day course of Cipro and Diflucan which has now been stopped for prolonged QTc Pt with daytime sleepiness, stopped melatonin, stopped mirtazapine. Patient states he is depressed -started Effexor on 09/19/2023 PT/OT consulted recommend rehab, Fall precautions in place Family meeting with palliative care consultation planned for tomorrow to discuss goals of care given multiple comorbidities,whether or not to pursue further chemo for lymphoma. (2) B-cell lymphoma: Plan: Port placement on 09/08, Patient was supposed to have second dose of chemotherapy mid September, postponed by medical issues currently Port catheter is in internal mammary vein and needs to be pulled back a bit by Surgery if needs to be used for chemo-will d/w Surgery about holding off until goals of care discussion had with family,patient, and Palliative He has had a response to chemo thus far with tumors all decreased in size Appreciate oncology consult they are following along with us his performance status is what will be the determinant of future chemotherapy Patient has severe malnutrition with a BMI of 19 (3) DARYL (acute kidney injury): Plan: daryl with CKD3, now improved, limits acei/arb use for CHF at this time slight improvement from admission Avoid nephrotoxic agents (4) Demand ischemia: Plan: With h/o CABG and Stent in the past initially presented with coffee-ground emesis and aspirin was held subsequently has been restarted Elevated troponin at 118.0 --> 121.8 on 2 hour repeat, at this time do not feel this is an NSTEMI, felt to be demand ischemia EKG showed marked T wave inversions, changed from previous but persisted over several days Seen by Cardiology cardiomyopathy could be from previous cyclophosphamide COuld be from recent CVA? 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: Plan: now with acute Cerebellar CVA, trace right frontal SDH, no midline shift (8) Cerebellar stroke: Plan: as above (9) Hypotension: Plan: HOLD FLomax cannot tolerate Toprol for CHF follow (10) Cardiomyopathy: Plan: as above (11) Prolonged QT interval: Plan: as above (12) CAD (coronary artery disease): Plan: h/o CABG continue ASA, statin (13) Hypertension: Plan: can no longer tolerate metoprolol (14) Calculus, ureteral: Plan: WIth ureteral stone laser lithotripsy and stent placement on 09/12, also with urethral dilation and ureteral dilation performed, Gr left in place -was to have Gr removed around 09/17-09/19-remains in place-will d/w Urology -was to have ureteral stent removed around 09/29-will also discuss w/ Urology Plan Full code DIspo-needs rehab but having Family meeting with Palliative care to discuss [facility] Admission and Anticipated Discharge Date Admission Date: September 14, 2023 Subjective Pt denies headache, is pleasantly confused at times. DId not remember he had a stroke. Denies pain anywhere. Discussed his care with Palliative Med and with his granddaughter, Herminia Lim ([place] with [place]) Physical Exam Constitutional: WD/WN, vitals as above Respiratory: normal respiratory effort, lungs clear to auscultation Cardiovascular: RRR, no murmur, no edema Gastrointestinal (Abdomen): normal bowel sounds, soft, nontender, no hepatosplenomegaly Neurologic: PERRL, EOMI, accommodation nl, no face palsy, no dysarthria awake and + confused (mild); no focal motor deficits Motor/Sensory: no tremor Psychiatric: Orientation: alert, oriented to person, oriented to place and cooperative Results & Data Results & Data Vital Signs (Past 12 Hours) Vital Signs Temp Pulse Resp BP Pulse Ox O2 Del Method 09/22/23 14:14 36.6 C 100 H 16 92/57 L 94 Room Air 09/22/23 11:34 36.0 C L 95 H 16 97/66 L 96 Room Air 09/22/23 07:49 36.4 C L 59 L 15 91/61 L 93 Room Air 09/22/23 07:20 Room Air Laboratory Results no labs PG Care Time/CCT Total # of Minutes Spent Total Time Spent with Patient: Total time spent is greater than 50% in coordination of care (as documented) at patient's floor/unit and/or counseling patient: Coding Level of Care Code 29757 SUB INP/OBS CARE 3/50MIN Diagnoses Multiple falls R29.6 B-cell lymphoma C85.10 DARYL (acute kidney injury) N17.9 Demand ischemia I24.89 Bloody emesis K92.0 Dementia F03.90 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 Cerebellar stroke I63.9 Hypotension I95.9 Cardiomyopathy, unspecified type I42.9 Cardiomyopathy type: unspecified Prolonged QT interval R94.31 Coronary artery disease involving [place] coronary artery of [place] heart without angina pectoris I25.10 Associated angina: without angina Coronary Disease-Associated Artery/Lesion type: [place] artery [place] vs. transplanted heart: [place] heart Hypertension I10 Calculus, ureteral N20.1 (10) Cardiomyopathy Cardiomyopathy type: unspecified Qualified Code(s): I42.9 - Cardiomyopathy, unspecified (12) CAD (coronary artery disease) Associated angina: without angina Coronary Disease-Associated Artery/Lesion type: [place] artery [place] vs. transplanted heart: [place] heart Qualified Code(s): I25.10 - Atherosclerotic heart disease of [place] coronary artery without angina pectoris
--- NOTE | 2023-09-22 19:23 | Palliative Care Consultation ---
Date of Consultation September 22, 2023 Assessment & Plan (1) Confusion: (2) Generalized weakness: (3) Dementia: (4) B-cell lymphoma: (5) Multiple falls: (6) Palliative care by specialist: Plan * Patient is not decisional due to progressive dementia and acute medical illness related confusion that is exacerbating his dementia. I contacted his granddaughter to determine a desire time for family meeting and she indicated a preference for tomorrow as today would be difficult for the family. We agreed upon a time for 12:30 PM on 1117 in the patient's room. Patient's , son, daughter and granddaughter will likely be in attendance. I have updated the primary team. Thank you for allowing us to participate in the ongoing care of this patient. Please don't hesitate to call or page with any additional concerns. Dr. Hayde Buitrago DNP Director, Palliative Care History of Present Illness Attending Physician: Rossana Pereyra MD History of Present Illness Jose Calderon is an 78-year-old gentleman admitted via the emergency department on 09/14/2023. Found to have generalized weakness, NSTEMI, DARYL, acute UTI, elevated INR, acute upper GI bleed, and elevated BUN. When he presented to the emergency department he was not able to provide any history and reported not knowing why he was here. There was a report that he had hit his head but cannot recall when. He had an episode of dark-colored emesis. He denied nausea, vomiting, abdominal pain, chest pain or dyspnea.In further discussion with next of kin, it was discovered that he has been having multiple falls and there may have been a potential loss of consciousness the morning of 09/14/2023. He has a history of underlying dementia. An urgent head CT did not find any acute hemorrhage, mass effect or evidence of ischemic damage Carries a diagnosis of B-cell lymphoma. A port was placed 09-29 and chart review indicates he was supposed to start chemotherapy this week. 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 For pain and cancer related discomfort he is using as needed Tylenol and oxycodone 5 mg every 4 hours as needed. His daughter reports an unintentional weight loss from 170 pounds to 122 pounds over the last few months with a significant loss of appetite. Remains on mirtazapine 30 mg He has been started on Rocephin for his UTI. He has a catheter in place.at bedtime. Troponin was noted to be elevated from 1 18-121.8 and his EKG did show marked T wave inversions. Echocardiogram was done (limited) and there was some wall motion changes noted. He remains on telemetry for continued monitoring. Additionally labs and EKG indicated a prolonged QTc interval of 580 on admission and his EKG from prior admission 08/11/2023 also indicated QTc prolongation at 579. Etiology of this is unknown. He continued to have some intermittent vomiting. Family reports that his dementia has been in an ongoing state of decline for the last 2 years with more acute progressive changes over the last few weeks. He is not taking Aricept. He has a history of coronary artery disease for which he is status post stent x1 in the and CABG x2 in 2004. He is currently listed as a full code. He was seen by Dr. Serrano for medical oncology and is noted that patient is no longer a candidate for cyclophosphamide therapy given his cardiotoxicity. His declining performance status remains an overall concern with regards to whether or not he will now be able to tolerate additional overly aggressive chemotherapy due to his ECOG of 3 and the likelihood of shortening his mortality. Discussion was held at this time with family and medical oncology who encouraged that it may be time to move away from a focus on cure but proceed perhaps with an additionally more intermediate aggressive chemotherapy to try and control his disease versus a transitional focus that is more quality of life focused on com fort and symptom management. It is noted that for now there is sufficient response of his lymphoma that they can defer decisions about chemotherapy until after holiday. Allergies Allergy/AdvReac Type Severity Reaction Status Date / Time No Known Allergies Allergy Verified 09/14/23 12:33 Home Medications Medication Instructions Recorded Confirmed Type aspirin 81 mg tablet,delayed 81 mg PO QAM 06/28/19 09/14/23 History release (Kevin Low Dose Aspirin) metoprolol tartrate 25 mg tablet 25 mg PO QAM 06/28/19 09/14/23 History rosuvastatin 5 mg tablet (Crestor) 5 mg PO DAILY 08/10/23 09/14/23 History nitroglycerin 0.4 mg sublingual 0.4 mg sublingual UD PRN Chest Pain 08/11/23 09/14/23 History tablet mirtazapine 30 mg tablet (Remeron) 30 mg PO DAILY #90 tabs 08/26/23 09/14/23 Rx oxycodone 5 mg capsule 5 mg PO Q4H PRN Pain 08/26/23 09/14/23 History ondansetron HCl 4 mg tablet 4 mg PO Q8H PRN Nausea 09/01/23 09/14/23 History prochlorperazine maleate 5 mg 5 mg PO BID PRN Nausea 09/01/23 09/14/23 History tablet (Compazine) ciprofloxacin HCl 500 mg tablet 500 mg PO Q12H #6 tabs 09/12/23 09/14/23 Rx (Cipro) fluconazole 100 mg tablet 100 mg PO DAILY 09/12/23 09/14/23 History (Diflucan) oxycodone-acetaminophen 7.5 mg-325 1 tab PO Q8H PRN pain #7 tabs 09/12/23 09/14/23 Rx mg tablet (Percocet) phenazopyridine 200 mg tablet 200 mg PO Q8H PRN pain #10 tabs 09/12/23 09/14/23 Rx (Pyridium) polyethylene glycol 3350 17 17 g PO DAILY PRN Constipation 09/12/23 09/14/23 History gram/dose oral powder (Miralax) tamsulosin 0.4 mg capsule 0.4 mg PO HS #30 caps 09/12/23 09/14/23 Rx Patient History Medical History (Updated 09/22/23 @ 19:33 by Hayde Buitrago, N[place]) Syncope Hypokalemia Weight loss, unintentional CKD (chronic kidney disease) History of COVID-19 first week 07/2023- home test- sinus congestion, mild cough, sinus drainage; resolved 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 B-cell lymphoma reason for upcoming procedure Malnutrition Dementia Cecum mass CAD (coronary artery disease) s/p stent x 1 (), CABG x2 (2004) Chronic back pain Cyst of pancreas Kidney stones stent placed 08/12/23 [facility] Myocardial Infarction multiple, most recent 2004 Hypertension Surgical History (Updated 09/22/23 @ 11:07 by Kingsley Munroe MD, FACS) Port-A-Cath in place (09/08/23) Insertion Left Subclavian Access Port (Left) - Kingsley Munroe MD, FACS Hx of cystoscopy Status post surgery Artery in neck H/O brain surgery H/O colonoscopy History of herniorrhaphy INGUINAL HERNIA REPAIR History of cardiac cath 2019 [place] r[place], 2017 [place] 1980's, stent x 1 History of coronary artery bypass graft CABG x2 (2004) Family History Brother FHx: pancreatic cancer FHx: liver cancer Cancer Brother Prostate cancer Father Heart disease Mother Heart disease Social History Smoking Status: Never smoker Tobacco Type: Cigarettes Second Hand Exposure: No; Do You Dip or Chew Tobacco: No; Hx Alcohol Use: No Hx Substance Use: No Preferred Language: Beninese Communication Ability: Effective Visual Impairment: No Limitations Fast Food Worker Required: No Beliefs That Will Affect Care: None Current Living Situation: Spouse current occupational status: retired How many Children do You have: 3 Feels Safe at Home: Yes Diet: regular during the past year weight has: remained stable Assistive Devices: Walker Review of Systems Review of Systems: Unobtainable due to cognitive status Physical Exam Physical Exam: Elderly male, chronically ill-appearing, pleasant but confused. Alert to self. Unable to consistently follow commands or provide HPI. Limited exam as patient would allow, anterior lung exam with some diminished breath sounds few occasional crackles. Heart tones were S1-S2 and his abdomen was soft. There is generalized muscle wasting noted. His skin is pale. He is confused. Results & Data Vital Signs (Past 12 Hours) Vital Signs Temp Pulse Resp BP Pulse Ox O2 Del Method 09/22/23 14:14 36.6 C 100 H 16 92/57 L 94 Room Air 09/22/23 11:34 36.0 C L 95 H 16 97/66 L 96 Room Air 09/22/23 07:49 36.4 C L 59 L 15 91/61 L 93 Room Air 09/22/23 07:20 Room Air Laboratory Results Data reviewed, see HPI Diagnostic Findings Data reviewed, see HPI PG Care Time/CCT Total # of Minutes Spent Total Time Spent: 90 Total Time Spent with Patient: Total time spent is greater than 50% in coordination of care (as documented) at patient's floor/unit and/or counseling patient: [place] [address] IN/OBS CONSULT LVL 5,80M Patient Type New History Comprehensive Exam Detailed Medical Decision Making High Complexity Diagnoses Confusion R41.0 Generalized weakness R53.1 Dementia F03.90 B-cell lymphoma C85.10 Multiple falls R29.6 Palliative care by specialist Z51.5
[2023-09-22] MEDS ORDERED: LACTATED RINGER'S 250 ML IV ONE (20:58)
[2023-09-23 07:57] LABS: Basophils # (auto) 0.03 K/uL (0.00-0.20); Basophils % (auto) 0.3 %; Eosinophils # (auto) 0.05 K/uL (0.00-0.50); Eosinophils % (auto) 0.5 %; Hematocrit (blood only) 36.4 % (42.0-52.0); Immature Granulocytes # (auto) 0.39 K/uL (0.01-0.20); Immature Granulocytes % (auto) 3.6 %; Lymphocytes # (auto) 0.91 K/uL (1.20-3.40); Lymphocytes % (auto) 8.4 %; Mean Corpuscular Hemoglobin 28.8 pg (25.0-34.0); Mean Corpuscular Volume 87.5 fL (80.0-100.0); Mean Platelet Volume 10.2 fL (9.4-12.4); Monocytes # (auto) 1.12 K/uL (0.11-0.59); Monocytes % (auto) 10.4 %; Neutrophils # (auto) 8.27 K/uL (1.40-6.50); Neutrophils % (auto) 76.8 %; Platelet Count 224 K/uL (130-400); RDW Coefficient of Variation 17.9 % (11.5-14.5); RDW Standard Deviation 54.5 fL (36.4-46.3); Red Blood Count 4.16 M/uL (4.70-6.10); White Blood Count 10.77 K/ul (4.8-10.8)
[2023-09-23] MEDS: VENLAFAXINE HCL 37.5 MG TAB PO SCH ×2 (08:15→21:01)
[2023-09-23] MEDS: ROSUVASTATIN CALCIUM 10 MG TAB PO SCH (08:15)
[2023-09-23 08:16] LABS: BUN Creatinine Ratio 19.7 (10-20); Calcium 9.7 mg/dl (8.6-10.3); Creatinine Clr Calc Pharmacy 30.5 ml/min; Est GFR (African American) 47.5 ml/min; Potassium 4.1 mmol/L (3.5-5.1)
[2023-09-23] MEDS: ASPIRIN 81 MG ECTAB PO SCH (08:16)
[2023-09-23] MEDS: FAMOTIDINE 20 MG TAB PO SCH ×2 (08:53→21:01)
[2023-09-23] MEDS ORDERED: GLYCOPYRROLATE 0.2 MG/ML VIAL IV PRN (13:17)
[2023-09-23] MEDS ORDERED: HALOPERIDOL ORAL SOLN 2 MG/ML PO PRN (13:23)
--- NOTE | 2023-09-23 13:32 | Hospitalist Progress Note ---
Date of Service September 23, 2023 Assessment & Plan (1) Comfort measures only status: Plan: Due to lymphoma, stroke, ICH, ureteral stones with stent, encephalopathy, dementia, failure to thrive, decision made to pursue PRESSER ALL AROUND on 09/23 Appreciate Palliative Med consult Started comfort meds, dc labs and any other invasive procedures I notified his Surgeon and Urologist and Oncology also aware as per d/w Palliative (2) Multiple falls: Plan: Fall + potential LOC morning of 09/14, multiple falls over the past week, subacute stroke in the cerebellum on brain MRI, also trace SDH right frontal lobe started asa, high intensity statin, known right ICA stenosis, antiplatelet agents were on hold with recent treatment of lymphoma diagnosis, isolated stroke does not seem to be embolic Hx of underlying dementia but here with acute encephalopathy 2/2 CVA, head trauma Urine culture resulted negative so uti ruled out,Blood culture negative to date antibiotics stopped Recent cystoscopy on 09/12; due to kidney stones with stone Destroyed by laser, postop discharged with 3-day course of Cipro and Diflucan which has now been stopped for prolonged QTc Pt with daytime sleepiness, stopped melatonin, stopped mirtazapine. Patient states he is depressed -started Effexor on 09/19/2023 but this could be discontinued on PRESSER ALL AROUND PT/OT consulted recommend rehab, Fall precautions in place Family meeting with palliative care consultation planned for tomorrow to discuss goals of care given multiple comorbidities,whether or not to pursue further chemo for lymphoma. (3) B-cell lymphoma: Plan: Port placement on 09/08, Patient was supposed to have second dose of chemotherapy mid September, postponed by medical issues currently Port catheter is in internal mammary vein but no need to correct this now on PRESSER ALL AROUND He has had a response to chemo thus far with tumors all decreased in size Appreciate oncology consult -no further therapy will be pursued and now on comfort measures Patient has severe malnutrition with a BMI of 19 (4) DARYL (acute kidney injury): Plan: daryl with CKD3, now improved, limits acei/arb use for CHF at this time now on PRESSER ALL AROUND no further labs (5) Demand ischemia: Plan: With h/o CABG and Stent in the past initially presented with coffee-ground emesis and aspirin was held subsequently has been restarted Elevated troponin at 118.0 --> 121.8 on 2 hour repeat, at this time do not feel this is an NSTEMI, felt to be demand ischemia EKG showed marked T wave inversions, changed from previous but persisted over several days Seen by Cardiology cardiomyopathy could be from previous cyclophosphamide COuld be from recent CVA? 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: Plan: now with acute Cerebellar CVA, trace right frontal SDH, no midline shift (9) Cerebellar stroke: Plan: as above no further eval or workup on PRESSER ALL AROUND (10) Hypotension: Plan: dc FLomax cannot tolerate Toprol for CHF now on PRESSER ALL AROUND (11) Cardiomyopathy: Plan: as above (12) Prolonged QT interval: Plan: as above (13) CAD (coronary artery disease): Plan: h/o CABG discontinued ASA, statin on PRESSER ALL AROUND (14) Hypertension: Plan: can no longer tolerate metoprolol (15) Calculus, ureteral: Plan: WIth ureteral stone laser lithotripsy and stent placement on 09/12, also with urethral dilation and ureteral dilation performed, Gr left in place -was to have Gr removed around 09/17-09/19- -was to have ureteral stent removed around 09/29 Now keep Gr on PRESSER ALL AROUND, no need to remove ureteral stent-informed Urology who is in agreement Plan DNR/DNI. now on comfort measures only DIspo-family wishes to pursue hospice at a prison as cannot care for him alone at home Admission and Anticipated Discharge Date Admission Date: September 14, 2023 Subjective Pt restless,only briefly wakes up to verbal stim but not communicating. Had discussion with , daughter, son, and two granddaughters at bedside along with Palliative Medicine x 35 min. Ultimately, decided to pursue PRESSER ALL AROUND and all in agreement. Physical Exam Constitutional: + ill appearing and + lethargic; + uncom fortable Respiratory: normal respiratory effort Genitourinary: Gr with scant red blood and yellow urine Results & Data Results & Data Vital Signs (Past 12 Hours) Vital Signs Temp Pulse Resp BP Pulse Ox O2 Del Method 09/23/23 08:00 Room Air 09/23/23 07:02 36.3 C L 84 16 99/59 L 100 Room Air Laboratory Results CBC, BMP reviewed PG Care Time/CCT Total # of Minutes Spent Total Time Spent with Patient: Total time spent is greater than 50% in coordination of care (as documented) at patient's floor/unit and/or counseling patient: Coding Level of Care Code 32144 SUB INP/OBS CARE 3/50MIN Diagnoses Comfort measures only status Z51.5 Multiple falls R29.6 B-cell lymphoma C85.10 DARYL (acute kidney injury) N17.9 Demand ischemia I24.89 Bloody emesis K92.0 Dementia F03.90 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 Cerebellar stroke I63.9 Hypotension I95.9 Cardiomyopathy, unspecified type I42.9 Cardiomyopathy type: unspecified Prolonged QT interval R94.31 Coronary artery disease involving [place] coronary artery of [place] heart without angina pectoris I25.10 Associated angina: without angina Coronary Disease-Associated Artery/Lesion type: [place] artery [place] vs. transplanted heart: [place] heart Hypertension I10 Calculus, ureteral N20.1 (11) Cardiomyopathy Cardiomyopathy type: unspecified Qualified Code(s): I42.9 - Cardiomyopathy, unspecified (13) CAD (coronary artery disease) Associated angina: without angina Coronary Disease-Associated Artery/Lesion type: [place] artery [place] vs. transplanted heart: [place] heart Qualified Code(s): I25.10 - Atherosclerotic heart disease of [place] coronary artery without angina pectoris
[2023-09-23] MEDS: MoRPHine SULFATE 10 MG/0.5 ML UDP PO PRN (13:55)
[2023-09-23] MEDS: LORazepam 0.5 MG in SYRINGE 0.25 ML IV PRN (17:30)
--- NOTE | 2023-09-23 21:31 | Palliative Family Discussion ---
Date of Service September 23, 2023 Patient Directed Conference Time of [id number] Participants: Hayde Buitrago DNP Patient participation: unable/not decisional Patient Support System: , son, dtr, granddaughters x2 Other Healthcare Provider Participation: Dr. Pereyra Meeting Location: pt bedside Advanced Directive available: no The patient's surrogate medical decision maker participated: yes, A family meeting was held for RUBY FOSTER. This meeting was necessary for determining the appropriate course of treatment. Topics of Discussion Topics of Discussion: 1. cancer with into to chemo/cardiotoxicity; will be on chemo holiday with option to reassess 2. progressive comorbidities and frailty/declining ECOGf. 3. and family state pt has been growing frustrated and did not want to pursue more cancer tx; states pt did not want chemo and has always said if he ever developed cancer, he would want to be allowed to in peace. He agreed to chemo at urging of family however they now all agree it has not been the right choice for him and care is not aligned with what he wants for himself Other Content of Meetin. Opportunity given for participants to speak and ask questions. 2. Participants were assured of attention to patient comfort. 3. Reassurance provided. 4. Support was provided for informed, good-cori decisions. 5. Emotions expressed by family were acknowledged and addressed. 6. We discussed options of continue current course, try rehab, follow up with oncology vs no more chemo but try rehab vs transition focus to be about comfort and align with pt wishes for QOL, maximize time with family. given declining MS, ECOG decreasing and frailty along with his comorbidities, the needs exceed what can do at home and family is unable to assist with ATC care support so SNF placement with comfort care and hospice is desired. 7. Plan of Care: plan for SNF comfort care and hospice. TRansition to VOCATIONAL PLACEMENT SPECIALIST here in hospital, we will work to improve sx through the weekend. TS 90min
[2023-09-24] MEDS: LORazepam 0.5 MG in SYRINGE 0.25 ML IV PRN ×2 (05:33→12:26)
[2023-09-24] MEDS: VENLAFAXINE HCL 37.5 MG TAB PO SCH (10:43)
[2023-09-24] MEDS: FAMOTIDINE 20 MG TAB PO SCH ×2 (10:43→21:04)
[2023-09-24] MEDS: MoRPHine SULFATE 10 MG/0.5 ML UDP PO PRN ×2 (10:52→20:16)
--- NOTE | 2023-09-24 12:48 | Hospitalist Progress Note ---
Date of Service September 24, 2023 Assessment & Plan (1) Comfort measures only status: Plan: Due to lymphoma, stroke, ICH, ureteral stones with stent, encephalopathy, dementia, failure to thrive, decision made to pursue S[facility] BOBBER on 09/23 Appreciate Palliative Med consult Continue comfort meds I notified his Surgeon and Urologist and Oncology also aware as per d/w Palliative (2) Multiple falls: Plan: Fall + potential LOC morning of 09/14, multiple falls over the past week, subacute stroke in the cerebellum on brain MRI, also trace SDH right frontal lobe started asa, high intensity statin, known right ICA stenosis, antiplatelet agents were on hold with recent treatment of lymphoma diagnosis, isolated stroke does not seem to be embolic Hx of underlying dementia but here with acute encephalopathy 2/2 CVA, head trauma Urine culture resulted negative so uti ruled out,Blood culture negative to date antibiotics stopped Recent cystoscopy on 09/12; due to kidney stones with stone Destroyed by laser, postop discharged with 3-day course of Cipro and Diflucan which has now been stopped for prolonged QTc Pt with daytime sleepiness, stopped melatonin, stopped mirtazapine. Patient states he is depressed -started Effexor on 09/19/2023 but this has been discontinued on S[facility] BOBBER as it may be contributing to his restlessness (3) B-cell lymphoma: Plan: Port placement on 09/08, Patient was supposed to have second dose of chemotherapy mid September, postponed by medical issues currently Port catheter is in internal mammary vein but no need to correct this now on S[facility] BOBBER He has had a response to chemo thus far with tumors all decreased in size Appreciate oncology consult -no further therapy will be pursued and now on comfort measures Patient has severe malnutrition with a BMI of 19 (4) DARYL (acute kidney injury): Plan: daryl with CKD3, now improved, limits acei/arb use for CHF at this time now on SAND BOBBER no further labs (5) Demand ischemia: Plan: With h/o CABG and Stent in the past initially presented with coffee-ground emesis and aspirin was held subsequently has been restarted Elevated troponin at 118.0 --> 121.8 on 2 hour repeat, at this time do not feel this is an NSTEMI, felt to be demand ischemia EKG showed marked T wave inversions, changed from previous but persisted over several days Seen by Cardiology cardiomyopathy could be from previous cyclophosphamide COuld be from recent CVA? Limited echo shows decreased EF 40-45% STarted on Toprol XL but with hypotension-discontinued QTc 580 on admission improving slowly -Recently started on short course of Cipro/Diflucan following his urologic procedure on 09/12, which can extend QTc; discontinued both (6) Bloody emesis: Plan: no further bloody emesis, hgb stable -continue po pepcid (7) Dementia: Plan: Ongoing decline x2 years, Per daughter, acute changes over the past couple weeks -likely 2/2 CVA, head trauma Patient is not currently taking Aricept now on SAND BOBBER (8) 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: Plan: now with acute Cerebellar CVA, trace right frontal SDH, no midline shift (9) Cerebellar stroke: Plan: as above no further eval or workup on SAND BOBBER (10) Hypotension: Plan: dc FLomax cannot tolerate Toprol for CHF now on SAND BOBBER (11) Cardiomyopathy: Plan: as above (12) Prolonged QT interval: Plan: as above (13) CAD (coronary artery disease): Plan: h/o CABG discontinued ASA, statin on SAND BOBBER (14) Hypertension: Plan: can no longer tolerate metoprolol (15) Calculus, ureteral: Plan: WIth ureteral stone laser lithotripsy and stent placement on 09/12, also with urethral dilation and ureteral dilation performed, Gr left in place -was to have Gr removed around 09/17-09/19- -was to have ureteral stent removed around 09/29 Now keep Gr on [facility] BOBBER, no need to remove ureteral stent-informed Urology who is in agreement Plan DNR/DNI. now on comfort measures only DIspo-family wishes to pursue hospice at a retirement as cannot care for him alone at home-awaiting bed availability Admission and Anticipated Discharge Date Admission Date: September 14, 2023 Subjective Pt restless but more awake today. Denies pain. Is constantly fidgeting and trying to hang legs out of the bed. Says "I'm waiting for someone to get me but no one has." Physical Exam Constitutional: + ill appearing Respiratory: normal respiratory effort, lungs clear to auscultation normal respiratory effort Cardiovascular: RRR, no murmur, no edema Gastrointestinal (Abdomen): normal bowel sounds, soft, nontender, no hepatosplenomegaly Neurologic: awake and + confused (mild); no focal motor deficits Motor/Sensory: no tremor Psychiatric: Orientation: alert and oriented to person PG Care Time/CCT Total # of Minutes Spent Total Time Spent with Patient: Total time spent is greater than 50% in coordination of care (as documented) at patient's floor/unit and/or counseling patient: Coding Level of Care Code 95380 SUB INP/OBS CARE 12/01MIN Diagnoses Comfort measures only status Z51.5 Multiple falls R29.6 B-cell lymphoma C85.10 DARYL (acute kidney injury) N17.9 Demand ischemia I24.89 Bloody emesis K92.0 Dementia F03.90 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 Cerebellar stroke I63.9 Hypotension I95.9 Cardiomyopathy, unspecified type I42.9 Cardiomyopathy type: unspecified Prolonged QT interval R94.31 Coronary artery disease involving [place] coronary artery of [place] heart without angina pectoris I25.10 Coronary Disease-Associated Artery/Lesion type: [place] artery [place] vs. transplanted heart: [place] heart Associated angina: without angina Hypertension I10 Calculus, ureteral N20.1 (11) Cardiomyopathy Cardiomyopathy type: unspecified Qualified Code(s): I42.9 - Cardiomyopathy, unspecified (13) CAD (coronary artery disease) Coronary Disease-Associated Artery/Lesion type: [place] artery [place] vs. transplanted heart: [place] heart Associated angina: without angina Qualified Code(s): I25.10 - Atherosclerotic heart disease of [place] coronary artery without angina pectoris
[2023-09-25] MEDS: MoRPHine SULFATE 10 MG/0.5 ML UDP PO PRN ×2 (00:05→14:31)
[2023-09-25] MEDS: LORazepam 0.5 MG in SYRINGE 0.25 ML IV PRN (02:52)
[2023-09-25] MEDS: FAMOTIDINE 20 MG TAB PO SCH ×2 (10:47→20:57)
--- NOTE | 2023-09-25 15:36 | Hospitalist Progress Note ---
Date of Service September 25, 2023 Assessment & Plan (1) Comfort measures only status: Plan: Due to lymphoma, stroke, ICH, ureteral stones with stent, encephalopathy, dementia, failure to thrive, decision made to pursue [facility] on 09/23 Appreciate Palliative Med consult Continue comfort meds I notified his Surgeon and Urologist and Oncology also aware as per d/w Palliative (2) Multiple falls: Plan: Fall + potential LOC morning of 09/14, multiple falls over the past week, subacute stroke in the cerebellum on brain MRI, also trace SDH right frontal lobe started asa, high intensity statin, known right ICA stenosis, antiplatelet agents were on hold with recent treatment of lymphoma diagnosis, isolated stroke does not seem to be embolic Hx of underlying dementia but here with acute encephalopathy 2/2 CVA, head trauma Urine culture resulted negative so uti ruled out,Blood culture negative to date antibiotics stopped Recent cystoscopy on 09/12; due to kidney stones with stone Destroyed by laser, postop discharged with 3-day course of Cipro and Diflucan which has now been stopped for prolonged QTc Pt with daytime sleepiness, stopped melatonin, stopped mirtazapine. Patient states he is depressed -started Effexor on 09/19/2023 but this has been discontinued on [facility] as it may be contributing to his restlessness (3) B-cell lymphoma: Plan: Port placement on 09/08, Patient was supposed to have second dose of chemotherapy mid September, postponed by medical issues currently Port catheter is in internal mammary vein but no need to correct this now on G[employer] [facility]ER He has had a response to chemo thus far with tumors all decreased in size Appreciate oncology consult -no further therapy will be pursued and now on comfort measures Patient has severe malnutrition with a BMI of 19 (4) DARYL (acute kidney injury): Plan: daryl with CKD3, now improved, limits acei/arb use for CHF at this time now on G[facility]ER no further labs (5) Demand ischemia: Plan: With h/o CABG and Stent in the past initially presented with coffee-ground emesis and aspirin was held subsequently has been restarted Elevated troponin at 118.0 --> 121.8 on 2 hour repeat, at this time do not feel this is an NSTEMI, felt to be demand ischemia EKG showed marked T wave inversions, changed from previous but persisted over several days Seen by Cardiology cardiomyopathy could be from previous cyclophosphamide COuld be from recent CVA? 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: Plan: now with acute Cerebellar CVA, trace right frontal SDH, no midline shift (9) Cerebellar stroke: Plan: as above no further eval or workup on G[facility] PUMPER (10) Hypotension: Plan: dc FLomax cannot tolerate Toprol for CHF now on GAS PUMPER (11) Cardiomyopathy: Plan: as above (12) Prolonged QT interval: Plan: as above (13) CAD (coronary artery disease): Plan: h/o CABG discontinued ASA, statin on G[facility] PUMPER (14) Hypertension: Plan: can no longer tolerate metoprolol (15) Calculus, ureteral: Plan: WIth ureteral stone laser lithotripsy and stent placement on 09/12, also with urethral dilation and ureteral dilation performed, Gr left in place -was to have Gr removed around 09/17-09/19- -was to have ureteral stent removed around 09/29 Now keep Gr on [facility], no need to remove ureteral stent-informed Urology who is in agreement Plan DNR/DNI. now on comfort measures only DIspo-family wishes to pursue hospice at a intermediate as cannot care for him alone at home-awaiting bed availability Admission and Anticipated Discharge Date Admission Date: September 14, 2023 Subjective Pt awake at times and ate some small amounts of food. Family at bedside visiting are content with care. Has required some doses of morphine and ativan today for grimacing/presumed pain and ongoing restlessness Physical Exam Respiratory: normal respiratory effort, lungs clear to auscultation normal respiratory effort Cardiovascular: RRR, no murmur, no edema Gastrointestinal (Abdomen): normal bowel sounds, soft, nontender, no hepatosplenomegaly Results & Data Results & Data Vital Signs (Past 12 Hours) Vital Signs O2 Del Method 09/25/23 10:00 Room Air PG Care Time/CCT Total # of Minutes Spent Total Time Spent with Patient: Total time spent is greater than 50% in coordination of care (as documented) at patient's floor/unit and/or counseling patient: Coding Level of Care Code 42168 SUB INP/OBS CARE 1/25MIN Diagnoses Comfort measures only status Z51.5 Multiple falls R29.6 B-cell lymphoma C85.10 DARYL (acute kidney injury) N17.9 Demand ischemia I24.89 Bloody emesis K92.0 Dementia F03.90 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 Cerebellar stroke I63.9 Hypotension I95.9 Cardiomyopathy, unspecified type I42.9 Cardiomyopathy type: unspecified Prolonged QT interval R94.31 Coronary artery disease involving [place] coronary artery of [place] heart without angina pectoris I25.10 Coronary Disease-Associated Artery/Lesion type: [place] artery [place] vs. transplanted heart: [place] heart Associated angina: without angina Hypertension I10 Calculus, ureteral N20.1 (11) Cardiomyopathy Cardiomyopathy type: unspecified Qualified Code(s): I42.9 - Cardiomyopathy, unspecified (13) CAD (coronary artery disease) Coronary Disease-Associated Artery/Lesion type: [place] artery [place] vs. transplanted heart: [place] heart Associated angina: without angina Qualified Code(s): I25.10 - Atherosclerotic heart disease of [place] coronary artery without angina pectoris
[2023-09-26] MEDS: MoRPHine SULFATE 10 MG/0.5 ML UDP PO PRN ×3 (02:56→12:27)
[2023-09-26] MEDS: FAMOTIDINE 20 MG TAB PO SCH ×2 (08:36→21:30)
[2023-09-26] MEDS ORDERED: bisacodyL 10 MG SUPP PR STA (14:07)
--- NOTE | 2023-09-26 14:18 | Hospitalist Progress Note ---
Date of Service September 26, 2023 Assessment & Plan (1) Comfort measures only status: Plan: Due to lymphoma, stroke, ICH, ureteral stones with stent, encephalopathy, dementia, failure to thrive, decision made to pursue [facility] on 09/23 Appreciate Palliative Med consult Continue comfort meds I notified his Surgeon and Urologist and Oncology also aware as per d/w Palliative Give biscaodyl UT x 1 for constipation which could be causing pain (2) Multiple falls: Plan: Fall + potential LOC morning of 09/14, multiple falls over the past week, subacute stroke in the cerebellum on brain MRI, also trace SDH right frontal lobe started asa, high intensity statin, known right ICA stenosis, antiplatelet agents were on hold with recent treatment of lymphoma diagnosis, isolated stroke does not seem to be embolic Hx of underlying dementia but here with acute encephalopathy 2/2 CVA, head trauma Urine culture resulted negative so uti ruled out,Blood culture negative to date antibiotics stopped Recent cystoscopy on 09/12; due to kidney stones with stone Destroyed by laser, postop discharged with 3-day course of Cipro and Diflucan which has now been stopped for prolonged QTc Pt with daytime sleepiness, stopped melatonin, stopped mirtazapine. Patient states he is depressed -started Effexor on 09/19/2023 but this has been discontinued on [facility] as it may be contributing to his restlessness (3) B-cell lymphoma: Plan: Port placement on 09/08, Patient was supposed to have second dose of chemotherapy mid September, postponed by medical issues currently Port catheter is in internal mammary vein but no need to correct this now on [facility] He has had a response to chemo thus far with tumors all decreased in size Appreciate oncology consult -no further therapy will be pursued and now on comfort measures Patient has severe malnutrition with a BMI of 19 (4) DARYL (acute kidney injury): Plan: daryl with CKD3, now improved, limits acei/arb use for CHF at this time now on [facility] no further labs (5) Demand ischemia: Plan: With h/o CABG and Stent in the past initially presented with coffee-ground emesis and aspirin was held subsequently has been restarted Elevated troponin at 118.0 --> 121.8 on 2 hour repeat, at this time do not feel this is an NSTEMI, felt to be demand ischemia EKG showed marked T wave inversions, changed from previous but persisted over several days Seen by Cardiology cardiomyopathy could be from previous cyclophosphamide COuld be from recent CVA? Limited echo shows decreased EF 40-45% STarted on Toprol XL but with hypotension-discontinued QTc 580 on admission improving slowly -Recently started on short course of Cipro/Diflucan following his urologic procedure on 09/12, which can extend QTc; discontinued both (6) Bloody emesis: Plan: no further bloody emesis, hgb stable -continue po pepcid (7) Dementia: Plan: Ongoing decline x2 years, Per daughter, acute changes over the past couple weeks -likely 2/2 CVA, head trauma Patient is not currently taking Aricept now on [facility] (8) 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: Plan: now with acute Cerebellar CVA, trace right frontal SDH, no midline shift (9) Cerebellar stroke: Plan: as above no further eval or workup on [facility] (10) Hypotension: Plan: dc FLomax cannot tolerate Toprol for CHF now on [facility] (11) Cardiomyopathy: Plan: as above (12) Prolonged QT interval: Plan: as above (13) CAD (coronary artery disease): Plan: h/o CABG discontinued ASA, statin on [facility] (14) Hypertension: Plan: can no longer tolerate metoprolol (15) Calculus, ureteral: Plan: WIth ureteral stone laser lithotripsy and stent placement on 09/12, also with urethral dilation and ureteral dilation performed, Gr left in place -was to have Gr removed around 09/17-09/19- -was to have ureteral stent removed around 09/29 Now keep Rg on [facility], no need to remove ureteral stent-informed Urology who is in agreement Plan DNR/DNI. now on comfort measures only DIspo-family wishes to pursue hospice at a half-way as cannot care for him alone at home-awaiting bed availability Admission and Anticipated Discharge Date Admission Date: September 14, 2023 Subjective Pt seems to be painful but can't explain where. He has not moved his bowels this entire hospital stay that is documented as per RN. Otherwise he is awake and alert, somewhat interactive at bedside Physical Exam Respiratory: normal respiratory effort, lungs clear to auscultation Cardiovascular: RRR, no murmur, no edema Gastrointestinal (Abdomen): normal bowel sounds, soft, nontender, no hepatosplenomegaly Neurologic: awake and + confused (mild); no focal motor deficits Motor/Sensory: no tremor Psychiatric: Orientation: alert, oriented to person and cooperative Results & Data Results & Data Vital Signs (Past 12 Hours) Vital Signs O2 Del Method 09/26/23 07:25 Room Air PG Care Time/CCT Total # of Minutes Spent Total Time Spent with Patient: Total time spent is greater than 50% in coordination of care (as documented) at patient's floor/unit and/or counseling patient: Coding Level of Care Code 35915 SUB INP/OBS CARE 12/01MIN Diagnoses Comfort measures only status Z51.5 Multiple falls R29.6 B-cell lymphoma C85.10 DARYL (acute kidney injury) N17.9 Demand ischemia I24.89 Bloody emesis K92.0 Dementia F03.90 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 Cerebellar stroke I63.9 Hypotension I95.9 Cardiomyopathy, unspecified type I42.9 Cardiomyopathy type: unspecified Prolonged QT interval R94.31 Coronary artery disease involving [place] coronary artery of [place] heart without angina pectoris I25.10 Coronary Disease-Associated Artery/Lesion type: [place] artery [place] vs. transplanted heart: [place] heart Associated angina: without angina Hypertension I10 Calculus, ureteral N20.1 (11) Cardiomyopathy Cardiomyopathy type: unspecified Qualified Code(s): I42.9 - Cardiomyopathy, unspecified (13) CAD (coronary artery disease) Coronary Disease-Associated Artery/Lesion type: [place] artery [place] vs. transplanted heart: [place] heart Associated angina: without angina Qualified Code(s): I25.10 - Atherosclerotic heart disease of [place] coronary artery without angina pectoris
[2023-09-27] MEDS: LORazepam 0.5 MG in SYRINGE 0.25 ML IV PRN (05:56)
[2023-09-27] MEDS: FAMOTIDINE 20 MG TAB PO SCH (10:46)
--- NOTE | 2023-09-27 18:30 | Hospitalist Progress Note ---
Date of Service September 27, 2023 Assessment & Plan (1) Comfort measures only status: Plan: Due to lymphoma, stroke, ICH, ureteral stones with stent, encephalopathy, dementia, failure to thrive, decision made to pursue AUDIO VISUAL SPECIALIST on 09/23 Appreciate Palliative Med consult Continue comfort meds-give lorazepam now for restlessness I notified his Surgeon and Urologist and Oncology also aware as per d/w Palliative Give biscaodyl NH x 1 for again constipation which could be causing pain (2) Multiple falls: Plan: Fall + potential LOC morning of 09/14, multiple falls over the past week, subacute stroke in the cerebellum on brain MRI, also trace SDH right frontal lobe started asa, high intensity statin, known right ICA stenosis, antiplatelet agents were on hold with recent treatment of lymphoma diagnosis, isolated stroke does not seem to be embolic Hx of underlying dementia but here with acute encephalopathy 2/2 CVA, head trauma Urine culture resulted negative so uti ruled out,Blood culture negative to date antibiotics stopped Recent cystoscopy on 09/12; due to kidney stones with stone Destroyed by laser, postop discharged with 3-day course of Cipro and Diflucan which has now been stopped for prolonged QTc Pt with daytime sleepiness, stopped melatonin, stopped mirtazapine. Patient states he is depressed -started Effexor on 09/19/2023 but this has been discontinued on AUDIO VISUAL SPECIALIST as it may be contributing to his restlessness (3) B-cell lymphoma: Plan: Port placement on 09/08, Patient was supposed to have second dose of chemotherapy mid September, postponed by medical issues currently Port catheter is in internal mammary vein but no need to correct this now on AUDIO VISUAL SPECIALIST He has had a response to chemo thus far with tumors all decreased in size Appreciate oncology consult -no further therapy will be pursued and now on comfort measures Patient has severe malnutrition with a BMI of 19 (4) DARYL (acute kidney injury): Plan: daryl with CKD3, now improved, limits acei/arb use for CHF at this time now on AUDIO VISUAL SPECIALIST no further labs (5) Demand ischemia: Plan: With h/o CABG and Stent in the past initially presented with coffee-ground emesis and aspirin was held subsequently has been restarted Elevated troponin at 118.0 --> 121.8 on 2 hour repeat, at this time do not feel this is an NSTEMI, felt to be demand ischemia EKG showed marked T wave inversions, changed from previous but persisted over several days Seen by Cardiology cardiomyopathy could be from previous cyclophosphamide COuld be from recent CVA? Limited echo shows decreased EF 40-45% STarted on Toprol XL but with hypotension-discontinued QTc 580 on admission improving slowly -Recently started on short course of Cipro/Diflucan following his urologic procedure on 09/12, which can extend QTc; discontinued both (6) Bloody emesis: Plan: no further bloody emesis, hgb stable -continue po pepcid (7) Dementia: Plan: Ongoing decline x2 years, Per daughter, acute changes over the past couple weeks -likely 2/2 CVA, head trauma Patient is not currently taking Aricept now on AUDIO VISUAL SPECIALIST (8) 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: Plan: now with acute Cerebellar CVA, trace right frontal SDH, no midline shift (9) Cerebellar stroke: Plan: as above no further eval or workup on AUDIO VISUAL SPECIALIST (10) Hypotension: Plan: dc FLomax cannot tolerate Toprol for CHF now on AUDIO VISUAL SPECIALIST (11) Cardiomyopathy: Plan: as above (12) Prolonged QT interval: Plan: as above (13) CAD (coronary artery disease): Plan: h/o CABG discontinued ASA, statin on AUDIO VISUAL SPECIALIST (14) Hypertension: Plan: can no longer tolerate metoprolol (15) Calculus, ureteral: Plan: WIth ureteral stone laser lithotripsy and stent placement on 09/12, also with urethral dilation and ureteral dilation performed, Gr left in place -was to have Gr removed around 09/17-09/19- -was to have ureteral stent removed around 09/29 Now keep Gr on AUDIO VISUAL SPECIALIST, no need to remove ureteral stent-informed Urology who is in agreement Plan DNR/DNI. now on comfort measures only DIspo-family wishes to pursue hospice at a long-term as cannot care for him alone at home-awaiting bed availability Admission and Anticipated Discharge Date Admission Date: September 14, 2023 Subjective pt awake but not able to converse much. Seems very restless, occsionally moans. Denies pain. I discussed his care withhis granddaughter today via [place] Text regarding prognosis in determining disposition Physical Exam Constitutional: + ill appearing Respiratory: normal respiratory effort Gastrointestinal (Abdomen): normal bowel sounds, soft, nontender, no hepatosplenomegaly Neurologic: awake and + confused (mild) Results & Data Results & Data Vital Signs (Past 12 Hours) Vital Signs O2 Del Method 09/27/23 07:36 Room Air PG Care Time/CCT Total # of Minutes Spent Total Time Spent with Patient: Total time spent is greater than 50% in coordination of care (as documented) at patient's floor/unit and/or counseling patient: Coding Level of Care Code 73734 SUB INP/OBS CARE 1/25MIN Diagnoses Comfort measures only status Z51.5 Multiple falls R29.6 B-cell lymphoma C85.10 DARYL (acute kidney injury) N17.9 Demand ischemia I24.89 Bloody emesis K92.0 Dementia F03.90 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 Cerebellar stroke I63.9 Hypotension I95.9 Cardiomyopathy, unspecified type I42.9 Cardiomyopathy type: unspecified Prolonged QT interval R94.31 Coronary artery disease involving [place] coronary artery of [place] heart without angina pectoris I25.10 Coronary Disease-Associated Artery/Lesion type: [place] artery [place] vs. transplanted heart: [place] heart Associated angina: without angina Hypertension I10 Calculus, ureteral N20.1 (11) Cardiomyopathy Cardiomyopathy type: unspecified Qualified Code(s): I42.9 - Cardiomyopathy, unspecified (13) CAD (coronary artery disease) Coronary Disease-Associated Artery/Lesion type: [place] artery [place] vs. transplanted heart: [place] heart Associated angina: without angina Qualified Code(s): I25.10 - Atherosclerotic heart disease of [place] coronary artery witho ut angina pectoris
[2023-09-27] MEDS ORDERED: bisacodyL 10 MG SUPP PR STA (18:31)
[2023-09-27] MEDS: MoRPHine SULFATE 10 MG/0.5 ML UDP PO PRN (19:51)
[2023-09-28] MEDS: MoRPHine SULFATE 10 MG/0.5 ML UDP PO PRN ×2 (07:36→12:24)
[2023-09-28] MEDS ORDERED: LORazepam 1 MG in SYRINGE 0.5 ML IV PRN (13:25)
[2023-09-28] MEDS ORDERED: MoRPHine SULFATE 10 MG/0.5 ML UDP PO PRN (13:25)
[2023-09-28] MEDS ORDERED: MoRPHine SULFATE 2 MG/ML CARP IV PRN (13:42)
[2023-09-28] MEDS ORDERED: MoRPHine SULFATE 4 MG/ML 1 ML CARP\\VIAL IV PRN (13:43)
[2023-09-28] MEDS: MoRPHine SULFATE 2 MG/ML CARP IV SCH ×2 (13:58→18:15)
--- NOTE | 2023-09-28 14:19 | Palliative Care Progress Note ---
Date of Service September 28, 2023 Assessment & Plan (1) Dyspnea and respiratory abnormalities: Plan: uncontrolled resp distress with intermittent apnea stop PO meds begin scheduled MS 1mg q4h and use prn MS 2 and 3mg Q30min prn for more severe breakthrough sx (2) Agitation: Plan: continue prn ativan. nursing has been giving this today with improvement in restlessness (3) Encounter for end of life care: (4) Discussion about advance care planning held with family member: Plan: Met face to face with , dtr and adult granddaughter x1 at bedside for 40min Reviewed changes in patient condition and my worry that he has transitioned from a process of living to a process of dying. I advised them I do not believe he has long to live and I reviewed specifically the resp patterns changing and intermittent apneas are suggesting he is transitioning to an active dying process. Anticipate survival of hours to few days. If he continues worsening/declining will continue [facility]ATOR OF COLLECTIONS in hospital. IF he stabilizes and on Tuesday is unchanged/no worsening in 24 hr then decision about dispo to either home with hospice or SNF placement to facility with an available bed will happen. Family in agreement. verbalized understanding and was in agreement with plan. All questions were answered to their apparent satisfaction. grand daughter noted to become especially emotional, daughter advised she had lost her mother approx 3 yr ago and it has been hard to see her grandfather dying, as she was the first grandchild and had a close relationship with him. (5) Gurgling breath sounds: Plan: use robinul as ordered (6) Palliative care by specialist: (7) Multiple falls: (8) B-cell lymphoma: Plan * As outlined above * Pt is actively dying, likely hours to days. he is having signif increase resp distress alternating with lengthening apneas. Will schedule low dose MS 1mg IV Q4h and use MS 2 mg and 3mg Q30min prn for moderate/severe to very severe air hunger or EOL pain. * Reviewed med changes and plan fo care with nursing, primary team, pt family (, dtr, grand daughter x1) as well as care mgt from primary team. * He is not a GIP candidate at this time, he will before they can arrive to do admission. is happy with CURATOR OF COLLECTIONS in hospital. TS 75min Thank you for allowing us to participate in the ongoing care of this patient. Please don't hesitate to call or page with any additional concerns. Dr. Hayde Buitrago DNP Director, Palliative Care Admission and Anticipated Discharge Date Admission Date: September 14, 2023 Subjective Paged by hospitalist CM asking to see pt urgently. family very angry, and dtr had been shouting at unit CM yesterday when a ttempting to discuss dc planning although family desired SNF dc they are now debating home with hospice vs staying in hospital. pt seen bedside , daughter and an adult grand daughter with 2 sons present at bedside I asked to speak with adult family, grandsons x2 exited room states pt became more restless yesterday and seemed to be on a decline. he is having more touble breathing, more effort noted and less interactive/responsive per daughter pt noted to be having apneas by nursing today lasting as long as 45sec he is full care, no longer able to take PO his symptoms do no appear controlled with current regimen feels he is not comfortable and worries he is suffering Review of Systems Review of Systems: All systems reviewed & are unremarkable except as noted in Subjective and Unobtainable due to reduced consciousness Physical Exam Physical Exam: Elderly male, chronically ill-appearing, does not open eyes to verbal but will grimace with sternal rub Bitemp wasting Unable to follow commands or provide HPI. Inc resp effort with use of accessory muscles noted. There is some chest heaving noted. He had a cycle of accelerated respirations and then an apnea of approx 35 sec during my visit. There is abd breathing noted Tachy s1s2, no gross JVD abd scappoid +pallor skin cool, sl clammy restless in bed, agitated and moving BLE around a bit Results & Data Vital Signs (Past 12 Hours) Vital Signs O2 Del Method 09/28/23 08:00 Room Air PG Care Time/CCT Total # of Minutes Spent Total Time Spent: 75 Total Time Spent with Patient: Total time spent is greater than 50% in coordination of care (as documented) at patient's floor/unit and/or counseling patient: Advanced Care Planning 99847 Advanced Care Planning 30 Min 23756 Advanced Care Planning Additional 30 Min [place] [address] SUB INP/OBS CARE 3/50MIN Patient Type Established History Comprehensive Exam Comprehensive Medical Decision Making High Complexity Diagnoses Dyspnea and respiratory abnormalities R06.00; R06.89 Agitation R45.1 Encounter for end of life care Z51.5 Discussion about advance care planning held with family member Z71.0 Gurgling breath sounds R09.89 Palliative care by specialist Z51.5 Multiple falls R29.6 B-cell lymphoma C85.10 Additional Codes Advanced Care Planning - 62846 Advanced Care Planning 30 Min: 60082 Advanced Care Planning 30 Min ([id number]) Advanced Care Planning - 57808 Advanced Care Planning Additional 30 Min: 95122 Advanced Care Planning Additional 30 Min ([id number])
--- NOTE | 2023-09-28 18:12 | Hospitalist Progress Note ---
Date of Service September 28, 2023 Assessment & Plan (1) Comfort measures only status: Plan: Due to lymphoma, stroke, ICH, ureteral stones with stent, encephalopathy, dementia, failure to thrive, decision made to pursue SOFTWARE INTERN on 09/23 Appreciate Palliative Med consult With dramatic decline in condition on 09/28--> significant restlessness, tachypnea, some periods of apnea Seems now he only has hours to days until he passes as opposed to weeks. Continue comfort meds-increased doses of morphine and changed to IV COnsider morphine gtt overnight if not improving with current morphine dosing (2) Multiple falls: Plan: Fall + potential LOC morning of 09/14, multiple falls over the past week, subacute stroke in the cerebellum on brain MRI, also trace SDH right frontal l obe started asa, high intensity statin, known right ICA stenosis, antiplatelet agents were on hold with recent treatment of lymphoma diagnosis, isolated stroke does not seem to be embolic Hx of underlying dementia but here with acute encephalopathy 2/2 CVA, head trauma Urine culture resulted negative so uti ruled out,Blood culture negative to date antibiotics stopped Recent cystoscopy on 09/12; due to kidney stones with stone Destroyed by laser, postop discharged with 3-day course of Cipro and Diflucan which has now been stopped for prolonged QTc Pt with daytime sleepiness, stopped melatonin, stopped mirtazapine. Patient states he is depressed -started Effexor on 09/19/2023 but this has been discontinued on SOFTWARE INTERN as it may be contributing to his restlessness (3) B-cell lymphoma: Plan: Port placement on 09/08, Patient was supposed to have second dose of chemotherapy mid September, postponed by medical issues currently Port catheter is in internal mammary vein but no need to correct this now on SOFTWARE INTERN He has had a response to chemo thus far with tumors all decreased in size Appreciate oncology consult -no further therapy will be pursued and now on comfort measures Patient has severe malnutrition with a BMI of 19 (4) DARYL (acute kidney injury): Plan: daryl with CKD3, now improved, limits acei/arb use for CHF at this time now on SOFTWARE INTERN no further labs (5) Demand ischemia: Plan: With h/o CABG and Stent in the past initially presented with coffee-ground emesis and aspirin was held subsequently has been restarted Elevated troponin at 118.0 --> 121.8 on 2 hour repeat, at this time do not feel this is an NSTEMI, felt to be demand ischemia EKG showed marked T wave inversions, changed from previous but persisted over several days Seen by Cardiology cardiomyopathy could be from previous cyclophosphamide COuld be from recent CVA? Limited echo shows decreased EF 40-45% STarted on Toprol XL but with hypotension-discontinued QTc 580 on admission improving slowly -Recently started on short course of Cipro/Diflucan following his urologic procedure on 09/12, which can extend QTc; discontinued both (6) Bloody emesis: Plan: no further bloody emesis, hgb stable dc pepcid (7) Dementia: Plan: Ongoing decline x2 years, Per daughter, acute changes over the past couple weeks -likely 2/2 CVA, head trauma Patient is not currently taking Aricept now on SOFTWARE INTERN (8) 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: Plan: now with acute Cerebellar CVA, trace right frontal SDH, no midline shift (9) Cerebellar stroke: Plan: as above no further eval or workup on SOFTWARE INTERN (10) Hypotension: Plan: dc FLomax cannot tolerate Toprol for CHF now on SOFTWARE INTERN (11) Cardiomyopathy: Plan: as above (12) Prolonged QT interval: Plan: as above (13) CAD (coronary artery disease): Plan: h/o CABG discontinued ASA, statin on SOFTWARE INTERN (14) Hypertension: Plan: can no longer tolerate metoprolol (15) Calculus, ureteral: Plan: WIth ureteral stone laser lithotripsy and stent placement on 09/12, also with urethral dilation and ureteral dilation performed, Gr left in place -was to have Gr removed around 09/17-09/19- -was to have ureteral stent removed around 09/29 Now keep Gr on SOFTWARE INTERN, no need to remove ureteral stent-informed Urology who is in agreement Plan DNR/DNI. now on comfort measures only DIspo-will likely pass away in next 1-2 days, keep here and no placement to be pursued Admission and Anticipated Discharge Date Admission Date: September 14, 2023 Subjective Pt had a dramatic decline today with significantly worsening dyspnea, is agitated, unresponsive all day. Was having 45 sec apneic episodes and then after being given ativan, had increased tachypnea as per RN. Seen by Palliative and increased morphine dose and frequency with transition to IV morphine rather than po. Multiple family members at bedside Physical Exam Constitutional: + lethargic Respiratory: + labored breathing and + tachypneic Neurologic: + obtunded; + not awake Results & Data Results & Data Vital Signs (Past 12 Hours) Vital Signs O2 Del Method 09/28/23 08:00 Room Air PG Care Time/CCT Total # of Minutes Spent Total Time Spent with Patient: Total time spent is greater than 50% in coordination of care (as documented) at patient's floor/unit and/or counseling patient: Coding Level of Care Code 50245 SUB INP/OBS CARE 12/01MIN Diagnoses Comfort measures only status Z51.5 Multiple falls R29.6 B-cell lymphoma C85.10 DARYL (acute kidney injury) N17.9 Demand ischemia I24.89 Bloody emesis K92.0 Dementia F03.90 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 Cerebellar stroke I63.9 Hypotension I95.9 Cardiomyopathy, unspecified type I42.9 Cardiomyopathy type: unspecified Prolonged QT interval R94.31 Coronary artery disease involving [place] coronary artery of [place] heart without angina pectoris I25.10 Associated angina: without angina Coronary Disease-Associated Artery/Lesion type: [place] artery [place] vs. transplanted heart: [place] heart Hypertension I10 Calculus, ureteral N20.1 (11) Cardiomyopathy Cardiomyopathy type: unspecified Qualified Code(s): I42.9 - Cardiomyopathy, unspecified (13) CAD (coronary artery disease) Associated angina: without angina Coronary Disease-Associated Artery/Lesion type: [place] artery [place] vs. transplanted heart: [place] heart Qualified Code(s): I25.10 - Atherosclerotic heart disease of [place] coronary artery without angina pectoris
--- NOTE | 2023-09-28 18:49 | Death Pronouncement Note ---
Date of Service September 28, 2023 Pronouncement Note Admission Date September 14, 2023 Date and Time of Date of : 09/28/23 Time of : 18:40 Preliminary Cause of (1) Myocardial Infarction: (2) Cerebellar stroke: (3) CAD (coronary artery disease): Coronary Disease-Associated Artery/Lesion type: [place] artery [place] vs. transplanted heart: [place] Associated angina: without angina Qualified Code(s): I25.10 - Atherosclerotic heart disease of [place] coronary artery without angina pectoris (4) Hypotension: (5) Multiple falls: (6) B-cell lymphoma: (7) DARYL (acute kidney injury): (8) Demand ischemia: (9) Bloody emesis: (10) Dementia: (11) 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: (12) Cardiomyopathy: Cardiomyopathy type: unspecified Qualified Code(s): I42.9 - Cardiomyopathy, unspecified (13) Prolonged QT interval: (14) Hypertension: (15) Calculus, ureteral: (16) Comfort measures only status: Summary see discharge summary Additional Data Confirmation of : no pulse, no respirations, no heart sounds and pupils fixed and dilated Family: at bedside Additional persons at bedside: other (RN) Attending/PCP notified?: Yes Attending physician: Rossana Pereyra MD Was code activated?: No Autopsy requested?: No Coding Level of Care Code None Diagnoses Myocardial Infarction I21.9 Cerebellar stroke I63.9 Coronary artery disease involving [place] coronary artery of [place] heart without angina pectoris I25.10 Coronary Disease-Associated Artery/Lesion type: [place] artery [place] vs. transplanted heart: [place] Associated angina: without angina Hypotension I95.9 Multiple falls R29.6 B-cell lymphoma C85.10 DARYL (acute kidney injury) N17.9 Demand ischemia I24.89 Bloody emesis K92.0 Dementia F03.90 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 Cardiomyopathy, unspecified type I42.9 Cardiomyopathy type: unspecified Prolonged QT interval R94.31 Hypertension I10 Calculus, ureteral N20.1 Comfort measures only status Z51.5
--- NOTE | 2023-09-28 18:59 | Discharge Summary ---
Discharge Summary Date of Service September 28, 2023 Notes For Next Care Provider Admission HPI Per Admitting Provider Jose is an 78-year-old male with PMH of B-cell lymphoma, dementia, CAD, SD, HTN, intracerebral hemorrhage without residual deficit, and s/p left ureteral stent placement on 08/12. He presented via EMS for syncope this morning 09/14. Patient is a poor historian due to underlying dementia, and cannot confirm or deny if he lost consciousness during the falls. Per (Shakir) and daughter (Vicky), patient has had multiple falls over the past few days. Head strike on fall on night of Thursday 09/13. He says his "legs just give out", and denies tripping, dizziness, lightheadedness. No fall hx outside this week, per /daughter. Of note, he had a left subclavian port placed on 09/08 and was supposed to start chemotherapy for B-cell lymphoma today 09/14. No at home O2 use. Last BM on Tuesday 09/11; loose stool; he notes that he has new "black bowel movements" x1 week. He has been vomiting intermittently over the past 2 months, and had 1 episode of hematemesis with ground coffee appearance this morning in the ED 09/14; patient reports having [employer] and is unable to confirm or deny if there has been blood in his vomit over the past 2 months. He took his morning medications. Vital stable at time of admission. ED course: IVF, Rocephin 2000 mg, pantoprazole 40 mg ROS: Patient endorses uninentional weight loss (170lb-->122lb over the course of 2months, per daughter), loss of appetite, chills, SOB with exertion, abdominal pain, N/V/D, loose stool, blood in urine (s/p kidney stone 09/08), melena. Patient denies fever, nightsweats, LYMAN, dizziness, lightheadedness, CP, pleuritic CP, SOB at rest, back pain. Additional PMH: PEBBLES in July Took prednisone 4tabs 20mg this morning 09/14 for chemo Per daughter, he only kept down 3 tablets (60mg total); she found one tab on the floor / patient was coughing Not taking prednisone before today Patient lives with ; and daughter/son live nearby manages daily medications No PMHx of DVT/PE, diabetes, CVA TIA several years ago, per daughter. Please see Dr. Matt's attestation for any changes to treatment plan. Principal Dx & Hospital Course #1 = Principal Diagnosis (1) Myocardial Infarction: Was placed on comfort measures and with a h/o CAD, cardiomyopathy, recent CVA, likely from SD as cause of (2) Cerebellar stroke: found as part of workup for falls and encephalopathy placed on comfort measures only (3) CAD (coronary artery disease): h/o CABG discontinued ASA, statin on CHEESE CUTTER (4) Hypotension: now on CHEESE CUTTER (5) Multiple falls: Fall + potential LOC morning of 09/14, multiple falls over the past week, subacute stroke in the cerebellum on brain MRI, also trace SDH right frontal lobe started asa, high intensity statin, known right ICA stenosis, antiplatelet agents were on hold with recent treatment of lymphoma diagnosis, isolated stroke does not seem to be embolic Hx of underlying dementia but here with acute encephalopathy 2/2 CVA, head trauma Urine culture resulted negative so uti ruled out,Blood culture negative to date antibiotics stopped Recent cystoscopy on 09/12; due to kidney stones with stone Destroyed by laser, postop discharged with 3-day course of Cipro and Diflucan which has now been stopped for prolonged QTc (6) B-cell lymphoma: Port placement on 09/08, Patient was supposed to have second dose of chemotherapy mid September, postponed by medical issues currently Port catheter is in internal mammary vein but no need to correct this now on CHEESE CUTTER He has had a response to chemo thus far with tumors all decreased in size Appreciate oncology consult -no further therapy will be pursued and now on comfort measures Patient has severe malnutrition with a BMI of 19 (7) DARYL (acute kidney injury): daryl with CKD3, now improved, limits acei/arb use for CHF at this time placed on CHEESE CUTTER (8) Demand ischemia: With h/o CABG and Stent in the past initially presented with coffee-ground emesis and aspirin was held and then restarted Elevated troponin at 118.0 --> 121.8 on 2 hour repeat, felt to be demand ischemia EKG showed marked T wave inversions, changed from previous but persisted over several days Seen by Cardiology cardiomyopathy could be from previous cyclophosphamide COuld be from recent CVA? Limited echo shows decreased EF 40-45% STarted on Toprol XL but with hypotension-discontinued QTc 580 on admission improving slowly -Recently started on short course of Cipro/Diflucan following his urologic procedure on 09/12, which can extend QTc; discontinued both (9) Bloody emesis: no further bloody emesis, hgb stable dcd pepcid (10) Dementia: Ongoing decline x2 years, Per daughter, acute changes over the past couple weeks -likely 2/2 CVA, head trauma (11) 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: now with acute Cerebellar CVA, trace right frontal SDH, no midline shift (12) Cardiomyopathy: as above (13) Prolonged QT interval: as above (14) Hypertension: (15) Calculus, ureteral: WIth ureteral stone laser lithotripsy and stent placement on 09/12, also with urethral dilation and ureteral dilation performed, Gr left in place -was to have Gr removed around 09/17-09/19- -was to have ureteral stent removed around 09/29 maintained Gr on CHEESE CUTTER, no need to remove ureteral stent-informed Urology who is in agreement (16) Comfort measures only status: Due to lymphoma, stroke, ICH, ureteral stones with stent, encephalopathy, dementia, failure to thrive, decision made to pursue CHEESE CUTTER on 09/23 Appreciate Palliative Med consult With dramatic decline in condition on 09/28--> significant restlessness, tachypnea, some periods of apnea was treated with iincreased doses of morphine IV for dyspnea and at 1840 on 09/28 Plan Gave condolences to family at bedside Discharge Exam Constitutional pupils fixed and dilated, no pulses, no audible heart sounds, no rise nad fall of chest, no response to verbal stimulus Updated Medication List Medication Instructions Recorded Confirmed Type aspirin 81 mg tablet,delayed 81 mg PO QAM 06/28/19 09/14/23 History release (Kevin Low Dose Aspirin) metoprolol tartrate 25 mg tablet 25 mg PO QAM 06/28/19 09/14/23 History rosuvastatin 5 mg tablet (Crestor) 5 mg PO DAILY 08/10/23 09/14/23 History nitroglycerin 0.4 mg sublingual 0.4 mg sublingual UD PRN Chest Pain 08/11/23 09/14/23 History tablet mirtazapine 30 mg tablet (Remeron) 30 mg PO DAILY #90 tabs 08/26/23 09/14/23 Rx oxycodone 5 mg capsule 5 mg PO Q4H PRN Pain 08/26/23 09/14/23 History ondansetron HCl 4 mg tablet 4 mg PO Q8H PRN Nausea 09/01/23 09/14/23 History prochlorperazine maleate 5 mg 5 mg PO BID PRN Nausea 09/01/23 09/14/23 History tablet (Compazine) ciprofloxacin HCl 500 mg tablet 500 mg PO Q12H #6 tabs 09/12/23 09/14/23 Rx (Cipro) fluconazole 100 mg tablet 100 mg PO DAILY 09/12/23 09/14/23 History (Diflucan) oxycodone-acetaminophen 7.5 mg-325 1 tab PO Q8H PRN pain #7 tabs 09/12/23 09/14/23 Rx mg tablet (Percocet) phenazopyridine 200 mg tablet 200 mg PO Q8H PRN pain #10 tabs 09/12/23 09/14/23 Rx (Pyridium) polyethylene glycol 3350 17 17 g PO DAILY PRN Constipation 09/12/23 09/14/23 History gram/dose oral powder (Miralax) tamsulosin 0.4 mg capsule 0.4 mg PO HS #30 caps 09/12/23 09/14/23 Rx Hospital Stay Data Consultations 09/14/23 12:05 ED Decision to Admit Stat 09/14/23 16:22 Consult Oncology Routine 09/15/23 08:02 Consult Cardiology Routine 09/21/23 09:08 Consult Palliative Care Routine Procedures Performed Operation Date: 09/23/23 11:15 <No data on this case meets the specified criteria> Diagnostic Imagining Performed 09/14/23 10:21 CT head/brain wo con Stat 09/14/23 19:47 CT abd pelvis wo con Routine 09/17/23 16:09 MRI Brain [MR brain wo con] Routine Total Time Total Time Spent Total Time Spent (In Minutes): 20 min Coding Level of Care Code 43960 IN/OBS DISCH 30 MIN/LESS Diagnoses Myocardial Infarction I21.9 Cerebellar stroke I63.9 Coronary artery disease involving [place] coronary artery of [place] heart without angina pectoris I25.10 Coronary Disease-Associated Artery/Lesion type: [place] artery [place] vs. transplanted heart: [place] heart Associated angina: without angina Hypotension I95.9 Multiple falls R29.6 B-cell lymphoma C85.10 DARYL (acute kidney injury) N17.9 Demand ischemia I24.89 Bloody emesis K92.0 Dementia F03.90 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 Cardiomyopathy, unspecified type I42.9 Cardiomyopathy type: unspecified Prolonged QT interval R94.31 Hypertension I10 Calculus, ureteral N20.1 Comfort measures only status Z51.5
== END 2023-09-28 20:40 | disposition expired | DRG 64 ==
LOC: ED 09:44 → EDINP 13:52 → SUATTDRO 13:52 → EDINP 14:05 → 2E 15:39 → 3N 09-19 21:50